=== PATIENT | male | born 1980 | race Caucasian/White ===

== ENCOUNTER 2022-08-03 19:27 | Emergency (ER) | payer BC, SELFPAY ==
[2022-08-03 19:31] VITALS: BP 144/52; PULSE 79; RESP 20; TEMP 37.1; O2SAT 97; BMI 42.1
--- NOTE | 2022-08-03 19:48 | ED_ITS ---
HPI - General Adult General Chief complaint: Animal Bite Stated complaint: CAT BITE Time Seen by Provider: 08/03/22 19:33 Source: patient Mode of arrival: walk-in Limitations: no limitations History of Present Illness HPI narrative: 41-year-old male presents with a chief complaint of a Bite. Patient states he was bitten by his cat last evening. He has the area well marked. He has soft tissue swelling on the right index finger with two or three puncture wounds as well as on the dorsal aspect of the right hand. He has full range of motion. 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 He states his cat is up-to-date on immunizations. He states he does not have pain he is here due to swelling. Tissue swelling is noted from drainage or discharge small puncture wounds are noted. Related Data Allergies Allergy/AdvReac Type Severity Reaction Status Date / Time codeine Allergy Intermediate Verified 08/03/22 19:35 Review of Systems ROS Narrative All Systems are negative except as noted/marked.All systems reviewed and otherwise negative Exam Narrative Exam Narrative: Patient is a All Systems are negative except as noted/marked.All systems reviewed and otherwise negative Nurses note and vital signs reviewed and patient is not hypoxic. General: The patient appears well and in no apparent distress. Patient is res ting comfortably on cart. Skin: Warm, dry, no pallor noted. Head: Normocephalic, atraumatic Eye: Normal conjunctiva, no drainage, EOMI. PERRL Ears, Nose, Mouth, and Throat: oral mucosa is moist. Nares patent. Mouth without vesicles. Ear canals patent. Tm's without Erythema Cardiovascular: Regular Rate and Rhythm Musculoskeletal: Puncture wound right index finger soft tissue swelling full mob ility good pulses distally, puncture wound to the right dorsal aspect of the hand as well no streaking, mild erythema The patient has no evidence of calf tenderness, no pitting edema, symmetrical pulses noted bilaterally Neurological: A&O x4, normal speech Psychiatric: Cooperative Constitutional Vital Signs - 24 hr 08/03/22 19:31 08/03/22 19:50 Temperature 98.7 F Pulse Rate [Monitor] 79 Respiratory Rate 20 18 Blood Pressure [Left Arm] 144/52 H Pulse Oximetry 97 Oxygen Delivery Method Room Air Course Vital Signs Vital signs: Vital Signs Temperature 98.7 F 08/03/22 19:31 Pulse Rate 79 08/03/22 19:31 Respiratory Rate 20 08/03/22 19:31 Blood Pressure 144/52 H 08/03/22 19:31 Pulse Oximetry 97 08/03/22 19:31 Oxygen Delivery Method Room Air 08/03/22 19:31 Temperature 98.7 F 08/03/22 19:31 Pulse Rate 79 08/03/22 19:31 Respiratory Rate 18 08/03/22 19:50 Blood Pressure 144/52 H 08/03/22 19:31 Pulse Oximetry 97 08/03/22 19:31 Oxygen Delivery Method Room Air 08/03/22 19:31 Medical Decision Making MDM Narrative Medical decision making narrative: Patient presents here chief complaint Bite. He states he has had increased swelling throughout the day was bitten by his cat was vaccinated yesterday. Bit es noted to the back of his hand and right index finger. He has full range of motion. Patient has area well marked and circled. Patient was given Augmentin tetanus update here. He'll be discharged home prescription of Augmentin. Denies any for pain medicine. Patient advised return to the emergency room should he have any difficulty moving the hand soft tissue swelling or fevers or the a hundred she agrees. Patient agrees with plan of care. Looks well at discharge Differential Diagnosis Differential Diagnosis: animal bite, cellulitis Discharge Plan Discharge Chief Complaint: Animal Bite Clinical Impression: Cat bite Patient Disposition: Home, Self-Care Time of Disposition Decision: 19:46 Condition: Good Mode of Transportation: Private Vehicle Instructions: Animal Bite (ED) Stand Alone Forms: Portal Instructions Referrals: Physician,Non-Staff, MD [Primary Care Provider] - 1 week Discharge Date/Time: 08/03/22 20:11
--- NOTE | 2022-08-03 19:49 | PC.NURSE ---
Has several small bites near thumb and wrist on right hand. Swollen and red. Good radial pulse.
[2022-08-03 19:50] VITALS: RESP 18
[2022-08-03] MEDS: ADACEL DIPH,PERTUSS(ACELL),TET VAC/PF 0.5 ML ADULT SYRINGE IM (20:04)
== END 2022-08-03 20:11 | disposition home or self-care (01) ==
PROVIDERS: Emergency Provider Emergency Medicine
DX: S61.451A Open bite of right hand, initial encounter (principal); S61.250A Open bite of right index finger without damage to nail, initial encounter; W55.01XA Bitten by cat, initial encounter; Z23 Encounter for immunization
CPT/HCPCS: 90471; 90715; 99284

== ENCOUNTER 2022-12-13 06:37 | Outpatient (OUT) | payer BC, SELFPAY ==
[2022-12-14 04:07] LABS: FSH 4.9 mIU/mL (1.5-12.4)
== END 2022-12-13 06:38 | disposition home or self-care (01) ==
LOC: LAB 06:41
PROVIDERS: PCP Family Medicine
DX: E29.1 Testicular hypofunction (principal)
CPT/HCPCS: 36415; 83001

== ENCOUNTER 2023-07-20 15:06 | Emergency (ER) | payer SELFPAY ==
[2023-07-20 15:11] VITALS: BP 151/86; PULSE 71; TEMP 36.9; O2SAT 94; BMI 43.5
--- OUTSIDE RECORDS SUMMARY | 2023-07-20 15:14 | XMS_ITS | CCD ---
Author Organization [facility] Care Team Providers Care Senior Financial Consultant Name Role Phone Russell Parks Unavailable Unavailable FAWWAD, LEES H Admitting Unavailable FAWWAD, LEES H Attending Unavailable NADERER, DR JAG Painting Primary Care Unavailable FAWWAD, LEES H Consulting Unavailable WEST, DR MARCOS Corral Admitting Unavailable WEST, DR MARCOS Corral Attending Unavailable NADERER, DR JAG Painting Primary Care Unavailable WEST, DR MARCOS Corral Admitting Unavailable WEST, DR MARCOS Corral Attending Unavailable NADERER, DR JAG Painting Primary Care Unavailable WEST, DR MARCOS Corral Consulting Unavailable AICHHOLZ, OPTOMETRIC TECH PAZ Admitting Unavailable AICHHOLZ, OPTOMETRIC TECH PAZ Attending Unavailable NADERER, DR JAG Painting Primary Care Unavailable AICHHOLZ, OPTOMETRIC TECH PAZ Consulting Unavailable ZIEBER, DR JULITO Hendrix Consulting Unavailable AICHHOLZ, OPTOMETRIC TECH PAZ Admitting Unavailable AICHHOLZ, OPTOMETRIC TECH PAZ Attending Unavailable NADERER, DR JAG Painting Primary Care Unavailable AICHHOLZ, OPTOMETRIC TECH PAZ Consulting Unavailable WEST, DR MARCOS Corral Admitting Unavailable WEST, DR MARCOS Corral Attending Unavailable NADERER, DR JAG Painting Primary Care Unavailable WEST, DR MARCOS Corral Admitting Unavailable WEST, DR MARCOS Corral Attending Unavailable NADERER, DR JAG Painting Primary Care Unavailable FAWWAD, LEES H Admitting Unavailable FAWWAD, LEES H Attending Unavailable NADERER, DR JAG Painting Primary Care Unavailable WEST, DR MARCOS Corral Consulting Unavailable FAWWAD, LEES H Admitting Unavailable FAWWAD, LEES H Attending Unavailable NADERER, DR JAG Painting Primary Care Unavailable WEST, DR MARCOS Corral Consulting Unavailable FAWWAD, LEES H Consulting Unavailable WEST, DR MARCOS Corral Admitting Unavailable WEST, DR MARCOS Corral Attending Unavailable NADERER, DR JAG Painting Primary Care Unavailable WEST, DR MARCOS Corral Consulting Unavailable ZIEBER, DR JULITO Hendrix Consulting Unavailable NADERER, DR JAG Painting Primary Care Unavailable WEST, DR MARCOS Corral Consulting Unavailable WEST, DR MARCOS Corral Admitting Unavailable WEST, DR MARCOS Corral Attending Unavailable WEST, DR MARCOS Corral Admitting Unavailable WEST, DR MARCOS Corral Attending Unavailable NADERER, DR JAG Painting Primary Care Unavailable WEST, DR MARCOS Corral Consulting Unavailable WEST, DR MARCOS Corral Admitting Unavailable WEST, DR MARCOS Corral Attending Unavailable NADERER, DR JAG Painting Primary Care Unavailable WEST, DR MARCOS Corral Consulting Unavailable ZIEBER, DR JULITO Hendrix Consulting Unavailable WEST, DR MARCOS Corral Admitting Unavailable WEST, DR MARCOS Corral Attending Unavailable NADERER, DR JAG Painting Primary Care Unavailable WEST, DR MARCOS Corral Consulting Unavailable WEST, DR MARCOS Corral Admitting Unavailable WEST, DR MARCOS Corral Attending Unavailable NADERER, DR JAG Painting Primary Care Unavailable FAWWAD, LEES H Admitting Unavailable FAWWAD, LEES H Attending Unavailable NADERER, DR JAG Painting Primary Care Unavailable WEST, DR MARCOS Corral Consulting Unavailable FAWWAD, LEES H Consulting Unavailable FAWWAD, LEES H Admitting Unavailable FAWWAD, LEES H Attending Unavailable NADERER, DR JAG Painting Primary Care Unavailable FAWWAD, LEES H Consulting Unavailable NADERER, DR JAG Painting Primary Care Unavailable RODOLFO, DAYSI Admitting Unavailable RODOLFO, DAYSI Attending Unavailable GILESCHSTEPHANIE ., VIRGIL DAWSON Consulting UnavailMARCOS Bo Unavailable FAWWAD, ELES H Admitting Unavailable FAWWAD, LEES H Attending Unavailable NADERER, DR JAG Painting Primary Care Unavailable WEST, DR MARCOS Corral Consulting Unavailable FAWWAD, LEES H Consulting Unavailable WEST, DR MARCOS Corral Admitting Unavailable WEST, DR MARCOS Corral Attending Unavailable NADERER, DR JAG Painting Primary Care Unavailable WEST, DR MARCOS Corral Consulting Unavailable WEST, DR MARCOS Corral Admitting Unavailable WEST, DR MARCOS Corral Attending Unavailable NADERER, DR JAG Painting Primary Care Unavailable WEST, DR MARCOS Corral Consulting Unavailable NADERER, DR JAG Painting Primary Care Unavailable CHRISTOPH ., KAL Admitting Unavailable CHRISTOPH ., KAL Attending Unavailable CHRISTOPH ., KAL Consulting Unavailable FAWWAD, LEES H Admitting Unavailable FAWWAD, LEES H Attending Unavailable NADERER, DR JAG Painting Primary Care Unavailable FAWWAD, LEES H Admitting Unavailable FAWWAD, LEES H Attending Unavailable NADERER, DR JAG Painting Primary Care Unavailable WEST, DR MARCOS Corral Consulting Unavailable SHAIKH Linh JONES Consulting Unavailable ESCALON, DR MARCOS Corral Admitting Unavailable ESCALON, DR MARCOS Corral Attending Unavailable DR JAG FRANKEL Primary Care Unavailable ESCALON, DR MARCOS Corral Consulting Unavailable LexyClaudio white Unavailable Allergies Allergy Classification Reported Allergen(s) Allergy Type Date of Onset Reaction(s) Facility (2 sources) Codeine Drug Allergy 11-25-2012 [facility] Repository (2 sources) Codeine Drug Allergy Unknown False Pass Notable Limited Other Medications Current Medications Medication Drug Class(es) Dates Sig (Normalized) Sig (Original) ALPRAZolam 0.25 mg oral tablet (2 sources) Benzodiazepine take 1 tablet by mouth every twelve hours ALPRAZolam 0.25 MG 1 tablet Orally Twice a day Active escitalopram 5 mg oral tablet (2 sources) Serotonin Reuptake Inhibitor take 1 tablet by mouth every twenty-four hours Escitalopram Oxalate 5 MG 1 tablet Orally Once a day Active furosemide 20 mg oral tablet (2 sources) Loop Diuretic take 1 tablet by mouth every twenty-four hours Furosemide 20 MG 1 tablet Orally Once a day Active lisinopril 10 mg oral tablet (2 sources) Angiotensin Converting Enzyme Inhibitor take 1 tablet by mouth every twenty-four hours Lisinopril 10 MG 1 tablet Orally Once a day Active Problems Active Problems Problem Classification Problem Date Documented Date Episodic/Chronic Essential hypertension (1 source) Essential (primary) hypertension; Translations: [ESSENTIAL PRIMARY HYPERTENSION] Onset: 11-17-2021 Chronic Other connective tissue disease (4 sources) Other specified soft tissue disorders; Translations: [OTHER SPEC SOFT TISSUE DISORDERS] Onset: 03-06-2022 Episodic Other connective tissue disease (3 sources) Pain in left leg; Translations: [PAIN IN LEFT LEG] Onset: 02-23-2022 Episodic Other nervous system disorders (2 sources) Chronic pain; Translations: [Other chronic pain] Chronic Other nervous system disorders (1 source) Other chronic pain Chronic Residual codes; unclassified (5 sources) Localized edema; Translations: [LOCALIZED EDEMA] Onset: 09-21-2021 Episodic Skin and subcutaneous tissue infections (1 source) Cellulitis of left lower limb; Translations: [CELLULITIS OF LEFT LOWER LIMB] Onset: 02-27-2022 Episodic Spondylosis; intervertebral disc disorders; other back problems (11 sources) Other intervertebral disc displacement, lumbar region; Translations: [Spondylosis without myelopathy or radiculopathy, thoracic region] Onset: 09-21-2021 Chronic Substance-related disorders (1 source) Nicotine dependence, cigarettes, uncomplicated; Translations: [NICOTINE DEPEND CIGARETTES UNCOMP] Onset: 02-27-2022 Chronic Unclassified (4 sources) LOW BACK PAIN, UNSPECIFIED; Translations: [LOW BACK PAIN, UNSPECIFIED] Onset: 10-29-2021 Varicose veins of lower extremity (5 sources) Varicose veins of bilateral lower extremities with pain; Translations: [VARICOSE VNS TOR LOW EXTREM W/PAIN] Onset: 11-17-2021 Episodic Past or Other Problems Problem Classification Problem Date Documented Da te Episodic/Chronic Deficiency and other anemia (4 sources) Anemia, unspecified; Translations: [ANEMIA UNSPECIFIED] Onset: 2 Episodic E Codes: Overexertion (1 source) Slipping, tripping and stumbling without falling due to stepping into hole or opening, initial encounter; Translations: [SLIP STUMBL NO FALL STEP HOLE INIT] Onset: 2 Episodic Other lower respiratory disease (4 sources) Other forms of dyspnea; Translations: [OTHER FORMS OF DYSPNEA] Onset: 2 Episodic Other non-traumatic joint disorders (3 sources) Pain in right ankle and joints of right foot; Translations: [PAIN IN RIGHT ANKLE] Onset: 2 Episodic Other screening for suspected conditions (not mental disorders or infectious disease) (2 sources) Encounter for screening for lipoid disorders; Translations: [Encounter for screening for diabetes mellitus] Onset: 2 Episodic Phlebitis; thrombophlebitis and thromboembolism (12 sources) Phlebitis and thrombophlebitis of superficial vessels of lower extremities, bilateral; Translations: [Phlebitis and thrombophlebitis of superficial vessels of left lower extremity] Onset: 2 Episodic Residual codes; unclassified (1 source) Edema, unspecified; Translations: [EDEMA UNSPECIFIED] Onset: 2 Episodic Spondylosis; intervertebral disc disorders; other back problems (8 sources) Spinal stenosis, lumbar region with neurogenic claudication; Translations: [Pain in thoracic spine] Onset: 2 Episodic Sprains and strains (1 source) Sprain of unspecified ligament of right ankle, initial encounter; Translations: [SPRAIN UNS LIGAMENT RT ANKLE INIT] Onset: 2 Episodic Unclassified (1 source) LOW BACK PAIN, UNSPECIFIED; Translations: [LOW BACK PAIN, UNSPECIFIED] Onset: 3 Results Test Name Value Interpretation Reference Range Facility PROF CHEM 8 (BAS METB)on Anion gap [Moles/Vol] 11.1 mmol/L Normal [facility] Comment on above: Performed By: #### F ETIBC, FERR #### [facility] [address] [place] [address] Dr. Geovani Mcclendon Calcium [Mass/Vol] 9.1 mg/dL Normal 8.5-10.1 [facility] Comment on above: Performed By: #### F ETIBC, FERR #### [facility] [address] [place] [address] Dr. Geovani Mcclendon Chloride [Moles/Vol] 107 mmol/L Normal 98-107 [facility] Comment on above: Performed By: #### F ETIBC, FERR #### [facility] [address] [place] [address] Dr. Geovani Mcclendon CO2 [Moles/Vol] 30.3 mmol/L Normal 21.0-32.0 [facility] Comment on above: Performed By: #### F ETIBC, FERR #### [facility] [address] [place] [address] Dr. Geovani Mcclendon Creatinine [Mass/Vol] 0.81 mg/dL Normal 0.70-1.30 [facility] Comment on above: Performed By: #### F ETIBC, FERR #### [facility] [address] [address] [address] Geovani Mcclendon EGFR-AF MONGOLIAN >60 Normal >=60 [facility] Comment on above: Performed By: #### F ETIBC, FERR #### [facility] [address] [address] [address] Geovani Mcclendon EGFR-NON AF MONGOLIAN >60 Normal >=60 [facility] Comment on above: Performed By: #### F ETIBC, FERR #### [facility] [address] [place] [address] Dr. Geovani Mcclendon Glucose [Mass/Vol] 100 mg/dL Normal 74-106 [facility] Comment on above: Performed By: #### F ETIBC, FERR #### [facility] [address] [place] [address] Dr. Geovani Mcclendon Potassium [Moles/Vol] 4.4 mmol/L Normal 3.5-5.1 [facility] Comment on above: Performed By: #### F ETIBC, FERR #### [facility] [address] [place] [address] Dr. Geovani Mcclendon Sodium [Moles/Vol] 144 mmol/L Normal 136-145 [facility] Comment on above: Performed By: #### F ETIBC, FERR #### [facility] [address] [place] [address] Dr. Geovani Mcclendon Urea nitrogen [Mass/Vol] 17.0 mg/dL Normal 7.0-18.0 [facility] Comment on above: Performed By: #### F ETIBC, FERR #### [facility] [address] [place] [address] Dr. Geovani Mcclendon Urea nitrogen/Creatinine [Mass ratio] 21.0 mg/mg Normal [facility] Comment on above: Performed By: #### F ETIBC, FERR #### [facility] [address] [place] [address] Dr. Geovani Mcclendon MRI [facility] CONon 03-09-19 23 MRI [facility] CON EXAMINATION: MRI [facility] CON HISTORY: Low back pain COMPARISON: No relevant comparison available. TECHNIQUE: A variety of imaging planes and parameters were utilized for visualization of suspected pathology. FINDINGS: For the purposes of numbering, sagittal T2 image # 8 extends from the T11 vertebral body superiorly to the S3 level inferiorly. PARASPINAL AREA: Normal with no visible mass. BONES: 5 mm anterolisthesis of L5 in relation to S1 with bilateral L5 pars interarticularis fractures. No acute fracture or bone edema. CORD/CAUDA EQUINA: Normal caliber, contour, and signal intensity. DISC LEVELS: 12-L1: No significant disc/facet abnormality, spinal stenosis, or foraminal stenosis. L1-L2: No significant disc/facet abnormality, spinal stenosis, or foraminal stenosis. L2-L3: No significant disc/facet abnormality, spinal stenosis, or foraminal stenosis. L3-L4: No significant disc/facet abnormality, spinal stenosis, or foraminal stenosis. L4-L5: Moderate disc space narrowing and disc desiccation. Posterior broad-based disc herniation of the protrusion type with inferior migration this extends posteriorly up to 4 mm with inferior migration up to 4.5 mm. This abuts but does not efface the adjacent nerves. No central or foraminal stenosis L5-S1: Disc space narrowing and disc desiccation. Mild diffuse disc bulge/pseudobulge with spondylosis. Bilateral facet osteoarthropathy. No central canal stenosis. No significant foraminal stenosis IMPRESSION: Bilateral L5 pars interarticularis fractures at 5 mm anterolisthesis of L5 on S1 Moderate posterior disc herniation of the protrusion type with a subligamentous component at L4-L5 Electronically authenticated by: MARCOS VALDEZ Date: 2022-03-09 08:35 Normal [facility] US XANDER DOP LEG LTon 03-06-19 23 US XANDER DOP LEG LT EXAMINATION: US XANDER DOP LEG LT HISTORY: Disorder of soft tissue ; left leg swelling for several months COMPARISON: No relevant comparison available. FINDINGS: REGION: Left lower extremity THROMBI: None. COMPRESSIBILITY: Normal compressibility. FLOW: Normal waveform and antegrade flow between 5 and 20 cm/s. OTHER: Prior treatment closure of the great saphenous vein and multiple superficial varicosities. IMPRESSION: 1. No deep vein thrombus within the left lower extremity. Electronically authenticated by: JULITO MAY Date: 2022-03-06 14:57 Normal [facility] CBC AUTO DIFFon 02-24-2022 BASO # 0.0 103/ul Normal 0.0-0.1 [facility] Comment on above: Performed By: #### C BC #### [facility] [address] [address] [address] Geovani Mcclendon Basophils/100 WBC (Bld) 0.5 % Normal 0.2-2.0 [facility] Comment on above: Performed By: #### C BC #### [facility] [address] [address] [address] Geovani Mcclendon EO # 0.2 103/ul Normal 0.0-0.7 [facility] Comment on above: Performed By: #### C BC #### [facility] [address] [place] [address] Dr. Geovani Mcclendon Eosinophils/100 WBC (Bld) 1.9 % Normal 0.9-7.0 [facility] Comment on above: Performed By: #### C BC #### [facility] [address] [place] [address] Dr. Geovani Mcclendon Erythrocyte distribution width (RBC) [Ratio] 13.2 % Normal 11.0-15.0 [facility] Comment on above: Performed By: #### C BC #### [facility] [address] [place] [address] Dr. Geovani Mcclendon Hematocrit (Bld) [Volume fraction] 37.9 % Critically low 42.0-54.0 [facility] Comment on above: Performed By: #### C BC #### [facility] [address] [place] [address] Dr. Geovani Mcclendon Hemoglobin (Bld) [Mass/Vol] 12.9 g/dL Critically low 14.0-18.0 [facility] Comment on above: Performed By: #### C BC #### [facility] [address] [place] [address] Dr. Geovani Mcclendon IG # 0.03 10e3/ul Normal 0.00-0.03 [facility] Comment on above: Performed By: #### C BC #### [facility] [address] [place] [address] Dr. Geovani Mcclendon IG % 0.4 % Normal 0.0-0.5 [facility] Comment on above: Performed By: #### C BC #### [facility] [address] [place] [address] Dr. Geovani Mcclendon LYMPH # 1.9 103/ul Normal 1.2-3.8 [facility] Comment on above: Performed By: #### C BC #### [facility] [address] [place] [address] Dr. Geovani Mcclendon Lymphocytes/100 WBC (Bld) 24.8 % Normal 20.5-60.0 [facility] Comment on above: Performed By: #### C BC #### [facility] [address] [place] [address] Dr. Geovani Mcclendon MANUAL DIFF REQ NO Normal [facility] Comment on above: Performed By: #### C BC #### [facility] [address] [place] [address] Dr. Geovani Mcclendon MCH (RBC) [Entitic mass] 28.0 pg Normal 25.9-34.0 [facility] Comment on above: Performed By: #### C BC #### [facility] [address] [place] [address] Dr. Geovani Mcclendon MCHC (RBC) [Mass/Vol] 34.0 g/dL Normal 29.9-35.2 [facility] Comment on above: Performed By: #### C BC #### [facility] [address] [place] [address] Dr. Geovani Mcclendon MCV (RBC) [Entitic vol] 82.2 fL Normal 80.0-94.0 [facility] Comment on above: Performed By: #### C BC #### [facility] [address] [place] [address] Dr. Geovani Mcclendon MONO # 0.7 103/ul Normal 0.3-0.8 [facility] Comment on above: Performed By: #### C BC #### [facility] [address] [place] [address] Dr. Geovani Mcclendon Monocytes/100 WBC (Bld) 8.6 % Normal 1.7-12.0 [facility] Comment on above: Performed By: #### C BC #### [facility] [address] [place] [address] Dr. Geovani Mcclendon NEUT # 4.9 103/ul Normal 1.4-6.5 [facility] Comment on above: Performed By: #### C BC #### [facility] [address] [place] [address] Dr. Geovani Mcclendon Neutrophils/100 WBC (Bld) 63.8 % Normal 43.0-75.0 [facility] Comment on above: Performed By: #### C BC #### [facility] [address] [place] [address] Dr. Geovani Mcclendon Platelet mean volume (Bld) [Entitic vol] 9.1 fL Critically low 9.5-13.5 [facility] Comment on above: Performed By: #### C BC #### [facility] [address] [place] [address] Dr. Geovani Mcclendon PLT 293 103/ul Normal 150-450 [facility] Comment on above: Performed By: #### C BC #### [facility] [address] [place] [address] Dr. Geovani Mcclendon RBC 4.61 106/ul Critically low 4.70-6.10 [facility] Comment on above: Performed By: #### C BC #### [facility] [address] [place] [address] Dr. Geovani Mcclendon WBC 7.7 103/ul Normal 4.0-11.0 [facility] Comment on above: Performed By: #### C BC #### [facility] [address] [place] [address] Dr. Geovani Mcclendon CRPon 02-24-2022 CRP 4.7 mg/dL Critically high <=1.0 [facility] Comment on above: Performed By: #### F ETIBC, FERR #### [facility] [address] [place] [address] Dr. Geovani Mcclendon D-DIMERon 02-24-2022 D-DIMER 0.32 mg/L FEU Normal <=0.59 [facility] Comment on above: Performed By: #### P T, DDIM, PTT #### [facility] [address] [place] [address] Dr. Geovani Mcclendon D-DIMER COMMENTS SEE BELOW Normal [facility] Comment on above: Result Comment: Incr eases in D-Dimer concentration observed with thromboembolic events can be variable due to localization, size, and age of the thrombus. Therefore, a thromboembolic event cannot be diagnosed with certainty on the basis of the reference range. D-Dimers may also be elevated for a variety of disorders including: advanced age, , coronary disease, cancer, liver disease, infection, inflammation, hematoma, DIC, trauma, post-surgery, diabetes, thrombolytic or anticoagulant therapy, stress, and generalized hospitalization. Performed By: #### P T, DDIM, PTT #### [facility] [address] [place] [address] Dr. Geovani Mcclendon PROF CHEM 8 (BAS METB)on Anion gap [Moles/Vol] 10.6 mmol/L Normal [facility] Comment on above: Performed By: #### F ETIBC, FERR #### [facility] [address] [place] [address] Dr. Geovani Mcclendon Calcium [Mass/Vol] 8.8 mg/dL Normal 8.5-10.1 [facility] Comment on above: Performed By: #### F ETIBC, FERR #### [facility] [address] [place] [address] Dr. Geovani Mcclendon Chloride [Moles/Vol] 100 mmol/L Normal 98-107 [facility] Comment on above: Performed By: #### F ETIBC, FERR #### [facility] [address] [place] [address] Dr. Geovani Mcclendon CO2 [Moles/Vol] 31.8 mmol/L Normal 21.0-32.0 [facility] Comment on above: Performed By: #### F ETIBC, FERR #### [facility] [address] [place] [address] Dr. Geovani Mcclendon Creatinine [Mass/Vol] 1.01 mg/dL Normal 0.70-1.30 [facility] Comment on above: Performed By: #### F ETIBC, FERR #### [facility] [address] [place] [address] Dr. Geovani Mcclendon EGFR-AF MONGOLIAN >60 Normal >=60 [facility] Comment on above: Performed By: #### F ETIBC, FERR #### [facility] [address] [place] [address] Dr. Geovani Mcclendon EGFR-NON AF MONGOLIAN >60 Normal >=60 [facility] Comment on above: Performed By: #### F ETIBC, FERR #### [facility] [address] [address] [address] Geovani Mcclendon Glucose [Mass/Vol] 109 mg/dL Critically high 74-106 [facility] Comment on above: Performed By: #### F ETIBC, FERR #### [facility] [address] [place] [address] Dr. Geovani Mcclendon Potassium [Moles/Vol] 3.4 mmol/L Critically low 3.5-5.1 [facility] Comment on above: Performed By: #### F ETIBC, FERR #### [facility] [address] [place] [address] Dr. Geovani Mcclendon Sodium [Moles/Vol] 139 mmol/L Normal 136-145 [facility] Comment on above: Performed By: #### F ETIBC, FERR #### [facility] [address] [place] [address] Dr. Geovani Mcclendon Urea nitrogen [Mass/Vol] 17.0 mg/dL Normal 7.0-18.0 [facility] Comment on above: Performed By: #### F ETIBC, FERR #### [facility] [address] [place] [address] Dr. Geovani Mcclendon Urea nitrogen/Creatinine [Mass ratio] 16.8 mg/mg Normal [facility] Comment on above: Performed By: #### F ETIBC, FERR #### [facility] [address] [place] [address] Dr. Geovani Mcclendon PROTIMEon 02-24-2022 INR Coag (PPP) [Relative time] 0.98 {INR} Normal [facility] Comment on above: Performed By: #### P T, DDIM, PTT #### [facility] [address] [place] [address] Dr. Geovani Mcclendon INR GUIDELINES SEE BELOW Normal [facility] Comment on above: Result Comment: SACHIN RED INR: 2.0 - 3.0 CONDITIONS NOT LISTED BELOW 2.5 - 3.5 FOR PROSTHETIC HEART VALVE REPLACEMENT 2.5 - 3.5 RECURRENT THROMBOSIS Performed By: #### P T, DDIM, PTT #### [facility] [address] [place] [address] Dr. Geovani Mcclendon PT Coag (PPP) [Time] 10.4 s Normal 9.0-11.6 [facility] Comment on above: Performed By: #### P T, DDIM, PTT #### [facility] [address] [place] [address] Dr. Geovani Mcclendon PTTon 02-24-2022 aPTT Coag (Bld) [Time] 30.7 s Normal 22.3-36.2 [facility] Comment on above: Performed By: #### P T, DDIM, PTT #### [facility] [address] [place] [address] Dr. [facility] mm/hr Critically high <=15 [facility] Comment on above: Performed By: #### F ETIBC, FERR #### [facility] [address] [place] [address] Dr. Geovani Mcclendon VC INJ SCL [employer]TER[employer]ISE INTEGRATOR VEINSon 1 03-05-2021 VC INJ SCL [employer]TER[employer] INTEGRATOR VEINS Patient: MARCOS HARE V. Exam Date: 01/03/2022 : 1980 Gender:M Ordering : DR MARCOS VALDEZ M.D. Admission #: [id number] Family : Order #: [id number] CLICK HERE TO VIEW EXAM RADIOLOGY REPORT PROCEDURE: VEIN CENTER INJECTION SCLEROSING SOLUTION MULTIPLE VEINS SAME COMPARISON: VC INJ SCL [employer]TERPRISE INTEGRATOR VEINS, 12/27/2021. INDICATIONS: Pain co-occurrent and due to varicose veins of bilateral legs I83.813 PROCEDURE NOTE: The risks and benefits of the procedure were explained at length to the patient and informed written consent was obtained. Huseyin Quan R.N. was present and assisted. The procedure was performed under sterile technique. The patient's leg was wrapped with Coban and postprocedural verbal and written instructions provided. SCLEROSANT: 2 cc, 0.5% polidocanol VEIN(S) INJECTED: 21 veins in the left leg VISUALIZATION: Ultrasound was not used to visualize the sclerosant ANESTHESIA Supercooled air COMPLICATIONS: None CONCLUSION: 1. Technically successful sclerotherapy as described Dictated by: Julito May M.D. on 01/03/2022 at 11:55 Approved by: Julito May M.D. on 01/03/2022 at 11:58 Normal [facility] VC INJ SCL [employer]TERPRISE INTEGRATOR VEINSon 1 02-26-2021 VC INJ SCL [employer] INTEGRATOR VEINS Patient: MARCOS HARE V. Exam Date: 12/27/2021 : 1980 Gender:M Ordering : DR MARCOS VALDEZ M.D. Admission #: [id number] Family : Order #: [id number] CLICK HERE TO VIEW EXAM RADIOLOGY REPORT PROCEDURE: VEIN CENTER INJECTION SCLEROSING SOLUTION MULTIPLE VEINS SAME COMPARISON: None. INDICATIONS: Pain co-occurrent and due to varicose veins of bilateral legs I83.813 PROCEDURE NOTE: The risks and benefits of the procedure were explained at length to the patient and informed written consent was obtained. Huseyin Quan was present and assisted. The procedure was performed under sterile technique. The patient's leg was wrapped with Coban and postprocedural verbal and written instructions provided. SCLEROSANT: 4 cc, 0.5% polidocanol VEIN(S) INJECTED: 16 veins in the right leg VISUALIZATION: Ultrasound was not used to visualize the sclerosant ANESTHESIA Supercooled air COMPLICATIONS: None CONCLUSION: 1. Technically successful sclerotherapy as described Dictated by: Marcos Valdez MD on 12/27/2021 at 09:13 Approved by: Marcos Valdez MD on 12/27/2021 at 09:14 Normal [facility] VC CONSULT FOLLOWUPon 2021 VC CONSULT FOLLOWUP Patient: PAYAM DEVONTE Concepcion Exam Date: 12/25/2021 : 1980 Gender:M Ordering : DR MARCOS VALDEZ M.D. Admission #: [id number] Family : Order #: [id number] CLICK HERE TO VIEW EXAM RADIOLOGY REPORT PROCEDURE: VEIN CENTER CONSULTATION FOLLOWUP VEIN CENTER - OFFICE VISIT FOLLOW UP COMPARISON: VC CONSULT FOLLOWUP, 12/05/2021. VC CONSULT FOLLOWUP, 11/21/2021. PROGRESS NOTES: The patient reports no significant pain following micro foam chemical ablation of both legs. The patient did not require oral analgesics. The patient did wear his compression stocking. The patient has followed our recommendations to walk 20-30 minutes once or twice per day since the procedure. The patient reports marked improvement in his initial presenting symptoms with reduction in subcutaneous edema. Physical exam demonstrates bilateral reticular and spider veins. Review of the ultrasound performed the same day demonstrates occlusive thrombus extending throughout the treated varicose veins. No significant varicose veins remain. The patient expressed a desire to proceed with treatment of reticular and spider veins with injection sclerotherapy. IMPRESSION: 1. Successful ablation of incompetent varicose veins 2. Persistent bilateral reticular and spider veins PLAN: Injection sclerotherapy Nurse notes, history and physical were reviewed and confirmed, see attached forms. The nurse was present throughout the physical exam and consultation Dictated by: Marcos Valdez MD on 12/25/2021 at 08:26 Approved by: Marcos Valdez MD on 12/25/2021 at 08:34 Normal [facility] VC EXT VENOUS TOR LIMITEDon 12-25-2021 VC EXT VENOUS TOR LIMITED Patient: PAYAM MARCOS Jamey Exam Date: 12/25/2021 : 1980 Gender:M Ordering : DR MARCOS VALDEZ M.D. Admission #: [id number] Family : Order #: [id number] CLICK HERE TO VIEW EXAM RADIOLOGY REPORT PROCEDURE: VEIN CENTER EXTREMITY VENOUS BILATERAL LIMITED COMPARISON: None. INDICATIONS: Phlebitis and thrombophlebitis of superficial veins of lower bilateral extremity I80.03 TECHNIQUE: Lower extremity zelaya scale and Duplex Doppler evaluation of the deep venous system from the inguinal ligament through the calf veins. FINDINGS: REGION: Right lower extremity. THROMBI: Acute occlusive thrombus. Negative for DVT. COMPRESSIBILITY: Non-compressible segments. FLOW: Areas on no flow. OTHER: Patent varicose vein on the distal anterior lower leg measures 2.6 mm with 1.1s of reflux. Patent infrasaphenous vein measures 4.9 mm with 2.1s of reflux. REGION: Left lower extremity. THROMBI: Acute non-occlusive thrombus. Negative for DVT. COMPRESSIBILITY: Non-compressible segments. FLOW: Areas on no flow. OTHER: Patent varicose vein on the lateral medial/posterior knee measures 4 mm with 0.8s of reflux. *Exam performed in accordance with [facility] practice guidelines- Peripheral venous ultrasound, May 07, 2009. CONCLUSION: Occlusion of treated varicose veins. Dictated by: Marcos Valdez MD on 12/25/2021 at 08:13 Approved by: Marcos Valdez MD on 12/25/2021 at 08:14 Normal [facility] VC INJ FOAM SCLERO W US MLTI on 12-19-2021 VC INJ FOAM SCLERO W US MLTI Patient: MARCOS HARE V. Exam Date: 12/19/2021 : 1980 Gender:M Ordering : DR MARCOS VALDEZ M.D. Admission #: [id number] Family : Order #: [id number] CLICK HERE TO VIEW EXAM RADIOLOGY REPORT PROCEDURE: VEIN CENTER INJECTION FOAM SCLEROSING SOLUTION WITH ULTRASOUND MULTIPLE VEINS COMPARISON: VC INJ FOAM SCLERO W US MLTI, 12/15/2021. Pre-operative Diagnosis: CEAP class C3 venous insufficiency with pain, tenderness, edema and incompetent left great saphenous vein and branch saphenous tributary/varicose veins, chronic venous insufficiency left leg secondary to venous incompetence Post-operative Diagnosis: CEAP class C3 venous insufficiency with pain, tenderness, edema and incompetent left great saphenous vein and branch saphenous tributary/varicose veins, chronic venous insufficiency left leg secondary to venous incompetence Procedure Performed: 1. Ultrasound-guided microfoam chemical ablation with Varithena(r) 2. Intraoperative ultrasound guidance Physician: Marcos Valdez M.D. Anesthesia: None Indications for Procedure: 41-year-old male who presents with a 2 year history of pain swelling and varicose veins. The patient failed conservative medical therapy including medical compression stockings, exercise and analgesics. Prior procedures include venous laser ablation Multiple incompetent varicosities of the left leg. Duplex scan showed reflux and enlarged diameters up to 4 mm. The patient underwent informed consent including management options where the complications of infection, bleeding, pain, and skin injury were discussed. Particular attention was spent discussing thrombus extension and deep vein thrombosis as well as the possibility of pulmonary embolus and treatment with oral or injectable blood thinners. Procedure: The patient walked to the procedure room. All applicable staff donned appropriate apparel. A procedure timeout was performed to confirm correct patient, correct extremity, correct procedure, and correct room set-up including presence of all applicable supplies, devices, and drugs. A duplex ultrasound, performed by myself confirmed the location and incompetence of veins and their course marked on the skin together with the dilated tributaries. The extent of treatment of the vein and the associated varicosities was determined through ultrasound mapping. The patient was placed on the operating room table. The limb was prepped. The skin was punctured with a butterfly needle through the anesthetized skin with the venous access needle and advanced under ultrasound guidance. The target limb was positioned at 45 degrees of elevation in relation to the torso. The Varithena(r) canister was previously activated and the canister was primed and purged as required in the instructions for use. The following injections were made 6 mL aliquot of Varithena(r) was drawn into a sterile syringe. Injection into a 4 mm varicose vein distal medial left lower leg 4 ml aliquot of Varithena drawn into a sterile syringe. Injection into a 4 mm varicose vein distal medial left thigh. Varithena(r) was slowly administered at 0.5-1.0 cc/second with close observation by ultrasound of its course in the injected veins. A total volume of 10 mL of Varithena(r) was used. During administration of Varithena(r), the patient was asked to dorsiflex the ankle to limit flow of Varithena(r) into perforating veins. Once appropriate spasm had been confirmed in the treated veins, the vascular catheter was removed from the leg and light pressure was applied over the puncture site for hemostasis The common femoral and deep superficial veins were then evaluated for flow and compressibility prior to dressing placement. The lower extremity was kept elevated at 45 degrees above the horizontal and cording material was applied over the saphenous segments and tributaries to allow for eccentric compression over the target vessels including the targeted saphenous vein(s). A multilayer dressing was applied consisting of foam pads, coban and thigh-high 20-30 mm Hg compression elastic support hose were placed on the patient. The leg was lowered only after compression had been applied and the patient was immediately ambulatory. The patient ambulated 10 minutes under supervision and was without apparent concerns at time of release Post-care instructions include advising patient to keep post-treatment bandages in place and dry for 48 hours, avoid extended periods of inactivity, avoid heavy exercise for one week, wear compression stockings on the treated leg continuously for two weeks, to walk daily for 10 minutes over the next month. The patient was instructed to take an anti-inflammatory medicine as needed and to follow up for color duplex scan of the GSV, the treated superficial varices, the adjacent deep veins, and additional treatment within 7 days. The patient tolerated the procedu (more content not included)... Normal [facility] VC INJ FOAM SCLERO W US MLTI on 12-15-2021 VC INJ FOAM SCLERO W US MLTI Patient: MARCOS HARE V. Exam Date: 12/15/2021 : 1980 Gender:M Ordering : DR MARCOS VALDEZ M.D. Admission #: [id number] Family : Order #: [id number] CLICK HERE TO VIEW EXAM RADIOLOGY REPORT PROCEDURE: VEIN CENTER INJECTION FOAM SCLEROSING SOLUTION WITH ULTRASOUND MULTIPLE VEINS COMPARISON: VC COMP CONSULTATION, 10/10/2021. Pre-operative Diagnosis: CEAP class C3 venous insufficiency with pain, tenderness, edema and incompetent right great saphenous vein and branch saphenous tributaries and varicose veins, chronic venous insufficiency right leg secondary to venous incompetence Post-operative Diagnosis: CEAP class C3 venous insufficiency with pain, tenderness, edema and incompetent right great saphenous vein and branch saphenous tributaries and varicose veins, chronic venous insufficiency right leg secondary to venous incompetence Procedure Performed: 1. Ultrasound-guided microfoam chemical ablation with Varithena(r) 2. Intraoperative ultrasound guidance Physician: Marcos Valdez M.D. Anesthesia: Non Indications for Procedure: 41-year-old male who presents with a 2 year history of pain swelling and varicose veins. The patient failed conservative medical therapy including medical compression stockings, exercise and analgesics. Prior procedures include intravenous laser ablation. Multiple incompetent varicosities of the right leg. Duplex scan showed reflux and enlarged diameters up to 5 mm. The patient underwent informed consent including management options where the complications of infection, bleeding, pain, and skin injury were discussed. Particular attention was spent discussing thrombus extension and deep vein thrombosis as well as the possibility of pulmonary embolus and treatment with oral or injectable blood thinners. Procedure: The patient walked to the procedure room. All applicable staff donned appropriate apparel. A procedure timeout was performed to confirm correct patient, correct extremity, correct procedure, and correct room set-up including presence of all applicable supplies, devices, and drugs. A duplex ultrasound, performed by myself confirmed the location and incompetence of right leg varicose veins and their course marked on the skin together with the dilated tributaries. The extent of treatment of the vein and the associated varicosities was determined through ultrasound mapping. The patient was placed on the operating room table. The limb was prepped. The skin was punctured with a butterfly needle through the skin with the venous access needle and advanced under ultrasound guidance. The target limb was positioned at 45 degrees of elevation in relation to the torso utilizing a foam pad. The Varithena(r) canister was previously activated and the canister was primed and purged as required in the instructions for use. The following injections were made: 6 mL aliquot of Varithena(r) was drawn into a sterile syringe. Injection into a 5 mm incompetent distal right great saphenous vein at the level of the ankle. Pressure was held on a perforating vein to prevent foam into the deep vein system. 6 mL aliquot of Varithena(r) was drawn into a sterile syringe. Injection into a 4 mm varicose vein distal anterior thigh. 3 mL aliquot of Varithena(r) was drawn into a sterile syringe. Injection into a 3 mm varicose vein lateral mid lower leg Varithena(r) was slowly administered at 0.5-1.0 cc/second with close observation by ultrasound of its course in the GSV and injected veins. A total volume of 15 mL of Varithena(r) was used. During administration of Varithena(r), the patient was asked to dorsiflex the ankle to limit flow of Varithena(r) into perforating veins. Once appropriate spasm had been confirmed in the treated veins, the vascular catheter was removed from the leg and light pressure was applied over the puncture site for hemostasis The common femoral and deep superficial veins were then evaluated for flow and compressibility prior to dressing placement. The lower extremity was kept elevated at 45 degrees above the horizontal and cording material was applied over the saphenous segments and tributaries to allow for eccentric compression over the target vessels including the targeted saphenous vein(s). A multilayer dressing was applied consisting of foam pads, coban and thigh-high 20-30 mm Hg compression elastic support hose were placed on the patient. The leg was lowered only after compression had been applied and the patient was immediately ambulatory. The patient ambulated 10 minutes under supervision and was without apparent concerns at time of release Post-care instructions include advising patient to keep post-treatment bandages in place and dry for 48 hours, avoid extended periods of inactivity, avoid heavy exercise for one week, wear compression stockings on the treated leg continuously for two weeks, to walk daily for (more content not included)... Normal [facility] VC CONSULT FOLLOWUPon 2021 VC CONSULT FOLLOWUP Patient: DEVONTE HARE V. Exam Date: 12/05/2021 : 1980 Gender:M Ordering : DR MARCOS VALDEZ M.D. Admission #: [id number] Family : Order #: [id number] CLICK HERE TO VIEW EXAM RADIOLOGY REPORT PROCEDURE: VEIN CENTER CONSULTATION FOLLOWUP VEIN CENTER - OFFICE VISIT FOLLOW UP COMPARISON: VC CONSULT FOLLOWUP, 11/21/2021. PROGRESS NOTES: The patient reports no significant difficulty following intravenous laser ablation of the left great saphenous vein. The patient did not require oral analgesics. The patient has worn his compression stocking.. The patient has followed our recommendations to walk 20-30 minutes once or twice per day since the procedure to the best of his ability. The patient reports mild improvement in his initial presenting symptoms. Physical exam demonstrates no areas of bruising. No warmth or erythema to suggest cellulitis with thrombophlebitis. No active ulceration Review of the ultrasound performed the same day demonstrates occlusive thrombus extending throughout the treated left great saphenous vein with heat induced thrombus 1.5 cm from the saphenofemoral junction. Ultrasound of the right anterior accessory saphenous vein demonstrates normal size with the reflux, markedly improved from the initial exam after treatment of the right great saphenous vein The patient expressed a desire to proceed with treatment of incompetent varicose veins with micro foam chemical ablation. IMPRESSION: 1. Successful ablation of the left great saphenous vein 2. Persistent bilateral incompetent varicose veins PLAN: Micro foam chemical ablation of the right leg Nurse notes, history and physical were reviewed and confirmed, see attached forms. The nurse was present throughout the physical exam and consultation Dictated by: Marcos Valdez MD on 12/05/2021 at 10:52 Approved by: Marcos Valdez MD on 12/05/2021 at 10:58 Normal [facility] VC EXT VENOUS LT LIMITEDon 1 VC EXT VENOUS LT LIMITED Patient: MARCOS HARE V. Exam Date: 12/05/2021 : 1980 Gender:M Ordering : DR MARCOS VALDEZ M.D. Admission #: [id number] Family : Order #: [id number] CLICK HERE TO VIEW EXAM RADIOLOGY REPORT PROCEDURE: VEIN CENTER EXTREMITY VENOUS LEFT LIMITED COMPARISON: None. INDICATIONS: Phlebitis of superficial veins of lower extremity I80.02 TECHNIQUE: Lower extremity zelaya scale and Duplex Doppler evaluation of the deep venous system from the inguinal ligament through the calf veins. FINDINGS: REGION: Left lower extremity. THROMBI: Negative for DVT. Heat induced thrombus visualized 1.5 cm from the SFJ. The heat induced thrombus extends from groin to ankle. COMPRESSIBILITY: Noncompressible segments corresponding to thrombus FLOW: Absent flow corresponding to thrombus *Exam performed in accordance with [facility] practice guidelines- Peripheral venous ultrasound, May 07, 2009. CONCLUSION: Post ablation occlusion of the left great saphenous vein no deep vein thrombus Dictated by: Marcos Valdez MD on 12/05/2021 at 10:45 Approved by: Marcos Valdez MD on 12/05/2021 at 10:46 Normal [facility] VC ENDOVENOUS ABL 1ST V LTon 11-28-2021 VC ENDOVENOUS ABL 1ST V LT Patient: PAYAMMARCOS V. Exam Date: 11/28/2021 : 1980 Gender:M Ordering : DR MARCOS VALDEZ M.D. Admission #: [id number] Family : Order #: [id number] CLICK HERE TO VIEW EXAM RADIOLOGY REPORT PROCEDURE: VEIN CENTER ENDOVENOUS ABLATION FIRST VEIN LEFT COMPARISON: None. INDICATIONS: Pain co-occurrent and due to varicose veins of bilateral legs I83.813 OPERATIVE REPORT: The risks and benefits of the procedure had been previously discussed, and were rediscussed at length. Informed written consent was obtained by and Huseyin hong. Time out procedure was performed. The left lower extremity was prepared and draped in the usual sterile fashion to allow knee flexion in the sterile field. Duplex ultrasound probe was draped in a sterile cover, sterile transmission gel was used. Venous mapping was performed with the areas of dilation and large tributaries marked. The total length was 74 cm from the entry 2 cm above the medial malleolus to 3 cm below the saphenofemoral junction. The diameter of the greater saphenous vein ranged from 8 mm. A 30 gauge needle and 1% buffered lidocaine was used to anesthetize the entry site. A 4 mm incision was made with a scalpel and the saphenous vein was entered percutaneously under direct ultrasound guidance with a micropuncture set, a single stick was successful in gaining access. A micro-guide wire was inserted and the needle removed. A micro-set including a dilator was inserted over the microwire and the needle and dilator were removed. A 0.018 guide wire was inserted through the micro-set and threaded through the saphenous vein to the saphenofemoral junction. The dilator was removed and an introducer sheath was inserted over the wire until the end of the sheath entered the saphenofemoral junction. The dilator and wire were removed and the 600 micron fiber was introduced and placed and positioned so that it extended beyond the sheath and was 3 cm peripheral to the saphenofemoral femoral junction. Final position of the fiber was determined by ultrasound guidance and duplex imaging. Tumescent anesthetic was delivered by ultrasound guidance. Seven hundred eighty cc of fluid was delivered along the entire course of the saphenous vein. The solution consisted of 500 cc of normal saline with 20mL of 1% lidocaine and 10 mL of sodium bicarbonate. A final positioning check was made. The energy source was turned on by means of the foot pedal and the fiber and sheath were withdrawn. The total number of Joules delivered was 3549. The laser was active for 444 seconds under continuous pulse, average laser use of 8 J. Laser start time 2:35 p.m. November 28, 2021. Laser stop time 2:52 p.m. November 28, 2021. A duplex ultrasound revealed compressibility and flow at the saphenofemoral junction immediately after the procedure. Hemostasis at the access site was achieved. The skin incision of the saphenous vein was closed with a 4 x 4. A compression stocking was applied. Postop instructions were given. A follow up appointment was recommended and scheduled. The patient tolerated the procedure well and was discharged in good condition. CONCLUSION: 1. Technically successful endovenous laser ablation of the left great saphenous vein. Dictated by: Julito May M.D. on 11/28/2021 at 15:47 Approved by: Julito May M.D. on 11/28/2021 at 15:48 [facility] CONSULT FOLLOWUPon 2021 VC CONSULT FOLLOWUP Patient: DEVONET HARE V. Exam Date: 11/21/2021 : 1980 Gender:M Ordering : DR MARCOS VALDEZ M.D. Admission #: [id number] Family : Order #: [id number] CLICK HERE TO VIEW EXAM RADIOLOGY REPORT PROCEDURE: VEIN CENTER CONSULTATION FOLLOWUP VEIN CENTER - OFFICE VISIT FOLLOW UP COMPARISON: None. PROGRESS NOTES: The patient reports no significant pain or discomfort following intravenous laser ablation of the right great saphenous vein. The patient did not require oral analgesics. The patient did wear his compression stocking. The patient has partially followed our recommendations to walk 20-30 minutes once or twice per day since the procedure. Physical exam demonstrates no bruising. No areas of erythema or warmth to suggest cellulitis or thrombophlebitis. No active ulceration. The great saphenous vein cannot be definitively palpated Review of the ultrasound performed the same day demonstrates occlusive thrombus extending throughout the treated great saphenous vein with heat induced thrombus 1.9 cm from the saphenofemoral junction. The patient expressed a desire to proceed with treatment of great saphenous vein. IMPRESSION: 1. Successful ablation of the right great saphenous vein 2. Persistent incompetent left great saphenous vein PLAN: Intravenous laser ablation left great saphenous vein Nurse notes, history and physical were reviewed and confirmed, see attached forms. The nurse was present throughout the physical exam and consultation Dictated by: Marcos Valdez MD on 11/21/2021 at 14:52 Approved by: Marcos Valdez MD on 11/21/2021 at 14:57 Normal [facility] VC EXT VENOUS RT LIMITEDon 1 VC EXT VENOUS RT LIMITED Patient: PAYAMMARCOS V. Exam Date: 11/21/2021 : 1980 Gender:Mallika Ordering : DR MARCOS VALDEZ M.D. Admission #: [id number] Family : Order #: [id number] CLICK HERE TO VIEW EXAM RADIOLOGY REPORT PROCEDURE: VEIN CENTER EXTREMITY VENOUS RIGHT LIMITED COMPARISON: None. INDICATIONS: Phlebitis of superficial veins of lower extremity I80.01 TECHNIQUE: Lower extremity zelaya scale and Duplex Doppler evaluation of the deep venous system from the inguinal ligament through the calf veins. FINDINGS: REGION: Right lower extremity. THROMBI: Negative for DVT. Heat induced thrombus visualized 1.9cm from the SFJ. The heat induced thrombus extends from groin to ankle. COMPRESSIBILITY: Non-compressible segments. FLOW: Areas of no flow. *Exam performed in accordance with [facility] practice guidelines- Peripheral venous ultrasound, May 07, 2009. CONCLUSION: Post ablation occlusion of the right great saphenous vein with heat induced thrombus 1.9 cm from the saphenofemoral junction Dictated by: Marcos Valdez MD on 11/21/2021 at 14:35 Approved by: Marcos Valdez MD on 11/21/2021 at 14:36 Normal [facility] TRANSFERRINon 11-15-2021 Transferrin [Mass/Vol] 214 mg/dL Normal 177-329 [facility] Comment on above: Performed By: #### F ETIBC, FERR #### [facility] [address] [place] [address] Dr. Geovani Mcclendon CBC AUTO DIFFon 11-14-2021 BASO # 0.0 103/ul Normal 0.0-0.1 [facility] Comment on above: Performed By: #### F ETIBC, FERR #### [facility] [address] [place] [address] Dr. Geovani Mcclendon Basophils/100 WBC (Bld) 0.5 % Normal 0.2-2.0 [facility] Comment on above: Performed By: #### F ETIBC, FERR #### [facility] [address] [place] [address] Dr. Geovani Mcclendon EO # 0.1 103/ul Normal 0.0-0.7 [facility] Comment on above: Performed By: #### F ETIBC, FERR #### [facility] [address] [place] [address] Dr. Geovani Mcclendon Eosinophils/100 WBC (Bld) 1.4 % Normal 0.9-7.0 [facility] Comment on above: Performed By: #### F ETIBC, FERR #### [facility] [address] [place] [address] Dr. Geovani Mcclendon Erythrocyte distribution width (RBC) [Ratio] 13.2 % Normal 11.0-15.0 [facility] Comment on above: Performed By: #### F ETIBC, FERR #### [facility] [address] [place] [address] Dr. Geovani Mcclendon Hematocrit (Bld) [Volume fraction] 39.2 % Critically low 42.0-54.0 [facility] Comment on above: Performed By: #### F ETIBC, FERR #### [facility] [address] [place] [address] Dr. Geovani Mcclendon Hemoglobin (Bld) [Mass/Vol] 12.6 g/dL Critically low 14.0-18.0 [facility] Comment on above: Performed By: #### F ETIBC, FERR #### [facility] [address] [place] [address] Dr. Geovani Mcclendon IG # 0.02 10e3/ul Normal 0.00-0.03 [facility] Comment on above: Performed By: #### F ETIBC, FERR #### [facility] [address] [place] [address] Dr. Geovani Mcclendon IG % 0.2 % Normal 0.0-0.5 [facility] Comment on above: Performed By: #### F ETIBC, FERR #### [facility] [address] [place] [address] Dr. Geovani Mcclendon LYMPH # 1.7 103/ul Normal 1.2-3.8 [facility] Comment on above: Performed By: #### F ETIBC, FERR #### [facility] [address] [place] [address] Dr. Geovani Mcclendon Lymphocytes/100 WBC (Bld) 21.1 % Normal 20.5-60.0 [facility] Comment on above: Performed By: #### F ETIBC, FERR #### [facility] [address] [place] [address] Dr. Geovani Mcclendon MANUAL DIFF REQ NO Normal [facility] Comment on above: Performed By: #### F ETIBC, FERR #### [facility] [address] [place] [address] Dr. Geovani Mcclendon MCH (RBC) [Entitic mass] 28.0 pg Normal 25.9-34.0 [facility] Comment on above: Performed By: #### F ETIBC, FERR #### [facility] [address] [place] [address] Dr. Geovani Mcclendon MCHC (RBC) [Mass/Vol] 32.1 g/dL Normal 29.9-35.2 [facility] Comment on above: Performed By: #### F ETIBC, FERR #### [facility] [address] [place] [address] Dr. Geovani Mcclendon MCV (RBC) [Entitic vol] 87.1 fL Normal 80.0-94.0 [facility] Comment on above: Performed By: #### F ETIBC, FERR #### [facility] [address] [place] [address] Dr. Geovani Mcclendon MONO # 0.6 103/ul Normal 0.3-0.8 [facility] Comment on above: Performed By: #### F ETIBC, FERR #### [facility] [address] [place] [address] Dr. Geovani Mcclendon Monocytes/100 WBC (Bld) 7.2 % Normal 1.7-12.0 [facility] Comment on above: Performed By: #### F ETIBC, FERR #### [facility] [address] [place] [address] Dr. Geovani Mcclendon NEUT # 5.6 103/ul Normal 1.4-6.5 [facility] Comment on above: Performed By: #### F ETIBC, FERR #### [facility] [address] [place] [address] Dr. Geovani Mcclendon Neutrophils/100 WBC (Bld) 69.6 % Normal 43.0-75.0 [facility] Comment on above: Performed By: #### F ETIBC, FERR #### [facility] [address] [place] [address] Dr. Geovani Mcclendon Platelet mean volume (Bld) [Entitic vol] 9.1 fL Critically low 9.5-13.5 [facility] Comment on above: Performed By: #### F ETIBC, FERR #### [facility] [address] [place] [address] Dr. Geovani Mcclendon PLT 248 103/ul Normal 150-450 [facility] Comment on above: Performed By: #### F ETIBC, FERR #### [facility] [address] [place] [address] Dr. Geovani Mcclendon RBC 4.50 106/ul Critically low 4.70-6.10 [facility] Comment on above: Performed By: #### F ETIBC, FERR #### [facility] [address] [place] [address] Dr. Geovani Mcclendon WBC 8.0 103/ul Normal 4.0-11.0 [facility] Comment on above: Performed By: #### F ETIBC, FERR #### [facility] [address] [place] [address] Dr. Geovani Mcclendon FERRITINon 11-14-2021 Ferritin [Mass/Vol] 207.0 ng/mL Normal 26.0-388.0 [facility] Comment on above: Performed By: #### F ETIBC, FERR #### [facility] [address] [place] [address] Dr. Geovani Mcclendon IRON AND TIBCon 11-14-2021 % SATURATION 14.2 % Normal [facility] Comment on above: Performed By: #### F ETIBC, FERR #### [facility] [address] [place] [address] Dr. Geovani Mcclendon Iron [Mass/Vol] 33.0 ug/dL Critically low 65.0-175.0 [facility] Comment on above: Performed By: #### F ETIBC, FERR #### [facility] [address] [place] [address] Dr. Geovani Mcclendon TIBC DIRECT 232.0 ug/dL Critically low 250.0-450.0 [facility] Comment on above: Performed By: #### F ETIBC, FERR #### [facility] [address] [place] [address] Dr. Geovani Mcclendon PROF CHEM 8 (BAS METB)on Anion gap [Moles/Vol] 7.0 mmol/L Normal [facility] Comment on above: Performed By: #### F ETIBC, FERR #### [facility] [address] [address] [address] Geovani Mcclendon Calcium [Mass/Vol] 8.8 mg/dL Normal 8.5-10.1 [facility] Comment on above: Performed By: #### F ETIBC, FERR #### [facility] [address] [place] [address] Dr. Geovani Mcclendon Chloride [Moles/Vol] 105 mmol/L Normal 98-107 [facility] Comment on above: Performed By: #### F ETIBC, FERR #### [facility] [address] [place] [address] Dr. Geovani Mcclendon CO2 [Moles/Vol] 31.1 mmol/L Normal 21.0-32.0 [facility] Comment on above: Performed By: #### F ETIBC, FERR #### [facility] [address] [place] [address] Dr. Geovani Mcclendon Creatinine [Mass/Vol] 0.86 mg/dL Normal 0.70-1.30 [facility] Comment on above: Performed By: #### F ETIBC, FERR #### [facility] [address] [place] [address] Dr. Geovani Mcclendon EGFR-AF MONGOLIAN >60 Normal >=60 [facility] Comment on above: Performed By: #### F ETIBC, FERR #### [facility] [address] [place] [address] Dr. Geovani Mcclendon EGFR-NON AF MONGOLIAN >60 Normal >=60 [facility] Comment on above: Performed By: #### F ETIBC, FERR #### [facility] [address] [place] [address] Dr. Geovani Mcclendon Glucose [Mass/Vol] 91 mg/dL Normal 74-106 [facility] Comment on above: Performed By: #### F ETIBC, FERR #### [facility] [address] [place] [address] Dr. Geovani Mcclendon Potassium [Moles/Vol] 4.1 mmol/L Normal 3.5-5.1 [facility] Comment on above: Performed By: #### F ETIBC, FERR #### [facility] [address] [address] [address] Geovani Mcclendon Sodium [Moles/Vol] 139 mmol/L Normal 136-145 [facility] Comment on above: Performed By: #### F ETIBC, FERR #### [facility] [address] [address] [address] Geovani Mcclendon Urea nitrogen [Mass/Vol] 14.0 mg/dL Normal 7.0-18.0 [facility] Comment on above: Performed By: #### F ETIBC, FERR #### [facility] [address] [address] [address] Geovani Mcclendon Urea nitrogen/Creatinine [Mass ratio] 16.3 mg/mg Normal [facility] Comment on above: Performed By: #### F ETIBC, FERR #### [facility] [address] [address] [address] Geovani Mcclendon VC ENDOVENOUS ABL 1ST V RTon 11-14-2021 VC ENDOVENOUS ABL 1ST V RT Patient: MARCOS HARE V. Exam Date: 11/14/2021 : 1980 Gender:M Ordering : DR MARCOS VALDEZ M.D. Admission #: [id number] Family : Order #: [id number] CLICK HERE TO VIEW EXAM RADIOLOGY REPORT PROCEDURE: VEIN CENTER ENDOVENOUS ABLATION FIRST VEIN RIGHT GREAT SAPHENOUS VEIN COMPARISON: None. INDICATIONS: Pain co-occurrent and due to varicose veins of bilateral legs i83.813 OPERATIVE REPORT: The risks and benefits of the procedure had been previously discussed, and were rediscussed at length. Informed written consent was obtained by and Huseyin Quan assisted. Time out procedure was performed. The right lower extremity was prepared and draped in the usual sterile fashion to allow knee flexion in the sterile field. Duplex ultrasound probe was draped in a sterile cover, sterile transmission gel was used. Venous mapping was performed with the areas of dilation and large tributaries marked. The total length was 70 cm from the entry 4 cm above the medial malleolus to 3 cm below the saphenofemoral junction. The diameter of the greater saphenous vein ranged from 5-10 mm. A 30 gauge needle and 1% buffered lidocaine was used to anesthetize the entry site. A 4 mm incision was made with a scalpel and the saphenous vein was entered percutaneously under direct ultrasound guidance with a micropuncture set, a single stick was successful in gaining access. A micro-guide wire was inserted and the needle removed. A micro-set including a dilator was inserted over the microwire and the needle and dilator were removed. A 0.018 guide wire was inserted through the micro-set and threaded through the saphenous vein to the saphenofemoral junction. The dilator was removed and an introducer sheath was inserted over the wire until the end of the sheath entered the saphenofemoral junction. The dilator and wire were removed and the 600 micron fiber was introduced and placed and positioned so that it extended beyond the sheath and was 3 cm peripheral to the saphenofemoral femoral junction. Final position of the fiber was determined by ultrasound guidance and duplex imaging. Tumescent anesthetic was delivered by ultrasound guidance. 350 cc of fluid was delivered along the entire course of the saphenous vein. The solution consisted of 500 cc of normal saline with 20mL of 1% lidocaine and 10 mL of sodium bicarbonate. A final positioning check was made. The energy source was turned on by means of the foot pedal and the fiber and sheath were withdrawn. The total number of Joules delivered was 3887. The laser was active for 486 seconds under continuous pulse, average laser use of 8 J. Laser start time 2:37 p.m. November 14, 2021. Laser stop time 2:47 p.m. November 14, 2021. A duplex ultrasound revealed compressibility and flow at the saphenofemoral junction immediately after the procedure. Hemostasis at the access site was achieved. The skin incision of the saphenous vein was closed with a 4 x 4. A compression stocking was applied. Postop instructions were given. A follow up appointment was recommended and scheduled. The patient tolerated the procedure well and was discharged in good condition. CONCLUSION: 1. Technically successful endovenous laser ablation of the right great saphenous vein. Dictated by: Marcos Valdez MD on 11/14/2021 at 14:49 Approved by: Marcos Valdez MD on 11/14/2021 at 14:51 [facility] XR LSPINE 2_3 VIEWSon 2021 XR LSPINE 2_3 VIEWS EXAMINATION: XR LSPINE 2_3 VIEWS HISTORY: Spinal stenosis of lumbar region r COMPARISON: No relevant comparison available. FINDINGS: BONES: 4 mm anterolisthesis of L5 in relation L4 and S1. Incomplete fusion posterior elements of L5. No significant spondylosis. Dnvy-cp-szuzplbg facet osteoarthropathy L5-S1 DISC SPACES: Disc space narrowing L4-L5 and L5-S1 PARASPINOUS: Negative. No paraspinous abnormality is seen. OTHER: Negative. IMPRESSION: Degenerative changes L4-S1 4 mm anterolisthesis of L5 Electronically authenticated by: MARCOS VALDEZ Date: 2021-10-25 07:15 Normal [facility] VC COMP CONSULTATIONon 10-10 VC COMP CONSULTATION Patient: ELYSIA HARE V. Exam Date: 10/10/2021 : 1980 Gender:M Ordering : SHAIKH Cherelle JONES . Admission #: [id number] Family : Order #: [id number] CLICK HERE TO VIEW EXAM RADIOLOGY REPORT PROCEDURE: VC VEIN CENTER CONSULTATION VEIN CENTER - OFFICE VISIT INITIAL COMPARISON: None. PROGRESS NOTES: 41-year-old male who presents with a 1-2 year history of lower extremity pain and swelling with varicose veins. The patient reports a pain of 3 on a scale of 1-10. The patient's right leg is worse than the left. The patient describes aching burning heaviness and itching. 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 The patient's symptoms are partially relieved by rest, leg elevation and compression stockings which she has worn for approximately 1 year. The patient is referred by his primary care physician. The patient is unable to exercise at this time due to significant back pain. The patient is in physical therapy. The patient did have prior workup for congestive heart failure which was negative. The patient denies any signs and symptoms to suggest arterial ischemia. The patient describes a family history significant for hypertension and varicose veins in his mother. Colon cancer in his father. Patient has never smoked. Occasional social alcohol use. No drug use. Current medical conditions include well controlled hypertension, severe back pain for which he takes and muscle relaxant, obesity, generalized anxiety disorder, gastroesophageal reflux, dyspnea on exertion. No prior surgeries. No prior pulmonary embolus or deep vein thrombus. See separate history and physical for medication list. No prior treatment for varicose or spider veins. Nursing notes were reviewed. After history and physical exam I discussed at length the pathophysiology of venous hypertension and possible treatments, therapies and strategies available. We discussed at length the importance of elevating the lower extremities above the level of the heart, increased physical activity and compression stocking use. We discussed alternatives including bilateral compression stockings, surgical interventions including ligation and stripping and phlebectomy. We discussed intravenous laser ablation, micro foam chemical ablation at length. Risks and benefits were discussed. The patient's questions were answered. Ultrasound venous reflux study performed September 21, 2021 was discussed at length with the patient. The report demonstrates moderate to severe bilateral great saphenous vein and moderate right anterior accessory saphenous vein venous insufficiency. Mild bilateral incompetent branch saphenous tributary/varicose veins PHYSICAL EXAM: The right leg demonstrates scattered varicose reticular and spider veins. No active ulceration. No skin discoloration. Mild subcutaneous edema below the knee. The left leg demonstrates scattered varicose reticular and spider veins. No active ulceration. No skin discoloration. Mild subcutaneous edema below the knee. Both thighs, legs and feet were symmetrically warm to the touch. Good posterior tibial and dorsalis pedis pulses were present bilaterally. IMPRESSION: 1. Moderate to severe bilateral great saphenous and moderate right anterior accessory saphenous vein venous insufficiency with associated dilatation 2. Mild bilateral lower extremity incompetent branch saphenous tributaries/varicose veins 3. Mild bilateral lower extremity subcutaneous edema 4. No definite flow significant arterial disease 5. Mild bilateral deep vein reflux 6. CEAP: C3, Ep, As, Pr PLAN: 1. Endovenous laser ablation right great saphenous vein followed left great saphenous vein with possible ablation of the right anterior accessory saphenous vein after re-evaluation 2. Micro foam chemical ablation bilateral incompetent branch saphenous tributary/varicose veins 3. Long-term use of bilateral thigh-high 20-30 mm compression stockings 4. Elevated legs and increased physical activity for symptomatic relief Nurse notes, history and physical were reviewed and confirmed, see attached forms. The nurse was present throughout the physical exam and consultation Dictated by: Marcos Valdez MD on 10/10/2021 at 09:03 Approved by: Marcos Valdez MD on 10/10/2021 at 09:21 Normal [facility] VC VENOUS REFLUX TOR LMTon 0 8-11-2022 VC VENOUS REFLUX TOR LMT Patient: MARCOS HARE V. Exam Date: 09/21/2021 : 1980 Gender:M Ordering : SHAIKH Cherelle JONES . Admission #: [id number] Family : Order #: [id number] CLICK HERE TO VIEW EXAM RADIOLOGY REPORT PROCEDURE: VEIN CENTER ULTRASOUND VENOUS REFLUX BILATERAL LIMTED COMPARISON: None. INDICATIONS: Localized edema R60.0 TECHNIQUE: Duplex imaging of the lower extremity to assess the deep and superficial venous system for the presence of deep or superficial venous incompetence and to document the location and severity of disease. The study includes evaluation of the great saphenous vein (GSV), anterior accessory saphenous vein (AASV) and small saphenous vein (SSV). Patient scanned in reverse Trendelenburg and standing. FINDINGS: RIGHT LOWER EXTREMITY: Saphenofemoral Junction Reflux: Yes 8.5mm 3.8 sec GSV: Diam (mm) Reflux/ Time (sec) Proximal Thigh 11.8 Yes 4.3 Mid Thigh 5.8 Yes 1.7 Distal Thigh 5.9 Yes 1.2 Prox Calf 5.9 Yes 0.4 Mid Calf 4.2 Yes 0.3 Saphenopopliteal Junction Reflux: 7.2mm Yes 0.7 SSV: Proximal Calf 5.7 Yes 0.5 Mid Calf 4.8 Yes 0.3 AASV: Proximal Thigh 6.3 Yes 2.2 Mid Thigh 3.2 Yes 1.2 Distal Thigh Thrombi: No acute or chronic thrombus. Compressibility: Normal. Flow: Deep venous reflux. Preforator: Distal/medial lower leg 3.8mm with 4.2s reflux. Prox posterior lower leg 5.4mm with 4.1s reflux. Tech Note: Thigh extention of SSV. Mid posterior calf varicose vein measures 4.0mm with 0.7s reflux. Proximal/medial lower leg varicose vein measures 4.3mm with 0.5s reflux. Distal/medial lower leg varicosity measures 4.0mm with 0.5s reflux. LEFT LOWER EXTREMITY: Saphenofemoral Junction Reflux: Yes 12.0 mm 2.6 sec GSV: Diam (mm) Reflux/Time (sec) Proximal Thigh 11.3 Yes 4.7 Mid Thigh 7.2 Yes 2.5 Distal Thigh 4.9 Yes 0.9 Prox Calf 5.0 Yes 0.4 Mid Calf 4.0 Yes 0.4 Saphenopopliteal Junction Relux: 7.7 mm Yes 0.3 SSV: Proximal Calf 4.2 Yes 0.4 Mid Calf 3.3 Yes 0.5 AASV: Proximal Thigh 3.4 Yes 0.2 Mid Thigh 2.6 Yes 0.7 Distal Thigh Thrombi: No acute of chronic thrombus. Compressibility: Normal. Flow: Deep venous reflux. Stemhole Borer: Distal/medial lower leg perf measures 2.4mm with 3.3s reflux. Tech Note: Thigh extention of SSV. Distal/posterior lower leg varicosity measures 4.0 mm with 1.2s reflux. Varicose vein medial/proximal lower leg measures 4.5mm with 1.2s reflux. Medial/distal thigh varicosity measures 4.1 mm with 0.5s reflux. CONCLUSION: 1. Bilateral great saphenous vein venous insufficiency with associated dilatation 2. Moderate right anterior accessory saphenous vein venous insufficiency with mild dilatation 3. Bilateral incompetent branch saphenous tributaries/varicose veins Dictated by: Marcos Valdez MD on 09/21/2021 at 13:47 Approved by: Marcos Valdez MD on 09/21/2021 at 13:49 Normal [facility] ECHOCARDIO M/2D COMPLETEon 0 09-18-2021 ECHOCARDIO M/2D COMPLETE Patient: MARCOS HARE V. Exam Date: 09/18/2021 : 1980 Gender:M Ordering : SHAIKH Cherelle JONES . Admission #: [id number] Family : Order #: [id number] CLICK HERE TO VIEW EXAM ECHOCARDIOGRAM REPORT PROCEDURE: CARDIO PULMONARY ECHOCARDIO M/2D COMP INDICATIONS: Dyspnea on exertion COMPARISON: None. DESCRIPTION: COMPLETE ECHOCARDIOGRAM Real-time transthoracic echocardiography with 2D, M-mode, spectral and color flow Doppler performed. QUALITY: Technical quality was adequate. LEFT VENTRICLE: Normal chamber size. Mild concentric left ventricular hypertrophy. Global left ventricular systolic function is normal. Visual estimation of left ventricular ejection fraction is 60%. LV EF: DIASTOLIC: Normal diastolic function. ATRIAL SEPTUM: LEFT ATRIUM: Normal chamber size. RIGHT ATRIUM: Normal chamber size. RIGHT VENTRICLE: Normal chamber size. Normal right ventricular systolic function. TRICUSPID VALVE: Normal mobility and thickness. No stenosis with trivial regurgitation. No evidence of pulmonary hypertension. RVSP 32 mmHg MITRAL VALVE: Normal mobility and thickness. No mitral valve prolapse. No evidence of mitral valve stenosis. There is no mitral annular calcification. No mitral regurgitation. AORTIC VALVE: Normal trileaflet appearance. No visible sclerosis. Normal leaflet mobility. No evidence of aortic valve stenosis. Trivial aortic regurgitation. AORTIC ROOT: Normal diameter and appearance. PULMONIC VALVE: Normal thickness and mobility. No stenosis. No regurgitation. PERICARDIUM: No evidence of pericardial effusion. IVC: Not well visualized. PLEURA: CONCLUSION: 1. Normal ventricular function. LVEF is 60%. 2. No significant valvular dysfunction. 3. Normal right-sided pressures. 4. No pericardial effusion. Dictated by: Alan Coleman M.D. on 09/19/2021 at 17:37 Approved by: Alan Coleman M.D. on 09/19/2021 at 17:41 Normal [facility] XR TSPINE 3 VIEWSon 09-19-19 22 XR TSPINE 3 VIEWS EXAMINATION: XR TSPINE 3 VIEWS HISTORY: Pain in thoracic spine COMPARISON: No relevant comparison available. FINDINGS: BONES: Mild widespread spondylosis and facet osteoarthritis. No visible acute bony abnormality. DISC SPACES: Normal. No significant disc height narrowing, subluxation, or endplate abnormality. PARASPINOUS: Negative. No paraspinous abnormality is seen. OTHER: Negative. IMPRESSION: Mild degenerative changes Electronically authenticated by: MARCOS VALDEZ Date: 2021-09-18 17:44 Normal [facility] BNPon 09-12-2021 Natriuretic peptide B (Bld) [Mass/Vol] 71.0 pg/mL Normal <=450.0 [facility] Comment on above: Performed By: #### B GRAIN CLEANER, LIPID, CMP #### [facility] [address] [place] [address] Dr. Geovani Mcclendon CBC AUTO DIFFon 09-12-2021 BASO # 0.1 103/ul Normal 0.0-0.1 [facility] Comment on above: Performed By: #### F ETIBC, FERR #### [facility] [address] [place] [id number] Geovani Mcclendon Basophils/100 WBC (Bld) 0.8 % Normal 0.2-2.0 [facility] Comment on above: Performed By: #### F ETIBC, FERR #### [facility] [address] [place] [address] Dr. Geovani Mcclendon EO # 0.2 103/ul Normal 0.0-0.7 [facility] Comment on above: Performed By: #### F ETIBC, FERR #### [facility] [address] [place] [address] Dr. Geovani Mcclendon Eosinophils/100 WBC (Bld) 3.1 % Normal 0.9-7.0 [facility] Comment on above: Performed By: #### F ETIBC, FERR #### [facility] [address] [place] [address] Dr. Geovani Mcclendon Erythrocyte distribution width (RBC) [Ratio] 13.5 % Normal 11.0-15.0 [facility] Comment on above: Performed By: #### F ETIBC, FERR #### [facility] [address] [place] [address] Dr. Geovani Mcclendon Hematocrit (Bld) [Volume fraction] 39.7 % Critically low 42.0-54.0 [facility] Comment on above: Performed By: #### F ETIBC, FERR #### [facility] [address] [place] [address] Dr. Geovani Mcclendon Hemoglobin (Bld) [Mass/Vol] 12.8 g/dL Critically low 14.0-18.0 [facility] Comment on above: Performed By: #### F ETIBC, FERR #### [facility] [address] [place] [address] Dr. Geovani Mcclendon IG # 0.02 10e3/ul Normal 0.00-0.03 [facility] Comment on above: Performed By: #### F ETIBC, FERR #### [facility] [address] [place] [address] Dr. Geovani Mcclendon IG % 0.3 % Normal 0.0-0.5 [facility] Comment on above: Performed By: #### F ETIBC, FERR #### [facility] [address] [place] [address] Dr. Geovani Mcclendon LYMPH # 1.2 103/ul Normal 1.2-3.8 [facility] Comment on above: Performed By: #### F ETIBC, FERR #### [facility] [address] [place] [address] Dr. Geovani Mcclendon Lymphocytes/100 WBC (Bld) 20.3 % Critically low 20.5-60.0 [facility] Comment on above: Performed By: #### F ETIBC, FERR #### [facility] [address] [place] [address] Dr. Geovani Mcclendon MANUAL DIFF REQ NO Normal [facility] Comment on above: Performed By: #### F ETIBC, FERR #### [facility] [address] [place] [address] Dr. Geovani Mcclendon MCH (RBC) [Entitic mass] 28.1 pg Normal 25.9-34.0 [facility] Comment on above: Performed By: #### F ETIBC, FERR #### [facility] [address] [place] [address] Dr. Geovani Mcclendon MCHC (RBC) [Mass/Vol] 32.2 g/dL Normal 29.9-35.2 [facility] Comment on above: Performed By: #### F ETIBC, FERR #### [facility] [address] [place] [address] Dr. Geovani Mcclendon MCV (RBC) [Entitic vol] 87.1 fL Normal 80.0-94.0 [facility] Comment on above: Performed By: #### F ETIBC, FERR #### [facility] [address] [place] [address] Dr. Geovani Mcclendon MONO # 0.5 103/ul Normal 0.3-0.8 [facility] Comment on above: Performed By: #### F ETIBC, FERR #### [facility] [address] [place] [address] Dr. Geovani Mcclendon Monocytes/100 WBC (Bld) 7.4 % Normal 1.7-12.0 [facility] Comment on above: Performed By: #### F ETIBC, FERR #### [facility] [address] [place] [address] Dr. Geovani Mcclendon NEUT # 4.1 103/ul Normal 1.4-6.5 [facility] Comment on above: Performed By: #### F ETIBC, FERR #### [facility] [address] [place] [address] Dr. Geovani Mcclendon Neutrophils/100 WBC (Bld) 68.1 % Normal 43.0-75.0 [facility] Comment on above: Performed By: #### F ETIBC, FERR #### [facility] [address] [place] [address] Dr. Geovani Mcclendon Platelet mean volume (Bld) [Entitic vol] 9.6 fL Normal 9.5-13.5 [facility] Comment on above: Performed By: #### F ETIBC, FERR #### [facility] [address] [place] [address] Dr. Geovani Mcclendon PLT 242 103/ul Normal 150-450 [facility] Comment on above: Performed By: #### F ETIBC, FERR #### [facility] [address] [place] [address] Dr. Geovani Mcclendon RBC 4.56 106/ul Critically low 4.70-6.10 [facility] Comment on above: Performed By: #### F ETIBC, FERR #### [facility] [address] [place] [address] Dr. Geovani Mcclendon WBC 6.1 103/ul Normal 4.0-11.0 [facility] Comment on above: Performed By: #### F ETIBC, FERR #### [facility] [address] [place] [address] Dr. Geovani Mcclendon GLYCOHEMOGLOBIN A1Con 2021 ADA RECOMMENDATION SEE BELOW Normal [facility] Comment on above: Result Comment: ADA RECOMMENDED LIMIT 4.0 - 6.0 ADA THERAPEUTIC TARGET < 7.0 ACTION SUGGESTED > 7.0 Performed By: #### F ETIBC, FERR #### [facility] [address] [place] [address] Dr. Geovani Mcclendon Glucose [Mass/Vol] 111 mg/dL Normal [facility] Comment on above: Performed By: #### F ETIBC, FERR #### [facility] [address] [address] [address] Geovani Mcclendon HbA1c (Bld) [Mass fraction] 5.5 % Normal 4.5-6.2 [facility] Comment on above: Performed By: #### F ETIBC, FERR #### [facility] [address] [address] [address] Geovani Mcclendon LIPID PROFILEon 09-12-2021 CHOL-HDL RATIO NORM SEE BELOW Normal [facility] Comment on above: Result Comment: 3.3 - 4.4 LOW RISK 4.4 - 7.1 AVERAGE RISK 7.1 - 11.0 MODERATE RISK >11.0 HIGH RISK Performed By: #### B GRAIN CLEANER, LIPID, CMP #### [facility] [address] [place] [address] Dr. Geovani Mcclendon Cholesterol [Mass/Vol] 202 mg/dL Critically high <=200 [facility] Comment on above: Performed By: #### B GRAIN CLEANER, LIPID, CMP #### [facility] [address] [place] [address] Dr. Geovani Mcclendon Cholesterol in HDL [Mass/Vol] 41 mg/dL Normal 40-60 [facility] Comment on above: Performed By: #### B GRAIN CLEANER, LIPID, CMP #### [facility] [address] [place] [address] Dr. Geovani Mcclendon Cholesterol in LDL [Mass/Vol] 148.6 mg/dL Normal [facility] Comment on above: Performed By: #### B GRAIN CLEANER, LIPID, CMP #### [facility] [address] [place] [address] Dr. Geovani Mcclendon Cholesterol.total/Cho lesterol in HDL [Mass ratio] 4.9 {ratio} Normal [facility] Comment on above: Performed By: #### B GRAIN CLEANER, LIPID, CMP #### [facility] [address] [place] [address] Dr. Geovani Mcclendon HDL NORMAL > or = 60 mg/dl - LO W CARDIOVASCULAR RISK <40 mg/dl - HIGH CARDIOVASCULAR RISK Normal [facility] Comment on above: Performed By: #### B GRAIN CLEANER, LIPID, CMP #### [facility] [address] [place] [address] Dr. Geovani Mcclendon LDL CALC NORMAL SEE BELOW Normal [facility] Comment on above: Result Comment: <100 mg/dl OPTIMAL 100 - 129 mg/dl NEAR OR ABOVE OPTIMAL 130 - 159 mg/dl BORDERLINE HIGH 160 - 189 mg/dl HIGH >190 mg/dl VERY HIGH Performed By: #### B GRAIN CLEANER, LIPID, CMP #### [facility] [address] [address] [address] Geovani Mcclendon Triglyceride [Mass/Vol] 62 mg/dL Normal <=150 [facility] Comment on above: Performed By: #### B GRAIN CLEANER, LIPID, CMP #### [facility] [address] [place] [address] Dr. Geovani Mcclendon VLDL CALC 12.4 mg/dL Normal [facility] Comment on above: Performed By: #### B GRAIN CLEANER, LIPID, CMP #### [facility] [address] [place] [address] Dr. Geovani Mcclendon PROF 14(COMP METB)on 022 Albumin [Mass/Vol] 3.4 g/dL Normal 3.4-5.0 [facility] Comment on above: Performed By: #### B GRAIN CLEANER, LIPID, CMP #### [facility] [address] [place] [address] Dr. Geovani Mcclendon Albumin/Globulin [Mass ratio] 0.9 {ratio} Normal [facility] Comment on above: Performed By: #### B GRAIN CLEANER, LIPID, CMP #### [facility] [address] [place] [address] Dr. Geovani Mcclendon ALP [Catalytic activity/Vol] 57 U/L Normal 46-116 [facility] Comment on above: Performed By: #### B GRAIN CLEANER, LIPID, CMP #### [facility] [address] [place] [address] Dr. Geovani Mcclendon ALT [Catalytic activity/Vol] 34 U/L Normal 16-63 [facility] Comment on above: Performed By: #### B GRAIN CLEANER, LIPID, CMP #### [facility] [address] [place] [address] Dr. Geovani Mcclendon Anion gap [Moles/Vol] 9.2 mmol/L Normal [facility] Comment on above: Performed By: #### B GRAIN CLEANER, LIPID, CMP #### [facility] [address] [place] [address] Dr. Geovani Mcclendon AST [Catalytic activity/Vol] 16 U/L Normal 15-37 [facility] Comment on above: Performed By: #### B GRAIN CLEANER, LIPID, CMP #### [facility] [address] [place] [address] Dr. Geovani Mcclendon Bilirubin [Mass/Vol] 0.4 mg/dL Normal 0.2-1.0 [facility] Comment on above: Performed By: #### B GRAIN CLEANER, LIPID, CMP #### [facility] [address] [place] [address] Dr. Geovani Mcclendon Calcium [Mass/Vol] 8.5 mg/dL Normal 8.5-10.1 [facility] Comment on above: Performed By: #### B GRAIN CLEANER, LIPID, CMP #### [facility] [address] [place] [address] Dr. Geovani Mcclendon Chloride [Moles/Vol] 106 mmol/L Normal 98-107 [facility] Comment on above: Performed By: #### B GRAIN CLEANER, LIPID, CMP #### [facility] [address] [place] [address] Dr. Geovani Mcclendon CO2 [Moles/Vol] 30.4 mmol/L Normal 21.0-32.0 [facility] Comment on above: Performed By: #### B GRAIN CLEANER, LIPID, CMP #### [facility] [address] [place] [address] Dr. Geovani Mcclendon Creatinine [Mass/Vol] 0.77 mg/dL Normal 0.70-1.30 [facility] Comment on above: Performed By: #### B GRAIN CLEANER, LIPID, CMP #### [facility] [address] [place] [address] Dr. Geovani Mcclendon EGFR-AF MONGOLIAN >60 Normal >=60 [facility] Comment on above: Performed By: #### B GRAIN CLEANER, LIPID, CMP #### [facility] [address] [place] [address] Dr. Geovani Mcclendon EGFR-NON AF MONGOLIAN >60 Normal >=60 [facility] Comment on above: Performed By: #### B GRAIN CLEANER, LIPID, CMP #### [facility] [address] [place] [address] Dr. Geovani Mcclendon Globulin (S) [Mass/Vol] 3.6 g/dL Normal [facility] Comment on above: Performed By: #### B GRAIN CLEANER, LIPID, CMP #### [facility] [address] [place] [address] Dr. Geovani Mclcendon Glucose [Mass/Vol] 93 mg/dL Normal 74-106 [facility] Comment on above: Performed By: #### B GRAIN CLEANER, LIPID, CMP #### [facility] [address] [place] [address] Dr. Geovani Mcclendon Potassium [Moles/Vol] 4.6 mmol/L Normal 3.5-5.1 [facility] Comment on above: Performed By: #### B GRAIN CLEANER, LIPID, CMP #### [facility] [address] [place] [address] Dr. Geovani Mcclendon Protein [Mass/Vol] 7.0 g/dL Normal 6.4-8.2 [facility] Comment on above: Performed By: #### B GRAIN CLEANER, LIPID, CMP #### [facility] [address] [place] [address] Dr. Geovani Mcclendon Sodium [Moles/Vol] 141 mmol/L Normal 136-145 [facility] Comment on above: Performed By: #### B GRAIN CLEANER, LIPID, CMP #### [facility] [address] [place] [address] Dr. Geovani Mcclendon Urea nitrogen [Mass/Vol] 17.0 mg/dL Normal 7.0-18.0 [facility] Comment on above: Performed By: #### B GRAIN CLEANER, LIPID, CMP #### [facility] [address] [place] [address] Dr. Geovani Mcclendon Urea nitrogen/Creatinine [Mass ratio] 22.1 mg/mg Normal [facility] Comment on above: Performed By: #### B GRAIN CLEANER, LIPID, CMP #### [facility] [address] [address] [address] Geovani Mcclendon XR ANKLE RT MIN 3 VIEWSon XR ANKLE RT MIN 3 VIEWS EXAM: XR ANKLE RT MIN 3 VIEWS HISTORY: Pain after fall COMPARISON: None. TECHNIQUE: 3 views FINDINGS: No osseous lesion, fracture, dislocation or subluxation. Joint spaces are normal. No visualized effusion. No visualized soft tissue edema. IMPRESSION: Normal x-rays Electronically authenticated by: MARCOS GONZALES Date: 2021-07-10 20:42 Normal [facility] Vital Signs Date Time Vital Sign Value Performing Clinician Faci lity 05-01-2022 10:30-0400 Body weight 109.77 kg Claudio Cavazosky Other [facility] Other 05-01-2022 10:30-0400 Diastolic blood pressure 84 mm[Hg] Claudio Pugh Other [facility] Other 05-01-2022 10:30-0400 SaO2% (BldA) [Mass fraction] 92 % Claudio Cavazosky Other [facility] Other 05-01-2022 10:30-0400 Systolic blood pressure 122 mm[Hg] Claudio Cavazosky Other [facility] Other Encounters Encounter Date Encounter Type Care Provider Facility Start: 05-02-2022 End: 05-02-2022 ambulatory Claudio Pugh Other [facility] Other Start: 05-02-2022 Telephone encounter Claudio Pugh [facility] Start: 05-01-2022 End: 05-01-2022 ambulatory Claudio Lexy Other [facility] Other Start: 05-01-2022 Office consultation new/estab patient 60 min Claudio Pugh [facility] Start: 04-17-2022 End: 04-18-2022 ambulatory MELODY AZAR Facility[facility] Start: 03-09-2022 End: 03-10-2022 ambulatory LEESLIONEL JONES Facility:[facility] Start: 03-06-2022 End: 03-07-2022 ambulatory OPTOMETRIC TECH PAZ AZAR Facility:[facility] Start: 02-23-2022 End: 02-24-[address] JAG FRANKEL Facility:[facility] Start: 01-03-2022 End: 01-04-[address] MARCOS VALDEZ Facility:[facility] Start: 12-27-2021 End: 12-28-[address] MARCOS VALDEZ Facility:[facility] Start: 12-25-2021 End: 12-26-[address] MARCOS VALDEZ Facility:[facility] Start: 12-19-2021 End: 12-20-[address] MARCOS VALDEZ Facility:[facility] Start: 12-18-[address] MARCOS VALDEZ Facilit y:[facility] Start: 12-15-2021 End: 12-16-[address] MARCOS VALDEZ Facility:[facility] Start: 12-12-[address] MARCOS VALDEZ Facilit y:[facility] Start: 12-07-[address] MARCOS VALDEZ Facilit y:[facility] Start: 12-05-2021 End: 12-06-[address] JAG FRANKEL Facility:[facility] Start: 11-28-2021 End: 11-29-[address] MARCOS VALDEZ Facility:[facility] Start: 11-21-2021 End: 11-22-[address] MARCOS VALDEZ Facility:[facility] Start: 11-14-2021 End: 11-15-2021 ambulatory SHAIKH Linh JONES Facility:[facility] Start: 11-14-2021 End: 11-15-[address] MARCOS VALDEZ Facility:[facility] Start: 10-24-2021 End: 10-25-2021 ambulatory LEESLIONEL JONES Facility:[facility] Start: 10-18-2021 End: 02-02-2022 ambulatory LEES H FAWWAD Facility:[facility] Start: 10-10-2021 End: 10-11-2021 ambulatory LEES H ESTHERD Facility:[facility] Start: 09-21-2021 End: 09-22-2021 ambulatory LEES H ROYERWAD Facility:[facility] Start: 09-18-2021 End: 09-19-2021 ambulatory SHAIKH Linh JONES Facility:[facility] Start: 09-12-2021 End: 09-13-2021 ambulatory SHAIKH Linh JONES Facility:[facility] Start: 07-10-2021 End: 07-10-[address] JAG FRANKEL Facility:[facility] Start: 07-03-2017 End: 07-04-2017 Ambulatory Russell Parks Facility::[id number] Payers Date Payer Category Payer Unknown [id number] 2.16.84 [id number] 1979 Unknown [id number] 2.16.84 [id number] 1979 Unknown [id number] 2.16.84 0.1.772606.3.579.2.593 1979 Unknown [id number] 2.16.84 0.1.151444.3.579.2.593 1979 Unknown [id number] 2.16.84 0.1.876199.3.579.2.593 1979 Unknown [id number] 2.16.84 0.1.913058.3.579.2.593 1979 Unknown [id number] 2.16.84 0.1.522271.3.579.2.593 1979 Unknown [id number] 2.16.84 0.1.606624.3.579.2.593 1979 Unknown [id number] 2.16.84 0.1.653170.3.579.2.593 1979 Unknown [id number] 2.16.84 0.1.122434.3.579.2.593 1979 Unknown [id number] 2.16.84 0.1.988369.3.579.2.593 1979 Unknown [id number] 2.16.84 0.1.523469.3.579.2.593 1979 Unknown [id number] 2.16.84 0.1.033081.3.579.2.593 1979 Unknown [id number] 2.16.84 0.1.920116.3.579.2.593 1979 Unknown [id number] 2.16.84 0.1.482875.3.579.2.593 1979 Unknown [id number] 2.16.84 0.1.733780.3.579.2.593 1979 Unknown [id number] 2.16.84 0.1.331396.3.579.2.593 1979 Unknown [id number] 2.16.84 0.1.316382.3.579.2.593 1979 Unknown [id number] 2.16.84 0.1.747899.3.579.2.593 1979 Unknown [id number] 2.16.84 0.1.484553.3.579.2.593 1979 Unknown [id number] 2.16.84 0.1.354583.3.579.2.593 1979 Unknown [id number] 2.16.84 0.1.822508.3.579.2.593 1979 Unknown [id number] 2.16.84 0.1.186147.3.579.2.593 1979 Unknown [id number] 2.16.84 0.1.479105.3.579.2.593 1979 Unknown [id number] 2.16.84 0.1.649136.3.579.2.593 1959 Unknown [id number] Social History Date Type Detail Facility Sex Assigned At [facility] Other Evaluation note 05-01-2022 Note Date & Type Note Facility 05-01-2022 Evaluation note Encounter Date Diagnosis Assessment Notes Apr, Chronic pain (ICD-10 - G89.29) Follow up as needed Apr, Lumbar degenerative disc disease (ICD-10 - M51.36) 41 year old male presents with complaints of mid to low back pain. He notes intermittent radiation down the inner aspect of the thighs to the knee and in the groin bilaterally. Prior to examining the patient I reviewed recent progress notes from the referring provider, Dr. No. I independently reviewed his recent lumbar spine MRI which shows anterolisthesis of L5 on S1 and facet arthropathy. History, physical examination and available images are consistent with sacroiliitis, lumbar degenerative disc disease and lumbosacral spondylosis. Discussed with patient different treatment options, overall at this point he feels the combination of chiropractic and a home exercise program is providing adequate relief of his pain. He can continue these modalities. I will order a flexion/extension view of the lumbar spine. He is encouraged to call the office should his pain become bothersome. Apr, Sacroiliitis (ICD-10 - M46.1) Consider SI joint injection in the future if needed Apr, Lumbosacral spondylosis (ICD-10 - M47.817) Consider lumbar facet medial branch nerve blocks in the future if needed Apr, Other Medical decision making shows a new problem to me with further workup planned or suggested with the potential for extensive treatment options that were considered with the most applicable given this patient's situation as noted above. Treatment options considered include a combination of physical therapy approaches, pharmacologic management, and interventional procedures. Those most applicable to the patient were discussed at this time. Risk of complications and/or morbidity and mortality is high given that acute and chronic pain poses a threat to life and bodily function if undertreated, poorly treated or with failure to maintain adequate treatment and timely followup. Given the serious and fluctuating nature of pain with extensive consideration for whenever pain changes, there always remains the possibility of prolonged functional impairment requiring constant patient reassessment and high-level medical decision making. The amount and complexity of data reviewed is high given that patient labs, radiology reports, and other test were obtained, reviewed and summarized as applicable from the physician portal and/or outside medical records. Pertinent positive and negative findings were considered in medical decision-making. [facility] Other Evaluation note Note Date & Type Note Facility Evaluation note No Information [facility] Other History general Narrative - Reported Note Date & Type Note Facility History general Narrative - Reported Type Medical History back pain Medical History restless leg syndrome Medical History sleep apnea Surgical History vasectomy [facility] Other Summary Purpose Family History No Family History Records FoundNo Family History Records Found Advance Directives No Advanced Directives Records FoundNo Advanced Directives Records Found Additional Source Comments (unrecognized sect ion and content) No Status Records FoundNo Status Records Found INFORMATION SOURCE (unrecogn ized section and content) DATE CREATED AUTHOR 07/31/2017 [facility] DATE CREATED AUTHOR AUTHOR'S ORGANIZ ATION 04/21/2022 [facility] REASON FOR VISIT (unrecogniz ed section and content) REFERRED BY DR. MED Aquino OR LUMBAR DEGENERATIVE DISC DISEASENo Information FOR RECORDS PERTAINING TO PATIENTS WHO ARE OR HAVE BEEN ENROLLED IN A CHEMICAL DEPENDENCY/SUBSTANCEABUSE PROGRAM, SOME INFORMATION MAY BE OMITTED. This clinical summary was aggregated from multiple sources. Caution should be exercised in using it in the provision of clinical care. This summary normalizes information from multiple sources, and as a consequence, information in this document may materially change the coding, format and clinical context of patient data. In addition, data may be omitted in some cases. CLINICAL DECISIONS SHOULD BE BASED ON THE PRIMARY CLINICAL RECORDS. [employer] provides no warranty or guarantee of the accuracy or completeness of information in this document.
--- NOTE | 2023-07-20 15:23 | ED.GENADUL1 ---
HPI HPI - General Adult General Chief complaint: Extremity Injury, Lower Stated complaint: upper extremity injury Time Seen by Provider: 07/20/23 15:08 Source: patient Mode of arrival: walk-in Limitations: no limitations History of Present Illness HPI narrative: Patient is a 42-year-old male who presents to the emergency department for the evaluation of an injury to the right hand that occurred just prior to arrival. He was working on his [employer] when the puckett of the [employer] came down and smashed his right hand. He is right-hand dominant. Tetanus is up-to-date. He sustained superficial abrasions over the second and third MCP joints on the dorsum of the hand and a small superficial laceration on the radial aspect of the right thumb at the IP joint. No active bleeding. No deep lacerations. No medications taken prior to arrival. He reports pain and states he is unable to move the right thumb. Related Data Previous Rx's ?Medication ?Instructions ?Recorded hydrocodone 5 mg-acetaminophen 325 1 tab PO Q6H PRN pain 3 days #12 07/20/23 mg tablet tabs Allergies Allergy/AdvReac Type Severity Reaction Status Date / Time codeine Allergy Intermediate Verified 07/20/23 15:14 Opioid HPI Opioid Management Most Recent Opioid Data: No Data to Display Review of Systems ROS Constitutional Denies: fever or chills Ears, nose, mouth, and throat Denies: throat pain or nasal congestion Respiratory Denies: shortness of breath Gastrointestinal Denies: nausea or vomiting Musculoskeletal Denies: back pain Integumentary/Breast Denies: rash Neurological Denies: headache Hematologic/Lymphatic Denies: easy bruising or easy bleeding Exam Narrative Exam Narrative: Gen.: Awake, alert, in no distress Head: Normocephalic, atraumatic ENT: Moist mucous membranes Respiratory: No respiratory distress Extremities: Right hand with superficial abrasions over the second and third MCP joints. Edema and tenderness noted over the MCP joints of the second and third fingers. Right thumb is diffusely swollen with a 0.5 cm superficial laceration over the radial aspect of the lateral right thumb. Limited flexion and extension due to swelling and pain. Normal sensation to the fingertips. Psych: Normal mood and affect Neuro: No focal neuro deficit Skin: Warm, dry Constitutional Vital Signs, click to edit/add: Last Vital Signs Temp 98.5 F 07/20/23 15:11 Pulse 71 07/20/23 15:11 Resp 18 07/20/23 15:11 BP 151/86 H 07/20/23 15:11 Pulse Ox 94 L 07/20/23 15:11 O2 Del Method Room Air 07/20/23 15:11 Course Vital Signs Vital signs: Vital Signs Temperature 98.5 F 07/20/23 15:11 Pulse Rate 71 07/20/23 15:11 Respiratory Rate 18 07/20/23 15:11 Blood Pressure 151/86 H 07/20/23 15:11 Pulse Oximetry 94 L 07/20/23 15:11 Oxygen Delivery Method Room Air 07/20/23 15:11 Temperature 98.5 F 07/20/23 15:11 Pulse Rate 71 07/20/23 15:11 Respiratory Rate 18 07/20/23 15:11 Blood Pressure 151/86 H 07/20/23 15:11 Pulse Oximetry 94 L 07/20/23 15:11 Oxygen Delivery Method Room Air 07/20/23 15:11 Medical Decision Making MDM Narrative Medical decision making narrative: Rays reviewed by the radiologist with no evidence of fracture or dislocation. Patient placed in a splint with Espinoza wrap and remains neurovascularly intact. The abrasions and superficial laceration were cleansed, dressed with bacitracin and sterile dressing. Patient encouraged to continue wound care at home. Short course of analgesics given for home and he is neurovascularly intact at discharge. Follow-up PCP, return to the ER if symptoms change or worsen Medical Records Medical records reviewed: Yes I reviewed the patient's medical records Imaging Data XR hand: Attestation: I have reviewed the pertinent imaging results. Radiologist's impression: ITS Impressions Hand X-Ray 07/20/23 15:41 IMPRESSION: No acute fracture or dislocation. Electronically authenticated by: JUAN MONTAÑO Date: 07/20/2023 16:56 Discharge Plan Discharge Stand Alone Forms: Portal Instructions Chief Complaint: Extremity Injury, Lower Clinical Impression: Crushing injury of right hand Patient Disposition: Home, Self-Care Time of Disposition Decision: 16:55 Condition: Good Prescriptions / Home Meds: New hydrocodone-acetaminophen 5-325 mg tablet 1 tab PO Q6H PRN (Reason: pain) 3 Days Qty: 12 0RF Rx Instructions: DX: M79.461 Print Language: Sudanese Instructions: Crush Injury (ED) Referrals: Eleuterio Payne MD [Primary Care Provider] - 1 week
--- NOTE | 2023-07-20 15:41 | XR_ITS ---
The [address] [address] Patient Name: MARCOS HARE MRN: [id number] date: 1980 Sex: M Assigned Patient Location: ER Current Patient Location: Accession/Order Number: [id number] Exam Date: 07/20/2023 15:48 Report Date: 07/20/2023 17:07 At the request of: EUNICE GARCIA Procedure: XR hand RT min 3V EXAM: XR hand RT min 3V 07/20/2023 TECHNIQUE: Frontal, oblique and lateral views obtained. FINDINGS: Minor arthritic changes of the first MCP articulation. No acute fracture or dislocation. Alignment is satisfactory. There is no radiopaque foreign body. HISTORY: contusion COMPARISON: None. XR/XR hand RT min 3V IMPRESSION: No acute fracture or dislocation. Electronically authenticated by: JUAN MONTAÑO Date: 07/20/2023 17:07
[2023-07-20] MEDS: BACITRACIN 0.9 GM PACKET 1 PACKET TOPICAL (15:42)
[2023-07-20] MEDS: OXYCODONE HCL/ACETAMINOPHEN 5MG/325MG 1 TAB PO (15:42)
== END 2023-07-20 17:05 | disposition home or self-care (01) ==
PROVIDERS: Emergency Provider Emergency Medicine; PCP Family Medicine
DX: S67.21XA Crushing injury of right hand, initial encounter (principal); S60.511A Abrasion of right hand, initial encounter; W22.8XXA Striking against or struck by other objects, initial encounter
CPT/HCPCS: 29130; 73130; 99283

== ENCOUNTER 2024-03-04 06:25 | Outpatient (OUT) | payer OTHER, SELFPAY ==
--- OUTSIDE RECORDS SUMMARY | 2024-03-04 06:29 | XMS_ITS | CCD ---
Author Organization [facility] Inform ion Partnership [facility] Care Team Providers Care Director Medicare Sales Name Role Phone Russell Parks Unavailable Unavailable FAWWAD, LEES H Admitting Unavailable FAWWAD, LEES H Attending Unavailable NADERER, DR ELEUTERIO Painting Primary Care Unavailable FAWWAD, LEES H Consulting Unavailable WEST, DR MARCOS Corral Admitting Unavailable WEST, DR MARCOS Corral Attending Unavailable NADERER, DR ELEUTERIO Painting Primary Care Unavailable WEST, DR MARCOS Corral Admitting Unavailable WEST, DR MARCOS Corral Attending Unavailable NADERER, DR ELEUTERIO Painting Primary Care Unavailable WEST, DR MARCOS Corral Consulting Unavailable AICHHOLZ, JAVASCRIPT FRONT END DEVELOPER JOSEFINA Admitting Unavailable AICHHOLZ, JAVASCRIPT FRONT END DEVELOPER JOSEFINA Attending Unavailable NADERER, DR ELEUTERIO Painting Primary Care Unavailable AICHHOLZ, JAVASCRIPT FRONT END DEVELOPER JOSEFINA Consulting Unavailable ZIEBER, DR JULITO Hendrix Consulting Unavailable AICHHOLZ, JAVASCRIPT FRONT END DEVELOPER JOSEFINA Admitting Unavailable AICHHOLZ, JAVASCRIPT FRONT END DEVELOPER JOSEFINA Attending Unavailable NADERER, DR ELEUTERIO Painting Primary Care Unavailable AICHHOLZ, JAVASCRIPT FRONT END DEVELOPER JOSEFINA Consulting Unavailable WEST, DR MARCOS Corral Admitting Unavailable WEST, DR MARCOS Corral Attending Unavailable NADERER, DR ELEUTERIO Painting Primary Care Unavailable WEST, DR MARCOS Corral Admitting Unavailable WEST, DR MARCOS Corral Attending Unavailable NADERER, DR ELEUTERIO Painting Primary Care Unavailable FAWWAD, LEES H Admitting Unavailable FAWWAD, LEES H Attending Unavailable NADERER, DR ELEUTERIO Painting Primary Care Unavailable WEST, DR MARCOS Corral Consulting Unavailable FAWWAD, LEES H Admitting Unavailable FAWWAD, LEES H Attending Unavailable NADERER, DR ELEUTERIO Painting Primary Care Unavailable WEST, DR MARCOS Corral Consulting Unavailable FAWWAD, LEES H Consulting Unavailable WEST, DR MARCOS Corral Admitting Unavailable WEST, DR MARCOS Corral Attending Unavailable NADERER, DR ELEUTERIO Painting Primary Care Unavailable WEST, DR MARCOS Corral Consulting Unavailable ZIEBER, DR JULITO Hendrix Consulting Unavailable NADERER, DR ELEUTERIO Painting Primary Care Unavailable WEST, DR MARCOS Corral Consulting Unavailable WEST, DR MARCOS Corral Admitting Unavailable WEST, DR MARCOS Corral Attending Unavailable WEST, DR MARCOS Corral Admitting Unavailable WEST, DR MARCOS Corral Attending Unavailable NADERER, DR ELEUTERIO Painting Primary Care Unavailable WEST, DR MARCOS Corral Consulting Unavailable WEST, DR MARCOS Corral Admitting Unavailable WEST, DR MARCOS Corral Attending Unavailable NADERER, DR ELEUTERIO Painting Primary Care Unavailable WEST, DR MARCOS Corral Consulting Unavailable ZIEBER, DR JULITO Hendrix Consulting Unavailable WEST, DR MARCOS Corral Admitting Unavailable WEST, DR MARCOS Corral Attending Unavailable NADERER, DR ELEUTERIO Painting Primary Care Unavailable WEST, DR MARCOS Corral Consulting Unavailable WEST, DR MARCOS Corral Admitting Unavailable WEST, DR MARCOS Corral Attending Unavailable NADERER, DR ELEUTERIO Painting Primary Care Unavailable FAWWAD, LEES H Admitting Unavailable FAWWAD, LEES H Attending Unavailable NADERER, DR ELEUTERIO Painting Primary Care Unavailable WEST, DR MARCOS Corral Consulting Unavailable FAWWAD, LEES H Consulting Unavailable FAWWAD, LEES H Admitting Unavailable FAWWAD, LEES H Attending Unavailable NADERER, DR ELEUTERIO Painting Primary Care Unavailable FAWWAD, LEES H Consulting Unavailable NADERER, DR ELEUTERIO Painting Primary Care Unavailable DAYSI REYNOLDS Admitting Unavailable RODOLFO, DAYSI Attending Unavailable JOSE ., VIRGIL DAWSON Consulting UnavailMARCOS Bo Unavailable FAWWAD, LEES H Admitting Unavailable FAWWAD, LEES H Attending Unavailable NADERER, DR ELEUTERIO Painting Primary Care Unavailable WEST, DR MARCOS Corral Consulting Unavailable FAWWAD, LEES H Consulting Unavailable WEST, DR MARCOS Corral Admitting Unavailable WEST, DR MARCOS Corral Attending Unavailable NADERER, DR ELEUTERIO Painting Primary Care Unavailable WEST, DR MARCOS Corral Consulting Unavailable WEST, DR MARCOS Corral Admitting Unavailable WEST, DR MARCOS Corral Attending Unavailable NADERER, DR ELEUTERIO Painting Primary Care Unavailable WEST, DR MARCOS Corral Consulting Unavailable NADERER, DR ELEUTERIO Painting Primary Care Unavailable CHRISTOPH ., KAL Admitting Unavailable CHRISTOPH ., KAL Attending Unavailable CHRISTOPH ., KAL Consulting Unavailable FAWWAD, LEES H Admitting Unavailable FAWWAD, LEES H Attending Unavailable NADERER, DR ELEUTERIO Painting Primary Care Unavailable FAWWAD, LEES H Admitting Unavailable FAWWAD, LEES H Attending Unavailable JOSTIN, DR ELEUTERIO Painting Primary Care Unavailable JOSÉ MIGUEL, DR MARCOS Corral Consulting Unavailable SHAIKH Linh JONES Consulting Unavailable JOSÉ MIGUEL, DR MARCOS Corral Admitting Unavailable JOSÉ MIGUEL, DR MARCOS Corral Attending Unavailable JOSTIN, DR ELEUTERIO Painting Primary Care Unavailable [place], DR MARCOS Corral Consulting Unavailable Claudio Pugh Unavailable [employer], Josefina Unavailable Eleuterio Frankel MD Primary Care Provider [phone] JOSEFINA VAZ Attending Unavailable JOSEFINA VAZ Attending Unavailable ADALBERTO MERCER Attending Unavailable JOSEFINA VAZ Referring Unavailable Allergies Allergy Classification Reported Allergen(s) Allergy Type Date of Onset Reaction(s) Facility (2 sources) Codeine Drug Allergy 11-25-[address] [facility] Repository (11 sources) Codeine Drug Allergy 05-02-2023 Other [facility] Work Phone: Medications Current Medications Medication Drug Class(es) Dates Sig (Normalized) Sig (Original) ALPRAZolam 0.25 mg oral tablet (2 sources) Benzodiazepine take 1 tablet by mouth every twelve hours ALPRAZolam 0.25 MG 1 tablet Orally Twice a day Active clotrimazole 10 mg oral lozenge (2 sources) Azole Antifungal Start: 01-30-2024 End: 02-09-2024 take 1 tablet by mouth five times daily clotrimazole (Mycelex) 10 MG del Indications: Neoplasm of uncertain behavior Take 1 tablet (10 mg) by mouth 5 (five) times a day for 10 days 50 tablet 01/30/2024 02/09/2024 Active escitalopram 10 mg oral tablet (10 sources) Serotonin Reuptake Inhibitor Start: 01-27-2024 End: 02-26-2024 take 1 tablet by mouth once daily escitalopram (Lexapro) 10 MG tablet Indications: RUBEN (generalized anxiety disorder) (CMS/HCC) Take 1 tablet (10 mg) by mouth Daily 30 tablet 2 01/27/2024 02/26/2024 Active Start: 10-07-2022 End: 12-18-2023 take 1 tablet by mouth once daily escitalopram (Lexapro) 5 MG tablet Take 5 mg by mouth Daily 10/07/2022 12/18/2023 Discontinued (Therapy completed) take 1 tablet by luciano th every twenty-four hours Escitalopram Oxalate 5 MG 1 tablet Orally Once a day Active furosemide 20 mg oral tablet (15 sources) Loop Diuretic Start: 10-07-2022 End: 02-26-2024 take 1 tablet by mouth once daily furosemide (Lasix) 20 MG tablet Indications: Edema of both lower extremities Take 1 tablet (20 mg) by mouth Daily Take 20 mg by mouth Daily 30 tablet 2 01/27/2024 02/26/2024 Active take 1 tablet by luciano th every twenty-four hours Furosemide 20 MG 1 tablet Orally Once a day Active lisinopril 20 mg oral tablet (15 sources) Angiotensin Converting Enzyme Inhibitor Start: 10-07-2022 End: 02-26-2024 take 1 tablet by mouth once daily lisinopril 20 MG tablet Indications: Essential hypertension (CMS/HCC) Take 1 tablet (20 mg) by mouth Daily 30 tablet 2 01/27/2024 02/26/2024 Active take 1 tablet by luciano th every twenty-four hours Lisinopril 10 MG 1 tablet Orally Once a day Active Problems Active Problems Problem Classification Problem Date Documented Date Episodic/Chronic Anxiety disorders (20 sources) Generalized anxiety disorder; Translations: [Generalized anxiety disorder] Onset: 05-02-2023 Resolved: 12-18-2023 05-02-2023 Chronic Diseases of mouth; excluding dental (9 sources) Lesion of tongue; Translations: [Other diseases of tongue] Onset: 01-27-2024 01-27-2024 Episodic Esophageal disorders (9 sources) Gastroesophageal reflux disease without esophagitis; Translations: [Gastro-esophageal reflux disease without esophagitis] Onset: 05-02-2023 05-02-2023 Chronic Essential hypertension (14 sources) Essential (primary) hypertension; Translations: [Essential hypertension] Onset: 11-17-2021 05-02-2023 Chronic Neoplasms of unspecified nature or uncertain behavior (11 sources) Neoplasm of uncertain behavior of nose; Translations: [Neoplasm of uncertain behavior of other specified sites] Onset: 01-27-2024 01-27-2024 Episodic Nutritional deficiencies (11 sources) Vitamin D deficiency; Translations: [Vitamin D deficiency, unspecified] Onset: 05-02-2023 05-02-2023 Chronic Other congenital anomalies (9 sources) Congenital spondylolysis of lumbosacral region; Translations: [Congenital spondylolisthesis] Onset: 04-03-2022 05-02-2023 Chronic Other connective tissue disease (4 sources) Other specified soft tissue disorders; Translations: [OTHER SPEC SOFT TISSUE DISORDERS] Onset: 03-06-2022 Episodic Other connective tissue disease (3 sources) Pain in left leg; Translations: [PAIN IN LEFT LEG] Onset: 02-23-2022 Episodic Other nervous system disorders (2 sources) Chronic pain; Translations: [Other chronic pain] Chronic Other nervous system disorders (1 source) Other chronic pain Chronic Other nutritional; endocrine; and metabolic disorders (13 sources) Obesity caused by energy imbalance; Translations: [Morbid (severe) obesity due to excess calories] Onset: 12-18-2023 12-18-2023 Chronic Other skin disorders (2 sources) Actinic keratosis; Translations: [Actinic keratosis] 01-30-2024 Episodic Residual codes; unclassified (11 sources) Obstructive sleep apnea syndrome; Translations: [Obstructive sleep apnea (adult) (pediatric)] Onset: 05-02-2023 05-02-2023 Chronic Residual codes; unclassified (5 sources) Localized edema; Translations: [LOCALIZED EDEMA] Onset: 09-21-2021 Episodic Residual codes; unclassified (12 sources) Bilateral lower limb edema; Translations: [Localized edema] Onset: 12-18-2023 12-18-2023 Episodic Skin and subcutaneous tissue infections (1 source) Cellulitis of left lower limb; Translations: [CELLULITIS OF LEFT LOWER LIMB] Onset: 02-27-2022 Episodic Spondylosis; intervertebral disc disorders; other back problems (20 sources) Other intervertebral disc displacement, lumbar region; Translations: [Spondylosis without myelopathy or radiculopathy, thoracic region] Onset: 09-21-2021 Chronic Substance-related disorders (1 source) Nicotine dependence, cigarettes, uncomplicated; Translations: [NICOTINE DEPEND CIGARETTES UNCOMP] Onset: 02-27-2022 Chronic Unclassified (4 sources) LOW BACK PAIN, UNSPECIFIED; Translations: [LOW BACK PAIN, UNSPECIFIED] Onset: 10-29-2021 Past or Other Problems Problem Classification Problem Date Documented Da te Episodic/Chronic Deficiency and other anemia (4 sources) Anemia, unspecified; Translations: [ANEMIA UNSPECIFIED] Onset: 2 Episodic Deficiency and other anemia (9 sources) Anemia; Translations: [Other specified anemias] Onset: 4 05-02-2023 Episodic E Codes: Overexertion (1 source) Slipping, tripping and stumbling without falling due to stepping into hole or opening, initial encounter; Translations: [SLIP STUMBL NO FALL STEP HOLE INIT] Onset: 2 Episodic Other diseases of veins and lymphatics (9 sources) Venous insufficiency of leg; Translations: [Venous insufficiency (chronic) (peripheral)] Onset: 4 05-02-2023 Episodic Other lower respiratory disease (4 sources) Other forms of dyspnea; Translations: [OTHER FORMS OF DYSPNEA] Onset: 2 Episodic Other lower respiratory disease (9 sources) Snoring; Translations: [Snoring] Onset: 4 Resolved: 4 05-02-2023 Episodic Other non-traumatic joint disorders (3 sources) [...] Translations: [LOW BACK PAIN, UNSPECIFIED] Onset: 3 Varicose veins of lower extremity (14 sources) Varicose veins of bilateral lower extremities with pain; Translations: [Varicose veins of bilateral lower limbs] Onset: 2 Episodic Results Test Name Value Interpretation Reference Range Facility No Panel InformationOrdered By: Nissa Anderson on 01-30-2024 [facility] PROF CHEM 8 (BAS METB)on Anion gap [Moles/Vol] 11.1 mmol/L Normal [facility] Comment on above: Performed By: #### F ETIBC, FERR #### [facility] [address] [place] [address] Dr. Geovani Mcclendon Calcium [Mass/Vol] 9.1 mg/dL Normal 8.5-10.1 [facility] Comment on above: Performed By: #### F ETIBC, FERR #### [facility] [address] [place] [address] Dr. Geovani Mcclendon Chloride [Moles/Vol] 107 mmol/L Normal 98-107 [facility] Comment on above: Performed By: #### F ETIBC, FERR #### [facility] [address] [place] [address] Dr. Geovani Mcclendon CO2 [Moles/Vol] 30.3 mmol/L Normal 21.0-32.0 [facility] Comment on above: Performed By: #### F ETIBC, FERR #### [facility] [address] [address] [address] Geovani Mcclendon Creatinine [Mass/Vol] 0.81 mg/dL Normal 0.70-1.30 [facility] Comment on above: Performed By: #### F ETIBC, FERR #### [facility] [address] [place] [address] Dr. Geovani Mcclendon EGFR-AF KENYAN >60 Normal >=60 [facility] Comment on above: Performed By: #### F ETIBC, FERR #### [facility] [address] [place] [address] Dr. Geovani Mcclendon EGFR-NON AF KENYAN >60 Normal >=60 [facility] Comment on above: Performed By: #### F ETIBC, FERR #### [facility] [address] [address] [address] Geovani Mcclendon Glucose [Mass/Vol] 100 mg/dL Normal 74-106 [facility] Comment on above: Performed By: #### F ETIBC, FERR #### [facility] [address] [address] [address] Geovani Mcclendon Potassium [Moles/Vol] 4.4 mmol/L Normal 3.5-5.1 [facility] Comment on above: Performed By: #### F ETIBC, FERR #### [facility] [address] [address] [address] Geovani Mcclendon Sodium [Moles/Vol] 144 mmol/L Normal 136-145 [facility] Comment on above: Performed By: #### F ETIBC, FERR #### [facility] [address] [place] [address] Dr. Geovani Mcclendon Urea nitrogen [Mass/Vol] 17.0 mg/dL Normal 7.0-18.0 [facility] Comment on above: Performed By: #### F ETIBC, FERR #### [facility] [address] [place] [address] Dr. Geovani Mcclendon Urea nitrogen/Creatinine [Mass ratio] 21.0 mg/mg Normal [facility] Comment on above: Performed By: #### F ETIBC, FERR #### [facility] [address] [place] [address] Dr. Geovani Mcclendon [facility]19 [facility] CON EXAMINATION: [facility] WO CON HISTORY: Low back pain COMPARISON: No [...] by: MARCOS VALDEZ Date: 2022-03-09 08:35 Normal [facility] US XANDER DOP LEG LTon 03-06-19 23 [...] left lower extremity. Electronically authenticated by: JULITO MYA Date: 2022-03-06 14:57 Normal [facility] CBC AUTO DIFFon 02-24-2022 BASO # 0.0 103/ul Normal 0.0-0.1 [facility] Comment on above: Performed By: #### C BC #### [facility] [address] [address] [address] Geovani Mcclendon Basophils/100 WBC (Bld) 0.5 % Normal 0.2-2.0 [facility] Comment on above: Performed By: #### C BC #### [facility] [address] [place] [address] Dr. Geovani Mcclendon EO # 0.2 103/ul Normal 0.0-0.[address] [facility] Comment on above: Performed By: #### C BC #### [facility] [address] [place] [address] Dr. Geovani Mcclendon Eosinophils/100 WBC (Bld) 1.9 % Normal 0.9-7.[address] [facility] Comment on above: Performed By: #### C BC #### [facility] [address] [place] [address] Dr. Geovani Mcclendon Erythrocyte distribution width (RBC) [Ratio] 13.2 % Normal 11.0-15.[address] [facility] Comment on above: Performed By: #### C BC #### [facility] [address] [place] [address] Dr. Geovani Mcclendon Hematocrit (Bld) [Volume fraction] 37.9 % Critically low 42.0-54.0 [facility] Comment on above: Performed By: #### C BC #### [facility] [address] [place] [address] Dr. Geovani Mcclendon Hemoglobin (Bld) [Mass/Vol] 12.9 g/dL Critically low 14.0-18.[address] [facility] Comment on above: Performed By: #### C BC #### [facility] [address] [place] [address] Dr. Geovani Mcclendon IG # 0.03 10e3/ul Normal 0.00-0.[address] [facility] Comment on above: Performed By: #### C BC #### [facility] [address] [place] [address] Dr. Geovani Mcclendon IG % 0.4 % Normal 0.0-0.[address] [facility] Comment on above: Performed By: #### C BC #### [facility] [address] [place] [address] Dr. Geovani Mcclendon LYMPH # 1.9 103/ul Normal 1.2-3.[address] [facility] Comment on above: Performed By: #### C BC #### [facility] [address] [place] [address] Dr. Geovani Mcclendon Lymphocytes/100 WBC (Bld) 24.8 % Normal 20.5-60.0 [facility] Comment on above: Performed By: #### C BC #### [facility] [address] [place] [address] Dr. Geovani Mcclendon MANUAL DIFF REQ NO Normal [facility] Comment on above: Performed By: #### C BC #### [facility] [address] [place] [address] Dr. Geovani Mcclendon MCH (RBC) [Entitic mass] 28.0 pg Normal 25.9-34.[address] [facility] Comment on above: Performed By: #### C BC #### [facility] [address] [place] [address] Dr. Geovani Mcclendon MCHC (RBC) [Mass/Vol] 34.0 g/dL Normal 29.9-35.2 [facility] Comment on above: Performed By: #### C BC #### [facility] [address] [place] [address] Dr. Geovani Mcclendon MCV (RBC) [Entitic vol] 82.2 fL Normal 80.0-94.0 [facility] Comment on above: Performed By: #### C BC #### [facility] [address] [place] [address] Dr. Geovani Mcclendon MONO # 0.7 103/ul Normal 0.3-0.8 [facility] Comment on above: Performed By: #### C BC #### [facility] [address] [place] [address] Dr. Geovani Mcclendon Monocytes/100 WBC (Bld) 8.6 % Normal 1.7-12.[address] [facility] Comment on above: Performed By: #### C BC #### [facility] [address] [place] [address] Dr. Geovani Mcclendon NEUT # 4.9 103/ul Normal 1.4-6.[address] [facility] Comment on above: Performed By: #### C BC #### [facility] [address] [place] [address] Dr. Geovani Mcclendon Neutrophils/100 WBC (Bld) 63.8 % Normal 43.0-75.0 [facility] Comment on above: Performed By: #### C BC #### [facility] [address] [place] [address] Dr. Geovani Mcclendon Platelet mean volume (Bld) [Entitic vol] 9.1 fL Critically low 9.5-13.5 [facility] Comment on above: Performed By: #### C BC #### [facility] [address] [address] [address] Geovani Mcclendon PLT 293 103/ul Normal 150-[address] [facility] Comment on above: Performed By: #### C BC #### [facility] [address] [place] [address] Dr. Geovani Mcclendon RBC 4.61 106/ul Critically low 4.70-6.10 [facility] Comment on above: Performed By: #### C BC #### [facility] [address] [place] [address] Dr. Geovani Mcclendon WBC 7.7 103/ul Normal 4.0-11.0 [facility] Comment on above: Performed By: #### C BC #### [facility] [address] [place] [address] Dr. Geovani Mcclendon CRPon 02-24-2022 CRP 4.7 mg/dL Critically high <=1.0 [facility] Comment on above: Performed By: #### F ETIBC, FERR #### [facility] [address] [place] [address] Dr. Geovani Mcclendon D-DIMERon 02-24-2022 D-DIMER 0.32 mg/L FEU Normal <=0.59 [facility] Comment on above: Performed By: #### P T, DDIM, PTT #### [facility] [address] [place] [address] Dr. Geovani Mcclendon D-DIMER COMMENTS SEE BELOW Normal [facility] Comment on above: Result Comment: Incr eases [...] By: #### P T, DDIM, PTT #### [facility] [address] [place] [address] Dr. Geovani Mcclendon PROF CHEM 8 (BAS METB)on Anion gap [Moles/Vol] 10.6 mmol/L Normal [facility] Comment on above: Performed By: #### F ETIBC, FERR #### [facility] [address] [place] [address] Dr. Geovani Mcclendon Calcium [Mass/Vol] 8.8 mg/dL Normal 8.5-10.1 [facility] Comment on above: Performed By: #### F ETIBC, FERR #### [facility] [address] [place] [address] Dr. Geovani Mcclendon Chloride [Moles/Vol] 100 mmol/L Normal 98-107 [facility] Comment on above: Performed By: #### F ETIBC, FERR #### [facility] [address] [place] [address] Dr. Geovani Mcclendon CO2 [Moles/Vol] 31.8 mmol/L Normal 21.0-32.0 [facility] Comment on above: Performed By: #### F ETIBC, FERR #### [facility] [address] [place] [address] Dr. Geovani Mcclendon Creatinine [Mass/Vol] 1.01 mg/dL Normal 0.70-1.30 [facility] Comment on above: Performed By: #### F ETIBC, FERR #### [facility] [address] [place] [address] Dr. Geovani Mcclendon EGFR-AF KENYAN >60 Normal >=60 [facility] Comment on above: Performed By: #### F ETIBC, FERR #### [facility] [address] [place] [address] Dr. Geovani Mcclendon EGFR-NON AF KENYAN >60 Normal >=60 [facility] Comment on above: Performed By: #### F ETIBC, FERR #### [facility] [address] [place] [address] Dr. Geovani Mcclendon Glucose [Mass/Vol] 109 mg/dL Critically high 74-106 [facility] Comment on above: Performed By: #### F ETIBC, FERR #### [facility] [address] [place] [address] Dr. Geovani Mcclendon Potassium [Moles/Vol] 3.4 mmol/L Critically low 3.5-5.1 [facility] Comment on above: Performed By: #### F ETIBC, FERR #### [facility] [address] [place] [address] Dr. Geovani Mcclendon Sodium [Moles/Vol] 139 mmol/L Normal 136-145 [facility] Comment on above: Performed By: #### F ETIBC, FERR #### [facility] [address] [place] [address] Dr. Geovani Mcclendon Urea nitrogen [Mass/Vol] 17.0 mg/dL Normal 7.0-18.0 [facility] Comment on above: Performed By: #### F ETIBC, FERR #### [facility] Laboratory [address] [place] [address] Dr. Geovani Mcclendon Urea nitrogen/Creatinine [Mass ratio] 16.8 mg/mg Normal [facility] Comment on above: Performed By: #### F ETIBC, FERR #### [facility] [address] [place] [address] Dr. Geovani Mcclendon PROTIMEon 02-24-2022 INR Coag (PPP) [Relative time] 0.98 {INR} Normal [facility] Comment on above: Performed By: #### P T, DDIM, PTT #### [facility] [address] [place] [address] Dr. Geovani Mcclendon INR GUIDELINES SEE BELOW Normal [facility] Comment on above: Result Comment: SACHIN RED INR: 2.0 - 3.0 CONDITIONS NOT LISTED BELOW 2.5 - 3.5 FOR PROSTHETIC HEART VALVE REPLACEMENT 2.5 - 3.5 RECURRENT THROMBOSIS Performed By: #### P T, DDIM, PTT #### [facility] [address] [address] [address] Geovani Mcclendon PT Coag (PPP) [Time] 10.4 s Normal 9.0-11.6 [facility] Comment on above: Performed By: #### P T, DDIM, PTT #### [facility] [address] [place] [address] Dr. Geovani Mcclendon PTTon 02-24-2022 aPTT Coag (Bld) [Time] 30.7 s Normal 22.3-36.2 Th [facility] Comment on above: Performed By: #### P T, DDIM, PTT #### [facility] [address] [place] [address] Dr. Geovani Mcclendon [facility] mm/hr Critically high <=15 [facility] Comment on above: Performed By: #### F ETIBC, FERR #### [facility] [address] [place] [address] Dr. Geovani Mcclendon VC INJ SCL HOLLY DIRECTOR BIOLOGICS VEINSon 1 03-05-2021 VC INJ SCL HOLLY DIRECTOR BIOLOGICS VEINS Patient: PAYAM MARCOS CorralOsbaldo Exam Date: 01/03/2022 : 1980 Gender:M Ordering : DR MARCOS VALDEZ M.D. Admission #: [id number] Family : Order #: [id number] CLICK HERE TO VIEW EXAM RADIOLOGY REPORT PROCEDURE: VEIN CENTER INJECTION SCLEROSING SOLUTION MULTIPLE VEINS SAME COMPARISON: VC INJ SCL HOLLY DIRECTOR BIOLOGICS VEINS, 12/27/2021. INDICATIONS: Pain co-occurrent and due [...] Julito May M.D. on 01/03/2022 at 11:58 [facility] VC INJ SCL HOLLY DIRECTOR BIOLOGICS VEINSon 1 02-26-2021 VC INJ SCL HOLLY DIRECTOR BIOLOGICS VEINS Patient: MARCOS LIU V. Exam Date: 12/27/2021 : 1980 Gender:M Ordering : DR MARCOS VALDEZ M.D. Admission #: [id number] Family : Order #: [id number] CLICK HERE TO VIEW EXAM RADIOLOGY REPORT [...] Valdez MD on 12/27/2021 at 09:14 Normal [facility] VC CONSULT FOLLOWUPon 2021 VC CONSULT FOLLOWUP Patient: MARCOS LIU V. Exam Date: 12/25/2021 : 1980 Gender:M Ordering : DR MARCOS VALDEZ M.D. Admission #: [id number] Family : Order #: [id number] CLICK HERE TO VIEW EXAM RADIOLOGY REPORT [...] Valdez MD on 12/25/2021 at 08:34 Normal [facility] VC EXT VENOUS TOR LIMITEDon 12-25-2021 VC EXT VENOUS TOR LIMITED Patient: MARCOS LIU V. Exam Date: 12/25/2021 : 1980 Gender:M Ordering : DR MARCOS VALDEZ M.D. Admission #: [id number] Family : Order #: [id number] CLICK HERE TO VIEW EXAM RADIOLOGY REPORT [...] of reflux. *Exam performed in accordance with [facility] practice guidelines- Peripheral venous ultrasound, May 07, 2009. CONCLUSION: Occlusion of treated varicose veins. Dictated by: Marcos Valdez MD on 12/25/2021 at 08:13 Approved by: Marcos Valdez MD on 12/25/2021 at 08:14 [facility] VC INJ FOAM SCLERO W US MLTI on 12-19-2021 VC INJ FOAM SCLERO W US MLTI Patient: MARCOS LIU V. Exam Date: 12/19/2021 : 1980 Gender:M Ordering : DR MARCOS VALDEZ M.D. Admission #: [id number] Family : Order #: [id number] CLICK HERE TO VIEW EXAM RADIOLOGY REPORT [...] procedu (more content not included)... Normal [facility] VC INJ FOAM SCLERO W US MLTI on 12-15-2021 VC INJ FOAM SCLERO W US MLTI Patient: MARCOS LIU V. Exam Date: 12/15/2021 : 1980 Gender:M Ordering : DR MARCOS VALDEZ M.D. Admission #: [id number] Family : Order #: [id number] CLICK HERE TO VIEW EXAM RADIOLOGY REPORT [...] for (more content not included)... Normal [facility] VC CONSULT FOLLOWUPon 2021 VC CONSULT FOLLOWUP Patient: PAYAMMARCOS Jamey Exam Date: 12/05/2021 : 1980 Gender:Mallika Ordering : DR MARCOS VALDEZ M.D. Admission #: [id number] Family : Order #: [id number] CLICK HERE [...] Valdez MD on 12/05/2021 at 10:58 Normal [facility] VC EXT VENOUS LT LIMITEDon 1 VC EXT VENOUS LT LIMITED Patient: MARCOS LIU V. Exam Date: 12/05/2021 : 1980 Gender:M Ordering : DR MARCOS VALDEZ M.D. Admission #: [id number] Family : Order #: [id number] CLICK HERE TO VIEW EXAM RADIOLOGY REPORT [...] Valdez MD on 12/05/2021 at 10:46 Normal [facility] VC ENDOVENOUS ABL 1ST V LTon 11-28-2021 VC ENDOVENOUS ABL 1ST V LT Patient: PAYAMMARCOS V. Exam Date: 11/28/2021 : 1980 Gender:M Ordering : DR MARCOS VALDEZ M.D. Admission #: [id number] Family : Order #: [id number] CLICK HERE TO VIEW EXAM RADIOLOGY REPORT [...] Julito May M.D. on 11/28/2021 at 15:48 [facility] CONSULT FOLLOWUPon 2021 VC CONSULT FOLLOWUP Patient: MARCOS LIU V. Exam Date: 11/21/2021 : 1980 Gender:M Ordering : DR MACROS VALDEZ M.D. Admission #: [id number] Family : Order #: [id number] CLICK HERE [...] Valdez MD on 11/21/2021 at 14:[address] [facility] VC EXT VENOUS RT LIMITEDon 1 VC EXT VENOUS RT LIMITED Patient: MARCOS LIU V. Exam Date: 11/21/2021 : 1980 Gender:Mallika Ordering : DR MARCOS VALDEZ M.D. Admission #: [id number] Family : Order #: [id number] CLICK HERE TO VIEW EXAM RADIOLOGY REPORT [...] Valdez MD on 11/21/2021 at 14:36 Normal [facility] TRANSFERRINon 11-15-2021 Transferrin [Mass/Vol] 214 mg/dL Normal 177-[address] [facility] Comment on above: Performed By: #### F ETIBC, FERR #### [facility] [address] [place] [address] Dr. Geovani Mcclendon CBC AUTO DIFFon 11-14-2021 BASO # 0.0 103/ul Normal 0.0-0.1 [facility] Comment on above: Performed By: #### F ETIBC, FERR #### [facility] [address] [place] [address] Dr. Geovani Mcclendon Basophils/100 WBC (Bld) 0.5 % Normal 0.2-2.0 [facility] Comment on above: Performed By: #### F ETIBC, FERR #### [facility] [address] [place] [address] Dr. Geovani Mcclendon EO # 0.1 103/ul Normal 0.0-0.7 [facility] Comment on above: Performed By: #### F ETIBC, FERR #### [facility] [address] [place] [address] Dr. Geovani Mcclendon Eosinophils/100 WBC (Bld) 1.4 % Normal 0.9-7.0 [facility] Comment on above: Performed By: #### F ETIBC, FERR #### [facility] [address] [place] [address] Dr. Geovani Mcclendon Erythrocyte distribution width (RBC) [Ratio] 13.2 % Normal 11.0-15.0 [facility] Comment on above: Performed By: #### F ETIBC, FERR #### [facility] [address] [place] [address] Dr. Geovani Mcclendon Hematocrit (Bld) [Volume fraction] 39.2 % Critically low 42.0-54.0 [facility] Comment on above: Performed By: #### F ETIBC, FERR #### [facility] [address] [place] [address] Dr. Geovani Mcclendon Hemoglobin (Bld) [Mass/Vol] 12.6 g/dL Critically low 14.0-18.0 [facility] Comment on above: Performed By: #### F ETIBC, FERR #### [facility] [address] [place] [address] Dr. Geovani Mcclendon IG # 0.02 10e3/ul Normal 0.00-0.03 [facility] Comment on above: Performed By: #### F ETIBC, FERR #### [facility] [address] [place] [address] Dr. Geovani Mcclendon IG % 0.2 % Normal 0.0-0.5 [facility] Comment on above: Performed By: #### F ETIBC, FERR #### [facility] [address] [place] [address] Dr. Geovani Mcclendon LYMPH # 1.7 103/ul Normal 1.2-3.8 [facility] Comment on above: Performed By: #### F ETIBC, FERR #### [facility] [address] [place] [address] Dr. Geovani Mcclendon Lymphocytes/100 WBC (Bld) 21.1 % Normal 20.5-60.0 [facility] Comment on above: Performed By: #### F ETIBC, FERR #### [facility] [address] [place] [address] Dr. Geovani Mcclendon MANUAL DIFF REQ NO Normal [facility] Comment on above: Performed By: #### F ETIBC, FERR #### [facility] [address] [place] [address] Dr. Geovani Mcclendon MCH (RBC) [Entitic mass] 28.0 pg Normal 25.9-34.0 [facility] Comment on above: Performed By: #### F ETIBC, FERR #### [facility] [address] [place] [address] Dr. Geovani Mcclendon MCHC (RBC) [Mass/Vol] 32.1 g/dL Normal 29.9-35.[address] [facility] Comment on above: Performed By: #### F ETIBC, FERR #### [facility] [address] [place] [address] Dr. Geovani Mcclendon MCV (RBC) [Entitic vol] 87.1 fL Normal 80.0-94.0 [facility] Comment on above: Performed By: #### F ETIBC, FERR #### [facility] [address] [place] [address] Dr. Geovani Mcclendon MONO # 0.6 103/ul Normal 0.3-0.8 [facility] Comment on above: Performed By: #### F ETIBC, FERR #### [facility] [address] [place] [address] Dr. Geovani Mcclendon Monocytes/100 WBC (Bld) 7.2 % Normal 1.7-12.[address] [facility] Comment on above: Performed By: #### F ETIBC, FERR #### [facility] [address] [place] [address] Dr. Geovani Mcclendon NEUT # 5.6 103/ul Normal 1.4-6.[address] [facility] Comment on above: Performed By: #### F ETIBC, FERR #### [facility] [address] [place] [address] Dr. Geovani Mcclendon Neutrophils/100 WBC (Bld) 69.6 % Normal 43.0-75.[address] [facility] Comment on above: Performed By: #### F ETIBC, FERR #### [facility] [address] [place] [address] Dr. Geovani Mcclendon Platelet mean volume (Bld) [Entitic vol] 9.1 fL Critically low 9.5-13.5 [facility] Comment on above: Performed By: #### F ETIBC, FERR #### [facility] [address] [place] [address] Dr. Geovani Mcclendon PLT 248 103/ul Normal 150-[address] [facility] Comment on above: Performed By: #### F ETIBC, FERR #### [facility] [address] [place] [address] Dr. Geovani Mcclendon RBC 4.50 106/ul Critically low 4.70-6.10 [facility] Comment on above: Performed By: #### F ETIBC, FERR #### [facility] [address] [place] [address] Dr. Geovani Mcclendon WBC 8.0 103/ul Normal 4.0-11.[address] [facility] Comment on above: Performed By: #### F ETIBC, FERR #### [facility] [address] [place] [address] Dr. Geovani Mcclendon FERRITINon 11-14-2021 Ferritin [Mass/Vol] 207.0 ng/mL Normal 26.0-388.0 [facility] Comment on above: Performed By: #### F ETIBC, FERR #### [facility] [address] [place] [address] Dr. Geovani Mcclendon IRON AND TIBCon 11-14-2021 % SATURATION 14.2 % Normal [facility] Comment on above: Performed By: #### F ETIBC, FERR #### [facility] [address] [place] [address] Dr. Geovani Mcclendon Iron [Mass/Vol] 33.0 ug/dL Critically low 65.0-175.0 [facility] Comment on above: Performed By: #### F ETIBC, FERR #### [facility] [address] [place] [address] Dr. Geovani Mcclendon TIBC DIRECT 232.0 ug/dL Critically low 250.0-450.0 [facility] Comment on above: Performed By: #### F ETIBC, FERR #### [facility] [address] [place] [address] Dr. Geovani Mcclendon PROF CHEM 8 (BAS METB)on Anion gap [Moles/Vol] 7.0 mmol/L Normal [facility] Comment on above: Performed By: #### F ETIBC, FERR #### [facility] [address] [address] [address] Geovani Mcclendon Calcium [Mass/Vol] 8.8 mg/dL Normal 8.5-10.1 [facility] Comment on above: Performed By: #### F ETIBC, FERR #### [facility] [address] [place] [address] Dr. Geovani Mcclendon Chloride [Moles/Vol] 105 mmol/L Normal 98-[address] [facility] Comment on above: Performed By: #### F ETIBC, FERR #### [facility] [address] [place] [address] Dr. Geovani Mcclendon CO2 [Moles/Vol] 31.1 mmol/L Normal 21.0-32.0 [facility] Comment on above: Performed By: #### F ETIBC, FERR #### [facility] [address] [place] [address] Dr. Geovani Mcclendon Creatinine [Mass/Vol] 0.86 mg/dL Normal 0.70-1.[address] [facility] Comment on above: Performed By: #### F ETIBC, FERR #### [facility] [address] [place] [address] Dr. Geovani Mcclendon EGFR-AF KENYAN >60 Normal >=60 [facility] Comment on above: Performed By: #### F ETIBC, FERR #### [facility] [address] [place] [address] Dr. Geovani Mcclendon EGFR-NON AF KENYAN >60 Normal >=[address] [facility] Comment on above: Performed By: #### F ETIBC, FERR #### [facility] [address] [place] [address] Dr. Geovani Mcclendon Glucose [Mass/Vol] 91 mg/dL Normal 74-106 [facility] Comment on above: Performed By: #### F ETIBC, FERR #### [facility] [address] [place] [address] Dr. Geovani Mcclendon Potassium [Moles/Vol] 4.1 mmol/L Normal 3.5-5.[address] [facility] Comment on above: Performed By: #### F ETIBC, FERR #### [facility] [address] [address] [address] Geovani Mcclendon Sodium [Moles/Vol] 139 mmol/L Normal 136-145 [facility] Comment on above: Performed By: #### F ETIBC, FERR #### [facility] [address] [address] [address] Geovani Mcclendon Urea nitrogen [Mass/Vol] 14.0 mg/dL Normal 7.0-18.0 [facility] Comment on above: Performed By: #### F ETIBC, FERR #### [facility] [address] [address] [address] Geovani Mcclendon Urea nitrogen/Creatinine [Mass ratio] 16.3 mg/mg Normal [facility] Comment on above: Performed By: #### F ETIBC, FERR #### [facility] [address] [address] [address] Geovani Mcclendon VC ENDOVENOUS ABL 1ST V RTon 11-14-2021 VC ENDOVENOUS ABL 1ST V RT Patient: MARCOS LIU V. Exam Date: 11/14/2021 : 1980 Gender:M Ordering : DR MARCOS VALDEZ M.D. Admission #: [id number] Family : Order #: [id number] CLICK HERE TO VIEW EXAM RADIOLOGY REPORT [...] Marcos Valdez MD on 11/14/2021 at 14:51 [facility] XR LSPINE 2_3 VIEWSon 2021 XR LSPINE 2_3 VIEWS EXAMINATION: XR LSPINE 2_3 VIEWS HISTORY: Spinal stenosis of lumbar region r COMPARISON: No relevant comparison available. FINDINGS: BONES: 4 mm anterolisthesis of L5 in relation L4 and S1. Incomplete fusion posterior elements of L5. No significant spondylosis. Eyzu-ta-optrikdz facet osteoarthropathy L5-S1 DISC SPACES: Disc space narrowing L4-L5 and L5-S1 PARASPINOUS: Negative. No paraspinous abnormality is seen. OTHER: Negative. IMPRESSION: Degenerative changes L4-S1 4 mm anterolisthesis of L5 Electronically authenticated by: MARCOS VALDEZ Date: 2021-10-25 07:15 Normal [facility] VC COMP CONSULTATIONon 10-10 VC COMP CONSULTATION Patient: MARCOS LIU V. Exam Date: 10/10/2021 : 1980 Gender:M Ordering : SHAIKH Cherelle JONES . 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 The patient's symptoms are partially relieved [...] MD on 10/10/2021 at 09:[address] [facility] VC VENOUS REFLUX TOR LMTon 0 8-11-2022 VC VENOUS REFLUX TOR LMT Patient: MARCOS LIU V. Exam Date: 09/21/2021 : 1980 Gender:M Ordering : SHAIKH Cherelle JONES . Admission #: [id number] Family : Order #: [id number] CLICK HERE TO VIEW EXAM RADIOLOGY REPORT [...] thrombus. Compressibility: Normal. Flow: Deep venous reflux. Belly Dump Driver: Distal/medial lower leg perf measures 2.4mm with [...] Valdez MD on 09/21/2021 at 13:49 Normal [facility] ECHOCARDIO M/2D COMPLETEon 0 09-18-2021 ECHOCARDIO M/2D COMPLETE Patient: MARCOS LIU V. Exam Date: 09/18/2021 : 1980 Gender:M Ordering : SHAIKH Cherelle JONES . Admission #: [id number] Family : Order #: [id number] CLICK HERE TO VIEW EXAM ECHOCARDIOGRAM REPORT [...] Coleman M.D. on 09/19/2021 at 17:41 Normal [facility] XR TSPINE 3 VIEWSon 09-19-19 22 XR [...] MARCOS VALDEZ Date: 2021-09-18 17:[address] [facility] BNPon 09-12-2021 Natriuretic peptide B (Bld) [Mass/Vol] 71.0 pg/mL Normal <=450.0 [facility] Comment on above: Performed By: #### B ELECTRONICS LEAD, LIPID, CMP #### [facility] [address] [address] [address] Geovani Mcclendon CBC AUTO DIFFon 09-12-2021 BASO # 0.1 103/ul Normal 0.0-0.1 [facility] Comment on above: Performed By: #### F ETIBC, FERR #### [facility] [address] [place] [address] Dr. Geovani Mcclendon Basophils/100 WBC (Bld) 0.8 % Normal 0.2-2.0 [facility] Comment on above: Performed By: #### F ETIBC, FERR #### [facility] [address] [place] [address] Dr. Geovani Mcclendon EO # 0.2 103/ul Normal 0.0-0.7 [facility] Comment on above: Performed By: #### F ETIBC, FERR #### [facility] [address] [place] [address] Dr. Geovani Mcclendon Eosinophils/100 WBC (Bld) 3.1 % Normal 0.9-7.0 [facility] Comment on above: Performed By: #### F ETIBC, FERR #### [facility] [address] [place] [address] Dr. Geovani Mcclendon Erythrocyte distribution width (RBC) [Ratio] 13.5 % Normal 11.0-15.0 [facility] Comment on above: Performed By: #### F ETIBC, FERR #### [facility] [address] [place] [address] Dr. Geovani Mcclendon Hematocrit (Bld) [Volume fraction] 39.7 % Critically low 42.0-54.0 [facility] Comment on above: Performed By: #### F ETIBC, FERR #### [facility] [address] [place] [address] Dr. Geovani Mcclendon Hemoglobin (Bld) [Mass/Vol] 12.8 g/dL Critically low 14.0-18.0 [facility] Comment on above: Performed By: #### F ETIBC, FERR #### [facility] [address] [place] [address] Dr. Geovani Mcclendon IG # 0.02 10e3/ul Normal 0.00-0.03 [facility] Comment on above: Performed By: #### F ETIBC, FERR #### [facility] [address] [place] [address] Dr. Geovani Mcclendon IG % 0.3 % Normal 0.0-0.5 [facility] Comment on above: Performed By: #### F ETIBC, FERR #### [facility] [address] [place] [address] Dr. Geovani Mcclendon LYMPH # 1.2 103/ul Normal 1.2-3.8 [facility] Comment on above: Performed By: #### F ETIBC, FERR #### [facility] [address] [place] [address] Dr. Geovani Mcclendon Lymphocytes/100 WBC (Bld) 20.3 % Critically low 20.5-60.0 [facility] Comment on above: Performed By: #### F ETIBC, FERR #### [facility] [address] [place] [address] Dr. Geovani Mcclendon MANUAL DIFF REQ NO Normal [facility] Comment on above: Performed By: #### F ETIBC, FERR #### [facility] [address] [place] [address] Dr. Geovani Mcclendon MCH (RBC) [Entitic mass] 28.1 pg Normal 25.9-34.0 [facility] Comment on above: Performed By: #### F ETIBC, FERR #### [facility] [address] [place] [address] Dr. Geovani Mcclendon MCHC (RBC) [Mass/Vol] 32.2 g/dL Normal 29.9-35.2 [facility] Comment on above: Performed By: #### F ETIBC, FERR #### [facility] [address] [place] [address] Dr. Geovani Mcclendon MCV (RBC) [Entitic vol] 87.1 fL Normal 80.0-94.0 [facility] Comment on above: Performed By: #### F ETIBC, FERR #### [facility] [address] [place] [address] Dr. Geovani Mcclendon MONO # 0.5 103/ul Normal 0.3-0.8 [facility] Comment on above: Performed By: #### F ETIBC, FERR #### [facility] [address] [place] [address] Dr. Geovani Mcclendon Monocytes/100 WBC (Bld) 7.4 % Normal 1.7-12.0 [facility] Comment on above: Performed By: #### F ETIBC, FERR #### [facility] [address] [place] [address] Dr. Geovani Mcclendon NEUT # 4.1 103/ul Normal 1.4-6.5 [facility] Comment on above: Performed By: #### F ETIBC, FERR #### [facility] [address] [place] [address] Dr. Geovani Mcclendon Neutrophils/100 WBC (Bld) 68.1 % Normal 43.0-75.0 [facility] Comment on above: Performed By: #### F ETIBC, FERR #### [facility] [address] [place] [address] Dr. Geovani Mcclendon Platelet mean volume (Bld) [Entitic vol] 9.6 fL Normal 9.5-13.[address] [facility] Comment on above: Performed By: #### F ETIBC, FERR #### [facility] [address] [place] [address] Dr. Geovani Mcclendon PLT 242 103/ul Normal 150-450 [facility] Comment on above: Performed By: #### F ETIBC, FERR #### [facility] [address] [place] [address] Dr. Geovani Mcclendon RBC 4.56 106/ul Critically low 4.70-6.10 [facility] Comment on above: Performed By: #### F ETIBC, FERR #### [facility] [address] [place] [address] Dr. Geovani Mcclendon WBC 6.1 103/ul Normal 4.0-11.0 [facility] Comment on above: Performed By: #### F ETIBC, FERR #### [facility] [address] [place] [address] Dr. Geovani Mcclendon GLYCOHEMOGLOBIN A1Con 2021 ADA RECOMMENDATION SEE BELOW Normal [facility] Comment on above: Result Comment: ADA RECOMMENDED LIMIT 4.0 - 6.0 ADA THERAPEUTIC TARGET < 7.0 ACTION SUGGESTED > 7.0 Performed By: #### F ETIBC, FERR #### [facility] [facility] [address] [place] [address] Dr. Geovani Mcclendon Glucose [Mass/Vol] 111 mg/dL Normal [facility] Comment on above: Performed By: #### F ETIBC, FERR #### [facility] [address] [address] [address] Geovani Mcclendon HbA1c (Bld) [Mass fraction] 5.5 % Normal 4.5-6.2 [facility] Comment on above: Performed By: #### F ETIBC, FERR #### [facility] [address] [address] [address] Geovani Mcclendon LIPID PROFILEon 09-12-2021 CHOL-HDL RATIO NORM SEE BELOW Normal [facility] Comment on above: Result Comment: 3.3 - 4.4 LOW RISK 4.4 - 7.1 AVERAGE RISK 7.1 - 11.0 MODERATE RISK >11.0 HIGH RISK Performed By: #### B ELECTRONICS LEAD, LIPID, CMP #### [facility] [address] [place] [address] Dr. Geovani Mcclendon Cholesterol [Mass/Vol] 202 mg/dL Critically high <=200 [facility] Comment on above: Performed By: #### B ELECTRONICS LEAD, LIPID, CMP #### [facility] [address] [place] [address] Dr. Geovani Mcclendon Cholesterol in HDL [Mass/Vol] 41 mg/dL Normal 40-60 [facility] Comment on above: Performed By: #### B ELECTRONICS LEAD, LIPID, CMP #### [facility] [address] [place] [address] Dr. Geovani Mcclendon Cholesterol in LDL [Mass/Vol] 148.6 mg/dL Normal [facility] Comment on above: Performed By: #### B ELECTRONICS LEAD, LIPID, CMP #### [facility] [address] [place] [address] Dr. Geovani Mcclendon Cholesterol.total/Chol esterol in HDL [Mass ratio] 4.9 {ratio} Normal [facility] Comment on above: Performed By: #### B ELECTRONICS LEAD, LIPID, CMP #### [facility] [address] [place] [address] Dr. Geovani Mcclendon HDL NORMAL > or = 60 mg/dl - LOW CARDIOVASCULAR RISK <40 mg/dl - HIGH CARDIOVASCULAR RISK Normal [facility] Comment on above: Performed By: #### B ELECTRONICS LEAD, LIPID, CMP #### [facility] [address] [place] [address] Dr. Geovani Mcclendon LDL CALC NORMAL SEE BELOW Normal [facility] Comment on above: Result Comment: <100 mg/dl OPTIMAL 100 - 129 mg/dl NEAR OR ABOVE OPTIMAL 130 - 159 mg/dl BORDERLINE HIGH 160 - 189 mg/dl HIGH >190 mg/dl VERY HIGH Performed By: #### B ELECTRONICS LEAD, LIPID, CMP #### [facility] [address] [address] [address] Geovani Mcclendon Triglyceride [Mass/Vol] 62 mg/dL Normal <=150 [facility] Comment on above: Performed By: #### B ELECTRONICS LEAD, LIPID, CMP #### [facility] [address] [place] [address] Dr. Geovani Mcclendon VLDL CALC 12.4 mg/dL Normal [facility] Comment on above: Performed By: #### B ELECTRONICS LEAD, LIPID, CMP #### [facility] [address] [place] [address] Dr. Geovani Mcclendon PROF 14(COMP METB)on 022 Albumin [Mass/Vol] 3.4 g/dL Normal 3.4-5.0 [facility] Comment on above: Performed By: #### B ELECTRONICS LEAD, LIPID, CMP #### [facility] [address] [place] [address] Dr. Geovain Mcclendon Albumin/Globulin [Mass ratio] 0.9 {ratio} Normal [facility] Comment on above: Performed By: #### B ELECTRONICS LEAD, LIPID, CMP #### [facility] [address] [place] [address] Dr. Geovani Mcclendon ALP [Catalytic activity/Vol] 57 U/L Normal 46-[address] [facility] Comment on above: Performed By: #### B ELECTRONICS LEAD, LIPID, CMP #### [facility] [address] [place] [address] Dr. Geovani Mcclendon ALT [Catalytic activity/Vol] 34 U/L Normal 16-63 [facility] Comment on above: Performed By: #### B ELECTRONICS LEAD, LIPID, CMP #### [facility] [address] [place] [address] Dr. Geovani Mcclendon Anion gap [Moles/Vol] 9.2 mmol/L Normal [facility] Comment on above: Performed By: #### B ELECTRONICS LEAD, LIPID, CMP #### [facility] [address] [place] [address] Dr. Geovani Mcclendon AST [Catalytic activity/Vol] 16 U/L Normal 15-37 [facility] Comment on above: Performed By: #### B ELECTRONICS LEAD, LIPID, CMP #### [facility] [address] [place] [address] Dr. Geovani Mcclendon Bilirubin [Mass/Vol] 0.4 mg/dL Normal 0.2-1.0 [facility] Comment on above: Performed By: #### B ELECTRONICS LEAD, LIPID, CMP #### [facility] [address] [place] [address] Dr. Geovani Mcclendon Calcium [Mass/Vol] 8.5 mg/dL Normal 8.5-10.1 [facility] Comment on above: Performed By: #### B ELECTRONICS LEAD, LIPID, CMP #### [facility] [address] [place] [address] Dr. Geovani Mcclendon Chloride [Moles/Vol] 106 mmol/L Normal 98-[address] [facility] Comment on above: Performed By: #### B ELECTRONICS LEAD, LIPID, CMP #### [facility] [address] [place] [address] Dr. Geovani Mcclendon CO2 [Moles/Vol] 30.4 mmol/L Normal 21.0-32.0 [facility] Comment on above: Performed By: #### B ELECTRONICS LEAD, LIPID, CMP #### [facility] [address] [place] [address] Dr. Geovani Mcclendon Creatinine [Mass/Vol] 0.77 mg/dL Normal 0.70-1.[address] [facility] Comment on above: Performed By: #### B ELECTRONICS LEAD, LIPID, CMP #### [facility] [address] [place] [address] Dr. Geovani Mcclendon EGFR-AF KENYAN >60 Normal >=60 [facility] Comment on above: Performed By: #### B ELECTRONICS LEAD, LIPID, CMP #### [facility] [address] [place] [address] Dr. Geovani Mcclendon EGFR-NON AF KENYAN >60 Normal >=60 [facility] Comment on above: Performed By: #### B ELECTRONICS LEAD, LIPID, CMP #### [facility] [address] [place] [address] Dr. Geovani Mcclendon Globulin (S) [Mass/Vol] 3.6 g/dL Normal [facility] Comment on above: Performed By: #### B ELECTRONICS LEAD, LIPID, CMP #### [facility] [address] [place] [address] Dr. Geovani Mcclendon Glucose [Mass/Vol] 93 mg/dL Normal 74-106 [facility] Comment on above: Performed By: #### B ELECTRONICS LEAD, LIPID, CMP #### [facility] [address] [place] [address] Dr. Geovani Mcclendon Potassium [Moles/Vol] 4.6 mmol/L Normal 3.5-5.1 [facility] Comment on above: Performed By: #### B ELECTRONICS LEAD, LIPID, CMP #### [facility] [address] [place] [address] Dr. Geovani Mcclendon Protein [Mass/Vol] 7.0 g/dL Normal 6.4-8.2 [facility] Comment on above: Performed By: #### B ELECTRONICS LEAD, LIPID, CMP #### [facility] [address] [place] [address] Dr. Geovani Mcclendon Sodium [Moles/Vol] 141 mmol/L Normal 136-145 [facility] Comment on above: Performed By: #### B ELECTRONICS LEAD, LIPID, CMP #### [facility] [address] [place] [address] Dr. Geovani Mcclendon Urea nitrogen [Mass/Vol] 17.0 mg/dL Normal 7.0-18.0 [facility] Comment on above: Performed By: #### B ELECTRONICS LEAD, LIPID, CMP #### [facility] [address] [place] [address] Dr. Geovani Mcclendon Urea nitrogen/Creatinine [Mass ratio] 22.1 mg/mg Normal [facility] Comment on above: Performed By: #### B ELECTRONICS LEAD, LIPID, CMP #### [facility] [address] [address] [address] Geovani Mcclendon XR ANKLE RT MIN 3 VIEWSon XR ANKLE RT MIN 3 VIEWS EXAM: XR ANKLE RT MIN 3 VIEWS HISTORY: Pain after fall COMPARISON: None. TECHNIQUE: 3 views FINDINGS: No osseous lesion, fracture, dislocation or subluxation. Joint spaces are normal. No visualized effusion. No visualized soft tissue edema. IMPRESSION: Normal x-rays Electronically authenticated by: MARCOS GONZALES Date: 2021-07-10 20:42 Normal [facility] Vital Signs Date Time Vital Sign Value Performing Clinician Facility 01-27-2024 18:06-0500 Body height 182.9 cm Josefina Татьяна [employer] LEAD Work Phone: [facility] 01-27-2024 18:06-0500 Body mass index (BMI) [Ratio] 46.09 kg/m2 Josefina Татьяна [employer] LEAD Work Phone: [facility] 01-27-2024 18:06-0500 Body temperature 98.49 [degF] Josefina Ortezbritt [employer] LEAD Work Phone: [facility] 01-27-2024 18:06-0500 Body weight 154.13 kg Josefina Camposmartin [employer] LEAD Work Phone: [facility] 01-27-2024 18:06-0500 Diastolic blood pressure 82 mm[Hg] Josefina Татьяна [employer] LE[employer] Work Phone: [facility] 01-27-2024 18:06-0500 Heart rate 82 /min Josefina Pérezeliasz [employer]LECTRON[employer] LEAD Work Phone: [facility] 01-27-2024 18:06-0500 Respiratory rate 20 /min Josefina Татьяна [employer] LE[employer] Work Phone: [facility] 01-27-2024 18:06-0500 SaO2% (BldA) [Mass fraction] 97 % Josefina Татьяна [employer] LE[employer] Work Phone: [facility] 01-27-2024 18:06-0500 Systolic blood pressure 120 mm[Hg] Josefina Pérezhedithz [employer]LECTRON[employer] LEAD Work Phone: [facility] 12-18-2023 17:59-0500 Body height 182.9 cm Josefinamariangel Ramirezz [employer]LECTRONICS LEAD Work Phone: [facility] 12-18-2023 17:59-0500 Body mass index (BMI) [Ratio] 45.57 kg/m2 Josefinamariangel Camposholz [employer]LECTRON[employer] LEAD Work Phone: [facility] 12-18-2023 17:59-0500 Body temperature 97.81 [degF] Josefina Ramirezz [employer]LECTRON[employer] LEAD Work Phone: [facility] 12-18-2023 17:59-0500 Body weight 152.41 kg Josefinamariangel Ramirezz [employer]RON[employer] LEAD Work Phone: [facility] 12-18-2023 17:59-0500 Diastolic blood pressure 90 mm[Hg] Josefina Andresholz [employer]LECTRON[employer] LEAD Work Phone: [facility] 12-18-2023 17:59-0500 Heart rate 70 /min Josefina Andresholz [employer]LECTRON[employer] LEAD Work Phone: [facility] 12-18-2023 17:59-0500 Respiratory rate 19 /min Josefina Andresholz [employer]LECTRON[employer] LEAD Work Phone: [facility] 12-18-2023 17:59-0500 SaO2% (BldA) [Mass fraction] 97 % Josefina Andresholz [employer]LECTRON[employer] LEAD Work Phone: [facility] 12-18-2023 17:59-0500 Systolic blood pressure 130 mm[Hg] Josefinamariangel Camposholz [employer]LECTRON[employer] LEAD Work Phone: [facility] 05-01-2022 10:30-0400 Body weight 109.77 kg Claudio Pugh Other [facility] Other 05-01-2022 10:30-0400 Diastolic blood pressure 84 mm[Hg] Claudio Pugh Other [facility] Other 05-01-2022 10:30-0400 SaO2% (BldA) [Mass fraction] 92 % Claudio Pugh Other [facility] Other 05-01-2022 10:30-0400 Systolic blood pressure 122 mm[Hg] Claudio Pugh Other [facility] Other Encounters Encounter Date Encounter Type Care Provider Facility Start: 01-30-2024 End: 01-30-2024 Bamboo flowsheet Adalberto Ausraeim PA Work Phone: [facility] Start: 01-30-2024 End: 01-30-2024 Bamboo flowsheet Adalberto Ausraeim PA Work Phone: [facility] Start: 01-30-2024 End: 01-30-2024 Office outpatient new 20 minutes Adalberto Ausraveronicam PA Work Phone: [facility] Comment on above: Neoplasm of uncertai n behavior (Primary Dx); Actinic keratosis Start: 01-30-2024 End: 01-30-2024 ambulatory ADALBERTO NORTHEIM Not Available Start: 01-27-2024 End: 01-27-2024 ambulatory JOSEFINA ТАТЬЯНА Not Available Start: 01-27-2024 End: 01-27-2024 Office outpatient visit 25 minutes Josefina Vaz [employer] LEAD Work Phone: [facility] Comment on above: Essential hypertensi on (CMS/HCC) (Primary Dx); Edema of both lower extremities; Morbid (severe) obesity due to excess calories (CMS/HCC); Neoplasm of uncertain behavior of nose; RUBEN (generalized anxiety disorder) (CMS/HCC); Tongue lesion Start: 01-27-2024 End: 01-27-2024 Bamboo flowsheet Josefina Vaz [employer]LECTRON[employer] LEAD Work Phone: [facility] Start: 01-27-2024 End: 01-27-2024 Bamboo flowsheet Josefina Vaz [employer]LECTRON[employer] LEAD Work Phone: [facility] Start: 12-18-2023 End: 12-18-2023 Office outpatient visit 25 minutes Josefina Vaz [employer]LECTRON[employer] LEAD Work Phone: [facility] Comment on above: Essential hypertensi on (CMS/HCC) (Primary Dx); Morbid (severe) obesity due to excess calories (CMS/HCC); ALEXANDRO (obstructive sleep apnea); RUBEN (generalized anxiety disorder) (CMS/HCC); Vitamin D deficiency; Edema of both lower extremities Start: 12-18-2023 End: 12-18-2023 ambulatory JOSEFINA VAZ Not Available Start: 12-18-2023 End: 12-18-2023 Bamboo flowsheet Josefina Vaz [employer]LECTRON[employer] LEAD Work Phone: [facility] Start: 12-18-2023 End: 12-18-2023 Bamboo flowsheet Josefina Vaz [employer]LECTRON[employer] LEAD Work Phone: [facility] Start: 05-02-2022 End: 05-02-2022 ambulatory Claudio Pugh Other [facility] Other Start: 05-02-2022 Telephone encounter Claudio Pugh [facility] Start: 05-01-2022 End: 05-01-2022 ambulatory Claudio Pugh Other [facility] Other Start: 05-01-2022 Office consultation new/estab patient 60 min Claudio Pugh [facility] Start: 04-17-2022 End: 04-18-2022 ambulatory JAVAS[employer] FR[employer] END DEVELOPER JOSEFINA AICHEDITHZ Facility:[facility] Start: 03-09-2022 End: 03-10-2022 ambulatory SHAIKH Linh JONES Facility:[facility] Start: 03-06-2022 End: 03-07-2022 ambulatory JAVAS[employer] FR[employer] END DEVELOPER JOSEFINA AICHHOLZ Facility:[facility] Start: 02-23-2022 End: 02-24-[address] ELEUTERIO FRANKEL Facility:[facility] Start: 01-03-2022 End: 01-04-2022 ambulatory [...] y:[facility] Start: 12-05-2021 End: 12-06-[address] ELEUTERIO FRANKEL Facility:[facility] Start: 11-28-2021 End: 11-29-[address] MARCOS VALDEZ Facility:[facility] Start: 11-21-2021 End: 11-22-[address] MARCOS VALDEZ Facility:[facility] Start: 11-14-2021 End: 11-15-2021 ambulatory SHAIKH Linh JONES Facility:[facility] Start: 11-14-2021 End: 11-15-[address] MARCOS VALDEZ Facility:[facility] Start: 10-24-2021 End: 10-25-2021 ambulatory SHAIKH Linh JONES Facility:[facility] Start: 10-18-2021 End: 02-02-2022 ambulatory SHAIKH Linh JONES Facility:[facility] Start: 10-10-2021 End: 10-11-2021 ambulatory SHAIKH Linh JONES Facility:[facility] Start: 09-21-2021 End: 09-22-2021 ambulatory SHAIKH Linh SANTANAD Facility:[facility] Start: 09-18-2021 End: 09-19-2021 ambulatory LEES Linh CALVINWWARadha Facility:[facility] Start: 09-12-2021 End: 09-13-2021 ambulatory SHAIKH Linh LINTONWARadha Facility:[facility] Start: 07-10-2021 End: 07-10-[address] ELEUTERIO FRANKEL Facility:[facility] Start: 07-03-2017 End: 07-04-2017 Ambulatory Russell Parks Facility:CD:[id number] Procedures Date Procedure Procedure Detail Performing Clinician Start: 01-30-2024 CRYOTHERAPY SKIN LESION Adalberto HERMAN Work Phone: Plan of Treatment Date Care Activity Detail Author Start: 08-10-2024 Influenza vaccination Influenza Vacc ine (#1) [facility] Comment on above: Postponed from 10/12 (Patient Refused) Start: 03-30-2024 End: 03-30-2024 Patient encounter procedure 03/30/2024 6:00 PM EST Office Visit [facility] [address] [place] [phone] Josefina Vaz, GABY [address] [place] [phone] [facility] Start: 01-30-2024 End: 01-30-2024 Patient encounter procedure 01/30/2024 10:30 AM EST Office Visit [facility] [address] [place] [address] Adalberto Mercre PA [address] [place] [address] Neoplasm of uncertain behavior of nose; Tongue lesion [facility] Comment on above: 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; Tongue lesion Start: 01-27-2024 End: 01-27-2024 Patient encounter procedure 01/27/2024 6:00 PM EST Office Visit [facility] [address] [place] [address] Josefina Vaz, ELECTRON[employer] LEAD [address] [place] [phone] [facility] Start: 12-18-2023 End: 12-18-2023 Patient encounter procedure 12/18/2023 6:00 PM EST Office Visit [facility] [address] [place] [phone] Josefina Vaz, GABY [address] [place] [address] ALEXANDRO (obstructive sleep apnea) (Primary Dx); Morbid (severe) obesity due to excess calories (CMS/HCC); Essential hypertension (CMS/HCC); RUBEN (generalized anxiety disorder) (CMS/HCC); Vitamin D deficiency [facility] Comment on above: ALEXANDRO (obstructive sle ep apnea) (Primary Dx); Morbid (severe) obesity due to excess calories (CMS/HCC); Essential hypertension (CMS/HCC); RUBEN (generalized anxiety disorder) (CMS/HCC); Vitamin D deficiency Start: 12-18-2023 End: 12-17-2024 25-hydroxyvitamin D3 [Mass/volume] in Serum or Plasma Vitamin D 25 hydroxy Lab Routine Vitamin D deficiency Expected: 12/18/2023 (Approximate), Expires: 12/17/2024 [facility] Comment on above: Expected: 12/18/2023 (Approximate), Expires: 12/17/2024 Start: 12-18-2023 End: 12-17-2024 CBC W Auto Differential panel - Blood CBC and differential Lab Routine ALEXANDRO (obstructive sleep apnea) Essential hypertension (CMS/HCC) Expected: 12/18/2023 (Approximate), Expires: 12/17/2024 [facility] Work Phone: Comment on above: Expected: 12/18/2023 (Approximate), Expires: 12/17/2024 Start: 12-18-2023 End: 12-17-2024 Comprehensive metabolic 2000 panel - Serum or Plasma Comprehensive metabolic panel Lab Routine Morbid (severe) obesity due to excess calories (CMS/HCC) Essential hypertension (CMS/HCC) RUBEN (generalized anxiety disorder) (CMS/HCC) Vitamin D deficiency Expected: 12/18/2023 (Approximate), Expires: 12/17/2024 [facility] Comment on above: Expected: 12/18/2023 (Approximate), Expires: 12/17/2024 Start: 12-18-2023 End: 12-17-2024 Hemoglobin A1c/Hemoglobin.total in Blood Hemoglobin A1c Lab Routine Morbid (severe) obesity due to excess calories (CMS/HCC) Expected: 12/18/2023 (Approximate), Expires: 12/17/2024 [facility] Comment on above: Expected: 12/18/2023 (Approximate), Expires: 12/17/2024 Start: 12-18-2023 End: 12-17-2024 Lipid 1996 panel - Serum or Plasma Lipid panel Lab Routine Morbid (severe) obesity due to excess calories ([facility]) Expected: 12/18/2023 (Approximate), Expires: 12/17/2024 [facility] Comment on above: Expected: 12/18/2023 (Approximate), Expires: 12/17/2024 Start: 12-18-2023 End: 12-17-2024 Microalbumin/Creatinine panel in random Urine Microalbumin / creatinine, urine ratio Lab Routine Essential hypertension ([facility]) Expected: 12/18/2023 (Approximate), Expires: 12/17/2024 [facility] Comment on above: Expected: 12/18/2023 (Approximate), Expires: 12/17/2024 Start: 12-18-2023 End: 12-17-2024 Thyrotropin [Units/volume] in Serum or Plasma TSH Lab Routine RUBEN (generalized anxiety disorder) ([facility]) Expected: 12/18/2023 (Approximate), Expires: 12/17/2024 [facility] Comment on above: Expected: 12/18/2023 (Approximate), Expires: 12/17/2024 Start: 12-18-2023 End: 12-17-2024 Urinalysis complete panel - Urine Urinalysis with reflex microscopic (clean catch) Lab Routine Essential hypertension ([facility]/HCC) Expected: 12/18/2023 (Approximate), Expires: 12/17/2024 [facility] Comment on above: Expected: 12/18/2023 (Approximate), Expires: 12/17/2024 Start: 10-13-2023 Influenza vaccination Influenza Vacc ine (#1) [facility] Immunizations Immunization Date Immunization Notes Care Provider Reji shipley 08-03-2022 tetanus toxoid, redu pamela diphtheria toxoid, and acellular pertussis vaccine, adsorbed Josefina Vaz [employer] Work Phone: [facility] 11-08-2016 influenza, injectabl e, quadrivalent, contains preservative Josefina Vaz [employer] Work Phone: [facility] 11-08-2016 influenza virus vacc ine, unspecified formulation Josefina Vaz [employer] Work Phone: [facility] 06-17-2009 hepatitis B vaccine, pediatric or pediatric/adolescent dosage Josefina Vaz [employer] LEAD Work Phone: [facility] 05-10-2009 hepatitis B vaccine, pediatric or pediatric/adolescent dosage Josefina Vaz [employer]RON[employer] LEAD Work Phone: [facility] Payers Date Payer Category Payer Private Health Insurance [employer] [id number] 1979 Unknown [id number] 2.840.1.447103.3.579.2. 1979 Unknown [id number] 2.16840.1.167801.3.579.2. 59 1979 Unknown [id number] 216840.1.408535.3.579.2. 59 1979 Unknown [id number] 2.16840.1.854141.3.579.2. 59 1979 Unknown [id number] 2.16.840.1.638982.3.579.2. 59 1979 Unknown [id number] 2.16840.1.175512.3.579.2. 59 1979 Unknown [id number] 2.16840.1.765463.3.579.2. 1979 Unknown [id number] 2.16.840.1.630788.3.579.2. 593 1979 Unknown [id number] 2.16.840.1.261343.3.579.2. 59 1979 Unknown [id number] 2.16.840.1.907095.3.579.2. 593 1979 Unknown [id number] 2.16.840.1.280732.3.579.2. 59 1979 Unknown [id number] 2.16.840.1.246411.3.579.2. 593 1979 Unknown [id number] 2.16.840.1.959565.3.579.2. 1979 Unknown [id number] 2.16.840.1.085630.3.579.2. 59 1979 Unknown [id number] 2.16.840.1.227606.3.579.2. 1979 Unknown [id number] 2.16.840.1.515151.3.579.2. 1979 Unknown [id number] 2.16.840.1.337185.3.579.2. 1979 Unknown [id number] 2.16.840.1.843714.3.579.2. 593 1979 Unknown [id number] 2.16.840.1.478356.3.579.2. 59 1979 Unknown [id number] 2.16.840.1.817242.3.579.2. 593 1979 Unknown [id number] 2.16.840.1.524661.3.579.2. 59 1979 Unknown [id number] 2.16.840.1.182004.3.579.2. 593 1979 Unknown [id number] 2.16.840.1.588055.3.579.2. 1979 Unknown [id number] 2.16.840.1.809476.3.579.2. 593 1979 Unknown [id number] 2.16.840.1.940612.3.579.2. 593 1979 Unknown [id number] 2.16.840.1.044054.3.579.2. 1259 1979 Unknown [id number] 2.16.840.1.001036.3.579.2. 9 1979 Unknown [id number] 2.16.840.1.916807.3.579.2. 1259 1959 Unknown [id number] Social History Date Type Detail Facility Start: 12-18-2023 End: 01-27-2024 Sex Assigned At [facility] [employer] Other Tobacco smoking status [facility] Tobacco smoking consumption unknown [facility] Start: 1980 Sex assigned at Not on file [facility] Start: 12-18-2023 Tobacco smoking status MNIS Never smoked tobacco [facility] Start: 12-18-2023 Tobacco use and exposure User of smokeless tobacco [facility] History of tobacco use Chews Tobacco [facility] Start: 12-18-2023 End: 01-27-2024 History of Social function [facility] Clinical Notes 05-01-2022 to 01-30-2024 VIRGIL Raya - 01/30/2024 10:30 AM Refugio Vaz NP - 01/27/2024 6:36 PM Refugio Vaz NP - 01/27/2024 6:32 PM Refugio Vaz NP - 01/27/2024 6:31 PM ESTPatient Instructions Note Date & Type Note Facility 01-30-2024 History of Presen t illness Narrative Lesions: Location: right nasal sidewall Duration: few years Quality: painful at times Modifying factors: aggravated by picking, aggravated by glasses Associated symptoms: bleeding, non-healing, red Treatments: none Lesion # 2: Location: tongue Duration: couple of moths Quality: painful at times Modifying factors: aggravated by spicy and salty foods Associated symptoms: non-healing Treatments: none New patient All pertinent medical history, medications, and allergies were reviewed. General Exam: alert, oriented to person, place, and time, normal affect, well appearing Unaccompanied A focused exam completed based on patient reported problems, see below: 1. Neoplasm of uncertain behavior Left Anterior Tongue Erythematous patch clotrimazole (Mycelex) 10 MG del Take 1 tablet (10 mg) by mouth 5 (five) times a day for 10 days Lesion is suspicious for prior trauma vs. Thrush. Patient declined a referral to ENT today. Start Clotrimazole 10 mg, take 1 tablet by mouth 5 times a day for ten days. Notify if still flared despite treatment. Related Procedures Ambulatory referral to Dermatology 2. Actinic keratosis Right Nasal Sidewall Erythematous scaly papules Patient was counseled regarding these sun-induced growths that can develop into squamous cell carcinoma if left untreated. Discussed treatment with cryotherapy. It was emphasized that any treated lesions that fail to resolve should be re-evaluated. Cryotherapy performed today; see procedure note Diagnosis: Actinic keratosis Indication: Precancerous Location: see skin exam Consent: Verbal consent was obtained and risks were discussed, including, but not limited to risks of scarring, darker or sky diver pigmentary changes, recurrence, incomplete removal and infection. Method: Liquid nitrogen was used to treat the lesion(s) with two 5-10 second freeze-thaw cycles. Number of lesions treated: 1 Post-procedure instructions: Instructions were given orally and in writing. The office will be contacted if the lesion fails to resolve despite treatment, or if a side effect develops such as abnormal crusting, scabbing, redness or tenderness. Advised patient to call the office in 3 weeks if spot has not resolved for possible bi-opsy. Cryotherapy, skin lesion - Right Nasal Sidewall Related Procedures Ambulatory referral to Dermatology Next Visit: prn for any new/changing lesions documented in this encounter [facility] 01-27-2024 History of Presen t illness Narrative Associated Problem(s): Tongue lesion Will see if dermatology will evaluate May need oral surgeon or ENT will wait to see Associated Problem(s): RUBEN (generalized anxiety disorder) ([facility]) Would like to restart lexapro at 10mg Take medication only as directed. This medication will take approximately 4-6 weeks to become effective. If any suicidal thoughts, thoughts of hurting others, or hallucinations contact the office or proceed to the Emergency Room for mental health evaluation. Medication may cause dry mouth, dizziness, and in some cases worsening in depression symptoms. Please contact the office if these occur. Fu in 8 weeks Associated Problem(s): Neoplasm of uncertain behavior of nose Saw dermatology partners in past, told was acne Still present would like second opinion Images from the original note were not included. Marcos Liu is a 43 y.o. male presents with chief complaint of No chief complaint on file. HPI: 2 skin lesions: Right side of nose: present over a year, does not heal, occ clear drainage Tongue: left side of tongue, no ulceration, but does have an area with deformity, no drainage, occ burning with eating does use chewing tobacco Hypertension This is a chronic problem. The current episode started more than 1 year ago. The problem has been gradually improving since onset. The problem is controlled. Associated symptoms include peripheral edema. Pertinent negatives include no blurred vision, chest pain, orthopnea, palpitations, PND or shortness of breath. There are no associated agents to hypertension. Risk factors for coronary artery disease include obesity, male gender, sedentary lifestyle and smoking/tobacco exposure. Past treatments include ANDREA inhibitors. The current treatment provides significant improvement. There are no compliance problems. There is no history of CAD/IA. Edema Presents with chronic edema. The current episode started more than 1 year ago. The onset of the episode was undetermined. These episodes happen throughout the day. The problem presents itself daily. The problem has been gradually improving. The edema is present on the both side(s). Risk factors for edema include no known risk factors. Associated agents include no associated agents. Pertinent negative symptoms include no chest pain, no decreased urine volume, no nausea, no orthopnea, no palpitations, no PND, no vomiting and no weight change. Pertinent negative history includes no CAD and no CHF. Treatments tried include diuretics. There has been significant improvement on treatment(s). SUBJECTIVE: MEDICATIONS: Current Outpatient Medications Medication Instructions escitalopram (LEXAPRO) 10 mg, Oral, Daily furosemide (LASIX) 20 mg, Oral, Daily, Take 20 mg by mouth Daily lisinopril 20 mg, Oral, Daily ALLERGIES: Allergies Allergen Reactions Codeine Other LOC REVIEW OF SYMPTOMS: Review of Systems Constitutional: Negative for activity change, appetite change and unexpected weight change. HENT: Negative for ear pain, nosebleeds, sneezing, trouble swallowing and voice change. Eyes: Negative for blurred vision, pain, discharge and visual disturbance. Respiratory: Negative for apnea, chest tightness, shortness of breath and wheezing. Cardiovascular: Positive for leg swelling. Negative for chest pain, palpitations, orthopnea and PND. Gastrointestinal: Negative for abdominal distention, blood in stool, constipation, diarrhea, nausea and vomiting. Genitourinary: Negative for decreased urine volume, difficulty urinating, dysuria and hematuria. Skin: Negative for color change. Skin lesion Neurological: Negative for dizziness, tremors and seizures. Psychiatric/Behavioral: Negative for agitation, decreased concentration, hallucinations, self-injury and suicidal ideas. The patient is not nervous/anxious. Hematological: Negative for adenopathy. Does not bruise/bleed easily. Endocrine: Negative for cold intolerance, heat intolerance, polydipsia and polyuria. Allergic/Immunologic: Negative for environmental allergies and food allergies. PAST MEDICAL HISTORY History reviewed. No pertinent past medical history. History reviewed. No pertinent surgical history. family history is not on file. OBJECTIVE: Visit Vitals BP 120/82 (BP Location: Left arm, Patient Position: Sitting, BP Cuff Size: Large adult long) Pulse 82 Temp 98.5 F (Temporal) Resp 20 Ht 6' Wt 339 lb 12.8 oz SpO2 97% BMI 46.09 kg/m Smoking Status Never BSA 2.8 m Physical Exam Vitals and nursing note reviewed. Constitutional: Appearance: Normal appearance. HENT: Head: Normocephalic. Right Ear: External ear normal. Left Ear: External ear normal. Nose: Nose normal. Mouth/Throat: Mouth: Mucous membranes are moist. Pharynx: Oropharynx is clear. Comments: Tongue with concave deformity, present for a few months, no drainage, no lesions noted to roof of mouth or his buccal region Eyes: Extraocular Movements: Extraocular movements intact. Conjunctiva/sclera: Conjunctivae normal. Cardiovascular: Rate and Rhythm: Normal rate and regular rhythm. Pulses: Normal pulses. Heart sounds: Normal heart sounds. Pulmonary: Effort: Pulmonary effort is normal. Breath sounds: Normal breath sounds. Musculoskeletal: Cervical back: Neck supple. Right lower leg: No edema. Left lower leg: No edema. Skin: General: Skin is warm and dry. Capillary Refill: Capillary refill takes 2 to 3 seconds. Findings: Lesion (right side of nose, scabbed area) present. Neurological: General: No focal deficit present. Mental Status: He is alert. Psychiatric: Mood and Affect: Mood normal. Behavior: Behavior normal. Thought Content: Thought content normal. Judgment: Judgment normal. ASSESSMENT AND PLAN: Follow up in about 2 months (around 03/29/2024) for Recheck. Problem List Items Addressed This Visit Essential hypertension (CMS/HCC) - Primary Please check blood pressure daily and record DASH diet Limit caffeine Take medication as directed Contact office if chest pain, pressure, dizziness, shortness of breath, swelling legs Recommend slow position changes Last visit restarted on lisinopril, bp much better Still needs lab completed Relevant Medications lisinopril 20 MG tablet RUBEN (generalized anxiety disorder) ([facility]) Would like to restart lexapro at 10mg Take medication only as directed. This medication will take approximately 4-6 weeks to become effective. If any suicidal thoughts, thoughts of hurting others, or hallucinations contact the office or proceed to the Emergency Room for mental health evaluation. Medication may cause dry mouth, dizziness, and in some cases worsening in depression symptoms. Please contact the office if these occur. Fu in 8 weeks Relevant Medications escitalopram (Lexapro) 10 MG tablet Morbid (severe) obesity due to excess calories (CMS/HCC) Discussed with patient their BMI (actual, verses recommended). We have also discussed lifestyle modifications: attempts to perform physical activity as chronic conditions allow, also to monitor dietary intake: increasing protein/fruits/veggies and lowering carb intake (unless contraindicated). Limit sodas, juices, and sugary drinks. Edema of both lower extremities Last appt restarted lasix Doing better, needs labs Relevant Medications furosemide (Lasix) 20 MG tablet Neoplasm of uncertain behavior of nose Saw dermatology partners in past, told was acne Still present would like second opinion Relevant Orders Ambulatory referral to Dermatology Tongue lesion Will see if dermatology will evaluate May need oral surgeon or ENT will wait to see Relevant Orders Ambulatory referral to Dermatology Associated Problem(s): Morbid (severe) obesity due to excess calories (CMS/HCC) Discussed with patient their BMI (actual, verses recommended). We have also discussed lifestyle modifications: attempts to perform physical activity as chronic conditions allow, also to monitor dietary intake: increasing protein/fruits/veggies and lowering carb intake (unless contraindicated). Limit sodas, juices, and sugary drinks. Associated Problem(s): Edema of both lower extremities Last appt restarted lasix Doing better, needs labs Associated Problem(s): Essential hypertension (CMS/HCC) Please check blood pressure daily and record DASH diet Limit caffeine Take medication as directed Contact office if chest pain, pressure, dizziness, shortness of breath, swelling legs Recommend slow position changes Last visit restarted on lisinopril, bp much better Still needs lab completed documented in this encounter [facility] 01-27-2024 Instructions Josefina Vaz NP - 01/27/2024 6:00 PM EST Refer to dermatology for nose skin lesion Get labs Start escitalopram. Take medication only as directed. This medication will take approximately 4-6 weeks to become effective. If any suicidal thoughts, thoughts of hurting others, or hallucinations contact the office or proceed to the Emergency Room for mental health evaluation. Medication may cause dry mouth, dizziness, and in some cases worsening in depression symptoms. Please contact the office if these occur. documented in this encounter [facility] 12-18-2023 History of Presen t illness Narrative Associated Problem(s): RUBEN (generalized anxiety disorder) ([facility]) At this point wants to remain off meds feels good Has a different job, more money, less stress, less hours Associated Problem(s): Vitamin D deficiency Check labs Associated Problem(s): Edema of both lower extremities Restart lasix, in 10 days get labs completed Associated Problem(s): ALEXANDRO (obstructive sleep apnea) Using CPAP needs new filters, masks, hoses Need compliance report May need re titration study Images from the original note were not included. Marcos Liu is a 43 y.o. male presents with chief complaint of No chief complaint on file. HPI: Not seen in about a year ALEXANDRO: CPAP, wears nightly, average 6 hours per use, feels tired a lot Was taking lexapro for anxiety, has been off med for some time,no current symptoms, would like to remain off med at this time Hypertension This is a chronic problem. The current episode started more than 1 year ago. The problem has been gradually worsening since onset. The problem is uncontrolled. Associated symptoms include peripheral edema. Pertinent negatives include no blurred vision, headaches, neck pain or orthopnea. There are no associated agents to hypertension. Risk factors for coronary artery disease include male gender, obesity and sedentary lifestyle. Past treatments include nothing. Compliance problems include medication cost. Edema Presents with chronic edema. The current episode started more than 1 year ago. The onset of the episode was gradual. These episodes happen throughout the day (worse in the evening). The problem presents itself constantly. The problem has been gradually worsening. The edema is present on the both side(s). Risk factors for edema include no known risk factors. Associated agents include not taking diuretics. Associated symptoms include fatigue. Pertinent negative symptoms include no abdominal pain, no cough, no decreased urine volume, no fever, no syncope and no vomiting. Past medical history is significant for varicose veins. Pertinent negative history includes no CHF, no cirrhosis and no hepatitis. Treatments tried include diuretics. There has been moderate improvement on treatment(s). SUBJECTIVE: MEDICATIONS: Current Outpatient Medications Medication Instructions escitalopram (LEXAPRO) 5 mg, Oral, Daily furosemide (LASIX) 20 mg, Oral, Daily lisinopril 20 mg, Oral, Daily ALLERGIES: Allergies Allergen Reactions Codeine Other LOC REVIEW OF SYMPTOMS: Review of Systems Constitutional: Positive for fatigue. Negative for activity change, appetite change, chills, fever and unexpected weight change. HENT: Negative for congestion, ear pain, nosebleeds, rhinorrhea, sinus pressure, sneezing, sore throat, trouble swallowing and voice change. Eyes: Negative for blurred vision, pain, discharge and visual disturbance. Respiratory: Negative for apnea, cough, chest tightness and wheezing. Cardiovascular: Positive for leg swelling. Negative for orthopnea and syncope. Gastrointestinal: Negative for abdominal distention, abdominal pain, blood in stool, constipation, diarrhea and vomiting. Genitourinary: Negative for decreased urine volume, difficulty urinating, dysuria, flank pain and hematuria. Musculoskeletal: Negative for arthralgias, back pain, joint swelling, myalgias and neck pain. Skin: Negative for color change, rash and wound. Neurological: Negative for tremors, seizures, weakness, numbness and headaches. Psychiatric/Behavioral: Negative for agitation, hallucinations, self-injury and sleep disturbance. Hematological: Negative for adenopathy. Does not bruise/bleed easily. Endocrine: Positive for polydipsia and polyuria. Negative for cold intolerance, heat intolerance and polyphagia. Allergic/Immunologic: Negative for environmental allergies and food allergies. PAST MEDICAL HISTORY No past medical history on file. No past surgical history on file. family history is not on file. OBJECTIVE: Visit Vitals BP 130/90 (BP Location: Left arm, Patient Position: Sitting, BP Cuff Size: Adult long) Pulse 70 Temp 97.8 F (Temporal) Resp 19 Ht 6' Wt 336 lb SpO2 97% BMI 45.57 kg/m BSA 2.78 m Physical Exam Vitals and nursing note reviewed. Constitutional: Appearance: Normal appearance. He is obese. HENT: Head: Normocephalic. Right Ear: External ear normal. Left Ear: External ear normal. Nose: Nose normal. Mouth/Throat: Mouth: Mucous membranes are moist. Pharynx: Oropharynx is clear. Eyes: Extraocular Movements: Extraocular movements intact. Conjunctiva/sclera: Conjunctivae normal. Neck: Vascular: No carotid bruit. Cardiovascular: Rate and Rhythm: Normal rate and regular rhythm. Pulses: Normal pulses. Heart sounds: Normal heart sounds. Pulmonary: Effort: Pulmonary effort is normal. No respiratory distress. Breath sounds: Normal breath sounds. No wheezing. Abdominal: General: Bowel sounds are normal. Palpations: Abdomen is soft. Tenderness: There is no abdominal tenderness. There is no guarding. Musculoskeletal: Cervical back: Neck supple. Right lower leg: Edema present. Left lower leg: Edema present. Comments: 1+ bilat Skin: General: Skin is warm and dry. Capillary Refill: Capillary refill takes 2 to 3 seconds. Neurological: General: No focal deficit present. Mental Status: He is alert. Psychiatric: Mood and Affect: Mood normal. Behavior: Behavior normal. Thought Content: Thought content normal. Judgment: Judgment normal. ASSESSMENT AND PLAN: No follow-ups on file. Problem List Items Addressed This Visit Essential hypertension (CMS/HCC) Restart his lisinopril, check labs Please check blood pressure daily and record DASH diet Limit caffeine Take medication as directed Contact office if chest pain, pressure, dizziness, shortness of breath, swelling legs Recommend slow position changes Relevant Medications lisinopril 20 MG tablet Other Relevant Orders CBC and differential Comprehensive metabolic panel Urinalysis with reflex microscopic (clean catch) Microalbumin / creatinine, urine ratio ALEXANDRO (obstructive sleep apnea) - Primary Using CPAP needs new filters, masks, hoses Need compliance report May need re titration study Relevant Orders CBC and differential Vitamin D deficiency Check labs Relevant Orders Comprehensive metabolic panel Vitamin D 25 hydroxy RUBEN (generalized anxiety disorder) (CMS/HCC) At this point wants to remain off meds feels good Has a different job, more money, less stress, less hours Relevant Orders Comprehensive metabolic panel TSH Morbid (severe) obesity due to excess calories (CMS/HCC) Discussed with patient their BMI (actual, verses recommended). We have also discussed lifestyle modifications: attempts to perform physical activity as chronic conditions allow, also to monitor dietary intake: increasing protein/fruits/veggies and lowering carb intake (unless contraindicated). Limit sodas, juices, and sugary drinks. Having more polyuria/polydipsia as well check a1c Relevant Orders Comprehensive metabolic panel Lipid panel Hemoglobin A1c Edema of both lower extremities Restart lasix, in 10 days get labs completed Relevant Medications furosemide (Lasix) 20 MG tablet Associated Problem(s): Morbid (severe) obesity due to excess calories (CMS/HCC) Discussed with patient their BMI (actual, verses recommended). We have also discussed lifestyle modifications: attempts to perform physical activity as chronic conditions allow, also to monitor dietary intake: increasing protein/fruits/veggies and lowering carb intake (unless contraindicated). Limit sodas, juices, and sugary drinks. Having more polyuria/polydipsia as well check a1c Associated Problem(s): Essential hypertension (CMS/HCC) Restart his lisinopril, check labs Please check blood pressure daily and record DASH diet Limit caffeine Take medication as directed Contact office if chest pain, pressure, dizziness, shortness of breath, swelling legs Recommend slow position changes documented in this encounter [facility] 12-18-2023 Instructions Josefina Vaz NP - 12/18/2023 6:00 PM EST Restart lasix and lisinopril After about 10 days on lasix get labs done Take CPAP supplies order to [facility], I also need a down load compliance report faxed to me: [phone] documented in this encounter [facility] 05-01-2022 Evaluation note Encounter Date Diagnosis Assessment [...] negative findings were considered in medical decision-making. [facility] Other Evaluation noteNo InformationNort [employer] Other Evaluation note* Diagnosis Essential hypertension (CMS/HCC)- Primary Unspecified essential hypertension Morbid (severe) obesity due to excess calories (CMS/HCC) ALEXANDRO (obstructive sleep apnea) Obstructive sleep apnea (adult) (pediatric) RUBEN (generalized anxiety disorder) (CMS/HCC) Generalized anxiety disorder Vitamin D deficiency Edema of both lower extremities [facility] Diagnosis Essential hypertension (CMS/HCC)- Primary Unspecified essential hypertension Morbid (severe) obesity due to excess calories (CMS/HCC) ALEXANDRO (obstructive sleep apnea) Obstructive sleep apnea (adult) (pediatric) RUBEN (generalized anxiety disorder) (CMS/HCC) Generalized anxiety disorder Vitamin D deficiency Edema of both lower extremities Essential hypertension (CMS/HCC)- Primary Unspecified essential hypertension Edema of both lower extremities Morbid (severe) obesity due to excess calories (CMS/HCC) Neoplasm of uncertain behavior of nose RUBEN (generalized anxiety disorder) (CMS/HCC) Generalized anxiety disorder Tongue lesion Unspecified condition of the tongue [facility] Diagnosis Essential hypertension (CMS/HCC)- Primary Unspecified essential hypertension Morbid (severe) obesity due to excess calories (CMS/HCC) ALEXANDRO (obstructive sleep apnea) Obstructive sleep apnea (adult) (pediatric) RUBEN (generalized anxiety disorder) (CMS/HCC) Generalized anxiety disorder Vitamin D deficiency Edema of both lower extremities Essential hypertension (CMS/HCC)- Primary Unspecified essential hypertension Edema of both lower extremities Morbid (severe) obesity due to excess calories (CMS/HCC) Neoplasm of uncertain behavior of nose RUBEN (generalized anxiety disorder) (CMS/HCC) Generalized anxiety disorder Tongue lesion Unspecified condition of the tongue Neoplasm of uncertain behavior- Primary Neoplasm of uncertain behavior, site unspecified Actinic keratosis [facility] N[facility] - Reported* Type Description Date Medical History back pain Medical History restless leg syndrome Medical History sleep apnea Surgical History vasectomy [facility] Other Summary Purpose Family History No Family History Records FoundNo Family History Records FoundNo Family History Records Found Advance Directives No Advanced Directives Records FoundNo Advanced Directives Records FoundNo Advanced Directives Records Found Additional Source Comments (unrecognized sect ion and content) No Status Records FoundNo Status Records FoundNo Status Records Found INFORMATION SOURCE (unrecogn ized section and content) DATE CREATED AUTHOR 07/31/2017 [place] [facility] DATE CREATED AUTHOR AUTHOR'S ORGANIZ ATION 04/21/2022 [facility] DATE CREATED AUTHOR AUTHOR'S ORGANIZ ATION 02/02/2024 [facility] [facility] EPIC REASON FOR VISIT (unrecogniz ed section and content) Reason Comments Suspicious Skin Lesion Specialty Diagnoses / Procedures Referred By Contekta t Referred To Contact Dermatology Diagnoses Neoplasm of uncertain behavior of nose Tongue lesion Procedures IA OFFICE/OUTPATIENT [facility] Josefina Vaz, GABY [address] [place] [address] Phone: tel: fax: Poornima Quintanilla, SLUBBER OPERATOR-JAVASCRIPT FRONT END DEVELOPER [address] [place] [address] Phone: tel: fax: Referral ID Status Reason Start Date Expiration Date V isits Requested Visits Authorized [id number] Closed Specialty Services Required 01/27/2024 07/25/2024 1 1 Care Teams (unrecognized sec tion and content) Director Medicare Sales Relationship Specialty Start Date End Date Eleuterio Frankel MD [address] [place] [phone] PCP - General Family Medicine 12/12/23 Josefina Vaz NP [address] [place] [phone] Nurse Practitioner Family Medicine 12/03/23 Director Medicare Sales Relationship Specialty Start Date End Date Eleuterio Frankel MD [address] [place] [phone] PCP - General Family Medicine 12/12/23 Josefina Vaz NP [address] [place] [phone] Nurse Practitioner Family Medicine 12/03/23 Director Medicare Sales Relationship Specialty Start Date End Date Eleuterio Frankel MD [address] [place] [phone] PCP - General Family Medicine 12/12/23 Josefina Vaz NP [address] [place] [phone] Nurse Practitioner Family Medicine 12/03/23 Director Medicare Sales Relationship Specialty Start Date End Date Eleuterio Frankel MD [address] [place] [phone] PCP - General Family Medicine 12/12/23 Josefina Vaz NP [address] [place], [place] [phone] Nurse Practitioner Family Medicine 12/03/23 Director Medicare Sales Relationship Specialty Start Date End Date Eleuterio Frankel MD [address] [place] [phone] PCP - General [facility] 12/12/23 Josefina Vaz NP [address] [place] [phone] Nurse Practitioner [facility] 12/03/23 Director Medicare Sales Relationship Specialty Start Date End Date Eleuterio Frankel MD [address] [place] [phone] PCP - General [facility] 12/12/23 Josefina Vaz NP [address] [place] [phone] Nurse Practitioner [facility] 12/03/23 FOR RECORDS PERTAINING TO PATIENTS WHO ARE [...] BE BASED ON THE PRIMARY CLINICAL RECORDS. [facility]. provides no warranty or guarantee of the accuracy or completeness of information in this document.
[2024-03-04 06:49] LABS: Basophils Absolute Auto 0.1 10^3/uL (0.0-0.1); Basophils Percent Auto 1.1 % (0.2-2.0); Eosinophils Absolute Auto 0.2 10^3/uL (0.0-0.7); Eosinophils Percent Auto 3.1 % (0.9-7.0); Hematocrit 40.8 % (42.0-54.0); Hemoglobin 13.4 g/dL (14.0-18.0); Immature Granulocytes Abs Auto 0.02 10^3/uL (0.00-0.03); Immature Granulocytes Pct Auto 0.4 % (0.0-0.5); Lymphocytes Absolute Auto 1.5 10^3/uL (1.2-3.8); Lymphocytes Percent Auto 27.5 % (20.5-60.0); Mean Corpuscular HGB Conc 32.8 g/dL (29.9-35.2); Mean Corpuscular Hemoglobin 28.2 pg (25.9-34.0); Mean Corpuscular Volume 85.7 fL (80.0-94.0); Mean Platelet Volume 9.2 fL (9.5-13.5); Monocytes Absolute Auto 0.6 10^3/uL (0.3-0.8); Monocytes Percent Auto 11.5 % (1.7-12.0); Neutrophils Absolute Auto 3.1 10^3/uL (1.4-6.5); Neutrophils Percent Auto 56.4 % (43.0-75.0); Platelet Count 243 10^3/uL (150-450); Red Blood Count 4.76 10^6/uL (4.70-6.10); Red Cell Distribution Width 13.3 % (11.0-15.0); White Blood Count 5.4 10^3/uL (4.0-11.0)
[2024-03-04 06:53] LABS: Bilirubin Urine NEGATIVE (NEGATIVE); Blood Urine SMALL (NEGATIVE); Clarity Urine CLEAR (CLEAR); Color Urine YELLOW (YELLOW); Glucose Urine UA NEGATIVE (NEGATIVE); Ketones Urine NEGATIVE (NEGATIVE); Leukocyte Esterase Urine NEGATIVE (NEGATIVE); Nitrite Urine NEGATIVE (NEGATIVE); Protein Urine NEGATIVE (NEG/TRACE); Specific Gravity Urine >=1.030 (1.005-1.025); Urobilinogen Urine 0.2 EU/dL (0.2-1.0); pH Urine 5.5 (5.0-9.0)
[2024-03-04 06:55] LABS: Urine Microscopic Indicated YES
[2024-03-04 07:10] LABS: Creatinine Urine Random 348.16 mg/dL (20.00-300.00); Microalbum Creatinine Ratio Ur 6.3 mg/g (0.0-29.9); Microalbumin Urine Random 2.2 mg/dL (<=30.0)
[2024-03-04 07:11] LABS: Bacteria Urine NONE SEEN #/HPF (NONE SEEN); Cast Seen? NONE SEEN #/LPF (NONE SEEN); Crystals Seen? None Seen #/HPF (None Seen); Mucus Urine TRACE (NONE SEEN); Squamous Epithelial Cell Urine RARE #/LPF (NONE/RARE); WBC Urine NONE SEEN #/HPF (NONE SEEN)
[2024-03-04 07:22] LABS: Estimated Average Glucose 123 mg/dL; Glycohemoglobin A1C 5.9 % (4.5-6.2)
[2024-03-04 07:41] LABS: Alanine Aminotransferase 25 U/L (16-63); Albumin Globulin Ratio 0.9; Albumin Level 3.4 g/dL (3.4-5.0); Alkaline Phosphatase 71 U/L (46-116); Anion Gap 9.3; Aspartate Amino Transferase 13 U/L (15-37); BUN Creatinine Ratio 16.5; Bilirubin Total 0.3 mg/dL (0.2-1.0); Calcium 8.4 mg/dL (8.5-10.1); Carbon Dioxide 30.8 mmol/L (21.0-32.0); Chloride 106 mmol/L (98-107); Chol HDL Ratio 4.2; Cholesterol 191 mg/dL (<=200); Estimated GFR (African America >60 (>=60 mL/min/1.73m^2); Estimated GFR (Non-African Ame >60 (>=60 mL/min/1.73m^2); Globulin 3.6 g/dL; Glucose 99 mg/dL (74-106); HDL Cholesterol 45 mg/dL (40-60); LDL Cholesterol Calculated 130.8 mg/dL; Potassium 4.1 mmol/L (3.5-5.1); Sodium 142 mmol/L (136-145); Thyroid Stimulating Hormone 2.421 uIU/mL (0.358-3.740); Triglycerides 76 mg/dL (<=150); VLDL CHOLESTEROL 15.2 mg/dL
== END 2024-03-04 06:26 | disposition home or self-care (01) ==
LOC: LAB 06:26
PROVIDERS: PCP Family Medicine; Visit Provider Nurse Practitioner
DX: G47.33 Obstructive sleep apnea (adult) (pediatric) (principal); I10 Essential (primary) hypertension; E66.01 Morbid (severe) obesity due to excess calories; F41.1 Generalized anxiety disorder; E55.9 Vitamin D deficiency, unspecified
CPT/HCPCS: 36415; 80053; 80061; 81001; 82043; 82306; 82570; 83036; 84443; 85025

== ENCOUNTER 2024-11-17 08:31 | Outpatient (OUT) | payer OTHER, SELFPAY ==
--- OUTSIDE RECORDS SUMMARY | 2024-11-17 08:33 | XMS_ITS | Encounter Summary ---
Author Organization [employer] Address [id number] [address] [place] [address] Care Team Providers Care Contact Lens Flashing Puncher Name Role Phone Eleuterio Payne MD Primary Care Provider [phone] Encounter Details Date Type Department Care Team (Late st Contact Info) Description 02/13/2021 Telephone [facility] [address] [place] [phone] Kalie Fitzpatrick RMA Social History Tobacco Use Types Packs/Day Years Used Date Smoking Tobacco: Never Smokeless Tobacco: Current Alcohol Use Standard Drinks/Week Comments Yes 0 (1 standard drink = 0.6 oz pur e alcohol) occasional Childcare Answer Date Recorded Childcare Unknown 07/23/2018 Employment Answer Date Recorded Employment Unknown 07/23/2018 Purpose - Life Answer Date Recorded Purpose and direction in life Unknown Sex and Gender Information Value Date Recorded Sex Assigned at Not on file Legal Sex Male 11:57 AM EDT Gender Identity Not on file Sexual Orientation Not on file COVID-19 Exposure Response Date Recorded In the last month, have you been in contact with someone who was confirmed or suspected to have Coronavirus / COVID-19? No / Unsure 01/27/2021 8:38 AM EST documented as of this encounter Miscellaneous Notes * Telephone Encounter - LUKASZ Rodriguez - 02/13/2021 10:37 AM EST Received a voicemail from Kiko coronado about wanting to re-schedule his procedure for Thursday, February 16, 2021. I called back and left a message. documented in this encounter Plan of Treatment Not on file documented as of this encounter Visit Diagnoses Not on filedocumented in this encounter Care Teams Contact Lens Flashing Puncher Relationship Specialty Start Date End Date Eleuterio aPyne MD PCP - General Family Medicine 01/28/23 documented as of this encounter
--- OUTSIDE RECORDS SUMMARY | 2024-11-17 08:33 | XMS_ITS | Clinical Summary ---
Author Organization [facility] Address [address] [place] [address] Care Team Providers Care Bar Host/Hostess Name Role Phone Unavailable Primary Care Provider Unavailabl e Social History Tobacco Use Types Packs/Day Years Used Date Smoking Tobacco: Never Assessed [place] Safety & Environment Answer Date Rec orded Fear of Current or Ex-Partner Not on file Emotionally Abused Not on file 04/04/2023 Physically Abused Not on file 04/04/2023 Sexually Abused Not on file 04/04/2023 Physically or Sexually Abused Not on file Sex and Gender Information Value Date Recorded Sex Assigned at Not on file Legal Sex Male 8:01 AM EDT Gender Identity Not on file Sexual Orientation Not on file Plan of Treatment Not on file
--- OUTSIDE RECORDS SUMMARY | 2024-11-17 08:33 | XMS_ITS | Encounter Summary ---
Author Organization [facility] Address [facility] [id number] [address] [place] [address] Care Team Providers Care Information Resource Consultant Name Role Phone Eleuterio Payne MD Primary Care Provider [phone] Encounter Details Date Type Department Care Team (Late st Contact Info) Description 03/07/2021 Telephone [facility] [address] [place] [address] Kalie Fitzpatrick RMA Social History Tobacco Use [...] on file Sexual Orientation Not on file documented as of this encounter Miscellaneous Notes * Telephone Encounter - LUKASZ Rodriguez - 03/07/2021 9:17 AM EST We received a call that Kiko missed his COVID test today. I called and left a message to call the office so we can fit him into an appointment today still. If we can't we will need to re-schedule. documented in this encounter Plan of Treatment Not on file documented as of this encounter Visit Diagnoses Not on filedocumented in this encounter Care Teams Information Resource Consultant Relationship Specialty Start Date End Date Eleuterio Payne MD PCP - General Family Medicine 01/28/23 documented as of this encounter
--- OUTSIDE RECORDS SUMMARY | 2024-11-17 08:33 | XMS_ITS | Encounter Summary ---
Author Organization [facility] Address [address] [place] [address] Care Team Providers Care Envelope Machine Adjuster Name Role Phone Eleuterio Payne MD Primary Care Provider [phone] Josefina Vaz PROCESS CONTROL BOARD OPERATOR Unavailable [phone] Unallocated, [place] Provider Primary Care Provi talia Eleuterio Payne MD Primary Care Provider [phone] Yani Mercer Unavailable [phone] Encounter Details Date Type Department Care Team (Late st Contact Info) Description 07/23/2023 Abstract [facility] [address] [place] [phone] Ashu Oro LPN Social History Tobacco Use Types Packs/Day Years Used Date Smoking Tobacco: Never Assessed Sex and Gender Information Value Date Recorded Sex Assigned at Not on file Legal Sex Male 7:19 PM EDT Gender Identity Not on file Sexual Orientation Not on file documented as of this encounter Plan of Treatment Not on file documented as of this encounter Visit Diagnoses Not on filedocumented in this encounter Care Teams Envelope Machine Adjuster Relationship Specialty Start Date End Date Eleuterio Payne MD PCP - General Family Medicine 08/07/22 12/02/23 Unallocated, Yoanna ProviderMD [address] [place] [address] PCP - General Family Medicine 12/03/23 12/11/23 Eleuterio Payne MD [address] [place] [address] PCP - General Family Medicine 12/12/23 Yani Mercer PA [address] [place] [address] PCP - Medical [place] [employer] 09/02/23 02/10/99 Josefina Vaz NP Nurse Practitioner Family Medicine 12/03/23 documented as of this encounter
--- OUTSIDE RECORDS SUMMARY | 2024-11-17 08:33 | XMS_ITS | Clinical Summary ---
Author Organization [employer] [facility] Address [id number] [address] [place] [address] Care Team Providers Care Documentation Lead Name Role Phone Eleuterio Payne MD Primary Care Provider [phone] Allergies Active Allergy Reactions Criticality Noted Date Comments Codeine Syncope 10/12/2016 Medications escitalopram (LEXAPRO) 5 mg tablet Take 5 mg by mouth. 1 Active sodium,potassiu m,mag sulfates (SUPREP BOWEL PREP KIT) 17.5-3.13-1.6 gram recon soln 177 ml,actual weight, 2 times daily, Oral 177 mL 1 Active Additional Information Patient not taking.Reported on 01/28/2023 Active Problems No known active problems Family History Medical History Relation Name Comments Colon cancer Father Diabetes Father Lung cancer Father COPD Maternal Grandmother Emphysema Maternal Grandmother Diverticulitis Mother Pancreatic cancer Mother Stroke Paternal Grandfather Diabetes Paternal Grandmother Relation Name Status Comments Father Maternal Grandmother Mother Paternal Grandfather Paternal Grandmother Social History Tobacco Use Types Packs/Day Years [...] on file Sexual Orientation Not on file Last Filed Vital Signs Vital Sign Reading Time Taken Comments Blood Pressure 134/95 01/28/2023 6:34 PM EST Pulse 75 01/28/2023 6:34 PM EST Temperature 37.8 C (100.1 F) 01/28/2023 6:34 PM EST Respiratory Rate 20 01/28/2023 6:34 PM EST Oxygen Saturation 95% 01/28/2023 6:34 PM EST Inhaled Oxygen Concentration - - Weight 149.7 kg (330 lb) 01/28/2023 6:34 PM EST Height 185.4 cm (6' 0.99 ) 01/28/2023 6:34 PM ES T Body Mass Index 43.55 01/28/2023 6:34 PM EST Plan of Treatment Health Maintenance Due Date Last Done Comments Depression Screening 1991 DTaP,Tdap and Td Vaccines (1 - Tdap) 08/23/1998 Adult BMI Screening 01/29/2024 01/28/2023 Tobacco Screening 01/29/2024 01/28/2023 COVID-19 Vaccine ( season) 10/12/202406/2020, 12/18/2020 Influenza Vaccine 10/12/2024 11/08/2016 Medical Devices Not on file Insurance [facility] Care Teams Documentation Lead Relationship Specialty Start Date End Date Eleuterio Payne MD PCP - General Family Medicine 01/28/23
--- OUTSIDE RECORDS SUMMARY | 2024-11-17 08:37 | XMS_ITS | CCD ---
Author Organization [facility] Care Team Providers Care Diamond Sizer Name Role Phone KAREN, LEES H Admitting Unavailable FAWWAD, LEES H Attending Unavailable NADERER, DR ELEUTERIO Painting Primary Care Unavailable NIKUNJWDIVINA, LEES H Consulting Unavailable WEST, DR MARCOS Corral Admitting Unavailable WEST, DR MARCOS Corral Attending Unavailable NADERER, DR ELEUTERIO Painting Primary Care Unavailable WEST, DR MARCOS Corral Admitting Unavailable WEST, DR MARCOS Corral Attending Unavailable NADERER, DR ELEUTERIO Painting Primary Care Unavailable WEST, DR MARCOS Corral Consulting Unavailable AICHHOLZ, LOCKSTITCH FRONT MAKER JOSEFINA Admitting Unavailable AICHHOLZ, MELODY JOSEFINA Attending Unavailable NADERER, DR ELEUTERIO Painting Primary Care Unavailable AICHHOLZ, LOCKSTITCH FRONT MAKER JOSEFINA Consulting Unavailable ZIEBER, DR ALBERT Hendrix Consulting Unavailable AICHHOLZ, LOCKSTITCH FRONT MAKER JOSEFINA Admitting Unavailable AICHHOLZ, LOCKSTITCH FRONT MAKER JOSEFINA Attending Unavailable NADERER, DR ELEUTERIO Painting Primary Care Unavailable AICHHOLZ, LOCKSTITCH FRONT MAKER JOSEFINA Consulting Unavailable WEST, DR MARCOS Corral Admitting Unavailable WEST, DR MARCOS Corral Attending Unavailable NADERER, DR ELEUTERIO Painting Primary Care Unavailable WEST, DR MARCOS Corral Admitting Unavailable WEST, DR MARCOS Corral Attending Unavailable NADERER, DR ELEUTERIO Painting Primary Care Unavailable FAWWAD, LEES H Admitting Unavailable FAWWAD, LESE H Attending Unavailable NADERER, DR ELEUTERIO Painting Primary Care Unavailable WEST, DR MARCOS Corral Consulting Unavailable FAWWAD, LEES H Admitting Unavailable FAWWAD, LEES H Attending Unavailable NADERER, DR ELEUTERIO Painting Primary Care Unavailable WEST, DR MARCOS Corral Consulting Unavailable FAWWARadha, LEES H Consulting Unavailable WEST, DR MARCOS Corral Admitting Unavailable WEST, DR MARCOS Corral Attending Unavailable NADERER, DR ELEUTERIO Painting Primary Care Unavailable WEST, DR MARCOS Corral Consulting Unavailable ZIEBER, DR ALBERT Hendrix Consulting Unavailable NADERER, DR ELEUTERIO Painting [...] DR MARCOS Corral Consulting Unavailable ZIEBER, DR ALBERT Hendrix Consulting Unavailable WEST, DR MARCOS Corral [...] NADERER, DR ELEUTERIO Painting Primary Care Unavailable RODOLFO, DAYSI Admitting Unavailable RODOLFO, DAYSI Attending Unavailable JOSE [...] Consulting Unavailable SHAIKH Linh JONES Consulting Unavailable MOODY, DR MARCOS Corral Admitting Unavailable MOODY, DR MARCOS Corral Attending Unavailable JOSTIN, DR ELEUTERIO Painting Primary Care Unavailable MOODY, DR MARCOS Corral Consulting Unavailable Claudio Pugh Unavailable Aichholz AUTOMATION SPECIALIST, Josefina Unavailable Eleuterio Frankel MD Primary Care Provider Adalberto Parsons Unavailable AICHHOLZ, JOSEFINA Attending Unavailable AICHHOLZ, JOSEFINA Attending Unavailable AICHHOLZ, JOSEFINA Attending Unavailable AICHHOLZ, JOSEFINA Attending Unavailable AICHHOLZ, JOSEFINA Attending Unavailable AICHHOLZ, JOSEFINA Attending Unavailable AICHHOLZ, JOSEFINA Attending Unavailable ADALBERTO MERCER Attending Unavailable AICHHOLZ, JOSEFINA Referring Unavailable AICHHOLZ, JOSEFINA J Primary Care Physician Patricio DICKEY Attending Unavailable AICHHOLZJOSEFINA Referring Unavailable Allergies Allergy Classification Reported Allergen(s) Allergy Type Date of Onset Reaction(s) Facility (3 sources) Codeine; Translations: [codeine] Drug Allergy 3 [facility] Repository (20 sources) Codeine; Translations: [codeine] Drug Allergy 4 Other, Syncope (disorder) [facility] Work Phone: Medications Current Medications Medication Drug Class(es) Dates Sig (Normalized) Sig (Original) ALPRAZolam 0.25 mg oral tablet (2 sources) Benzodiazepine take 1 tablet by mouth every twelve hours ALPRAZolam 0.25 MG 1 tablet Orally Twice a day Active cholecalciferol 0.05 mg oral tablet (14 sources) Vitamin D Start: 07-29-2024 take 1 tablet by mouth once daily D3 50 MCG (1999) tablet Take 2,000 Units by mouth Daily 07/29/2024 Active Start: 07-01-2024 End: 07-31-2024 take 1 tablet by mouth once daily cholecalciferol (Vitamin D-3) 50 MCG (1999) tablet Indications: Vitamin D deficiency Take 1 tablet (50 mcg) by mouth Daily 30 tablet 2 07/01/2024 07/31/2024 Active Start: 03-04-2024 End: 04-03-2024 take 1 tablet by mouth once daily cholecalciferol (Vitamin D-3) 50 MCG (1999 UT) tablet Indications: Vitamin D deficiency Take 1 tablet (50 mcg) by mouth Daily 30 tablet 2 03/04/2024 04/03/2024 Active clotrimazole 10 mg oral lozenge (2 sources) Azole Antifungal Start: 01-30-2024 End: 02-09-2024 take 1 tablet by mouth five times daily clotrimazole (Mycelex) 10 MG del Indications: Neoplasm of uncertain behavior Take 1 tablet (10 mg) by mouth 5 (five) times a day for 10 days 50 tablet 01/30/2024 02/09/2024 Active escitalopram 10 mg oral tablet (20 sources) Serotonin Reuptake Inhibitor Start: 01-27-2024 End: 11-10-2024 take 1 tablet by mouth once daily Lexapro 10 mg Tab 10 mg = 1 tab(s), Oral, Daily, Refills(s) 0 Start Date: 09/29/24 Status: Ordered Repeat number: 1 Start: 10-07-2022 End: 12-18-2023 take 1 tablet by mouth once daily escitalopram (Lexapro) 5 MG tablet Take 5 mg by mouth Daily 10/07/2022 12/18/2023 Discontinued (Therapy completed) take 1 tablet by luciano th every twenty-four hours Escitalopram Oxalate 5 MG 1 tablet Orally Once a day Active furosemide 20 mg oral tablet (20 sources) Loop Diuretic Start: 10-07-2022 End: 11-10-2024 take 1 tablet by mouth once daily Lasix 20 mg Tab 20 mg = 1 tab(s), Oral, Daily, Refills(s) 0 Start Date: 09/29/24 Status: Ordered Repeat number: 1 take 1 tablet by luciano th every twenty-four hours Furosemide 20 MG 1 tablet Orally Once a day Active lisinopril 20 mg oral tablet (20 sources) Angiotensin Converting Enzyme Inhibitor Start: 10-07-2022 End: 11-10-2024 take 1 tablet by mouth once daily lisinopril 20 mg Tab 20 mg = 1 tab(s), Oral, Daily, Refills(s) 0 Start Date: 09/29/24 Status: Ordered Repeat number: 1 take 1 tablet by luciano th every twenty-four hours Lisinopril 10 MG 1 tablet Orally Once a day Active phentermine hydrochloride 37.5 mg oral tablet (20 sources) Sympathomimetic Amine Anorectic Start: 03-30-2024 End: 10-14-2024 take 1 tablet by mouth once daily Adipex-P 37.5 mg Tab 37.5 mg = 1 tab(s), Oral, Daily, Refills(s) 0 Start Date: 09/29/24 Status: Ordered Repeat number: 1 predniSONE 5 mg oral tablet (3 sources) Start: 09-12-2024 take 1 tablet by mouth once daily predniSONE (Deltasone) 5 MG tablet Take 5 mg by mouth Daily 09/12/2024 Active Semaglutide-Weight Management (Wegovy) 0.25 MG/0.5ML solution auto-injector (3 sources) Start: 03-30-2024 End: 04-27-2024 Semaglutide-Weig ht Management (Wegovy) 0.25 MG/0.5ML solution auto-injector Indications: Morbid (severe) obesity due to excess calories (CMS/HCC) , Body mass index (BMI) 45.0-49.9, adult (CMS/HCC) Inject 0.25 mg under the skin every 7 (seven) days for 28 days 2 mL 03/30/2024 04/27/2024 Active Vitamin D2 2000 intl units oral capsule (1 source) Start: 09-29-2024 take 1 capsule by mouth once daily Vitamin D2 2000 intl units oral capsule 50 mcg = 1 cap(s), Oral, Daily, cap(s), Refills(s) 0 Start Date: 09/29/24 Status: Ordered Repeat number: 1 Problems Active Problems Problem Classification Problem Date Documented Date Episodic/Chronic Esophageal disorders (20 sources) Gastroesophageal reflux disease without esophagitis; Translations: [Gastro-esophageal reflux disease without esophagitis] Onset: 05-02-2023 05-02-2023 Chronic Essential hypertension (20 sources) Essential (primary) hypertension; Translations: [Essential hypertension] Onset: 11-17-2021 05-02-2023 Chronic Nutritional deficiencies (20 sources) Vitamin D deficiency; Translations: [Vitamin D deficiency, unspecified] Onset: 05-02-2023 05-02-2023 Chronic Other congenital anomalies (20 sources) Congenital spondylolysis of lumbosacral region; Translations: [Congenital spondylolisthesis] Onset: 04-03-2022 05-02-2023 Chronic Other connective tissue disease (4 sources) Other specified soft tissue disorders; Translations: [OTHER SPEC SOFT TISSUE DISORDERS] Onset: 03-06-2022 Episodic Other connective tissue disease (3 sources) Pain in left leg; Translations: [PAIN IN LEFT LEG] Onset: 02-23-2022 Episodic Other ear and sense organ disorders (13 sources) Impacted cerumen of bilateral ears; Translations: [Impacted cerumen, bilateral] Onset: 07-15-2024 07-15-2024 Episodic Other nervous system disorders (2 sources) Chronic pain; Translations: [Other chronic pain] Chronic Other nervous system disorders (1 source) Other chronic pain Chronic Other nutritional; endocrine; and metabolic disorders (20 sources) Obesity caused by energy imbalance; Translations: [Morbid (severe) obesity due to excess calories] Onset: 12-18-2023 12-18-2023 Chronic Other nutritional; endocrine; and metabolic disorders (20 sources) Body mass index 40+ - severely obese; Translations: [Body mass index (BMI) 45.0-49.9, adult] Onset: 03-30-2024 Resolved: 07-15-2024 03-30-2024 Chronic Other nutritional; endocrine; and metabolic disorders (1 source) Obese class III 09-29-2024 Chronic Other screening for suspected conditions (not mental disorders or infectious disease) (8 sources) Encounter for screening for lipoid disorders; Translations: [Encounter for screening for diabetes mellitus] Onset: 09-16-2021 09-14-2024 Episodic Other skin disorders (2 sources) Actinic keratosis; Translations: [Actinic keratosis] 01-30-2024 Episodic Residual codes; unclassified (20 sources) Obstructive sleep apnea syndrome; Translations: [Obstructive sleep apnea (adult) (pediatric)] Onset: 05-02-2023 05-02-2023 Chronic Residual codes; unclassified (5 sources) Localized edema; Translations: [LOCALIZED EDEMA] Onset: 09-21-2021 Episodic Residual codes; unclassified (1 source) Family history of malignant neoplasm of digestive organ; Translations: [Family history of malignant neoplasm of digestive organs] Onset: 10-07-2024 Episodic Residual codes; unclassified (1 source) Family history of cancer of colon 09-29-2024 Episodic Skin and subcutaneous tissue infections (1 [...] Translations: [LOW BACK PAIN, UNSPECIFIED] Onset: 10-29-2021 Unclassified (3 sources) Patient encounter status 09-14-2024 Past or Other Problems Problem Classification Problem Date Documented Da te Episodic/Chronic Anxiety disorders (20 sources) Generalized anxiety disorder; Translations: [Generalized anxiety disorder] Onset: 4 Resolved: 5 05-02-2023 Chronic Deficiency and other anemia (4 sources) Anemia, unspecified; Translations: [ANEMIA UNSPECIFIED] Onset: 2 Episodic Deficiency and other anemia (20 sources) Anemia; Translations: [Other specified anemias] Onset: 4 05-02-2023 Episodic Diabetes mellitus without complication (20 sources) Prediabetes; Translations: [Prediabetes] Onset: 5 03-04-2024 Episodic Diseases of mouth; excluding dental (20 sources) Lesion of tongue; Translations: [Other diseases of tongue] Onset: 4 Resolved: 5 01-27-2024 Episodic E Codes: Overexertion (1 source) Slipping, tripping and stumbling without falling due to stepping into hole or opening, initial encounter; Translations: [SLIP STUMBL NO FALL STEP HOLE INIT] Onset: 2 Episodic Genitourinary symptoms and ill-defined conditions (20 sources) Asymptomatic microscopic hematuria; Translations: [Asymptomatic microscopic hematuria] Onset: 5 01-22-2025 Episodic Neoplasms of unspecified nature or uncertain behavior (20 sources) Neoplasm of uncertain behavior of nose; Translations: [Neoplasm of uncertain behavior of other specified sites] Onset: 4 01-27-2024 Episodic Other diseases of veins and lymphatics (20 sources) Venous insufficiency of leg; Translations: [Venous insufficiency (chronic) (peripheral)] Onset: 4 05-02-2023 Episodic Other lower respiratory disease (4 sources) Other forms of dyspnea; Translations: [OTHER FORMS OF DYSPNEA] Onset: 2 Episodic Other lower respiratory disease (20 sources) Snoring; Translations: [Snoring] Onset: 4 Resolved: 4 05-02-2023 Episodic Other non-traumatic joint disorders (3 sources) Pain in right ankle and joints of right foot; Translations: [PAIN IN RIGHT ANKLE] Onset: 2 Episodic Phlebitis; thrombophlebitis and thromboembolism (12 sources) Phlebitis and thrombophlebitis of superficial vessels of lower extremities, bilateral; Translations: [Phlebitis and thrombophlebitis of superficial vessels of left lower extremity] Onset: 2 Episodic Residual codes; unclassified (1 source) Edema, unspecified; Translations: [EDEMA UNSPECIFIED] Onset: 2 Episodic Residual codes; unclassified (20 sources) Bilateral lower limb edema; Translations: [Localized edema] Onset: 4 12-18-2023 Episodic Spondylosis; intervertebral disc disorders; other back [...] Onset: 3 Varicose veins of lower extremity (20 sources) Varicose veins of bilateral lower extremities with pain; Translations: [Varicose veins of bilateral lower limbs] Onset: 2 Episodic Results Test Name Value Interpretation Reference Range Facility Ambulatory Visit Summaryon 0 10-07-2024 Ambulatory Visit Summary Ambulatory Visit Summary MARCOS LIU V :1980 Visit Date:10/07/2024 Ambulatory Visit Instructions Your Diagnosis Family history of colon cancer in father Screening for malignant neoplasm of colon Your Care Team Attending Physician - Patricio DICKEY MD Primary Care Physician - JOSEFINA VAZ CNP Referring Physician - JOSEFINA VAZ CNP This Is Your Medications List Contact prescribing physician if questions or concerns ergocalciferol (Vitamin D2 2000 intl units oral capsule) escitalopram (Lexapro 10 mg Tab) furosemide (Lasix 20 mg Tab) lisinopril (lisinopril 20 mg Tab) phentermine (Adipex-P 37.5 mg Tab) Procedures Performed Colonoscopy, Reversal of vasectomy, Vasectomy. Discharge Vitals Heart Rate (Peripheral) 74 Respiratory Rate 16 Blood Pressure 114/76 Height 182.8 cm Height 72 in Weight 141.5 kg Weight 311.954 lb BMI 42.35 Medications What How Much When Instructions Unchanged ergocalciferol (Vitamin D2 2000 intl units oral capsule) 1 Capsules By Mouth Every day Contact prescribing physician if questions or concerns Unchanged escitalopram (Lexapro 10 mg Tab) 1 Tablets By Mouth Every day Contact prescribing physician if questions or concerns Unchanged furosemide (Lasix 20 mg Tab) 1 Tablets By Mouth Every day Contact prescribing physician if questions or concerns Unchanged lisinopril (lisinopril 20 mg Tab) 1 Tablets By Mouth Every day Contact prescribing physician if questions or concerns Unchanged phentermine (Adipex-P 37.5 mg Tab) 1 Tablets By Mouth Every day Contact prescribing physician if questions or concerns Allergies codeine (Syncope) Problems Ongoing - Any problem that you are currently receiving treatment for. Bilateral lower limb edema Class 3 obesity Degeneration of lumbar intervertebral disc Essential hypertension Family history of colon cancer in father Gastroesophageal reflux disease without esophagitis Morbid obesity with BMI of 40.0-44.9, adult Obstructive sleep apnea syndrome Screening for malignant neoplasm of colon Varicose veins of bilateral lower limbs Venous insufficiency of leg Vitamin D deficiency Historical - Any problem that you are no longer receiving treatment for. Generalized anxiety disorder Patient Survey You may receive a survey via text or e-mail asking about your office visit. Please share your experience with us by completing your survey. We appreciate your feedback and thank you for choosing us for your care. Patient Portal You may access all of your results and other medical record information on our secure patient portal. If you are not signed up for this yet, please contact Health Information Management at [phone] to get signed up today. Language Information Language assistance services are available as needed. Normal [facility] ALL CBC WITH AUTO DIFFon BASOPHILS ABSOLUTE AUTO 0.1 [facility] Basophils/100 WBC (Bld) 1.1 % 0.2 - 2.0 % [facility] Eosinophils/100 WBC (Bld) 3.1 % 0.9 - 7.0 % [facility] Erythrocyte distribution width (RBC) [Ratio] 13.3 % 11.0 - 15.0 % [facility] Hematocrit (Bld) [Volume fraction] 40.8 % Low 42.0 - 54.0 % [facility] Hemoglobin (Bld) [Mass/Vol] 13.4 g/dL Low 14.0 - 18.0 g/dL [facility] IMMATURE GRANULOCYTES ABS AUTO 0.02 [facility] Immature granulocytes/100 WBC (Bld) 0.4 % 0.0 - 0.5 % [facility] Interpretation and review of laboratory results Abnormal [facility] LYMPHOCYTES ABSOLUTE AUTO 1.5 [facility] Lymphocytes/100 WBC (Bld) 27.5 % 20.5 - 60.0 % [facility] MCH (RBC) [Entitic mass] 28.2 pg 25.9 - 34.0 pg [facility] MCHC (RBC) [Mass/Vol] 32.8 g/dL 29.9 - 35.2 g/dL [facility] MCV (RBC) [Entitic vol] 85.7 fL 80.0 - 94.0 fL [facility] MONOCYTES ABSOLUTE AUTO 0.6 [facility] Monocytes/100 WBC (Bld) 11.5 % 1.7 - 12.0 % [facility] NEUTROPHILS ABSOLUTE AUTO 3.1 [facility] Neutrophils/100 WBC (Bld) 56.4 % 43.0 - 75.0 % [facility] Platelet mean volume (Bld) [Entitic vol] 9.2 fL Low 9.5 - 13.5 fL [facility] TBH EO # 0.2 [facility] PLT 243 [facility] TB RBC 4.76 [facility] TBH WBC 5.4 [facility] No Panel InformationOrdered By: Nissa Anderson on 01-30-2024 [facility] PROF CHEM 8 (BAS METB)on Anion gap [Moles/Vol] 11.1 mmol/L Normal [facility] Comment on above: Performed By: #### F ETIBC, FERR #### [facility] [address] [place] [address] Dr. Geovani Mcclendon Calcium [Mass/Vol] 9.1 mg/dL Normal 8.5-10.1 [facility] Comment on above: Performed By: #### F ETIBC, FERR #### [facility] [address] [address] [address] Geovani Mcclendon Chloride [Moles/Vol] 107 mmol/L Normal 98-107 [facility] Comment on above: Performed By: #### F ETIBC, FERR #### [facility] [address] [place] [address] Dr. Geovani Mcclendon CO2 [Moles/Vol] 30.3 mmol/L Normal 21.0-32.0 [facility] Comment on above: Performed By: #### F ETIBC, FERR #### [facility] [address] [place] [address] Dr. Geovani Mcclendon Creatinine [Mass/Vol] 0.81 mg/dL Normal 0.70-1.30 [facility] Comment on above: Performed By: #### F ETIBC, FERR #### [facility] [address] [place] [address] Dr. Geovani Mcclendon EGFR-AF LIBYAN >60 Normal >=60 [facility] Comment on above: Performed By: #### F ETIBC, FERR #### [facility] [address] [place] [address] Dr. Geovani Mcclendon EGFR-NON AF LIBYAN >60 Normal >=60 [facility] Comment on above: Performed By: #### F ETIBC, FERR #### [facility] [address] [place] [address] Dr. Geovani Mcclendon Glucose [Mass/Vol] 100 mg/dL Normal 74-106 [facility] Comment on above: Performed By: #### F ETIBC, FERR #### [facility] [address] [address] [address] Geovani Mcclendon Potassium [Moles/Vol] 4.4 mmol/L Normal 3.5-5.1 [facility] Comment on above: Performed By: #### F ETIBC, FERR #### [facility] [address] [address] [address] Geovani Mcclendon Sodium [Moles/Vol] 144 mmol/L Normal 136-145 [facility] Comment on above: Performed By: #### F ETIBC, FERR #### [facility] [address] [address] [address] Geovani Mcclendon Urea nitrogen [Mass/Vol] 17.0 mg/dL Normal 7.0-18.0 [facility] Comment on above: Performed By: #### F ETIBC, FERR #### [facility] [address] [address] [address] Geovani Mcclendon Urea nitrogen/Creatinine [Mass ratio] 21.0 mg/mg Normal [facility] Comment on above: Performed By: #### F ETIBC, FERR #### [facility] [address] [place] [address] Dr. Geovani Mcclendon MRI [employer] WO CONon 03-09-19 23 MRI [employer] WO CON EXAMINATION: MRI [facility] CON HISTORY: Low back pain COMPARISON: No [...] by: MARCOS VALDEZ Date: 2022-03-09 08:35 Normal [facility] US XANDER DOP LEG LTon 03-06-19 [...] the left lower extremity. Electronically authenticated by: ALBERT MAY Date: 2022-03-06 14:57 Normal [facility] CBC AUTO DIFFon 02-24-2022 BASO # 0.0 103/ul Normal 0.0-0.1 [facility] Comment on above: Performed By: #### C BC #### [facility] [address] [place] [address] Dr. Geovani Mcclendon Basophils/100 WBC (Bld) 0.5 % Normal 0.2-2.0 [facility] Comment on above: Performed By: #### C BC #### [facility] [address] [place] [address] Dr. Geovani Mcclendon EO # 0.2 103/ul Normal 0.0-0.7 [facility] Comment on above: Performed By: #### C BC #### [facility] [address] [place] [address] Dr. Geovani Mcclendon Eosinophils/100 WBC (Bld) 1.9 % Normal 0.9-7.0 [facility] Comment on above: Performed By: #### C BC #### [facility] [address] [place] [address] Dr. Geovani Mcclendon Erythrocyte distribution width (RBC) [Ratio] 13.2 % Normal 11.0-15.0 [facility] Comment on above: Performed By: #### C BC #### [facility] [address] [place] [address] Dr. Geovani Mcclendon Hematocrit (Bld) [Volume fraction] 37.9 % Critically low 42.0-54.0 [facility] Comment on above: Performed By: #### C BC #### [facility] [address] [place] [address] Dr. Geovani Mcclendon Hemoglobin (Bld) [Mass/Vol] 12.9 g/dL Critically low 14.0-18.0 [facility] Comment on above: Performed By: #### C BC #### [facility] [address] [place] [address] Dr. Geovani Mcclendon IG # 0.03 10e3/ul Normal 0.00-0.03 [facility] Comment on above: Performed By: #### C BC #### [facility] [address] [place] [address] Dr. Geovani Mcclendon IG % 0.4 % Normal 0.0-0.5 [facility] Comment on above: Performed By: #### C BC #### [facility] [address] [place] [address] Dr. Geovani Mcclendon LYMPH # 1.9 103/ul Normal 1.2-3.8 [facility] Comment on above: Performed By: #### C BC #### [facility] [address] [place] [address] Dr. Geovani Mcclendon Lymphocytes/100 WBC (Bld) 24.8 % Normal 20.5-60.0 [facility] Comment on above: Performed By: #### C BC #### [facility] [address] [place] [address] Dr. Geovani Mcclendon MANUAL DIFF REQ NO Normal [facility] Comment on above: Performed By: #### C BC #### [facility] [address] [place] [address] Dr. Geovani Mcclendon MCH (RBC) [Entitic mass] 28.0 pg Normal 25.9-34.0 [facility] Comment on above: Performed By: #### C BC #### [facility] [address] [place] [address] Dr. Geovani Mcclendon MCHC (RBC) [Mass/Vol] 34.0 g/dL Normal 29.9-35.2 [facility] Comment on above: Performed By: #### C BC #### [facility] [address] [place] [address] Dr. Geovani Mcclendon MCV (RBC) [Entitic vol] 82.2 fL Normal 80.0-94.0 [facility] Comment on above: Performed By: #### C BC #### [facility] [address] [place] [address] Dr. Geovani Mcclendon MONO # 0.7 103/ul Normal 0.3-0.8 [facility] Comment on above: Performed By: #### C BC #### [facility] [address] [place] [address] Dr. Geovani Mcclendon Monocytes/100 WBC (Bld) 8.6 % Normal 1.7-12.0 [facility] Comment on above: Performed By: #### C BC #### [facility] [address] [place] [address] Dr. Geovani Mcclendon NEUT # 4.9 103/ul Normal 1.4-6.5 [facility] Comment on above: Performed By: #### C BC #### [facility] [address] [place] [address] Dr. Geovani Mcclendon Neutrophils/100 WBC (Bld) 63.8 % Normal 43.0-75.0 [facility] Comment on above: Performed By: #### C BC #### [facility] [address] [place] [address] Dr. Geovani Mcclendon Platelet mean volume (Bld) [Entitic vol] 9.1 fL Critically low 9.5-13.5 [facility] Comment on above: Performed By: #### C BC #### [facility] [address] [place] [address] Dr. Geovani Mcclendon PLT 293 103/ul Normal 150-450 [facility] Comment on above: Performed By: #### C BC #### [facility] [address] [place] [address] Dr. Geovani Mcclendon RBC 4.61 106/ul Critically low 4.70-6.10 [facility] Comment on above: Performed By: #### C BC #### [facility] [address] [place] [address] Dr. Geovani Mcclendon WBC 7.7 103/ul Normal 4.0-11.0 [facility] Comment on above: Performed By: #### C BC #### [facility] [address] [place] [address] Dr. Geovani Mcclendon CRPon 02-24-2022 CRP 4.7 mg/dL Critically high <=1.0 [facility] Comment on above: Performed By: #### F ETIBC, FERR #### [facility] [address] [place] [address] Dr. Geovani Mcclendon D-DIMERon 02-24-2022 D-DIMER 0.32 mg/L FEU Normal <=0.59 [facility] Comment on above: Performed By: #### P T, DDIM, PTT #### [facility] [address] [place] [address] Dr. Geovani Mcclendon D-DIMER COMMENTS SEE BELOW Normal [facility] Comment on above: Result Comment: Incr [...] By: #### P T, DDIM, PTT #### [facility] [address] [address] [address] Geovani Mcclendon PROF CHEM 8 (BAS METB)on Anion gap [Moles/Vol] 10.6 mmol/L Normal [facility] Comment on above: Performed By: #### F ETIBC, FERR #### [facility] [address] [place] [address] Dr. Geovani Mcclendon Calcium [Mass/Vol] 8.8 mg/dL Normal 8.5-10.1 [facility] Comment on above: Performed By: #### F ETIBC, FERR #### [facility] [address] [place] [address] Dr. Geovani Mcclendon Chloride [Moles/Vol] 100 mmol/L Normal 98-107 [facility] Comment on above: Performed By: #### F ETIBC, FERR #### [facility] [address] [place] [address] Dr. Geovani Mcclendon CO2 [Moles/Vol] 31.8 mmol/L Normal 21.0-32.0 [facility] Comment on above: Performed By: #### F ETIBC, FERR #### [facility] [address] [place] [address] Dr. Geovani Mcclendon Creatinine [Mass/Vol] 1.01 mg/dL Normal 0.70-1.30 [facility] Comment on above: Performed By: #### F ETIBC, FERR #### [facility] [address] [place] [address] Dr. Geovani Mcclendon EGFR-AF LIBYAN >60 Normal >=60 [facility] Comment on above: Performed By: #### F ETIBC, FERR #### [facility] [address] [place] [address] Dr. Geovani Mcclendon EGFR-NON AF LIBYAN >60 Normal >=60 [facility] Comment on above: Performed By: #### F ETIBC, FERR #### [facility] [address] [place] [address] Dr. Geovani Mcclendon Glucose [Mass/Vol] 109 mg/dL Critically high 74-106 T [facility] Comment on above: Performed By: #### F ETIBC, FERR #### [facility] [address] [place] [address] Dr. Geovani Mcclendon Potassium [Moles/Vol] 3.4 mmol/L Critically low 3.5-5.1 [facility] Comment on above: Performed By: #### F ETIBC, FERR #### [facility] [address] [place] [address] Dr. Geovani Mcclendon Sodium [Moles/Vol] 139 mmol/L Normal 136-145 [facility] Comment on above: Performed By: #### F ETIBC, FERR #### [facility] [address] [place] [address] Dr. Geovani Mcclendon Urea nitrogen [Mass/Vol] 17.0 mg/dL Normal 7.0-18.0 [facility] Comment on above: Performed By: #### F ETIBC, FERR #### [facility] [address] [place] [address] Dr. Geovani Mcclendon Urea nitrogen/Creatinine [Mass ratio] 16.8 mg/mg Normal [facility] Comment on above: Performed By: #### F ETIBC, FERR #### [facility] [address] [place] [address] Dr. Geovani Mcclendon PROTIMEon 02-24-2022 INR Coag (PPP) [Relative time] 0.98 {INR} Normal [facility] Comment on above: Performed By: #### P T, DDIM, PTT #### [facility] [address] [place] [address] Dr. Geovani Mcclendon INR GUIDELINES SEE BELOW Normal [facility] Comment on above: Result Comment: SACHIN RED INR: 2.0 - 3.0 CONDITIONS NOT LISTED BELOW 2.5 - 3.5 FOR PROSTHETIC HEART VALVE REPLACEMENT 2.5 - 3.5 RECURRENT THROMBOSIS Performed By: #### P T, DDIM, PTT #### [facility] [address] [place] [address] Dr. Geovani Mcclendon PT Coag (PPP) [Time] 10.4 s Normal 9.0-11.6 [facility] Comment on above: Performed By: #### P T, DDIM, PTT #### [facility] [address] [address] [address] Geovani Mcclendon PTTon 02-24-2022 aPTT Coag (Bld) [Time] 30.7 s Normal 22.3-36.2 [facility] Comment on above: Performed By: #### P T, DDIM, PTT #### [facility] [address] [address] [address] Geovani Mcclendon SED RATE WESTERGRENon 2022 SED RATE 52 mm/hr Critically high <=15 [facility] Comment on above: Performed By: #### F ETIBC, FERR #### [facility] [address] [place] [address] Dr. Geovani Mcclendon VC INJ SCL [employer] VEINSon 1 03-05-2021 VC INJ SCL [place] [employer] VEINS Patient: MARCOS LIU V. Exam Date: 01/03/2022 : 1980 Gender:M Ordering : DR MARCOS VALDEZ M.D. Admission #: [id number] Family : Order #: [id number] CLICK HERE TO VIEW EXAM RADIOLOGY REPORT PROCEDURE: VEIN CENTER INJECTION SCLEROSING SOLUTION MULTIPLE VEINS SAME COMPARISON: VC INJ SCL [place] [employer] VEINS, 12/27/2021. INDICATIONS: Pain co-occurrent and due [...] Technically successful sclerotherapy as described Dictated by: Albert May M.D. on 01/03/2022 at 11:55 Approved by: Albert May M.D. on 01/03/2022 at 11:[address] [facility] VC INJ SCL [place] [employer] VEINSon 1 02-26-2021 VC INJ SCL [place] [employer] VEINS Patient: MARCOS LIU V. Exam Date: 12/27/2021 : 1980 Gender:M Ordering : DR MARCOS VALDEZ M.D. Admission #: [id number] Family : Order #: [id number] CLICK HERE TO VIEW EXAM RADIOLOGY REPORT [...] Valdez MD on 12/27/2021 at 09:[address] [facility] VC CONSULT FOLLOWUPon 2021 VC CONSULT FOLLOWUP Patient: MARCOS LIU V. Exam Date: 12/25/2021 : 1980 Gender:Mallika Ordering : DR MARCOS VALDEZ M.D. Admission #: [id number] Family : Order #: [id number] CLICK HERE TO VIEW EXAM RADIOLOGY REPORT [...] Valdez MD on 12/25/2021 at 08:[address] [facility] VC EXT VENOUS TOR LIMITEDon 12-25-2021 VC EXT VENOUS TOR LIMITED Patient: MARCOS LIU V. Exam Date: 12/25/2021 : 1980 Gender:M Ordering : DR MARCOS VALDEZ M.D. Admission #: [id number] Family : Order #: [id number] CLICK HERE TO VIEW EXAM RADIOLOGY REPORT [...] Valdez MD on 12/25/2021 at 08:[address] [facility] VC INJ FOAM SCLERO W US MLTI on 12-19-2021 VC INJ FOAM SCLERO W US MLTI Patient: MARCOS LIU V. Exam Date: 12/19/2021 : 1980 Gender:M Ordering : DR MARCOS VALDEZ M.D. Admission #: [id number] Family : Order #: [id number] CLICK HERE TO VIEW EXAM RADIOLOGY REPORT [...] procedu (more content not included)... Normal [facility] VC INJ FOAM SCLERO W US MLTI on 12-15-2021 VC INJ FOAM SCLERO W US MLTI Patient: MARCOS LIU V. Exam Date: 12/15/2021 : 1980 Gender:M Ordering : DR MARCOS VALDEZ M.D. Admission #: [id number] Family : Order #: [id number] CLICK HERE TO VIEW EXAM RADIOLOGY REPORT [...] for (more content not included)... Normal [facility] VC CONSULT FOLLOWUPon 2021 VC CONSULT FOLLOWUP Patient: MARCOS LIU V. Exam Date: 12/05/2021 : 1980 Gender:M Ordering : DR MARCOS VALDZE M.D. Admission #: [id number] Family : Order #: [id number] CLICK HERE [...] Valdez MD on 12/05/2021 at 10:[address] [facility] VC EXT VENOUS LT LIMITEDon 1 VC EXT VENOUS LT LIMITED Patient: MARCOS LIU V. Exam Date: 12/05/2021 : 1980 Gender:M Ordering : DR MARCOS VALDEZ M.D. Admission #: [id number] Family : Order #: [id number] CLICK HERE TO VIEW EXAM RADIOLOGY REPORT [...] Valdez MD on 12/05/2021 at 10:[address] [facility] VC ENDOVENOUS ABL 1ST V LTon 11-28-2021 VC ENDOVENOUS ABL 1ST V LT Patient: PAYAMMARCOS Jamey Exam Date: 11/28/2021 : 1980 Gender:M Ordering : DR MARCOS VALDEZ M.D. Admission #: [id number] Family : Order #: [id number] CLICK HERE TO VIEW EXAM RADIOLOGY REPORT PROCEDURE: VEIN CENTER ENDOVENOUS ABLATION FIRST VEIN LEFT COMPARISON: None. INDICATIONS: Pain co-occurrent and due to varicose veins of bilateral legs I83.813 OPERATIVE REPORT: The risks and benefits of the procedure had been previously discussed, and were rediscussed at length. Informed written consent was obtained by me and Huseyin Quan assisted. Time out procedure was performed. The left [...] the left great saphenous vein. Dictated by: Albert May M.D. on 11/28/2021 at 15:47 Approved by: Albert May M.D. on 11/28/2021 at 15:48 [facility] VC CONSULT FOLLOWUPon 2021 VC CONSULT FOLLOWUP Patient: MARCOS LIU V. Exam Date: 11/21/2021 : 1980 Gender:M Ordering : DR MARCOS VALDEZ M.D. Admission #: [id number] Family : Order #: [id number] CLICK HERE [...] Valdez MD on 11/21/2021 at 14:[address] [facility] VC EXT VENOUS RT LIMITEDon 1 VC EXT VENOUS RT LIMITED Patient: MARCOS LIU V. Exam Date: 11/21/2021 : 1980 Gender:M Ordering : DR MARCOS VALDEZ M.D. Admission #: [id number] Family : Order #: [id number] CLICK HERE TO VIEW EXAM RADIOLOGY REPORT [...] MD on 11/21/2021 at 14:36 Normal [facility] TRANSFERRINon 11-15-2021 Transferrin [Mass/Vol] 214 mg/dL Normal 177-329 [facility] Comment on above: Performed By: #### F ETIBC, FERR #### [facility] [address] [place] [address] Dr. Geovani Mcclendon CBC AUTO DIFFon 11-14-2021 BASO # 0.0 103/ul Normal 0.0-0.1 [facility] Comment on above: Performed By: #### F ETIBC, FERR #### [facility] [address] [place] [address] Dr. Geovani Mcclendon Basophils/100 WBC (Bld) 0.5 % Normal 0.2-2.0 [facility] Comment on above: Performed By: #### F ETIBC, FERR #### [facility] [address] [place] [address] Dr. Geovani cMclendon EO # 0.1 103/ul Normal 0.0-0.7 [facility] Comment on above: Performed By: #### F ETIBC, FERR #### [facility] [address] [place] [address] Dr. Geovani Mcclendon Eosinophils/100 WBC (Bld) 1.4 % Normal 0.9-7.0 [facility] Comment on above: Performed By: #### F ETIBC, FERR #### [facility] [address] [place] [address] Dr. Geovani Mcclendon Erythrocyte distribution width (RBC) [Ratio] 13.2 % Normal 11.0-15.0 [facility] Comment on above: Performed By: #### F ETIBC, FERR #### [facility] [address] [place] [address] Dr. Geovani Mcclendon Hematocrit (Bld) [Volume fraction] 39.2 % Critically low 42.0-54.0 [facility] Comment on above: Performed By: #### F ETIBC, FERR #### [facility] [address] [address] [address] Geovani Mcclendon Hemoglobin (Bld) [Mass/Vol] 12.6 g/dL Critically low 14.0-18.0 [facility] Comment on above: Performed By: #### F ETIBC, FERR #### [facility] [address] [address] [address] Geovani Mcclendon IG # 0.02 10e3/ul Normal 0.00-0.03 [facility] Comment on above: Performed By: #### F ETIBC, FERR #### [facility] [address] [place] [address] Dr. Geovani Mcclendon IG % 0.2 % Normal 0.0-0.5 [facility] Comment on above: Performed By: #### F ETIBC, FERR #### [facility] [address] [place] [address] Dr. Geovani Mcclendon LYMPH # 1.7 103/ul Normal 1.2-3.8 [facility] Comment on above: Performed By: #### F ETIBC, FERR #### [facility] [address] [place] [address] Dr. Geovani Mcclendon Lymphocytes/100 WBC (Bld) 21.1 % Normal 20.5-60.0 [facility] Comment on above: Performed By: #### F ETIBC, FERR #### [facility] [address] [place] [address] Dr. Geovani Mcclendon MANUAL DIFF REQ NO Normal [facility] Comment on above: Performed By: #### F ETIBC, FERR #### [facility] [address] [place] [address] Dr. Geovani Mcclendon MCH (RBC) [Entitic mass] 28.0 pg Normal 25.9-34.0 [facility] Comment on above: Performed By: #### F ETIBC, FERR #### [facility] [address] [place] [address] Dr. Geovani Mcclendon MCHC (RBC) [Mass/Vol] 32.1 g/dL Normal 29.9-35.2 [facility] Comment on above: Performed By: #### F ETIBC, FERR #### [facility] [address] [place] [address] Dr. Geovani Mcclendon MCV (RBC) [Entitic vol] 87.1 fL Normal 80.0-94.0 [facility] Comment on above: Performed By: #### F ETIBC, FERR #### [facility] [address] [place] [address] Dr. Geovani Mcclendon MONO # 0.6 103/ul Normal 0.3-0.8 [facility] Comment on above: Performed By: #### F ETIBC, FERR #### [facility] [address] [place] [address] Dr. Geovani Mcclendon Monocytes/100 WBC (Bld) 7.2 % Normal 1.7-12.0 [facility] Comment on above: Performed By: #### F ETIBC, FERR #### [facility] [address] [place] [address] Dr. Geovani Mcclendon NEUT # 5.6 103/ul Normal 1.4-6.5 [facility] Comment on above: Performed By: #### F ETIBC, FERR #### [facility] [address] [place] [address] Dr. Geovani Mcclendon Neutrophils/100 WBC (Bld) 69.6 % Normal 43.0-75.0 [facility] Comment on above: Performed By: #### F ETIBC, FERR #### [facility] [address] [place] [address] Dr. Geovani Mcclendon Platelet mean volume (Bld) [Entitic vol] 9.1 fL Critically low 9.5-13.5 [facility] Comment on above: Performed By: #### F ETIBC, FERR #### [facility] [address] [place] [address] Dr. Geovani Mcclendon PLT 248 103/ul Normal 150-450 [facility] Comment on above: Performed By: #### F ETIBC, FERR #### [facility] [address] [place] [address] Dr. Geovani Mcclendon RBC 4.50 106/ul Critically low 4.70-6.10 [facility] Comment on above: Performed By: #### F ETIBC, FERR #### [facility] [address] [place] [address] Dr. Geovani Mcclendon WBC 8.0 103/ul Normal 4.0-11.0 [facility] Comment on above: Performed By: #### F ETIBC, FERR #### [facility] [address] [place] [address] Dr. Geovani Mcclendon FERRITINon 11-14-2021 Ferritin [Mass/Vol] 207.0 ng/mL Normal 26.0-388.0 [facility] Comment on above: Performed By: #### F ETIBC, FERR #### [facility] [address] [place] [address] Dr. Geovani Mcclendon IRON AND TIBCon 11-14-2021 % SATURATION 14.2 % Normal [facility] Comment on above: Performed By: #### F ETIBC, FERR #### [facility] [address] [place] [address] Dr. Geovani Mcclendon Iron [Mass/Vol] 33.0 ug/dL Critically low 65.0-175.0 [facility] Comment on above: Performed By: #### F ETIBC, FERR #### [facility] [address] [place] [address] Dr. Geovani Mcclendon TIBC DIRECT 232.0 ug/dL Critically low 250.0-450.0 [facility] Comment on above: Performed By: #### F ETIBC, FERR #### [facility] [address] [place] [address] Dr. Geovani Mcclendon PROF CHEM 8 (BAS METB)on Anion gap [Moles/Vol] 7.0 mmol/L Normal [facility] Comment on above: Performed By: #### F ETIBC, FERR #### [facility] [address] [place] [address] Dr. Geovani Mcclendon Calcium [Mass/Vol] 8.8 mg/dL Normal 8.5-10.1 [facility] Comment on above: Performed By: #### F ETIBC, FERR #### [facility] [address] [address] [address] Geovani Mcclendon Chloride [Moles/Vol] 105 mmol/L Normal 98-107 [facility] Comment on above: Performed By: #### F ETIBC, FERR #### [facility] [address] [address] [address] Geovani Mcclendon CO2 [Moles/Vol] 31.1 mmol/L Normal 21.0-32.0 [facility] Comment on above: Performed By: #### F ETIBC, FERR #### [facility] [address] [address] [address] Geovani Mcclendon Creatinine [Mass/Vol] 0.86 mg/dL Normal 0.70-1.30 [facility] Comment on above: Performed By: #### F ETIBC, FERR #### [facility] [address] [place] [address] Dr. Geovani Mcclendon EGFR-AF LIBYAN >60 Normal >=60 [facility] Comment on above: Performed By: #### F ETIBC, FERR #### [facility] [address] [address] [address] Geovani Mcclendon EGFR-NON AF LIBYAN >60 Normal >=60 [facility] Comment on above: Performed By: #### F ETIBC, FERR #### [facility] [address] [place] [address] Dr. Geovani Mcclendon Glucose [Mass/Vol] 91 mg/dL Normal 74-106 [facility] Comment on above: Performed By: #### F ETIBC, FERR #### [facility] [address] [address] [address] Geovani Mcclendon Potassium [Moles/Vol] 4.1 mmol/L Normal 3.5-5.1 [facility] Comment on above: Performed By: #### F ETIBC, FERR #### [facility] [address] [address] [address] Geovani Mcclendon Sodium [Moles/Vol] 139 mmol/L Normal 136-145 [facility] Comment on above: Performed By: #### F ETIBC, FERR #### [facility] [address], [place] [address] Dr. Geovani Mcclendon Urea nitrogen [Mass/Vol] 14.0 mg/dL Normal 7.0-18.0 [facility] Comment on above: Performed By: #### F ETIBC, FERR #### [facility] [address], [place] [address] Dr. Geovani Mcclendon Urea nitrogen/Creatinine [Mass ratio] 16.3 mg/mg Normal [facility] Comment on above: Performed By: #### F ETIBC, FERR #### [facility] [address], [place] [address] Dr. Geovani Mcclendon VC ENDOVENOUS ABL 1ST V RTon 11-14-2021 VC ENDOVENOUS ABL 1ST V RT Patient: MARCOS LIU V. Exam Date: 11/14/2021 : 1980 Gender:M Ordering : DR MARCOS VALDEZ M.D. Admission #: [id number] Family : Order #: [id number] CLICK HERE TO VIEW EXAM RADIOLOGY REPORT PROCEDURE: VEIN CENTER ENDOVENOUS ABLATION FIRST VEIN RIGHT GREAT SAPHENOUS VEIN COMPARISON: None. INDICATIONS: Pain co-occurrent and due to varicose veins of bilateral legs i83.813 OPERATIVE REPORT: The risks and benefits of the procedure had been previously discussed, and were rediscussed at length. Informed written consent was obtained by me and Huseyin Quan assisted. Time out procedure [...] Marcos Valdez MD on 11/14/2021 at 14:[address] [facility] XR LSPINE 2_3 VIEWSon 2021 XR LSPINE 2_3 VIEWS EXAMINATION: XR LSPINE 2_3 VIEWS HISTORY: Spinal stenosis of lumbar region r COMPARISON: No relevant comparison available. FINDINGS: BONES: 4 mm anterolisthesis of L5 in relation L4 and S1. Incomplete fusion posterior elements of L5. No significant spondylosis. [id number] facet osteoarthropathy L5-S1 DISC SPACES: Disc space narrowing L4-L5 and L5-S1 PARASPINOUS: Negative. No paraspinous abnormality is seen. OTHER: Negative. IMPRESSION: Degenerative changes L4-S1 4 mm anterolisthesis of L5 Electronically authenticated by: MARCOS VALDEZ Date: 2021-10-25 07:15 Normal [facility] VC COMP CONSULTATIONon 10-10 VC COMP CONSULTATION Patient: MARCOS LIU V. Exam Date: 10/10/2021 : 1980 Gender:M Ordering : SHAIKH Cherelle JONES . 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 The patient's symptoms are partially relieved [...] Marcos Valdez MD on 10/10/2021 at 09:21 [facility] VC VENOUS REFLUX TOR LMTon 0 09-21-2021 VC VENOUS REFLUX TOR LMT Patient: MARCOS LIU V. Exam Date: 09/21/2021 : 1980 Gender:M Ordering : SHAIKH Cherelle JONES . Admission #: [id number] Family : Order #: [id number] CLICK HERE TO VIEW EXAM RADIOLOGY REPORT [...] thrombus. Compressibility: Normal. Flow: Deep venous reflux. Librarian Head: Distal/medial lower leg perf measures 2.4mm with [...] Valdez MD on 09/21/2021 at 13:[address] [facility] ECHOCARDIO M/2D COMPLETEon 0 09-18-2021 ECHOCARDIO M/2D COMPLETE Patient: MARCOS LIU V. Exam Date: 09/18/2021 : 1980 Gender:M Ordering : SHAIKH Cherelle JONES . Admission #: [id number] Family : Order #: [id number] CLICK HERE TO VIEW EXAM ECHOCARDIOGRAM REPORT [...] Coleman M.D. on 09/19/2021 at 17:[address] [facility] XR TSPINE 3 VIEWSon 09-19-19 22 XR [...] MARCOS VALDEZ Date: 2021-09-18 17:44 Normal [facility] BNPon 09-12-2021 Natriuretic peptide B (Bld) [Mass/Vol] 71.0 pg/mL Normal <=450.0 [facility] Comment on above: Performed By: #### B AUTOMATION SPECIALIST, LIPID, CMP #### [facility] [address] [place] [address] Dr. Geovani Mcclendon CBC AUTO DIFFon 09-12-2021 BASO # 0.1 103/ul Normal 0.0-0.1 [facility] Comment on above: Performed By: #### F ETIBC, FERR #### [facility] [address] [place] [address] Dr. Geovani Mcclendon Basophils/100 WBC (Bld) 0.8 % Normal 0.2-2.0 [facility] Comment on above: Performed By: #### F ETIBC, FERR #### [facility] [address] [place] [address] Dr. Geovani Mcclendon EO # 0.2 103/ul Normal 0.0-0.7 [facility] Comment on above: Performed By: #### F ETIBC, FERR #### [facility] [address] [place] [address] Dr. Geovani Mcclendon Eosinophils/100 WBC (Bld) 3.1 % Normal 0.9-7.0 [facility] Comment on above: Performed By: #### F ETIBC, FERR #### [facility] [address] [place] [address] Dr. Geovani Mcclendon Erythrocyte distribution width (RBC) [Ratio] 13.5 % Normal 11.0-15.0 [facility] Comment on above: Performed By: #### F ETIBC, FERR #### [facility] [address] [place] [address] Dr. Geovani Mclcendon Hematocrit (Bld) [Volume fraction] 39.7 % Critically low 42.0-54.0 [facility] Comment on above: Performed By: #### F ETIBC, FERR #### [facility] [address] [place] [address] Dr. Geovani Mcclendon Hemoglobin (Bld) [Mass/Vol] 12.8 g/dL Critically low 14.0-18.0 [facility] Comment on above: Performed By: #### F ETIBC, FERR #### [facility] [address] [place] [address] Dr. Geovani Mcclendon IG # 0.02 10e3/ul Normal 0.00-0.03 [facility] Comment on above: Performed By: #### F ETIBC, FERR #### [facility] [address] [place] [address] Dr. Geovani Mcclendon IG % 0.3 % Normal 0.0-0.5 [facility] Comment on above: Performed By: #### F ETIBC, FERR #### [facility] [address] [place] [address] Dr. Geovani Mcclendon LYMPH # 1.2 103/ul Normal 1.2-3.8 [facility] Comment on above: Performed By: #### F ETIBC, FERR #### [facility] [address] [place] [address] Dr. Geovani Mcclendon Lymphocytes/100 WBC (Bld) 20.3 % Critically low 20.5-60.0 [facility] Comment on above: Performed By: #### F ETIBC, FERR #### [facility] [address] [place] [address] Dr. Geovani Mcclendon MANUAL DIFF REQ NO Normal [facility] Comment on above: Performed By: #### F ETIBC, FERR #### [facility] [address] [place] [address] Dr. Geovani Mcclendon MCH (RBC) [Entitic mass] 28.1 pg Normal 25.9-34.0 [facility] Comment on above: Performed By: #### F ETIBC, FERR #### [facility] [address] [place] [address] Dr. Geovani Mcclendon MCHC (RBC) [Mass/Vol] 32.2 g/dL Normal 29.9-35.2 [facility] Comment on above: Performed By: #### F ETIBC, FERR #### [facility] [address] [place] [address] Dr. Geovani Mcclendon MCV (RBC) [Entitic vol] 87.1 fL Normal 80.0-94.0 [facility] Comment on above: Performed By: #### F ETIBC, FERR #### [facility] [address] [place] [address] Dr. Geovani Mcclnedon MONO # 0.5 103/ul Normal 0.3-0.8 [facility] Comment on above: Performed By: #### F ETIBC, FERR #### [facility] [address] [place] [address] Dr. Geovani Mcclendon Monocytes/100 WBC (Bld) 7.4 % Normal 1.7-12.0 [facility] Comment on above: Performed By: #### F ETIBC, FERR #### [facility] [address] [place] [address] Dr. Geovani Mcclendon NEUT # 4.1 103/ul Normal 1.4-6.5 [facility] Comment on above: Performed By: #### F ETIBC, FERR #### [facility] [address] [place] [address] Dr. Geovani Mcclendon Neutrophils/100 WBC (Bld) 68.1 % Normal 43.0-75.0 [facility] Comment on above: Performed By: #### F ETIBC, FERR #### [facility] [address] [place] [address] Dr. Geovani Mcclendon Platelet mean volume (Bld) [Entitic vol] 9.6 fL Normal 9.5-13.5 [facility] Comment on above: Performed By: #### F ETIBC, FERR #### [facility] [address] [address] [address] Geovani Mcclendon PLT 242 103/ul Normal 150-450 [facility] Comment on above: Performed By: #### F ETIBC, FERR #### [facility] [address] [place] [address] Dr. Geovani Mcclendon RBC 4.56 106/ul Critically low 4.70-6.10 [facility] Comment on above: Performed By: #### F ETIBC, FERR #### [facility] [address] [place] [address] Dr. Geovani Mcclendon WBC 6.1 103/ul Normal 4.0-11.0 [facility] Comment on above: Performed By: #### F ETIBC, FERR #### [facility] [address] [place] [address] Dr. Geovani Mcclendon GLYCOHEMOGLOBIN A1Con 2021 ADA RECOMMENDATION SEE BELOW Normal [facility] Comment on above: Result Comment: ADA RECOMMENDED LIMIT 4.0 - 6.0 ADA THERAPEUTIC TARGET < 7.0 ACTION SUGGESTED > 7.0 Performed By: #### F ETIBC, FERR #### [facility] [address] [place] [address] Dr. Geovani Mcclendon Glucose [Mass/Vol] 111 mg/dL Normal [facility] Comment on above: Performed By: #### F ETIBC, FERR #### [facility] [address] [place] [address] Dr. Geovani Mcclendon HbA1c (Bld) [Mass fraction] 5.5 % Normal 4.5-6.2 [facility] Comment on above: Performed By: #### F ETIBC, FERR #### [facility] [address] [address] [address] Geovani Mcclendon LIPID PROFILEon 09-12-2021 CHOL-HDL RATIO NORM SEE BELOW Normal [facility] Comment on above: Result Comment: 3.3 - 4.4 LOW RISK 4.4 - 7.1 AVERAGE RISK 7.1 - 11.0 MODERATE RISK >11.0 HIGH RISK Performed By: #### B AUTOMATION SPECIALIST, LIPID, CMP #### [facility] [address] [address] [address] Geovani Mcclendon Cholesterol [Mass/Vol] 202 mg/dL Critically high <=200 [facility] Comment on above: Performed By: #### B AUTOMATION SPECIALIST, LIPID, CMP #### [facility] [address] [address] [address] Geovani Mcclendon Cholesterol in HDL [Mass/Vol] 41 mg/dL Normal 40-60 [facility] Comment on above: Performed By: #### B AUTOMATION SPECIALIST, LIPID, CMP #### [facility] [address] [address] [address] Geovani Mcclendon Cholesterol in LDL [Mass/Vol] 148.6 mg/dL Normal [facility] Comment on above: Performed By: #### B AUTOMATION SPECIALIST, LIPID, CMP #### [facility] [address] [address] [address] Geovani Mcclendon Cholesterol.total/Chol esterol in HDL [Mass ratio] 4.9 {ratio} Normal [facility] Comment on above: Performed By: #### B AUTOMATION SPECIALIST, LIPID, CMP #### [facility] [address] [address] [address] Geovani Mcclendon HDL NORMAL > or = 60 mg/dl - LOW CARDIOVASCULAR RISK <40 mg/dl - HIGH CARDIOVASCULAR RISK Normal [facility] Comment on above: Performed By: #### B AUTOMATION SPECIALIST, LIPID, CMP #### [facility] [address] [address] [address] Geovani Mcclendon LDL CALC NORMAL SEE BELOW Normal [facility] Comment on above: Result Comment: <100 mg/dl OPTIMAL 100 - 129 mg/dl NEAR OR ABOVE OPTIMAL 130 - 159 mg/dl BORDERLINE HIGH 160 - 189 mg/dl HIGH >190 mg/dl VERY HIGH Performed By: #### B AUTOMATION SPECIALIST, LIPID, CMP #### [facility] [address] [place] [address] Dr. Geovani Mcclendon Triglyceride [Mass/Vol] 62 mg/dL Normal <=150 [facility] Comment on above: Performed By: #### B AUTOMATION SPECIALIST, LIPID, CMP #### [facility] [address] [place] [address] Dr. Geovani Mcclendon VLDL CALC 12.4 mg/dL Normal [facility] Comment on above: Performed By: #### B AUTOMATION SPECIALIST, LIPID, CMP #### [facility] [address] [place] [address] Dr. Geovani Mcclendon PROF 14(COMP METB)on 022 Albumin [Mass/Vol] 3.4 g/dL Normal 3.4-5.0 [facility] Comment on above: Performed By: #### B AUTOMATION SPECIALIST, LIPID, CMP #### [facility] [address] [place] [address] Dr. Geovani Mcclendon Albumin/Globulin [Mass ratio] 0.9 {ratio} Normal [facility] Comment on above: Performed By: #### B AUTOMATION SPECIALIST, LIPID, CMP #### [facility] [address] [place] [address] Dr. Geovani Mcclendon ALP [Catalytic activity/Vol] 57 U/L Normal 46-116 [facility] Comment on above: Performed By: #### B AUTOMATION SPECIALIST, LIPID, CMP #### [facility] [address] [place] [address] Dr. Geovani Mcclendon ALT [Catalytic activity/Vol] 34 U/L Normal 16-63 [facility] Comment on above: Performed By: #### B AUTOMATION SPECIALIST, LIPID, CMP #### [facility] [address] [place] [address] Dr. Geovani Mcclendon Anion gap [Moles/Vol] 9.2 mmol/L Normal [facility] Comment on above: Performed By: #### B AUTOMATION SPECIALIST, LIPID, CMP #### [facility] [address] [place] [address] Dr. Geovani Mcclendon AST [Catalytic activity/Vol] 16 U/L Normal 15-37 [facility] Comment on above: Performed By: #### B AUTOMATION SPECIALIST, LIPID, CMP #### [facility] [address] [place] [address] Dr. Geovani Mcclendon Bilirubin [Mass/Vol] 0.4 mg/dL Normal 0.2-1.0 [facility] Comment on above: Performed By: #### B AUTOMATION SPECIALIST, LIPID, CMP #### [facility] [address] [place] [address] Dr. Geovani Mcclendon Calcium [Mass/Vol] 8.5 mg/dL Normal 8.5-10.1 [facility] Comment on above: Performed By: #### B AUTOMATION SPECIALIST, LIPID, CMP #### [facility] [address] [place] [address] Dr. Geovani Mcclendon Chloride [Moles/Vol] 106 mmol/L Normal 98-107 [facility] Comment on above: Performed By: #### B AUTOMATION SPECIALIST, LIPID, CMP #### [facility] [address] [place] [address] Dr. Geovani Mcclendon CO2 [Moles/Vol] 30.4 mmol/L Normal 21.0-32.0 [facility] Comment on above: Performed By: #### B AUTOMATION SPECIALIST, LIPID, CMP #### [facility] [address] [place] [address] Dr. Geovani Mcclendon Creatinine [Mass/Vol] 0.77 mg/dL Normal 0.70-1.30 [facility] Comment on above: Performed By: #### B AUTOMATION SPECIALIST, LIPID, CMP #### [facility] [address] [place] [address] Dr. Geovani Mcclendon EGFR-AF LIBYAN >60 Normal >=60 [facility] Comment on above: Performed By: #### B AUTOMATION SPECIALIST, LIPID, CMP #### [facility] [address] [place] [address] Dr. Geovani Mcclendon EGFR-NON AF LIBYAN >60 Normal >=60 [facility] Comment on above: Performed By: #### B AUTOMATION SPECIALIST, LIPID, CMP #### [facility] [address] [address] [address] Geovani Mcclendon Globulin (S) [Mass/Vol] 3.6 g/dL Normal [facility] Comment on above: Performed By: #### B AUTOMATION SPECIALIST, LIPID, CMP #### [facility] [address] [place] [address] Dr. Geovani Mcclendon Glucose [Mass/Vol] 93 mg/dL Normal 74-106 [facility] Comment on above: Performed By: #### B AUTOMATION SPECIALIST, LIPID, CMP #### [facility] [address] [place] [address] Dr. Geovani Mcclendon Potassium [Moles/Vol] 4.6 mmol/L Normal 3.5-5.1 [facility] Comment on above: Performed By: #### B AUTOMATION SPECIALIST, LIPID, CMP #### [facility] [address] [place] [address] Dr. Geovani Mcclendon Protein [Mass/Vol] 7.0 g/dL Normal 6.4-8.2 [facility] Comment on above: Performed By: #### B AUTOMATION SPECIALIST, LIPID, CMP #### [facility] [address] [place] [address] Dr. Geovani Mcclendon Sodium [Moles/Vol] 141 mmol/L Normal 136-145 [facility] Comment on above: Performed By: #### B AUTOMATION SPECIALIST, LIPID, CMP #### [facility] [address] [place] [address] Dr. Geovani Mcclendon Urea nitrogen [Mass/Vol] 17.0 mg/dL Normal 7.0-18.0 [facility] Comment on above: Performed By: #### B AUTOMATION SPECIALIST, LIPID, CMP #### [facility] [address] [place] [address] Dr. Geovani Mcclendon Urea nitrogen/Creatinine [Mass ratio] 22.1 mg/mg Normal [facility] Comment on above: Performed By: #### B AUTOMATION SPECIALIST, LIPID, CMP #### [facility] [address] [place] [address] Dr. Geovani Mcclendon XR ANKLE RT MIN 3 VIEWSon XR ANKLE RT MIN 3 VIEWS EXAM: XR ANKLE RT MIN 3 VIEWS HISTORY: Pain after fall COMPARISON: None. TECHNIQUE: 3 views FINDINGS: No osseous lesion, fracture, dislocation or subluxation. Joint spaces are normal. No visualized effusion. No visualized soft tissue edema. IMPRESSION: Normal x-rays Electronically authenticated by: MARCOS GONZALES Date: 2021-07-10 20:[address] [facility] Vital Signs Date Time Vital Sign Value Performing Clinician Facility 09-14-2024 18:19-0400 Body mass index (BMI) [Ratio] 42.23 kg/m2 Josefina Vaz AUTOMATION SPECIALIST Work Phone: [facility] 09-14-2024 18:19-0400 Body temperature 98.29 [degF] Josefina Camposedithz AUTOMATION SPECIALIST Work Phone: [facility] 09-14-2024 18:19-0400 Body weight 141.25 kg Josefina Vaz AUTOMATION SPECIALIST Work Phone: [facility] 09-14-2024 18:19-0400 Diastolic blood pressure 88 mm[Hg] Josefina Vaz AUTOMATION SPECIALIST Work Phone: [facility] 09-14-2024 18:19-0400 Heart rate 96 /min Josefinamariangel Ramirezz AUTOMATION SPECIALIST Work Phone: [facility] 09-14-2024 18:19-0400 Respiratory rate 20 /min Josefina Ramirezz AUTOMATION SPECIALIST Work Phone: [facility] 09-14-2024 18:19-0400 SaO2% (BldA) [Mass fraction] 95 % Josefina Vaz AUTOMATION SPECIALIST Work Phone: [facility] 09-14-2024 18:19-0400 Systolic blood pressure 132 mm[Hg] Josefina Ramirezz AUTOMATION SPECIALIST Work Phone: [facility] 08-12-2024 18:38-0400 Body mass index (BMI) [Ratio] 42.83 kg/m2 Josefina Ramirezz AUTOMATION SPECIALIST Work Phone: [facility] 08-12-2024 18:38-0400 Body temperature 98.49 [degF] Josefina Aichholz AUTOMATION SPECIALIST Work Phone: [facility] 08-12-2024 18:38-0400 Body weight 143.25 kg Josefina Aichholz AUTOMATION SPECIALIST Work Phone: [facility] 08-12-2024 18:38-0400 Diastolic blood pressure 78 mm[Hg] Josefina Aichholz AUTOMATION SPECIALIST Work Phone: [facility] 08-12-2024 18:38-0400 Heart rate 83 /min Josefina Aichholz AUTOMATION SPECIALIST Work Phone: [facility] 08-12-2024 18:38-0400 Respiratory rate 20 /min Josefina Aichholz AUTOMATION SPECIALIST Work Phone: [facility] 08-12-2024 18:38-0400 SaO2% (BldA) [Mass fraction] 98 % Josefina Aichholz AUTOMATION SPECIALIST Work Phone: [facility] 08-12-2024 18:38-0400 Systolic blood pressure 116 mm[Hg] Josefina Aichholz AUTOMATION SPECIALIST Work Phone: [facility] 07-15-2024 17:56-0400 Body mass index (BMI) [Ratio] 43.37 kg/m2 Josefina Aichholz AUTOMATION SPECIALIST Work Phone: [facility] 07-15-2024 17:56-0400 Body temperature 98.1 [degF] Josefina Aichholz AUTOMATION SPECIALIST Work Phone: [facility] 07-15-2024 17:56-0400 Body weight 145.06 kg Josefina Aichholz AUTOMATION SPECIALIST Work Phone: [facility] 07-15-2024 17:56-0400 Diastolic blood pressure 80 mm[Hg] Josefina Aichholz AUTOMATION SPECIALIST Work Phone: [facility] 07-15-2024 17:56-0400 Heart rate 80 /min Josefina Aichholz AUTOMATION SPECIALIST Work Phone: [facility] 07-15-2024 17:56-0400 Respiratory rate 18 /min Josefina Aichholz AUTOMATION SPECIALIST Work Phone: [facility] 07-15-2024 17:56-0400 SaO2% (BldA) [Mass fraction] 94 % Josefina Ramirezz AUTOMATION SPECIALIST Work Phone: [facility] 07-15-2024 17:56-0400 Systolic blood pressure 110 mm[Hg] Josefina Andresholz AUTOMATION SPECIALIST Work Phone: [facility] 05-25-2024 17:41-0400 Body height 182.9 cm Josefina Andresholz AUTOMATION SPECIALIST Work Phone: [facility] 05-25-2024 17:41-0400 Body mass index (BMI) [Ratio] 45.41 kg/m2 Josefina Andresholz AUTOMATION SPECIALIST Work Phone: [facility] 05-25-2024 17:41-0400 Body temperature 97.9 [degF] Josefina Andresedithz AUTOMATION SPECIALIST Work Phone: [facility] 05-25-2024 17:41-0400 Body weight 151.86 kg Josefina Andresholz AUTOMATION SPECIALIST Work Phone: [facility] 05-25-2024 17:41-0400 Diastolic blood pressure 78 mm[Hg] Josefina Andresholz AUTOMATION SPECIALIST Work Phone: [facility] 05-25-2024 17:41-0400 Heart rate 72 /min Josefina Andresholz AUTOMATION SPECIALIST Work Phone: [facility] 05-25-2024 17:41-0400 Respiratory rate 18 /min Josefina Andresholz AUTOMATION SPECIALIST Work Phone: [facility] 05-25-2024 17:41-0400 SaO2% (BldA) [Mass fraction] 94 % Josefina Andresholz AUTOMATION SPECIALIST Work Phone: [facility] 05-25-2024 17:41-0400 Systolic blood pressure 118 mm[Hg] Josefina Pérezhholz AUTOMATION SPECIALIST Work Phone: [facility] 03-30-2024 17:53-0500 Body height 182.9 cm Josfeinamariangel Ortezhholz AUTOMATION SPECIALIST Work Phone: [facility] 03-30-2024 17:53-0500 Body mass index (BMI) [Ratio] 47.5 kg/m2 Josefinamariangel Camposholz AUTOMATION SPECIALIST Work Phone: [facility] 03-30-2024 17:53-0500 Body temperature 98.01 [degF] Josefina Andresholz AUTOMATION SPECIALIST Work Phone: [facility] 03-30-2024 17:53-0500 Body weight 158.85 kg Josefina Andresholz AUTOMATION SPECIALIST Work Phone: [facility] 03-30-2024 17:53-0500 Diastolic blood pressure 86 mm[Hg] Josefina Ramirezz AUTOMATION SPECIALIST Work Phone: [facility] 03-30-2024 17:53-0500 Heart rate 82 /min Josefinamariangel Ramirezz AUTOMATION SPECIALIST Work Phone: [facility] 03-30-2024 17:53-0500 SaO2% (BldA) [Mass fraction] 98 % Josefina Andresholz AUTOMATION SPECIALIST Work Phone: [facility] 03-30-2024 17:53-0500 Systolic blood pressure 122 mm[Hg] Josefina Camposholz AUTOMATION SPECIALIST Work Phone: [facility] 01-27-2024 18:06-0500 Body height 182.9 cm Josefina Camposholz AUTOMATION SPECIALIST Work Phone: [facility] 01-27-2024 18:06-0500 Body mass index (BMI) [Ratio] 46.09 kg/m2 Josefina Andresholz AUTOMATION SPECIALIST Work Phone: [facility] 01-27-2024 18:06-0500 Body temperature 98.49 [degF] Josefina Andresholz AUTOMATION SPECIALIST Work Phone: [facility] 01-27-2024 18:06-0500 Body weight 154.13 kg Josefina Andresholz AUTOMATION SPECIALIST Work Phone: [facility] 01-27-2024 18:06-0500 Diastolic blood pressure 82 mm[Hg] Josefina Aichholz AUTOMATION SPECIALIST Work Phone: [facility] 01-27-2024 18:06-0500 Heart rate 82 /min Josefina Aichholz AUTOMATION SPECIALIST Work Phone: [facility] 01-27-2024 18:06-0500 Respiratory rate 20 /min Josefina Aichholz AUTOMATION SPECIALIST Work Phone: [facility] 01-27-2024 18:06-0500 SaO2% (BldA) [Mass fraction] 97 % Josefina Aichholz AUTOMATION SPECIALIST Work Phone: [facility] 01-27-2024 18:06-0500 Systolic blood pressure 120 mm[Hg] Josefina Aichholz AUTOMATION SPECIALIST Work Phone: [facility] 12-18-2023 17:59-0500 Body height 182.9 cm Josefina Aichholz AUTOMATION SPECIALIST Work Phone: [facility] 12-18-2023 17:59-0500 Body mass index (BMI) [Ratio] 45.57 kg/m2 Josefina Aichholz AUTOMATION SPECIALIST Work Phone: [facility] 12-18-2023 17:59-0500 Body temperature 97.81 [degF] Josefina Aichholz AUTOMATION SPECIALIST Work Phone: [facility] 12-18-2023 17:59-0500 Body weight 152.41 kg Josefina Aichholz AUTOMATION SPECIALIST Work Phone: [facility] 12-18-2023 17:59-0500 Diastolic blood pressure 90 mm[Hg] Josefina Aichholz AUTOMATION SPECIALIST Work Phone: [facility] 12-18-2023 17:59-0500 Heart rate 70 /min Josefina Aichholz AUTOMATION SPECIALIST Work Phone: [facility] 12-18-2023 17:59-0500 Respiratory rate 19 /min Josefina Aichholz AUTOMATION SPECIALIST Work Phone: [facility] 12-18-2023 17:59-0500 SaO2% (BldA) [Mass fraction] 97 % Josefina Vaz AUTOMATION SPECIALIST Work Phone: [facility] 12-18-2023 17:59-0500 Systolic blood pressure 130 mm[Hg] Josefina Vaz AUTOMATION SPECIALIST Work Phone: [facility] 05-01-2022 10:30-0400 Body weight 109.77 kg Claudio Cavazosky Other [employer] Other 05-01-2022 10:30-0400 Diastolic blood pressure 84 mm[Hg] Claudio Pugh Other [employer] Other 05-01-2022 10:30-0400 SaO2% (BldA) [Mass fraction] 92 % Claudio Pugh Other [employer] Other 05-01-2022 10:30-0400 Systolic blood pressure 122 mm[Hg] Claudio Pugh Other [employer] Other Encounters Encounter Date Encounter Type Care Provider Facility Start: 10-07-2024 End: 10-07-2024 ambulatory Patricio DICKEY Facility:[facility] Start: 10-07-2024 End: 10-07-2024 Patient encounter procedure Patricio DICKEY [facility] [place] Start: 09-15-2024 ambulatory Patricio DICKEY Facility:[facility] Start: 09-14-2024 End: 09-14-2024 Office outpatient visit 25 minutes Josefina Vaz AUTOMATION SPECIALIST Work Phone: [facility] Comment on above: Essential hypertensi on (Primary Dx); ALEXANDRO (obstructive sleep apnea); Morbid (severe) obesity due to excess calories ([facility]); RUBEN (generalized anxiety disorder) ; Colon cancer screening; Body mass index (BMI) 45.0-49.9, adult ([facility]) Start: 09-14-2024 End: 09-14-2024 ambulatory JOSEFINA AICHHOLZ Not Available Start: 09-14-2024 End: 09-14-2024 Bamboo flowsheet Josefina Andresholz AUTOMATION SPECIALIST Work Phone: [facility] Start: 09-14-2024 End: 09-14-2024 Bamboo flowsheet Josefina Татьяна AUTOMATION SPECIALIST Work Phone: [facility] Start: 08-12-2024 End: 08-12-2024 Office outpatient visit 15 minutes Josefina Татьяна AUTOMATION SPECIALIST Work Phone: [facility] Comment on above: Essential hypertensi on (Primary Dx); Morbid (severe) obesity due to excess calories ([facility]); Bilateral impacted cerumen; Body mass index (BMI) 45.0-49.9, adult ([facility]); RUBEN (generalized anxiety disorder) ; Edema of both lower extremities Start: 08-12-2024 End: 08-12-2024 ambulatory JOSEFINA AICHHOLZ Not Available Start: 08-12-2024 End: 08-12-2024 Bamboo flowsheet Josefina Татьяна AUTOMATION SPECIALIST Work Phone: [facility] Start: 08-12-2024 End: 08-12-2024 Bamboo flowsheet Josefina Татьяна AUTOMATION SPECIALIST Work Phone: [facility] Start: 08-04-2024 End: 08-04-2024 Refill Josefina Татьяна AUTOMATION SPECIALIST Work Phone: [facility] Comment on above: Morbid (severe) obes ity due to excess calories ([facility]); Body mass index (BMI) 45.0-49.9, adult ([facility]) Start: 07-15-2024 End: 07-15-2024 Office outpatient visit 25 minutes Josefina Татьяна AUTOMATION SPECIALIST Work Phone: [facility] Comment on above: Essential hypertensi on (CMS/HCC) (Primary Dx); ALEXANDRO (obstructive sleep apnea); Morbid (severe) obesity due to excess calories (CMS/HCC); Body mass index (BMI) 45.0-49.9, adult (CMS/HCC); RUBEN (generalized anxiety disorder) (CMS/HCC); Edema of both lower extremities; Bilateral impacted cerumen Start: 07-15-2024 End: 07-15-2024 ambulatory JOSEFINA AICHHOLZ Not Available Start: 07-15-2024 End: 07-15-2024 Bamboo flowsheet Josefina Ashleyz AUTOMATION SPECIALIST Work Phone: [facility] Start: 07-15-2024 End: 07-15-2024 Bamboo flowsheet Josefina Ashleyz AUTOMATION SPECIALIST Work Phone: [facility] Start: 07-01-2024 End: 07-01-2024 Refill Josefina Aiclinhholz AUTOMATION SPECIALIST Work Phone: [facility] Comment on above: Vitamin D deficiency Start: 06-29-2024 End: 06-29-2024 Refill Josefina Aichholz AUTOMATION SPECIALIST Work Phone: [facility] Comment on above: Morbid (severe) obes ity due to excess calories (CMS/HCC); Body mass index (BMI) 45.0-49.9, adult (CMS/HCC) Start: 05-25-2024 End: 05-25-2024 Office outpatient visit 15 minutes Josefinamariangel Vaz AUTOMATION SPECIALIST Work Phone: [facility] Comment on above: Essential hypertensi on (CMS/HCC) (Primary Dx); Edema of both lower extremities; Morbid (severe) obesity due to excess calories (CMS/HCC); Body mass index (BMI) 45.0-49.9, adult (CMS/HCC) Start: 05-25-2024 End: 05-25-2024 ambulatory JOSEFINA AICHHOLZ Not Available Start: 05-25-2024 End: 05-25-2024 Bamboo flowsheet Josefina Aichholz AUTOMATION SPECIALIST Work Phone: [facility] Start: 05-25-2024 End: 05-25-2024 Bamboo flowsheet Josefina Татьяна AUTOMATION SPECIALIST Work Phone: [facility] Start: 04-05-2024 End: 04-05-2024 Telephone encounter Josefina Ortezbritt AUTOMATION SPECIALIST Work Phone: [facility] Start: 03-30-2024 End: 03-30-2024 Office outpatient visit 25 minutes Josefina Татьяна AUTOMATION SPECIALIST Work Phone: [facility] Comment on above: Essential hypertensi on (CMS/HCC) (Primary Dx); Morbid (severe) obesity due to excess calories (CMS/HCC); Body mass index (BMI) 45.0-49.9, adult (CMS/HCC); Asymptomatic microscopic hematuria; Vitamin D deficiency; RUBEN (generalized anxiety disorder) (CMS/HCC) Start: 03-30-2024 End: 03-30-2024 ambulatory JOSEFINA ТАТЬЯНА Not Available Start: 03-30-2024 End: 03-30-2024 Bamboo flowsheet Josefina Татьяна AUTOMATION SPECIALIST Work Phone: [facility] Start: 03-30-2024 End: 03-30-2024 Bamboo flowsheet Josefina Pérezlinhmartin AUTOMATION SPECIALIST Work Phone: [facility] Start: 03-04-2024 End: 03-04-2024 Clinisync Result Encounter Josefina Татьяна AUTOMATION SPECIALIST Work Phone: [facility] Unsolicited Start: 03-04-2024 End: 03-04-2024 Clinisync Result Encounter Josefina Татьяна AUTOMATION SPECIALIST Work Phone: [facility] Unsolicited Start: 03-04-2024 End: 03-04-2024 Refill Josefina Татьяна AUTOMATION SPECIALIST Work Phone: [facility] Comment on above: Vitamin D deficiency (Primary Dx); RUBEN (generalized anxiety disorder) (CMS/HCC); Edema of both lower extremities; Essential hypertension (CMS/HCC); Asymptomatic microscopic hematuria Start: 01-30-2024 End: 01-30-2024 Bamboo flowsheet Adalberto Mercer PA Work Phone: [facility] Start: 01-30-2024 End: 01-30-2024 Bamboo flowsheet Adalberto Mercer PA Work Phone: [facility] Start: 01-30-2024 End: 01-30-2024 Office outpatient new 20 minutes Adalberto Donohue PA Work Phone: [facility] Comment on above: Neoplasm of uncertai n behavior (Primary Dx); Actinic keratosis Start: 01-30-2024 End: 01-30-2024 ambulatory ADALBERTO MIKAELEIM Not Available Start: 01-27-2024 End: 01-27-2024 ambulatory JOSEFINA ТАТЬЯНА Not Available Start: 01-27-2024 End: 01-27-2024 Office outpatient visit 25 minutes Josefina Vaz AUTOMATION SPECIALIST Work Phone: [facility] Comment on above: Essential hypertensi on (CMS/HCC) (Primary Dx); Edema of both lower extremities; Morbid (severe) obesity due to excess calories (CMS/HCC); Neoplasm of uncertain behavior of nose; RUBEN (generalized anxiety disorder) (CMS/HCC); Tongue lesion Start: 01-27-2024 End: 01-27-2024 Bamboo flowsheet Josefina Vaz AUTOMATION SPECIALIST Work Phone: [facility] Start: 01-27-2024 End: 01-27-2024 Bamboo flowsheet Josefina Vaz AUTOMATION SPECIALIST Work Phone: [facility] Start: 12-18-2023 End: 12-18-2023 Office outpatient visit 25 minutes Josefina Vaz AUTOMATION SPECIALIST Work Phone: [facility] Comment on above: Essential hypertensi on (CMS/HCC) (Primary Dx); Morbid (severe) obesity due to excess calories (CMS/HCC); ALEXANDRO (obstructive sleep apnea); RUBEN (generalized anxiety disorder) (CMS/HCC); Vitamin D deficiency; Edema of both lower extremities Start: 12-18-2023 End: 12-18-2023 ambulatory JOSEFINA VAZ Not Available Start: 12-18-2023 End: 12-18-2023 Bamboo flowsheet Josefina Vaz AUTOMATION SPECIALIST Work Phone: [facility] Start: 12-18-2023 End: 12-18-2023 Bamboo flowsheet Josefina Vaz AUTOMATION SPECIALIST Work Phone: [facility] Start: 05-02-2022 End: 05-02-2022 ambulatory Claudio Pugh Other [employer] Other Start: 05-02-2022 Telephone encounter Claudio Lexy [facility] Start: 05-01-2022 End: 05-01-2022 ambulatory Claudio Pugh Other [employer] Other Start: 05-01-2022 Office consultation new/estab patient 60 min Claudio Lexy [facility] Start: 04-17-2022 End: 04-18-2022 ambulatory MELODY STOCKA ТАТЬЯНА Facility:[facility] Start: 03-09-2022 End: 03-10-2022 ambulatory SHAIKH Linh JONES Facility:[facility] Start: 03-06-2022 End: 03-07-2022 ambulatory [employer]ER JOSEFINA ANDRESHOLZ Facility:[facility] Start: 02-23-2022 End: 02-24-[address] [...] VALDEZ Facility:[facility] Start: 11-14-2021 End: 11-15-2021 ambulatory LEES H FAWWARadha Facility:[facility] Start: 11-14-2021 End: 11-15-[address] MARCOS VALDEZ Facility:[facility] Start: 10-24-2021 End: 10-25-2021 ambulatory LEES H FAWWAD Facility:[facility] Start: 10-18-2021 End: 02-02-2022 ambulatory LEES H FAWWAD Facility:[facility] Start: 10-10-2021 End: 10-11-2021 ambulatory LEES H FAWWAD Facility:[facility] Start: 09-21-2021 End: 09-22-2021 ambulatory LEES H FAWWAD Facility:[facility] Start: 09-18-2021 End: 09-19-2021 ambulatory LEES H FAWWAD Facility:[facility] Start: 09-12-2021 End: 09-13-2021 ambulatory LEES H FAWWAD Facility:[facility] Start: 07-10-2021 End: 07-10-[address] ELEUTERIO FRANKEL Facility:[facility] Procedures Date Procedure Procedure Detail Performing Clinician Start: 03-04-2024 ALL CBC WITH AUTO DIFF Josefina Татьяна AUTOMATION SPECIALIST Work Phone: Start: 01-30-2024 CRYOTHERAPY SKIN LESION Adalberto Ruslan HERMAN Work Phone: Colonoscopy Patricio DICKEY Reversal of vasectomy Michae wil DICKEY Vasectomy Patricio DICKEY Plan of Treatment Date Care Activity Detail Author Start: 10-12-2024 Influenza vaccination [facility] Start: 09-14-2024 End: 09-14-2024 Patient encounter procedure [facility] Comment on above: ALEXANDRO (obstructive sle ep apnea) (Primary Dx); Essential hypertension ; Morbid (severe) obesity due to excess calories (CMS-HCC); RUBEN (generalized anxiety disorder) ; Colon cancer screening Start: 08-12-2024 End: 08-12-2024 Patient encounter procedure [facility] Comment on above: Essential hypertensi on (Primary Dx); Morbid (severe) obesity due to excess calories (CMS-HCC); Bilateral impacted cerumen Start: 08-10-2024 Influenza vaccination Influenza Vacc ine (#1) [facility] Comment on above: Postponed from 10/12 (Patient Refused) Start: 07-15-2024 End: 07-15-2024 Patient encounter procedure [facility] Comment on above: ALEXANDRO (obstructive sle ep apnea) (Primary Dx); Essential hypertension (CMS/HCC); Morbid (severe) obesity due to excess calories (CMS/HCC); Body mass index (BMI) 45.0-49.9, adult (CMS/HCC) Start: 05-25-2024 End: 05-25-2024 Patient encounter procedure 05/25/2024 6:00 PM EDT Office Visit [facility] [address] [place] [address] Josefina Vaz NP [address] [place] [address] ALEXANDRO (obstructive sleep apnea) (Primary Dx); Essential hypertension (CMS/HCC); Edema of both lower extremities; Morbid (severe) obesity due to excess calories (CMS/HCC); Body mass index (BMI) 45.0-49.9, adult (CMS/HCC) [facility] Comment on above: ALEXANDRO (obstructive sle ep apnea) (Primary Dx); Essential hypertension (CMS/HCC); Edema of both lower extremities; Morbid (severe) obesity due to excess calories (CMS/HCC); Body mass index (BMI) 45.0-49.9, adult (CMS/HCC) Start: 04-27-2024 End: 04-27-2024 Patient encounter procedure 04/27/2024 6:30 PM EDT Office Visit [facility] [address] [place] [address] Josefina Vaz NP [address] [place] [address] [facility] Start: 04-04-2024 End: 03-04-2025 Bacteria identified in Urine by Culture Urine culture (clean catch) Microbiology Routine Asymptomatic microscopic hematuria Expected: 04/04/2024 (Approximate), Expires: 03/04/2025 [facility] Comment on above: Expected: 04/04/2024 (Approximate), Expires: 03/04/2025 Start: 04-04-2024 End: 03-04-2025 Urinalysis complete panel - Urine Urinalysis with reflex microscopic (clean catch) Lab Routine Asymptomatic microscopic hematuria Expected: 04/04/2024 (Approximate), Expires: 03/04/2025 [facility] Work Phone: Comment on above: Expected: 04/04/2024 (Approximate), Expires: 03/04/2025 Start: 03-30-2024 End: 03-30-2024 Patient encounter procedure [facility] Comment on above: Essential hypertensi on (CMS/HCC) (Primary Dx); Morbid (severe) obesity due to excess calories (CMS/HCC); Body mass index (BMI) 45.0-49.9, adult (CMS/HCC); Asymptomatic microscopic hematuria; Vitamin D deficiency; RUBEN (generalized anxiety disorder) (CMS/HCC) Start: 01-30-2024 End: 01-30-2024 Patient encounter procedure 01/30/2024 10:30 AM EST Office Visit [facility] [address] [place] [address] Adalberto Mercer PA [address] [place] [address] Neoplasm of uncertain behavior of nose; Tongue lesion [facility] Comment on above: 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; Tongue lesion Start: 01-27-2024 End: 01-27-2024 Patient encounter procedure 01/27/2024 6:00 PM EST Office Visit [facility] [address] [place] [address] Josefina Vaz, AUTOMATION SPECIALIST [address] [place] [phone] [facility] Start: 12-18-2023 End: 12-18-2023 Patient encounter procedure 12/18/2023 6:00 PM EST Office Visit [facility] [address] [place] [address] Josefina Vaz, GABY [address] [place] [phone] ALEXANDRO (obstructive sleep apnea) (Primary Dx); Morbid (severe) obesity due to excess calories (CMS/HCC); Essential hypertension (CMS/HCC); RUBEN (generalized anxiety disorder) (CMS/HCC); Vitamin D deficiency [facility] Comment on above: ALEXANDRO (obstructive sle ep apnea) (Primary Dx); Morbid (severe) obesity due to excess calories (CMS/HCC); Essential hypertension (CMS/HCC); RUBEN (generalized anxiety disorder) (CMS/HCC); Vitamin D deficiency Start: 12-18-2023 End: 12-17-2024 25-hydroxyvitamin D3 [Mass/volume] in Serum or Plasma Vitamin D 25 hydroxy Lab Routine Vitamin D deficiency Expected: 12/18/2023 (Approximate), Expires: 12/17/2024 [facility] Comment on above: Expected: 12/18/2023 (Approximate), Expires: 12/17/2024 Start: 12-18-2023 End: 12-17-2024 CBC W Auto Differential panel - Blood CBC and differential Lab Routine ALEXANDRO (obstructive sleep apnea) Essential hypertension (CMS/HCC) Expected: 12/18/2023 (Approximate), Expires: 12/17/2024 [facility] Work Phone: Comment on above: Expected: 12/18/2023 (Approximate), Expires: 12/17/2024 Start: 12-18-2023 End: 12-17-2024 Comprehensive metabolic 2000 panel - Serum or Plasma Comprehensive metabolic panel Lab Routine Morbid (severe) obesity due to excess calories (CMS/HCC) Essential hypertension (CMS/HCC) RUBEN (generalized anxiety disorder) (CMS/HCC) Vitamin D deficiency Expected: 12/18/2023 (Approximate), Expires: 12/17/2024 [facility] Comment on above: Expected: 12/18/2023 (Approximate), Expires: 12/17/2024 Start: 12-18-2023 End: 12-17-2024 Hemoglobin A1c/Hemoglobin.total in Blood Hemoglobin A1c Lab Routine Morbid (severe) obesity due to excess calories (CMS/HCC) Expected: 12/18/2023 (Approximate), Expires: 12/17/2024 [facility] Comment on above: Expected: 12/18/2023 (Approximate), Expires: 12/17/2024 Start: 12-18-2023 End: 12-17-2024 Lipid 1996 panel - Serum or Plasma Lipid panel Lab Routine Morbid (severe) obesity due to excess calories (CMS/HCC) Expected: 12/18/2023 (Approximate), Expires: 12/17/2024 [facility] Comment on above: Expected: 12/18/2023 (Approximate), Expires: 12/17/2024 Start: 12-18-2023 End: 12-17-2024 Microalbumin/Creatinine panel in random Urine Microalbumin / creatinine, urine ratio Lab Routine Essential hypertension (CMS/HCC) Expected: 12/18/2023 (Approximate), Expires: 12/17/2024 [facility] Comment on above: Expected: 12/18/2023 (Approximate), Expires: 12/17/2024 Start: 12-18-2023 End: 12-17-2024 Thyrotropin [Units/volume] in Serum or Plasma TSH Lab Routine RUBEN (generalized anxiety disorder) (CMS/HCC) Expected: 12/18/2023 (Approximate), Expires: 12/17/2024 [facility] Comment on above: Expected: 12/18/2023 (Approximate), Expires: 12/17/2024 Start: 12-18-2023 End: 11-06-2025 Urinalysis complete panel - Urine Urinalysis with reflex microscopic (clean catch) Lab Routine Essential hypertension (CMS/HCC) Expected: 12/18/2023 (Approximate), Expires: 12/17/2024 [facility] Comment on above: Expected: 12/18/2023 (Approximate), Expires: 12/17/2024 Start: 10-13-2023 Influenza vaccination Influenza Vacc ine (#1) [facility] Start: 1980 Screening for malign ant neoplasm of colon [facility] Immunizations Immunization Date Immunization Notes Care Provider Fa cility 08-03-2022 tetanus toxoid, redu pamela diphtheria toxoid, and acellular pertussis vaccine, adsorbed Josefina Aiceliasz AUTOMATION SPECIALIST Work Phone: [facility] 01-15-2021 SARS-CoV-2 (COVID-19 ) mRNA-1273 vaccine Patricio DICKEY [facility] 12-18-2020 SARS-CoV-2 (COVID-19 ) mRNA-1273 vaccine Patricio DICKEY [facility] 11-08-2016 influenza, injectabl e, quadrivalent, contains preservative Josefina Aichholz AUTOMATION SPECIALIST Work Phone: [facility] 11-08-2016 influenza virus vaccine, unspecified formulation Josefina Aichholz AUTOMATION SPECIALIST Work Phone: [facility] 06-17-2009 hepatitis B vaccine, pediatric or pediatric/adolescent dosage Josefina Aichholz AUTOMATION SPECIALIST Work Phone: [facility] 05-10-2009 hepatitis B vaccine, pediatric or pediatric/adolescent dosage Josefina Aichholz AUTOMATION SPECIALIST Work Phone: [facility] Payers Date Payer Category Payer Private Health Insurance [id number] 1979 Unknown [id number] 2.16.84 0.1.793199.3.579.2.593 1979 Unknown [id number] 2.16.84 0.1.655537.3.579.2.593 1979 Unknown [id number] 2.16.84 0.1.208950.3.579.2.593 1979 Unknown [id number] 2.16.84 0.1.815760.3.579.2.593 1979 Unknown [id number] 2.16.84 0.1.085566.3.579.2.593 1979 Unknown [id number] 2.16.84 0.1.330653.3.579.2.593 1979 Unknown [id number] 2.16.84 0.1.897213.3.579.2.593 1979 Unknown [id number] .16.84 0.1.674063.3.579.2.593 1979 Unknown [id number] .16.84 0.1.494159.3.579.2.593 1979 Unknown [id number] 2.16.84 0.1.208152.3.579.2.593 1979 Unknown [id number] .16.84 0.1.222534.3.579.2.593 1979 Unknown [id number] 2.16.84 0.1.051737.3.579.2.593 1979 Unknown [id number] .16.84 0.1.357377.3.579.2.593 1979 Unknown [id number] 2.16.84 0.1.737885.3.579.2.593 1979 Unknown [id number] 2.16.84 0.1.051549.3.579.2.593 1979 Unknown [id number] .16.84 0.1.497924.3.579.2.593 1979 Unknown [id number] .16.84 0.1.185455.3.579.2.593 1979 Unknown [id number] 2.16.84 0.1.979039.3.579.2.593 1979 Unknown [id number] 2.16.84 0.1.437642.3.579.2.593 1979 Unknown [id number] 2.16.84 0.1.502860.3.579.2.593 1979 Unknown [id number] 2.16.84 0.1.455304.3.579.2.59 1979 Unknown [id number] 2.16.84 0.1.821458.3.579.2.59 1979 Unknown [id number] 2.16.84 0.1.992419.3.579.2.593 1979 Unknown [id number] 2.16.84 0.1.801923.3.579.2.59 1979 Unknown [id number] 2.16.84 0.1.880429.3.579.2.59 1979 Unknown [id number] 2.16.8 40.1.105732.3.579.2.1258 1979 Unknown [id number] 2.16.8 40.1.767617.3.579.2.1258 1979 Unknown [id number] 2.16.8 40.1.493227.3.579.2.1258 1979 Unknown [id number] .16.84 0.1.879985.3.579.2.1258 1979 Unknown [id number] 2.16.84 0.1.777976.3.579.2.1258 1979 Unknown [id number] .16.84 0.1.869005.3.579.2.1258 1979 Unknown [id number] 2.16.84 0.1.545074.3.579.2.1258 1979 Unknown [id number] 2.16.84 0.1.828343.3.579.2.1259 1979 Unknown [id number] 2.16.8 40.1.629875.3.579.2.727 1959 Unknown [id number] Social History Date Type Detail Facility Start: 12-18-2023 End: 03-30-2024 [facility] Start: 1980 Sex assigned at Not on file [facility] Start: 12-18-2023 End: 10-07-2024 Tobacco smoking status NHIS Never smoked tobacco [facility] Start: 12-18-2023 Tobacco use and exposure User of smokeless tobacco [facility] History of tobacco use Chews Tobacco [facility] Start: 12-18-2023 End: 03-30-2024 History of Social function [facility] How often do you nee d to have someone help you when you read instructions, pamphlets, or other written material from your doctor or pharmacy [SILS] Never [facility] Do you belong to any clubs or organizations such as restorationism groups, unions, fraternal or athletic groups, or school groups? Yes [facility] Are you now , , , , never or living with a partner? [facility] How often to you hav e a drink containing alcohol? Never [facility] Do you feel stress - tense, restless, nervous, or anxious, or unable to sleep at night because your mind is troubled all the time - these days [OSQ] Not at all [facility] (I/We) worried wheth er (my/our) food would run out before (I/we) got money to buy more. Never true [facility] In the past 12 month s, was there a time when you were not able to pay the mortgage or rent on time? No [facility] Sexual Orientation [facility] [place] Start: 05-25-2009 Sex Male (finding) [facility] Clinical Notes 05-01-2022 to 10-07-2024 Josefina Vaz NP - 09/14/2024 6:30 PM Verna Vaz NP - 09/14/2024 7:56 AM Verna Vaz, AUTOMATION SPECIALIST - 09/14/2024 7:55 AM DAYSIElie Vaz, GABY - 09/14/2024 7:55 AM EDTPatient Instructions Note Date & Type Note Facility 10-07-2024 Note General Surgery Offi ce/Clinic Note Chief Complaint consultation for colonoscopy HPI Staff 44 year old male presents on consultation from Josefina Pérezlinhedithdimas for screening colonoscopy. Denies abdominal or rectal pain. No rectal bleeding or change in bowel habits. Denies nausea, vomiting or unexplained weight loss. Reports previous colonoscopy completed greater than 10 years ago and reported normal per patient. Father with history of colon cancer, diagnosed age 47. History of Present Illness 44 yo male with h/o htn, GERD, ALEXANDRO, varicose veins; referred for colorectal screening; patient has fmhx of colon cancer in his father, dx at age 47; patient reportedly had normal colonoscopy approx 20 years ago for bowel changes, may have had polyps removed; denies change in bms or blood in stools, no abd complaints; no abd operations; no asa or NSAID use; chews tobacco; no fmhx of IBD. Review of Systems PHQ Score Initial Depression Screen Score: 0 SCORE ROS - Provider Constitutional: no fever, no sweats, no weight loss. Eyes: yes glasses, no blurred vision, no visual loss. ENMT: no dentures, no hoarseness, no swallowing difficulties, no hearing loss, no ear infection(s), no nose bleeds. Cardiovascular: normal blood pressure, no chest pain, regular heartbeat, no heart murmur. Respiratory: no shortness of breath, no cough, no asthma, no wheezing. Gastrointestinal: no nausea, no vomiting, no diarrhea, no constipation, no blood in stool, no change in bowel habits, no abdominal pain, no hepatitis. Genitourinary: no kidney stones, no urine infection, no dysuria. Musculoskeletal: no pain, no weakness. Skin: no changing moles, no rash, no skin lumps. Neurologic: no seizures, no epilepsy, no headache. Psychiatric: no emotional or psychiatric problem. Heme/Lymph: no bleeding problems, no anemia, no blood clots, no transfusions. Allergy/Immunologic: no swollen lymph nodes/glands, no IV drug abuse. Other: Additional ROS info: Except as noted in the above Review of Systems and in the History of Present Illness, all other systems have been reviewed and are negative or noncontributory. Physical Exam Vitals & Measurements HR: 74(Peripheral) RR: 16 BP: 114/76 HT: 182.8 cm HT: 72 in WT: 141.5 kg WT: 311.954 lb BMI: 42.35 HEENT: normal conjunctiva, sclera clear, no scleral icterus, EOM intact, PERRLA, oral mucosa moist without lesions. Neck: trachea midline, no mass, symmetric, no thyromegaly or nodules, no adenopathy Respiratory: lungs CTA, respirations non labored. Cardiovascular: regular rate and rhythm, no murmur, no pedal edema or varicosities. Gastrointestinal: obese, soft, non distended, no tenderness, no masses, no palpable hernias, diastasis recti no, no hepatosplenomegaly; normal bs Musculoskeletal: normal gait, digits and nails without infection, nodes, cyanosis, clubbing. Skin: no rashes, no lesions, no ulcers, no subcutaneous nodules, induration. Psychiatric/Neuro: oriented to time, place, person, judgement normal, affect appropriate for age, insight intact, no focal deficits. Tests: review of old records completed , Discussed surgical options, risks, and possible complications with patient. Assessment/Plan 1. Family history of colon cancer in father (Z80.0: Family history of malignant neoplasm of digestive organs) plan colonoscopy under anesthesia, informed consent obtained. 2. Screening for malignant neoplasm of colon (Z12.11: Encounter for screening for malignant neoplasm of colon) see # 1 Follow-up No qualifying data available Problem List/Past Medical History Ongoing Bilateral lower limb edema Class 3 obesity Degeneration of lumbar intervertebral disc Essential hypertension Family history of colon cancer in father Gastroesophageal reflux disease without esophagitis Morbid obesity with BMI of 40.0-44.9, adult Obstructive sleep apnea syndrome Screening for malignant neoplasm of colon Varicose veins of bilateral lower limbs Venous insufficiency of leg Vitamin D deficiency Historical Generalized anxiety disorder Procedure/Surgical History Colonoscopy, Reversal of vasectomy, Vasectomy. Medications Adipex-P 37.5 mg Tab, 37.5 mg= 1 tab(s), Oral, Daily Lasix 20 mg Tab, 20 mg= 1 tab(s), Oral, Daily Lexapro 10 mg Tab, 10 mg= 1 tab(s), Oral, Daily lisinopril 20 mg Tab, 20 mg= 1 tab(s), Oral, Daily Vitamin D2 2000 intl units oral capsule, 50 mcg= 1 cap(s), Oral, Daily Allergies codeine (Syncope) Social History Alcohol Never., 10/06/2024 Substance Abuse Never., 10/06/2024 Tobacco Never (less than 100 in lifetime) Tobacco Use:. Smokeless tobacco user within last 30 days Smokeless Tobacco Use:. Oral, Started age 27.0 Years. Yes, 10/07/2024 Family History Hypertension: Mother. Pancreatic adenocarcinoma: Mother. Primary malignant neoplasm of colon: Father. Immunizations Vaccine Date Status SARS-CoV-2 (COVID-19) mRNA-1273 vaccine 01/15/2021 Recorded SARS-CoV-2 (COVID-19) (more content not included)... [facility] Comment on above: Result Comment: Elec tronically Signed By: DEYSI MCKEE, Patricio Laureano.rishi\Date and Time Signed: 10/07/24 16:01 EDT 09-14-2024 History of Present illness Narrative Images from the original note were not included. Marcos Liu is a 44 y.o. male presents with chief complaint of Hypertension HPI: Adipex check: continues to take daily, exercises, tracks calories, no side effects from meds Hypertension This is a chronic problem. The current episode started more than 1 year ago. The problem is unchanged. The problem is controlled. Pertinent negatives include no headaches, neck pain, orthopnea, peripheral edema or shortness of breath. There are no associated agents to hypertension. Risk factors for coronary artery disease include obesity and male gender. Past treatments include ANDREA inhibitors. The current treatment provides significant improvement. There are no compliance problems. SUBJECTIVE: MEDICATIONS: Current Outpatient Medications Medication Instructions D3 2,000 Units, Daily escitalopram (LEXAPRO) 10 mg, Oral, Daily furosemide (LASIX) 20 mg, Oral, Daily, Take 20 mg by mouth Daily lisinopril 20 mg, Oral, Daily phentermine (ADIPEX-P) 37.5 mg, Oral, Daily before breakfast predniSONE (DELTASONE) 5 mg, Daily ALLERGIES: Allergies Allergen Reactions Codeine Other LOC REVIEW OF SYMPTOMS: Review of Systems Constitutional: Negative for activity change, appetite change and unexpected weight change. HENT: Negative for ear pain, nosebleeds, sneezing, trouble swallowing and voice change. Eyes: Negative for pain, discharge and visual disturbance. Respiratory: Negative for apnea, chest tightness, shortness of breath and wheezing. Cardiovascular: Negative for orthopnea and leg swelling. Gastrointestinal: Negative for abdominal distention, blood in stool, constipation and diarrhea. Genitourinary: Negative for decreased urine volume, difficulty urinating, dysuria and hematuria. Musculoskeletal: Negative for neck pain. Skin: Negative for color change. Neurological: Negative for dizziness, tremors, seizures and headaches. Psychiatric/Behavioral: Negative for agitation, decreased concentration, hallucinations, [...] not on file. OBJECTIVE: Visit Vitals BP 132/88 (BP Location: Left arm, Patient Position: Sitting, BP Cuff Size: Large adult) Pulse 96 Temp 98.3 F (Temporal) Resp 20 Wt 311 lb 6.4 oz SpO2 95% BMI 42.23 kg/m Smoking Status Never BSA 2.68 m Physical Exam Vitals and nursing note [...] is normal. Breath sounds: Normal breath sounds. Abdominal: General: Bowel sounds are normal. Palpations: Abdomen is soft. Musculoskeletal: Cervical back: Neck supple. Right lower [...] List Items Addressed This Visit Essential hypertension Please check blood pressure daily and record DASH diet Limit caffeine Take medication as directed Contact office if chest pain, pressure, dizziness, shortness of breath, swelling legs Recommend slow position changes Current meds: lisinopril ALEXANDRO (obstructive sleep apnea) - Primary You have a diagnosis of obstructive sleep apnea. It is recommended that you wear your PAP device any time while in bed sleeping. Not using the PAP device can increase your risk of elevated/uncontrolled high blood pressure, atrial fibrillation, heart attack, stroke, or sudden . Compliance with PAP: yes How many hours of use per night: 7 Do you feel more refreshed in the morning: yes Company that supplies your machine and tubing/filters etc: heart Doctor that manages your ALEXANDRO: PCP RUBEN (generalized anxiety disorder) Current med: lexapro Morbid (severe) obesity due to excess calories ([facility]) Discussed with patient their BMI (actual, verses recommended). We have also discussed lifestyle modifications: attempts to perform physical activity as chronic conditions allow, also to monitor dietary intake: increasing protein/fruits/veggies and lowering carb intake (unless contraindicated). Limit sodas, juices, and sugary drinks. Also discussed oral medications that can be utilized for weight loss, as well as surgical options for weight loss. Pt meets qualifications of OAC 4730-12-15 for weight loss. BMI>30 or >27 with comorbid conditions. Notify office with any symptoms of chest pain, dyspnea, heart palpitations, or any anxiety symptoms. F/U in 4 weeks to document weight loss. Increase physical activity as tolerated, and lower caloric intake to 1600 calories daily if no contraindications OARRS reviewed Adipex : completed 5 months Starting weight: 350 Today's weight: 311 Relevant Medications phentermine (Adipex-P) 37.5 MG tablet Colon cancer screening Colon cancer screening options were discussed with patient, as well as why colon cancer screening is indicated. Options are Colonoscopy: direct visualization, every 10 years (unless indicated more frequently), risks and benefits were discussed Cologuard: every 3 years, risks and benefits were discussed , contraindications were discussed (family hx of colon cancer, colon polyps) Patient has elected to: father dx colon cancer stage 4 at age 47 will order colonoscopy Relevant Orders Ambulatory referral to General Surgery Other Visit Diagnoses Body mass index (BMI) 45.0-49.9, adult ([facility]) Relevant Medications phentermine (Adipex-P) 37.5 MG tablet Associated Problem(s): Colon cancer screening Colon cancer screening options were discussed with patient, as well as why colon cancer screening is indicated. Options are Colonoscopy: direct visualization, every 10 years (unless indicated more frequently), risks and benefits were discussed Cologuard: every 3 years, risks and benefits were discussed , contraindications were discussed (family hx of colon cancer, colon polyps) Patient has elected to: father dx colon cancer stage 4 at age 46 will order colonoscopy Associated Problem(s): RUBEN (generalized anxiety disorder) Current med: lexapro Associated Problem(s): Morbid (severe) obesity due to excess calories ([facility]) Discussed with patient their BMI (actual, verses recommended). We have also discussed lifestyle modifications: attempts to perform physical activity as chronic conditions allow, also to monitor dietary intake: increasing protein/fruits/veggies and lowering carb intake (unless contraindicated). Limit sodas, juices, and sugary drinks. Also discussed oral medications that can be utilized for weight loss, as well as surgical options for weight loss. Pt meets qualifications of OAC 4730-12-15 for weight loss. BMI>30 or >27 with comorbid conditions. Notify office with any symptoms of chest pain, dyspnea, heart palpitations, or any anxiety symptoms. F/U in 4 weeks to document weight loss. Increase physical activity as tolerated, and lower caloric intake to 1600 calories daily if no contraindications OARRS reviewed Adipex : completed 5 months Starting weight: 350 Today's weight: 311 Associated Problem(s): Essential hypertension Please check blood pressure daily and record DASH diet Limit caffeine Take medication as directed Contact office if chest pain, pressure, dizziness, shortness of breath, swelling legs Recommend slow position changes Current meds: lisinopril Associated Problem(s): ALEXANDRO (obstructive sleep apnea) You have a diagnosis of obstructive sleep apnea. It is recommended that you wear your PAP device any time while in bed sleeping. Not using the PAP device can increase your risk of elevated/uncontrolled high blood pressure, atrial fibrillation, heart attack, stroke, or sudden . Compliance with PAP: yes How many hours of use per night: 7 Do you feel more refreshed in the morning: yes Company that supplies your machine and tubing/filters etc: heart Doctor that manages your ALEXANDRO: PCP documented in this encounter [facility] 09-14-2024 Instructions Josefina Vaz NP - 09/14/2024 6:30 PM EDT Referral to Dr Dickey for colonoscopy documented in this encounter [facility] 08-12-2024 History of Present illness Narrative Associated Problem(s): Bilateral impacted cerumen Tolerated well Marcos Liu is a 43 y.o. male presents with chief complaint of Hypertension HPI: Here for adipex check ,has completed 4 months total, no side effects, continues to demonstrate weight loss Also here for left ear irrigation for cerumen impaction Hypertension This is a chronic problem. The current episode started more than 1 year ago. The problem is unchanged. The problem is controlled. Associated symptoms include peripheral edema. Pertinent negatives include no headaches, orthopnea or shortness of breath. There are no associated agents to hypertension. Risk factors for coronary artery disease include obesity and male gender. Past treatments include angiotensin blockers. The current treatment provides significant improvement. There are no compliance problems. There is no history of CAD/IN, heart failure or PVD. SUBJECTIVE: MEDICATIONS: Current Outpatient Medications Medication Instructions D3 2,000 Units, Daily escitalopram (LEXAPRO) 10 mg, Oral, Daily furosemide (LASIX) 20 mg, Oral, Daily, Take 20 mg by mouth Daily lisinopril 20 mg, Oral, Daily phentermine (ADIPEX-P) 37.5 mg, Oral, Daily before breakfast ALLERGIES: Allergies Allergen Reactions Codeine Other LOC REVIEW OF SYMPTOMS: Review of Systems Constitutional: Negative for activity change, appetite change and unexpected weight change. HENT: Negative for ear pain, nosebleeds, sneezing, trouble swallowing and voice change. Eyes: Negative for pain, discharge and visual disturbance. Respiratory: Negative for apnea, chest tightness, shortness of breath and wheezing. Cardiovascular: Negative for orthopnea and leg swelling. Gastrointestinal: Negative for abdominal distention, blood in stool, constipation and diarrhea. Genitourinary: Negative for decreased urine volume, difficulty urinating, dysuria and hematuria. Skin: Negative for color change. Neurological: Negative for dizziness, tremors, seizures and headaches. Psychiatric/Behavioral: Negative for agitation, decreased concentration, hallucinations, [...] not on file. OBJECTIVE: Visit Vitals BP 116/78 (BP Location: Left arm, Patient Position: Sitting, BP Cuff Size: Large adult) Pulse 83 Temp 98.5 F (Temporal) Resp 20 Wt 315 lb 12.8 oz SpO2 98% BMI 42.83 kg/m Smoking Status Never BSA 2.7 m Physical Exam Vitals and nursing note reviewed. Constitutional: Appearance: Normal appearance. HENT: Head: Normocephalic. Right Ear: Tympanic membrane, ear canal and external ear normal. Left Ear: External ear normal. There is impacted cerumen. Ears: Comments: Irrigated X1 , chunk soft brown cerumen removed with spatula Tolerated well Nose: Nose normal. Mouth/Throat: Mouth: Mucous membranes [...] ASSESSMENT AND PLAN: Follow up in about 4 weeks (around 09/09/2024) for Recheck. Problem List Items Addressed This Visit Essential hypertension - Primary Please check blood pressure daily and record DASH diet Limit caffeine Take medication as directed Contact office if chest pain, pressure, dizziness, shortness of breath, swelling legs Recommend slow position changes Current meds: lisinopril Morbid (severe) obesity due to excess calories (CMS-HCC) Discussed with patient their BMI (actual, verses recommended). We have also discussed lifestyle modifications: attempts to perform physical activity as chronic conditions allow, also to monitor dietary intake: increasing protein/fruits/veggies and lowering carb intake (unless contraindicated). Limit sodas, juices, and sugary drinks. Also discussed oral medications that can be utilized for weight loss, as well as surgical options for weight loss. Pt meets qualifications of OAC 4730-12-15 for weight loss. BMI>30 or >27 with comorbid conditions. Notify office with any symptoms of chest pain, dyspnea, heart palpitations, or any anxiety symptoms. F/U in 4 weeks to document weight loss. Increase physical activity as tolerated, and lower caloric intake to 1600 calories daily if no contraindications OARRS reviewed Adipex : completed 4 months Starting weight: 350 Today's weight: 315 Relevant Medications phentermine (Adipex-P) 37.5 MG tablet Bilateral impacted cerumen Tolerated well Other Visit Diagnoses Body mass index (BMI) 45.0-49.9, adult ([facility]) Relevant Medications phentermine (Adipex-P) 37.5 MG tablet Associated Problem(s): Morbid (severe) obesity due to excess calories ([facility]) Discussed with patient their BMI (actual, verses recommended). We have also discussed lifestyle modifications: attempts to perform physical activity as chronic conditions allow, also to monitor dietary intake: increasing protein/fruits/veggies and lowering carb intake (unless contraindicated). Limit sodas, juices, and sugary drinks. Also discussed oral medications that can be utilized for weight loss, as well as surgical options for weight loss. Pt meets qualifications of OAC 4730-12-15 for weight loss. BMI>30 or >27 with comorbid conditions. Notify office with any symptoms of chest pain, dyspnea, heart palpitations, or any anxiety symptoms. F/U in 4 weeks to document weight loss. Increase physical activity as tolerated, and lower caloric intake to 1600 calories daily if no contraindications OARRS reviewed Adipex : completed 4 months Starting weight: 350 Today's weight: 315 Associated Problem(s): Essential hypertension Please check blood pressure daily and record DASH diet Limit caffeine Take medication as directed Contact office if chest pain, pressure, dizziness, shortness of breath, swelling legs Recommend slow position changes Current meds: lisinopril documented in this encounter [facility] 07-15-2024 History of Present illness Narrative Associated Problem(s): Bilateral impacted cerumen Irrigated bilat ears with water pick Spatula used as well Right canal clear, not left OTC debrox use prior to next appt will attempt flush of left canal Images from the original note were not included. Marcos Liu is a 43 y.o. male presents with chief complaint of Hypertension HPI: Here for an adipex check: doing well completed month #3, lost over 30 pounds No side effects from meds Also has ear wax in both ears, cannot get out, causes muffled hearing SUBJECTIVE: MEDICATIONS: Current Outpatient Medications Medication Instructions cholecalciferol (VITAMIN D-3) 50 mcg, Oral, Daily escitalopram (LEXAPRO) 10 mg, Oral, Daily furosemide (LASIX) 20 mg, Oral, Daily, Take 20 mg by mouth Daily lisinopril 20 mg, Oral, Daily phentermine (ADIPEX-P) 37.5 mg, Oral, Daily before breakfast ALLERGIES: Allergies Allergen Reactions Codeine Other LOC REVIEW OF SYMPTOMS: Review of Systems Constitutional: Negative for activity change, appetite change and unexpected weight change. HENT: Negative for ear pain, nosebleeds, sneezing, trouble swallowing and voice change. Ear wax bilat Eyes: Negative for pain, discharge and visual disturbance. Respiratory: Negative for apnea, chest tightness and wheezing. Cardiovascular: Negative for leg swelling. Gastrointestinal: Negative for abdominal distention, blood in stool, constipation and diarrhea. Genitourinary: Negative for decreased urine volume, difficulty urinating, dysuria and hematuria. Skin: Negative for color change. Neurological: Negative for dizziness, tremors and seizures. [...] not on file. OBJECTIVE: Visit Vitals BP 110/80 (BP Location: Left arm, Patient Position: Sitting, BP Cuff Size: Large adult) Pulse 80 Temp 98.1 F (Temporal) Resp 18 Wt 319 lb 12.8 oz SpO2 94% BMI 43.37 kg/m Smoking Status Never BSA 2.71 m Physical Exam Vitals and nursing note reviewed. Constitutional: Appearance: Normal appearance. He is obese. He is not ill-appearing. HENT: Head: Normocephalic. Right Ear: External ear normal. There is impacted cerumen. Left Ear: External ear normal. There is impacted cerumen. Ears: Comments: Irrigated X2 both ears right ear removed large chunk soft brown wax w spatula Unable to remove from left ear Nose: Nose normal. Mouth/Throat: Mouth: Mucous membranes are moist. Pharynx: Oropharynx is clear. Eyes: Extraocular Movements: Extraocular movements intact. Conjunctiva/sclera: Conjunctivae normal. Cardiovascular: Rate and Rhythm: Normal rate and regular rhythm. Pulses: Normal pulses. Heart sounds: Normal heart sounds. No murmur heard. Pulmonary: Effort: Pulmonary effort is normal. Breath sounds: Normal breath sounds. No wheezing or rhonchi. Abdominal: General: Bowel sounds are normal. There is no distension. Palpations: Abdomen is soft. Tenderness: There is no abdominal tenderness. There is no guarding. Musculoskeletal: Cervical back: Neck supple. Right lower leg: Edema present. Left lower leg: Edema present. Comments: trace Skin: General: Skin is warm and dry. Capillary Refill: Capillary refill takes 2 to 3 seconds. Comments: Acne rash to face Neurological: General: No focal deficit present. Mental Status: He is alert. Psychiatric: Mood and Affect: Mood normal. Behavior: Behavior normal. Thought Content: Thought content normal. Judgment: Judgment normal. ASSESSMENT AND PLAN: Follow up in about 4 weeks (around 08/12/2024) for Recheck. Problem List Items Addressed This Visit Essential hypertension (CMS/HCC) Please check blood pressure daily and record DASH diet Limit caffeine Take medication as directed Contact office if chest pain, pressure, dizziness, shortness of breath, swelling legs Recommend slow position changes Current meds: lisinopril Relevant Medications lisinopril 20 MG tablet ALEXANDRO (obstructive sleep apnea) - Primary You have a diagnosis of obstructive sleep apnea. It is recommended that you wear your PAP device any time while in bed sleeping. Not using the PAP device can increase your risk of elevated/uncontrolled high blood pressure, atrial fibrillation, heart attack, stroke, or sudden . Compliance with PAP: yes How many hours of use per night: 7 Do you feel more refreshed in the morning: yes Company that supplies your machine and tubing/filters etc: heart Doctor that manages your ALEXANDRO: PCP RUBEN (generalized anxiety disorder) ([facility]) Relevant Medications escitalopram (Lexapro) 10 MG tablet Morbid (severe) obesity due to excess calories ([facility]) Discussed with patient their BMI (actual, verses recommended). We have also discussed lifestyle modifications: attempts to perform physical activity as chronic conditions allow, also to monitor dietary intake: increasing protein/fruits/veggies and lowering carb intake (unless contraindicated). Limit sodas, juices, and sugary drinks. Also discussed oral medications that can be utilized for weight loss, as well as surgical options for weight loss. Pt meets qualifications of [facility] 4730-12-15 for weight loss. BMI>30 or >27 with comorbid conditions. Notify office with any symptoms of chest pain, dyspnea, heart palpitations, or any anxiety symptoms. F/U in 4 weeks to document weight loss. Increase physical activity as tolerated, and lower caloric intake to 1600 calories daily if no contraindications OARRS reviewed Adipex : completed 3 months Starting weight: 350 Today's weight: 319 Relevant Medications phentermine (Adipex-P) 37.5 MG tablet Edema of both lower extremities Relevant Medications furosemide (Lasix) 20 MG tablet RESOLVED: Body mass index (BMI) 45.0-49.9, adult ([facility]) Relevant Medications phentermine (Adipex-P) 37.5 MG tablet Bilateral impacted cerumen Irrigated bilat ears with water pick Spatula used as well Right canal clear, not left OTC debrox use prior to next appt will attempt flush of left canal Associated Problem(s): Morbid (severe) obesity due to excess calories ([facility]) Discussed with patient their BMI (actual, verses recommended). We have also discussed lifestyle modifications: attempts to perform physical activity as chronic conditions allow, also to monitor dietary intake: increasing protein/fruits/veggies and lowering carb intake (unless contraindicated). Limit sodas, juices, and sugary drinks. Also discussed oral medications that can be utilized for weight loss, as well as surgical options for weight loss. Pt meets qualifications of OAC 4730-12-15 for weight loss. BMI>30 or >27 with comorbid conditions. Notify office with any symptoms of chest pain, dyspnea, heart palpitations, or any anxiety symptoms. F/U in 4 weeks to document weight loss. Increase physical activity as tolerated, and lower caloric intake to 1600 calories daily if no contraindications OARRS reviewed Adipex : completed 3 months Starting weight: 350 Today's weight: 319 Associated Problem(s): Essential hypertension (CMS/HCC) Please check blood pressure daily and record DASH diet Limit caffeine Take medication as directed Contact office if chest pain, pressure, dizziness, shortness of breath, swelling legs Recommend slow position changes Current meds: lisinopril Associated Problem(s): ALEXANDRO (obstructive sleep apnea) You have a diagnosis of obstructive sleep apnea. It is recommended that you wear your PAP device any time while in bed sleeping. Not using the PAP device can increase your risk of elevated/uncontrolled high blood pressure, atrial fibrillation, heart attack, stroke, or sudden . Compliance with PAP: yes How many hours of use per night: 7 Do you feel more refreshed in the morning: yes Company that supplies your machine and tubing/filters etc: heart Doctor that manages your ALEXANDRO: PCP documented in this encounter [facility] 07-15-2024 Instructions Josefina Vaz NP - 07/15/2024 6:00 PM EDT Keep up the great work with adipex Debrox: over the counter, use this in the left ear as directed for a few days prior to your next appointment and I will try to irrigate the left ear again documented in this encounter [facility] 04-05-2024 Telephone encounter Note ----- Message from Josefina Vaz sent at 03/04/2024 3:25 PM EST ----- Regarding: urine repeat Repeat urine in 1month [facility] 04-05-2024 Miscellaneous Notes ----- Message from Josefina Vaz sent at 03/04/2024 3:25 PM EST ----- Regarding: urine repeat Repeat urine in 1month documented in this encounter [facility] 03-30-2024 History of Present illness Narrative Images from the original note were not included. Marcos Liu is a 43 y.o. male presents with chief complaint of No chief complaint on file. HPI: Labs indicate: pre diabetes Obesity: weight graduated from HS: 190, max weight 430. Interest in losing weight: motivated, wants to improve his chronic conditions (ALEXANDRO, HTN, pre diabetes) Trialed adipex in the past, worked well, open to trialing GLP 1 therapy (denies any contraindications) and even possible weight loss surgery Admits to bad eating habits fast food, no pop, does have 1 iced coffee daily Hypertension This is a chronic problem. The current episode started more than 1 year ago. The problem is unchanged. The problem is controlled. Pertinent negatives include no anxiety, blurred vision, chest pain, headaches, orthopnea, palpitations, peripheral edema or shortness of breath. There are no associated agents to hypertension. Risk factors for coronary artery disease include diabetes mellitus, obesity and sedentary lifestyle. Past treatments include ANDREA inhibitors and diuretics. The current treatment provides significant improvement. There are no compliance problems. SUBJECTIVE: MEDICATIONS: Current Outpatient Medications Medication Instructions cholecalciferol (VITAMIN D-3) 50 mcg, Oral, Daily escitalopram (LEXAPRO) 10 mg, Oral, Daily furosemide (LASIX) 20 mg, Oral, Daily, Take 20 mg by mouth Daily lisinopril 20 mg, Oral, Daily phentermine (ADIPEX-P) 37.5 mg, Oral, Daily before breakfast Wegovy 0.25 mg, Subcutaneous, Every 7 days ALLERGIES: Allergies Allergen Reactions Codeine Other LOC REVIEW OF SYMPTOMS: Review of Systems Constitutional: Positive for unexpected weight change. Negative for activity change and appetite change. HENT: Negative for ear pain, nosebleeds, sneezing, trouble swallowing and voice change. Eyes: Negative for blurred vision, pain, discharge and visual disturbance. Respiratory: Negative for apnea, chest tightness, shortness of breath and wheezing. Cardiovascular: Negative for chest pain, palpitations, orthopnea and leg swelling. Gastrointestinal: Negative for abdominal distention, blood in stool, constipation and diarrhea. Genitourinary: Negative for decreased urine volume, difficulty urinating, dysuria and hematuria. Skin: Negative for color change. Neurological: Negative for dizziness, tremors, seizures and headaches. Psychiatric/Behavioral: Negative for agitation, decreased concentration, hallucinations, [...] not on file. OBJECTIVE: Visit Vitals BP 122/86 (BP Location: Left arm, Patient Position: Sitting, BP Cuff Size: Large adult) Pulse 82 Temp 98 F (Temporal) Ht 6' Wt 350 lb 3.2 oz SpO2 98% BMI 47.50 kg/m Smoking Status Never BSA 2.84 m Physical Exam Vitals and nursing note reviewed. Constitutional: General: He is not in acute distress. Appearance: Normal appearance. He is obese. He is not ill-appearing, toxic-appearing or diaphoretic. HENT: Head: Normocephalic. Right Ear: External ear normal. Left Ear: External ear normal. Nose: Nose normal. Mouth/Throat: Mouth: Mucous membranes are moist. Pharynx: Oropharynx is clear. Eyes: Extraocular Movements: Extraocular movements intact. Conjunctiva/sclera: Conjunctivae normal. Cardiovascular: Rate and Rhythm: Normal rate and regular rhythm. Pulses: Normal pulses. Heart sounds: Normal heart sounds. Pulmonary: Effort: Pulmonary effort is normal. Breath sounds: Normal breath sounds. No wheezing or rales. Abdominal: General: Bowel sounds are normal. There is no distension. Palpations: Abdomen is soft. There is no mass. Tenderness: There is no abdominal tenderness. Musculoskeletal: Cervical back: Neck supple. Right lower [...] ASSESSMENT AND PLAN: Follow up in about 4 weeks (around 04/27/2024). Problem List Items Addressed This Visit Essential hypertension (CMS/HCC) - Primary Please check blood pressure daily and record DASH diet Limit caffeine Take medication as directed Contact office if chest pain, pressure, dizziness, shortness of breath, swelling legs Recommend slow position changes Current meds: lisinopril Vitamin D deficiency Currently prescribed vit d 2,000 units daily RUBNE (generalized anxiety disorder) (CMS/HCC) Last appt started on lexapro at 10mg daily Morbid (severe) obesity due to excess calories (CMS/[facility]) Discussed with patient their BMI (actual, verses recommended). We have also discussed lifestyle modifications: attempts to perform physical activity as chronic conditions allow, also to monitor dietary intake: increasing protein/fruits/veggies and lowering carb intake (unless contraindicated). Limit sodas, juices, and sugary drinks. Also discussed oral medications that can be utilized for weight loss, as well as surgical options for weight loss. Pt meets qualifications of OAC 4730-12-15 for weight loss. BMI>30 or >27 with comorbid conditions. Notify office with any symptoms of chest pain, dyspnea, heart palpitations, or any anxiety symptoms. F/U in 4 weeks to document weight loss. Increase physical activity as tolerated, and lower caloric intake to 1600 calories daily if no contraindications OARRS reviewed Adipex month: #1 Will also see if we can try to get GLP 1 therapy approved as well Relevant Medications phentermine (Adipex-P) 37.5 MG tablet Semaglutide-Weight Management (Wegovy) 0.25 MG/0.5ML solution auto-injector Asymptomatic microscopic hematuria Recheck urine and culture Denies any acute symptoms No hx stones, no family hx of kidney/bladder cancer Brief smoking hx many years ago and only for a short time Body mass index (BMI) 45.0-49.9, adult ([facility]) Relevant Medications phentermine (Adipex-P) 37.5 MG tablet Semaglutide-Weight Management (Wegovy) 0.25 MG/0.5ML solution auto-injector Associated Problem(s): RUBEN (generalized anxiety disorder) ([facility]) Last appt started on lexapro at 10mg daily Associated Problem(s): Vitamin D deficiency Currently prescribed vit d 2,000 units daily Associated Problem(s): Morbid (severe) obesity due to excess calories ([facility]) Discussed with patient their BMI (actual, verses recommended). We have also discussed lifestyle modifications: attempts to perform physical activity as chronic conditions allow, also to monitor dietary intake: increasing protein/fruits/veggies and lowering carb intake (unless contraindicated). Limit sodas, juices, and sugary drinks. Also discussed oral medications that can be utilized for weight loss, as well as surgical options for weight loss. Pt meets qualifications of OAC 4730-12-15 for weight loss. BMI>30 or >27 with comorbid conditions. Notify office with any symptoms of chest pain, dyspnea, heart palpitations, or any anxiety symptoms. F/U in 4 weeks to document weight loss. Increase physical activity as tolerated, and lower caloric intake to 1600 calories daily if no contraindications OARRS reviewed Adipex month: #1 Will also see if we can try to get GLP 1 therapy approved as well Associated Problem(s): Asymptomatic microscopic hematuria Recheck urine and culture Denies any acute symptoms No hx stones, no family hx of kidney/bladder cancer Brief smoking hx many years ago and only for a short time Associated Problem(s): Essential hypertension (CMS/HCC) Please check blood pressure daily and record DASH diet Limit caffeine Take medication as directed Contact office if chest pain, pressure, dizziness, shortness of breath, swelling legs Recommend slow position changes Current meds: lisinopril documented in this encounter [facility] 03-30-2024 Instructions Josefina Vaz NP - 03/30/2024 6:00 PM EST Start adipex. Notify office with any symptoms of chest pain, dyspnea, heart palpitations, or any anxiety symptoms. F/U in 4 weeks to document weight loss. Increase physical activity as tolerated, and lower caloric intake to 1600 calories daily if no contraindications [facility] for weight loss: go on line and complete their seminar and go from there I will try to either get GLP 1: zepbound or wegovy approved documented in this encounter [facility] 01-30-2024 History of Present illness Narrative Lesions: Location: right nasal sidewall [...] limited to risks of scarring, darker or dock hand pigmentary changes, recurrence, incomplete removal and infection. [...] any new/changing lesions documented in this encounter [facility] 01-27-2024 History of Present illness Narrative Associated Problem(s): Tongue lesion Will see if dermatology will evaluate May need oral surgeon or ENT will wait to see Associated Problem(s): RUBEN (generalized anxiety disorder) ([facility]) Would like to restart lexapro at 10mg [...] compliance problems. There is no history of CAD/IN. Edema Presents with chronic edema. The current [...] 20 MG tablet RUBEN (generalized anxiety disorder) (CMS/HCC) Would like to restart lexapro at 10mg [...] needs lab completed documented in this encounter [facility] 01-27-2024 Instructions Josefina Vaz NP - 01/27/2024 [...] if these occur. documented in this encounter [facility] 12-18-2023 History of Present illness Narrative Associated Problem(s): RUBEN (generalized anxiety disorder) ([facility]) At this point wants to remain off [...] List Items Addressed This Visit Essential hypertension ([facility]) Restart his lisinopril, check labs Please check [...] D 25 hydroxy RUBEN (generalized anxiety disorder) (CMS/[facility]) At this point wants to remain off meds feels good Has a different job, more money, less stress, less hours Relevant Orders Comprehensive metabolic panel TSH Morbid (severe) obesity due to excess calories (CMS/[facility]) Discussed with patient their BMI (actual, verses [...] Morbid (severe) obesity due to excess calories ([facility]) Discussed with patient their BMI (actual, verses recommended). We have also discussed lifestyle modifications: attempts to perform physical activity as chronic conditions allow, also to monitor dietary intake: increasing protein/fruits/veggies and lowering carb intake (unless contraindicated). Limit sodas, juices, and sugary drinks. Having more polyuria/polydipsia as well check a1c Associated Problem(s): Essential hypertension (CMS/[facility]) Restart his lisinopril, check labs Please check blood pressure daily and record DASH diet Limit caffeine Take medication as directed Contact office if chest pain, pressure, dizziness, shortness of breath, swelling legs Recommend slow position changes documented in this encounter [facility] 12-18-2023 Instructions Josefina Vaz NP - 12/18/2023 6:00 PM EST Restart lasix and lisinopril After about 10 days on lasix get labs done Take CPAP supplies order to [facility], I also need a down load compliance report faxed to me: [phone] documented in this encounter [facility] 05-01-2022 Evaluation note Encounter Date Diagnosis Assessment [...] negative findings were considered in medical decision-making. [employer] Other Evaluation + Plan note No data available for this section [facility] Stephan Evaluation noteNo [employer]Nort [employer] Other Evaluation note* Diagnosis Essential hypertension (CMS/HCC)- [...] Actinic keratosis documented [facility]* [...] Tongue lesion Unspecified condition of the tongue Vitamin D deficiency- Primary RUBEN (generalized anxiety disorder) (CMS/HCC) Generalized anxiety disorder Edema of both lower extremities Essential hypertension (CMS/HCC) Unspecified essential hypertension Asymptomatic microscopic hematuria [facility] [...] Tongue lesion Unspecified condition of the tongue Essential hypertension (CMS/HCC)- Primary Unspecified essential hypertension Morbid (severe) obesity due to excess calories ([facility]) Body mass index (BMI) 45.0-49.9, adult ([facility]) Asymptomatic microscopic hematuria Vitamin D deficiency RUBEN (generalized anxiety disorder) ([facility]) Generalized anxiety disorder [facility]* Diagnosis Essential hypertension ([facility]/HCC)- Primary Unspecified essential hypertension Morbid (severe) obesity due to excess calories ([facility]/HCC) ALEXANDRO (obstructive sleep apnea) Obstructive sleep apnea (adult) (pediatric) RUBEN (generalized anxiety disorder) ([facility]/HCC) Generalized anxiety disorder Vitamin D deficiency Edema of both lower extremities Essential hypertension ([facility]/HCC)- Primary Unspecified essential hypertension Edema of both lower extremities Morbid (severe) obesity due to excess calories ([facility]) Neoplasm of uncertain behavior of nose RUBEN (generalized anxiety disorder) ([facility]) Generalized anxiety disorder Tongue lesion Unspecified condition of the tongue Essential hypertension ([facility]/HCC)- Primary Unspecified essential hypertension Morbid (severe) obesity due to excess calories ([facility]) Body mass index (BMI) 45.0-49.9, adult ([facility]) Asymptomatic microscopic hematuria Vitamin D deficiency RUBEN (generalized anxiety disorder) ([facility]) Generalized anxiety disorder Essential hypertension ([facility]/HCC)- Primary Unspecified essential hypertension Edema of both lower extremities Morbid (severe) obesity due to excess calories ([facility]) Body mass index (BMI) 45.0-49.9, adult ([facility]) documented in this encounter [facility] HealthcareEvaluation note* Diagnosis Essential hypertension ([facility]/HCC)- Primary Unspecified essential hypertension Morbid (severe) obesity due to excess calories ([facility]) ALEXANDRO (obstructive sleep apnea) Obstructive sleep apnea (adult) (pediatric) RUBEN (generalized anxiety disorder) ([facility]) Generalized anxiety disorder Vitamin D deficiency Edema of both lower extremities Essential hypertension ([facility]/HCC)- Primary Unspecified essential hypertension Edema of both lower extremities Morbid (severe) obesity due to excess calories ([facility]) Neoplasm of uncertain behavior of nose RUBEN (generalized anxiety disorder) ([facility]/HCC) Generalized anxiety disorder Tongue lesion Unspecified condition of the tongue Essential hypertension ([facility]/HCC)- Primary Unspecified essential hypertension Morbid (severe) obesity due to excess calories ([facility]) Body mass index (BMI) 45.0-49.9, adult ([facility]/HCC) Asymptomatic microscopic hematuria Vitamin D deficiency RUBEN (generalized anxiety disorder) (CMS/HCC) Generalized anxiety disorder Essential hypertension (CMS/HCC)- Primary Unspecified essential hypertension Edema of both lower extremities Morbid (severe) obesity due to excess calories (CMS/HCC) Body mass index (BMI) 45.0-49.9, adult (CMS/HCC) Morbid (severe) obesity due to excess calories (CMS/HCC) Body mass index (BMI) 45.0-49.9, adult (CMS/HCC) documented in [facility]* [...] behavior of nose RUBEN (generalized anxiety disorder) ([facility]/HCC) Generalized anxiety disorder Tongue lesion Unspecified condition of the tongue Essential hypertension (CMS/HCC)- Primary Unspecified essential hypertension Morbid (severe) obesity due to excess calories (CMS/HCC) Body mass index (BMI) 45.0-49.9, adult ([facility]/HCC) Asymptomatic microscopic hematuria Vitamin D deficiency RUBEN (generalized anxiety disorder) (CMS/HCC) Generalized anxiety disorder Essential hypertension (CMS/HCC)- Primary Unspecified essential hypertension Edema of both lower extremities Morbid (severe) obesity due to excess calories (CMS/HCC) Body mass index (BMI) 45.0-49.9, adult ([facility]/HCC) Vitamin D deficiency documented in [facility]* Diagnosis Essential hypertension (CMS/HCC)- Primary Unspecified essential hypertension Morbid (severe) obesity due to excess calories (CMS/HCC) LAEXANDRO (obstructive sleep apnea) Obstructive sleep apnea (adult) (pediatric) RUBEN (generalized anxiety disorder) ([facility]/HCC) Generalized anxiety disorder Vitamin D deficiency Edema of both lower extremities Essential hypertension (CMS/HCC)- Primary Unspecified essential hypertension Edema of both lower extremities Morbid (severe) obesity due to excess calories (CMS/HCC) Neoplasm of uncertain behavior of nose RUBEN (generalized anxiety disorder) (CMS/HCC) Generalized anxiety disorder Tongue lesion Unspecified condition of the tongue Essential hypertension (CMS/HCC)- Primary Unspecified essential hypertension Morbid (severe) obesity due to excess calories (CMS/HCC) Body mass index (BMI) 45.0-49.9, adult ([facility]) Asymptomatic microscopic hematuria Vitamin D deficiency RUBEN (generalized anxiety disorder) (CMS/HCC) Generalized anxiety disorder Essential hypertension (CMS/HCC)- Primary Unspecified essential hypertension Edema of both lower extremities Morbid (severe) obesity due to excess calories ([facility]) Body mass index (BMI) 45.0-49.9, adult (CMS/HCC) Essential hypertension (CMS/HCC)- Primary Unspecified essential hypertension ALEXANDRO (obstructive sleep apnea) Obstructive sleep apnea (adult) (pediatric) Morbid (severe) obesity due to excess calories (CMS/[facility]) Body mass index (BMI) 45.0-49.9, adult ([facility]) RUBEN (generalized anxiety disorder) (CMS/HCC) Generalized anxiety disorder Edema of both lower extremities Bilateral impacted cerumen Impacted cerumen documented [facility]* Diagnosis Essential hypertension- Primary Unspecified essential hypertension Morbid (severe) obesity due to excess calories ([facility]-HCC) ALEXANDRO (obstructive sleep apnea) Obstructive sleep apnea (adult) (pediatric) RUBEN (generalized anxiety disorder) Generalized anxiety disorder Vitamin D deficiency Edema of both lower extremities Essential hypertension- Primary Unspecified essential hypertension Edema of both lower extremities Morbid (severe) obesity due to excess calories ([facility]-HCC) Neoplasm of uncertain behavior of nose RUBEN (generalized anxiety disorder) Generalized anxiety disorder Tongue lesion Unspecified condition of the tongue Essential hypertension- Primary Unspecified essential hypertension Morbid (severe) obesity due to excess calories ([facility]) Body mass index (BMI) 45.0-49.9, adult ([facility]) Asymptomatic microscopic hematuria Vitamin D deficiency RUBEN (generalized anxiety disorder) Generalized anxiety disorder Essential hypertension- Primary Unspecified essential hypertension Edema of both lower extremities Morbid (severe) obesity due to excess calories ([facility]) Body mass index (BMI) 45.0-49.9, adult ([facility]) Essential hypertension- Primary Unspecified essential hypertension ALEXANDRO (obstructive sleep apnea) Obstructive sleep apnea (adult) (pediatric) Morbid (severe) obesity due to excess calories ([facility]) Body mass index (BMI) 45.0-49.9, adult ([facility]) RUBEN (generalized anxiety disorder) Generalized anxiety disorder Edema of both lower extremities Bilateral impacted cerumen Impacted cerumen Morbid (severe) obesity due to excess calories ([facility]) Body mass index (BMI) 45.0-49.9, adult ([facility]) documented in this encounter [facility]* Diagnosis Essential hypertension- Primary Unspecified essential hypertension Morbid (severe) obesity due to excess calories ([facility]) ALEXANDRO (obstructive sleep apnea) Obstructive sleep apnea (adult) (pediatric) RUBEN (generalized anxiety disorder) Generalized anxiety disorder Vitamin D deficiency Edema of both lower extremities Essential hypertension- Primary Unspecified essential hypertension Edema of both lower extremities Morbid (severe) obesity due to excess calories ([facility]) Neoplasm of uncertain behavior of nose RUBEN (generalized anxiety disorder) Generalized anxiety disorder Tongue lesion Unspecified condition of the tongue Essential hypertension- Primary Unspecified essential hypertension Morbid (severe) obesity due to excess calories ([facility]) Body mass index (BMI) 45.0-49.9, adult ([facility]) Asymptomatic microscopic hematuria Vitamin D deficiency RUBEN (generalized anxiety disorder) Generalized anxiety disorder Essential hypertension- Primary Unspecified essential hypertension Edema of both lower extremities Morbid (severe) obesity due to excess calories ([facility]) Body mass index (BMI) 45.0-49.9, adult ([facility]) Essential hypertension- Primary Unspecified essential hypertension ALEXANDRO (obstructive sleep apnea) Obstructive sleep apnea (adult) (pediatric) Morbid (severe) obesity due to excess calories ([facility]) Body mass index (BMI) 45.0-49.9, adult ([facility]) RUBEN (generalized anxiety disorder) Generalized anxiety disorder Edema of both lower extremities Bilateral impacted cerumen Impacted cerumen Essential hypertension- Primary Unspecified essential hypertension Morbid (severe) obesity due to excess calories ([facility]) Bilateral impacted cerumen Impacted cerumen Body mass index (BMI) 45.0-49.9, adult ([facility]) RUBEN (generalized anxiety disorder) Generalized anxiety disorder Edema of both lower extremities documented in this encounter [facility]* Diagnosis Essential hypertension- Primary Unspecified essential hypertension Morbid (severe) obesity due to excess calories ([facility]) ALEXANDRO (obstructive sleep apnea) Obstructive sleep apnea (adult) (pediatric) RUBEN (generalized anxiety disorder) Generalized anxiety disorder Vitamin D deficiency Edema of both lower extremities Essential hypertension- Primary Unspecified essential hypertension Edema of both lower extremities Morbid (severe) obesity due to excess calories ([facility]) Neoplasm of uncertain behavior of nose RUBEN (generalized anxiety disorder) Generalized anxiety disorder Tongue lesion Unspecified condition of the tongue Essential hypertension- Primary Unspecified essential hypertension Morbid (severe) obesity due to excess calories ([facility]) Body mass index (BMI) 45.0-49.9, adult ([facility]) Asymptomatic microscopic hematuria Vitamin D deficiency RUBEN (generalized anxiety disorder) Generalized anxiety disorder Essential hypertension- Primary Unspecified essential hypertension Edema of both lower extremities Morbid (severe) obesity due to excess calories ([facility]) Body mass index (BMI) 45.0-49.9, adult ([facility]) Essential hypertension- Primary Unspecified essential hypertension ALEXANDRO (obstructive sleep apnea) Obstructive sleep apnea (adult) (pediatric) Morbid (severe) obesity due to excess calories ([facility]) Body mass index (BMI) 45.0-49.9, adult ([facility]) RUBEN (generalized anxiety disorder) Generalized anxiety disorder Edema of both lower extremities Bilateral impacted cerumen Impacted cerumen Essential hypertension- Primary Unspecified essential hypertension Morbid (severe) obesity due to excess calories ([facility]) Bilateral impacted cerumen Impacted cerumen Body mass index (BMI) 45.0-49.9, adult ([facility]) RUBEN (generalized anxiety disorder) Generalized anxiety disorder Edema of both lower extremities Essential hypertension- Primary Unspecified essential hypertension ALEXANDRO (obstructive sleep apnea) Obstructive sleep apnea (adult) (pediatric) Morbid (severe) obesity due to excess calories ([facility]) RUBEN (generalized anxiety disorder) Generalized anxiety disorder Colon cancer screening Special screening for malignant neoplasms, colon Body mass index (BMI) 45.0-49.9, adult ([facility]) documented in this encounter [facility] HealthcareHistory general Narrative - Reported* Type Description Date Medical History back pain Medical History restless leg syndrome Medical History sleep apnea Surgical History vasectomy [employer] Other History of Present illness Narrative* Josefina Vaz NP - 05/25/2024 6:00 PM EDT Images from the original note were not included. Marcos Liu is a 43 y.o. male presents with chief complaint of No chief complaint on file. HPI: Here for adipex check: completed month #1, has lost 16 pounds No chest pain/pressure/heart palpitations He is going to the gym 3 times per week And cut back on his portion sizes SUBJECTIVE: MEDICATIONS: Current Outpatient Medications Medication Instructions escitalopram (LEXAPRO) 10 mg, Oral, Daily furosemide (LASIX) 20 mg, Oral, Daily, Take 20 mg by mouth Daily lisinopril 20 mg, Oral, Daily phentermine (ADIPEX-P) 37.5 mg, Oral, Daily before breakfast ALLERGIES: Allergies Allergen Reactions Codeine Other LOC REVIEW OF SYMPTOMS: Review of Systems Constitutional: Negative for activity change, appetite change and unexpected weight change. HENT: Negative for ear pain, nosebleeds, sneezing, trouble swallowing and voice change. Eyes: Negative for pain, discharge and visual disturbance. Respiratory: Negative for apnea, chest tightness and wheezing. Cardiovascular: Negative for leg swelling. Gastrointestinal: Negative for abdominal distention, blood in stool, constipation and diarrhea. Genitourinary: Negative for decreased urine volume, difficulty urinating, dysuria and hematuria. Skin: Negative for color change. Neurological: Negative for dizziness, tremors and seizures. [...] not on file. OBJECTIVE: Visit Vitals BP 118/78 (BP Location: Left arm, Patient Position: Sitting, BP Cuff Size: Large adult) Pulse 72 Temp 97.9 F (Temporal) Resp 18 Ht 6' Wt 334 lb 12.8 oz SpO2 94% BMI 45.41 kg/m Smoking Status Never BSA 2.78 m Physical Exam Vitals and [...] is normal. Breath sounds: Normal breath sounds. Abdominal: General: Bowel sounds are normal. Palpations: Abdomen is soft. Musculoskeletal: Cervical back: Neck supple. Skin: General: Skin is warm and dry. [...] breath, swelling legs Recommend slow position changes Current meds: lisinopril Morbid (severe) obesity due to excess calories (CMS/HCC) Discussed with patient their BMI (actual, verses recommended). We have also discussed lifestyle modifications: attempts to perform physical activity as chronic conditions allow, also to monitor dietary intake: increasing protein/fruits/veggies and lowering carb intake (unless contraindicated). Limit sodas, juices, and sugary drinks. Also discussed oral medications that can be utilized for weight loss, as well as surgical options for weight loss. Pt meets qualifications of OAC 4730-12-15 for weight loss. BMI>30 or >27 with comorbid conditions. Notify office with any symptoms of chest pain, dyspnea, heart palpitations, or any anxiety symptoms. F/U in 4 weeks to document weight loss. Increase physical activity as tolerated, and lower caloric intake to 1600 calories daily if no contraindications OARRS reviewed Adipex month: #2 Total loss: 16 pounds Relevant Medications phentermine (Adipex-P) 37.5 MG tablet Edema of both lower extremities Uses compression stockings and diuretics for treatment Body mass index (BMI) 45.0-49.9, adult (CMS/HCC) Relevant Medications phentermine (Adipex-P) 37.5 MG tablet * Josefina Vaz NP - 05/25/2024 7:26 AM EDTAssociated Problem(s): Morbid (severe) obesity due to excess calories (CMS/HCC) Discussed with patient their BMI (actual, verses recommended). We have also discussed lifestyle modifications: attempts to perform physical activity as chronic conditions allow, also to monitor dietary intake: increasing protein/fruits/veggies and lowering carb intake (unless contraindicated). Limit sodas, juices, and sugary drinks. Also discussed oral medications that can be utilized for weight loss, as well as surgical options for weight loss. Pt meets qualifications of OAC 4730-12-15 for weight loss. BMI>30 or >27 with comorbid conditions. Notify office with any symptoms of chest pain, dyspnea, heart palpitations, or any anxiety symptoms. F/U in 4 weeks to document weight loss. Increase physical activity as tolerated, and lower caloric intake to 1600 calories daily if no contraindications OARRS reviewed Adipex month: #2 Total loss: 16 pounds * Josefina Vaz NP - 05/25/2024 7:25 AM EDTAssociated Problem(s): Edema of both lower extremities Uses compression stockings and diuretics for treatment * Josefina Vaz NP - 05/25/2024 7:25 AM EDTAssociated Problem(s): Essential hypertension (CMS/HCC) Please check blood pressure daily and record DASH diet Limit caffeine Take medication as directed Contact office if chest pain, pressure, dizziness, shortness of breath, swelling legs Recommend slow position changes Current meds: lisinopril * Josefina Vaz NP - 05/25/2024 7:24 AM EDTAssociated Problem(s): ALEXANDRO (obstructive sleep apnea) You have a diagnosis of obstructive sleep apnea. It is recommended that you wear your PAP device any time while in bed sleeping. Not using the PAP device can increase your risk of elevated/uncontrolled high blood pressure, atrial fibrillation, heart attack, stroke, or sudden . Compliance with PAP: How many hours of use per night: Do you feel more refreshed in the morning: Company that supplies your machine and tubing/filters etc: Doctor that manages your ALEXANDRO: documented [facility] instructions No data available for this section [facility] [place] Progress note No data available for this section [facility] [place] Summary Purpose Family History No Family History Records FoundNo Family History Records Found No data available for this section No Family History Records Found Advance Directives No Advanced Directives Records FoundNo Advanced Directives Records FoundNo Advanced Directives Records Found Additional Source Comments (unrecognized sect ion and content) No Status Records FoundNo Status Records FoundNo Status Records Found INFORMATION SOURCE (unrecogn ized section and content) DATE CREATED AUTHOR 04/21/2022 [facility] DATE CREATED AUTHOR AUTHOR'S ORGANIZ ATION 09/17/2024 [facility] EPIC DATE CREATED AUTHOR AUTHOR'S ORGANIZ ATION 10/08/2024 [facility] REASON FOR VISIT (unrecogniz ed section and content) Reason Comments Suspicious Skin Lesion Specialty Diagnoses / Procedures Referred By Hank alfaro Referred To Contact Dermatology Diagnoses Neoplasm of uncertain behavior of nose Tongue lesion Procedures [place] OFFICE/OUTPATIENT [facility] Josefina Vaz NP [address] [place] [address] Phone: tel: fax: Poornima Quintanilla, RECORD PRESS OPERATOR-LOCKSTITCH FRONT MAKER [address] [place] [address] Phone: tel: fax: Referral ID Status Reason Start Date Expiration Date V isits Requested Visits Authorized [id number] Closed Specialty Services Required 01/27/2024 07/25/2024 1 1 Reason Onset Date Comments Med Refill 07/01/2024 Reason Comments Hypertension Reason Comments Hypertension Reason Comments Hypertension Care Teams (unrecognized sec tion and content) Diamond Sizer Relationship Specialty Start Date End Date Eleuterio Frankel MD [address] [place] [address] PCP - General Family Medicine 12/12/23 Josefina Vaz NP [address] [place] [address] Nurse Practitioner Family Medicine 12/03/23 Diamond Sizer Relationship Specialty Start Date End Date Eleuterio Frankel MD [address] [place] [address] PCP - General Family Medicine 12/12/23 Josefina Vaz NP [address] [place] [address] Nurse Practitioner Family Medicine 12/03/23 Diamond Sizer Relationship Specialty Start Date End Date Eleuterio Frankel MD [address] [place] [address] PCP - General Family Medicine 12/12/23 Josefina Vaz NP [address] [place] [address] Nurse Practitioner Family Medicine 12/03/23 Diamond Sizer Relationship Specialty Start Date End Date Eleuterio Frankel MD [address] [place] [address] PCP - General Family Medicine 12/12/23 Josefina Vaz NP [address] [place] [address] Nurse Practitioner Family Medicine 12/03/23 Diamond Sizer Relationship Specialty Start Date End Date Eleuterio Frankel MD [address] [place] [address] PCP - General Family Medicine 12/12/23 Josefina Vaz NP [address] [place] [address] Nurse Practitioner Family Medicine 12/03/23 Diamond Sizer Relationship Specialty Start Date End Date Eleuterio Frankel MD [address] [place] [address] PCP - General Family Medicine 12/12/23 Josefina Vaz NP [address] [place] [address] Nurse Practitioner Family Medicine 12/03/23 Diamond Sizer Relationship Specialty Start Date End Date Eleuterio Frankel MD [address] [place] [address] PCP - General Family Medicine 12/12/23 Josefina Vaz NP [address] [place] [address] Nurse Practitioner Family Medicine 12/03/23 Diamond Sizer Relationship Specialty Start Date End Date Eleuterio Frankel MD [address] [place] [address] PCP - General Family Medicine 12/12/23 Josefina Vaz NP [address] [place] [address] Nurse Practitioner Family Medicine 12/03/23 Diamond Sizer Relationship Specialty Start Date End Date Eleuterio Frankel MD [address] [place] [address] PCP - General Family Medicine 12/12/23 Adalberto Mercer PA [address] [place] [address] PCP - Medical [employer] 09/02/23 02/10/99 Josefina Vaz NP [address] [place] [address] Nurse Practitioner Family Medicine 12/03/23 Diamond Sizer Relationship Specialty Start Date End Date Eleuterio Frankel MD [address] [place] [address] PCP - General Family Medicine 12/12/23 Adalberto Mercer PA [address] [place] [address] PCP - Medical [employer] 09/02/23 02/10/99 Josefina Vaz NP [address] [place] [address] Nurse Practitioner Family Medicine 12/03/23 Diamond Sizer Relationship Specialty Start Date End Date Eleuterio Frankel MD [address] [place] [address] PCP - General Family Medicine 12/12/23 Adalberto Mercer PA [address] [place] [address] PCP - Medical [employer] 09/02/23 02/10/99 Josefina Vaz NP [address] [place] [address] Nurse Practitioner Family Medicine 12/03/23 Diamond Sizer Relationship Specialty Start Date End Date Eleuterio Frankel MD [address] [place] [address] PCP - General Family Medicine 12/12/23 Adalberto Mercer PA [address] [place] [address] PCP - Medical [employer] 09/02/23 02/10/99 Josefina Vaz, GABY [address] [place] [address] Nurse Practitioner Family Medicine 12/03/23 Diamond Sizer Relationship Specialty Start Date End Date Eleuterio Frankel MD [address] [place] [address] PCP - General Family Medicine 12/12/23 Adalberto Mercer PA [address] [place] [address] PCP - Medical [employer] 09/02/23 02/10/99 Josefina Vaz NP [address] [place] [address] Nurse Practitioner Family Medicine 12/03/23 Diamond Sizer Relationship Specialty Start Date End Date Eleuterio Frankel MD [address] [place] [address] PCP - General Family Medicine 12/12/23 Adalberto Mercer PA [address] [place] [address] PCP - Medical [employer] 09/02/23 02/10/99 Josefina Vaz NP [address] [place] [address] Nurse Practitioner Family Medicine 12/03/23 Diamond Sizer Relationship Specialty Start Date End Date Eleuterio Frankel MD [address] [place] [address] PCP - General Family Medicine 12/12/23 Adalberto Mercer PA [address] [place] [address] PCP - Medical [employer] 09/02/23 02/10/99 Josefina Vaz NP [address] [place] [address] Nurse Practitioner Family Medicine 12/03/23 Diamond Sizer Relationship Specialty Start Date End Date Eleuterio Frankel MD [address] [place] [address] PCP - General Family Medicine 12/12/23 Adalberto Mercer PA [address] [place] [address] PCP - Medical [employer] 09/02/23 02/10/99 Josefina Vaz NP [address] [place] [address] Nurse Practitioner Family Medicine 12/03/23 Diamond Sizer Relationship Specialty Start Date End Date Eleuterio Frankel MD [address] [place] [address] PCP - General Family Medicine 12/12/23 Adalberto Mercer PA [address] [place] [address] PCP - Medical [employer] 09/02/23 02/10/99 Josefina Vaz, GABY [address] [place] [address] Nurse Practitioner Family Medicine 12/03/23 Diamond Sizer Relationship Specialty Start Date End Date Eleuterio Frankel MD [address] [place] [address] PCP - General Family Medicine 12/12/23 Adalberto Mercer PA [address] [place] [address] PCP - Medical [employer] 09/02/23 02/10/99 Josefina Vaz NP [address] [place] [address] Nurse Practitioner Family Medicine 12/03/23 Diamond Sizer Relationship Specialty Start Date End Date Eleuterio Frankel MD [address] [place] [address] PCP - General Family Medicine 12/12/23 Adalberto Mercer PA [address] [place] [address] PCP - Medical [employer] 09/02/23 02/10/99 Josefina Vaz NP [address] [place] [address] Nurse Practitioner Family Medicine 12/03/23 Diamond Sizer Relationship Specialty Start Date End Date Eleuterio Frankel MD [address] [place] [address] PCP - General Family Medicine 12/12/23 Adalberto Mercer PA [address] [place] [address] PCP - Medical [employer] 09/02/23 02/10/99 Josefina Vaz NP [address] [place] [address] Nurse Practitioner Family Medicine 12/03/23 Diamond Sizer Relationship Specialty Start Date End Date Eleuterio Frankel MD [address] [place] [address] PCP - General Family Medicine 12/12/23 Adalberto Mercer PA [address] [place] [address] PCP - Medical [employer] 09/02/23 02/10/99 Josefina Vaz NP [address] [place] [address] Nurse Practitioner Family [facility] 12/03/23 Diamond Sizer Relationship Specialty Start Date End Date Eleuterio Frankel MD [address] [place] [address] PCP - General Family Medicine 12/12/23 Adalberto Mercer PA [address] [place] [address] PCP - [facility] 09/02/23 02/10/99 Josefina Vaz NP [address] [place] [address] Nurse Practitioner Family Medicine 12/03/23 FOR RECORDS PERTAINING TO PATIENTS WHO [...] BE BASED ON THE PRIMARY CLINICAL RECORDS. [employer] [facility]. provides no warranty or guarantee of the accuracy or completeness of information in this document.
== END 2024-11-17 08:32 | disposition home or self-care (01) ==
LOC: PST 08:31
PROVIDERS: PCP Family Medicine; Visit Provider Surgery
DX: Z01.818 Encounter for other preprocedural examination (principal); Z12.11 Encounter for screening for malignant neoplasm of colon; Z80.0 Family history of malignant neoplasm of digestive organs

== ENCOUNTER 2024-11-25 06:27 | Day surgery (SDC) | payer OTHER, SELFPAY ==
--- NOTE | 2024-11-25 | OP_ITS ---
OPERATION DATE: 11/25/2024 PREOPERATIVE DIAGNOSIS: Colorectal screening. POSTOPERATIVE DIAGNOSIS: Normal colonoscopy to cecum. PROCEDURE: Colonoscopy to cecum. SURGEON: Patricio Dickey M.D. ANESTHESIA: Monitored anesthesia care. ESTIMATED BLOOD LOSS: Zero. INDICATIONS AND CONSENT: Patient is a 44-year-old male, presents for colorectal screening. Indications, risks, benefits, alternatives of proceeding with colonoscopy were explained extensively to the patient, including the risks of bleeding, colon perforation or anesthetic complications. All of his questions were answered. Informed consent was obtained. PROCEDURE: Patient brought to the operating room, placed in the left lateral decubitus position. Monitored anesthesia care was provided. Rectal exam was performed which showed no masses or blood. The scope was inserted into the anal canal. Under direct visualization was advanced. It was advanced to the cecum where cecal markings were clearly identified. There was noted to be a good prep. Upon withdrawal of the scope, mucosal surfaces were carefully examined. There were no mass lesions or polyps. No inflammatory changes or ulcerations. No significant diverticulosis. The scope was retroflexed in the anal canal. There was no significant hemorrhoidal disease. The scope was then withdrawn. Patient tolerated procedure well, was sent to recovery room in good condition. f/u screening colonoscopy should be in 10 years. CC: Eleuterio Payne M.D. NGOZI
--- OUTSIDE RECORDS SUMMARY | 2024-11-25 06:29 | XMS_ITS | Clinical Summary ---
Author Organization [employer] Address [id number] [place] [address] Care Team Providers Care Cutlet Maker Pork Name Role Phone Eleuterio Payne MD Primary Care Provider [phone] Allergies Active Allergy Reactions Criticality Noted Date [...] 11/08/2016 Medical Devices Not on file Insurance [employer] Care Teams Cutlet Maker Pork Relationship Specialty Start Date End Date Eleuterio Payne MD PCP - General Family Medicine 01/28/23
--- OUTSIDE RECORDS SUMMARY | 2024-11-25 06:29 | XMS_ITS | Clinical Summary ---
Author Organization [facility] Address [address] [facility] [address], [address] [place] [address] Care Team Providers Care Lathe Operator Contact Lens Name Role Phone Eleuterio Payne MD Primary Care Provider + Allergies Active Allergy Reactions Criticality Noted Date Comments Armani Other (See Comments) 10/12/2016 Medications lisinopril (PRINIVIL;ZESTRI L) 10 MG tablet take 1 tablet by mouth once daily 03/22/2022 Active furosemide (LASIX) 20 MG tablet take 1 tablet by mouth once daily 03/22/2022 Active ALPRAZolam (XANAX PO) Take by mouth Active Active Problems Problem Noted Date Diagnosed Date Lumbar degenerative disc disease 04/03/2022 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 Family History Medical History Relation Name Comments Cancer Father Diabetes Father Hypertension Father Cancer Mother Hypertension Mother Relation Name Status Comments Father Mother Social History Tobacco Use Types Packs/Day Years Used Date Smoking Tobacco: Unknown Smokeless Tobacco: Current Tobacco Cessation:Ready to Q uit: Not Asked; Counseling Given: Not Answered Alcohol Use Standard Drinks/Week Comments Not Currently 0 (1 standard drink = 0.6 oz pur e alcohol) Sex and Gender Information Value Date Recorded Sex Assigned at Not on file Legal Sex Male 4:17 PM EST Gender Identity Not on file Sexual Orientation Not on file Last Filed Vital Signs Vital Sign Reading Time Taken Comments Blood Pressure 122/62 04/03/2022 10:03 AM EST Pulse - - Temperature 36.4 C (97.5 F) 04/03/2022 10:03 AM EST Respiratory Rate - - Oxygen Saturation - - Inhaled Oxygen Concentration - - Weight 154.2 kg (340 lb) 04/03/2022 10:03 AM EST Height 185.4 cm (6' 1 ) 04/03/2022 10:03 AM EST Body Mass Index 44.86 04/03/2022 10:03 AM EST Plan of Treatment Not on file Insurance [employer] Care Teams Lathe Operator Contact Lens Relationship Specialty Start Date End Date Eleuterio Payne MD [address] [place] [address] PCP - General Family Medicine 03/15/22
--- OUTSIDE RECORDS SUMMARY | 2024-11-25 06:29 | XMS_ITS | Encounter Summary ---
Author Organization [facility] tem Address [id number] [address] [place] [address] Care Team Providers Care Candle Wrapper Name Role Phone Eleuterio Payne MD Primary Care Provider [phone] Encounter Details Date Type Department Care Team (Late st Contact Info) Description 03/07/2021 Telephone [facility] [address] [place] [address] Kalie Fitzpatrick RMA Social History Tobacco Use [...] on filedocumented in this encounter Care Teams Candle Wrapper Relationship Specialty Start Date End Date Eleuterio Payne MD PCP - General Family Medicine 01/28/23 documented as of this encounter
--- OUTSIDE RECORDS SUMMARY | 2024-11-25 06:29 | XMS_ITS | Encounter Summary ---
Author Organization [employer] Address [id number] [address] [place] [address] Care Team Providers Care City Alderman Name Role Phone Eleuterio Payne MD Primary Care Provider [phone] Encounter Details Date Type Department Care Team (Late st Contact Info) Description 02/13/2021 Telephone [facility] [address] [place] [phone] Kalie Fitzpatrick RMA Social History Tobacco Use [...] on filedocumented in this encounter Care Teams City Alderman Relationship Specialty Start Date End Date Eleuterio Payne MD PCP - General Family Medicine 01/28/23 documented as of this encounter
--- OUTSIDE RECORDS SUMMARY | 2024-11-25 06:29 | XMS_ITS | Encounter Summary ---
Author Organization [facility] Healthcare Address [address] [place] [address] Care Team Providers Care Rural Route Carrier Name Role Phone Eleuterio Payne MD Primary Care Provider [phone] Josefina Vaz SHAKE SAWYER Unavailable [phone] Unallocated, [place] Provider Primary Care Provi talia Eleuterio Payne MD Primary Care Provider [phone] Yani Mercer Unavailable [phone] Encounter Details Date Type Department Care Team (Late st Contact Info) Description 07/23/2023 Abstract [facility] POP[facility] [address] [place] [address] Ashu Oro LPN Social History Tobacco Use [...] on filedocumented in this encounter Care Teams Rural Route Carrier Relationship Specialty Start Date End Date Eleuterio Payne MD PCP - General Family Medicine 08/07/22 12/02/23 Unallocated, Yoanna ProviderMD [address] [place] [address] PCP - General Family Medicine 12/03/23 12/11/23 Eleuterio Payne MD [address] [place] [address] PCP - General Family Medicine 12/12/23 Yani Mercer PA [address] [place] [address] PCP - [facility] [employer] 09/02/23 02/10/99 Josefina Vaz NP Nurse Practitioner Family Medicine 12/03/23 documented as of this encounter
--- OUTSIDE RECORDS SUMMARY | 2024-11-25 06:30 | XMS_ITS | Clinical Summary ---
Author Organization [facility] Address [address] [place] [address] Care Team Providers Care Interim Controller Name Role Phone Unavailable Primary Care Provider [...]
--- OUTSIDE RECORDS SUMMARY | 2024-11-25 06:30 | XMS_ITS | CCD ---
Author Organization [facility] Care Team Providers Care Oncology Radiation Physician Name Role Phone KAREN, LEES H Admitting [...] WEST, DR MARCOS Corral Consulting Unavailable AICHHOLZ, STEREO EQUIPMENT REPAIRER JOSEFINA Admitting Unavailable AICHHOLZ, MELODY JOSEFINA Attending Unavailable NADERER, DR ELEUTERIO Painting Primary Care Unavailable AICHHOLZ, STEREO EQUIPMENT REPAIRER JOSEFINA Consulting Unavailable ZIEBER, DR ALBERT Hendrix Consulting Unavailable AICHHOLZ, STEREO EQUIPMENT REPAIRER JOSEFINA Admitting Unavailable AICHHOLZ, STEREO EQUIPMENT REPAIRER JOSEFINA Attending Unavailable NADERER, DR ELEUTERIO Painting Primary Care Unavailable AICHHOLZ, STEREO EQUIPMENT REPAIRER JOSEFINA Consulting Unavailable WEST, DR MARCOS Corral [...] Consulting Unavailable SHAIKH Linh JONES Consulting Unavailable WALDEN, DR MARCOS Corral Admitting Unavailable WALDEN, DR MARCOS Corral Attending Unavailable JOSTIN, DR ELEUTERIO Painting Primary Care Unavailable WALDEN, DR MARCOS Corral Consulting Unavailable Claudio Pugh Unavailable Aichholz RANGE OPERATOR, Josefina Unavailable Eleuterio Frankel MD Primary Care Provider Adalberto Parsons Unavailable AICHHOLZ, JOSEFINA Attending Unavailable AICHHOLZ, JOSEFINA Attending Unavailable AICHHOLZ, JOSEFINA Attending Unavailable AICHHOLZ, JOSEFINA Attending Unavailable AICHHOLZ, JOSEFINA Attending Unavailable AICHHOLZ, JOSEFINA Attending Unavailable AICHHOLZ, JOSEFINA Attending Unavailable ADALBERTO MERCER Attending Unavailable AICHHOLZ, JOSEFINA Referring Unavailable AICHHOLZ, JOSEFINA J Primary Care Physician [phone] Patricio DICKEY Attending Unavailable AICHHOLZJOSEFINA Referring Unavailable Allergies Allergy Classification Reported Allergen(s) Allergy Type Date of Onset Reaction(s) Facility (3 sources) Codeine; Translations: [codeine] Drug Allergy 3 [facility] Repository (20 sources) Codeine; Translations: [codeine] [...] yet, please contact Health Information Management at [phone] to get signed up today. Language Information Language assistance services are available as needed. Normal [facility] ALL CBC WITH AUTO DIFFon BASOPHILS ABSOLUTE AUTO 0.1 [facility] Basophils/100 WBC (Bld) 1.1 % 0.2 - 2.0 % [facility] Eosinophils/100 WBC (Bld) 3.1 % 0.9 - 7.0 % [facility] Erythrocyte distribution width (RBC) [Ratio] 13.3 % 11.0 - 15.0 % [facility] Hematocrit (Bld) [Volume fraction] 40.8 % Low 42.0 - 54.0 % [facility] Hemoglobin (Bld) [Mass/Vol] 13.4 g/dL Low 14.0 - 18.0 g/dL [facility] IMMATURE GRANULOCYTES ABS AUTO 0.02 [facility] Immature granulocytes/100 WBC (Bld) 0.4 % 0.0 - 0.5 % [facility] Interpretation and review of laboratory results Abnormal [facility] LYMPHOCYTES ABSOLUTE AUTO 1.5 [facility] Lymphocytes/100 WBC (Bld) 27.5 % 20.5 - 60.0 % [facility] MCH (RBC) [Entitic mass] 28.2 pg 25.9 - 34.0 pg [facility] MCHC (RBC) [Mass/Vol] 32.8 g/dL 29.9 - 35.2 g/dL [facility] MCV (RBC) [Entitic vol] 85.7 fL 80.0 - 94.0 fL [facility] MONOCYTES ABSOLUTE AUTO 0.6 [facility] Monocytes/100 WBC (Bld) 11.5 % 1.7 - 12.0 % [facility] NEUTROPHILS ABSOLUTE AUTO 3.1 [facility] Neutrophils/100 WBC (Bld) 56.4 % 43.0 - 75.0 % [facility] Platelet mean volume (Bld) [Entitic vol] 9.2 fL Low 9.5 - 13.5 fL [facility] EO # 0.2 [facility]T [facility] TB RBC 4.76 [facility] TBH WBC 5.4 [facility] No Panel InformationOrdered By: Nissa Anderson on 01-30-2024 [facility] PROF CHEM 8 (BAS METB)on Anion gap [Moles/Vol] 11.1 mmol/L Normal [facility] Comment on above: Performed By: #### F ETIBC, FERR #### [facility] [address] [place] [address] Dr. Geovani Mcclendon Calcium [Mass/Vol] 9.1 mg/dL Normal 8.5-10.1 [facility] Comment on above: Performed By: #### F ETIBC, FERR #### [facility] [address] [address] [address] Geovani Mcclendon Chloride [Moles/Vol] 107 mmol/L Normal 98-107 [facility] Comment on above: Performed By: #### F ETIBC, FERR #### [facility] [address] [place] [address] Dr. Geovani Mcclendon CO2 [Moles/Vol] 30.3 mmol/L Normal 21.0-32.0 [facility] Comment on above: Performed By: #### F ETIBC, FERR #### [facility] [address] [place] [address] Dr. Geovani Mcclendon Creatinine [Mass/Vol] 0.81 mg/dL Normal 0.70-1.30 [facility] Comment on above: Performed By: #### F ETIBC, FERR #### [facility] [address] [place] [address] Dr. Geovani Mcclendon EGFR-AF SRI LANKAN >60 Normal >=60 [facility] Comment on above: Performed By: #### F ETIBC, FERR #### [facility] [address] [place] [address] Dr. Geovani Mcclendon EGFR-NON AF SRI LANKAN >60 Normal >=60 [facility] Comment on above: Performed By: #### F ETIBC, FERR #### [facility] [address] [place] [address] Dr. Geovani Mcclendon Glucose [Mass/Vol] 100 mg/dL Normal 74-106 [facility] Comment on above: Performed By: #### F ETIBC, FERR #### [facility] [address] [address] [address] Geovani Mcclendon Potassium [Moles/Vol] 4.4 mmol/L Normal 3.5-5.1 [facility] Comment on above: Performed By: #### F ETIBC, FERR #### [facility] [address] [address] [address] Geovani Mcclendon Sodium [Moles/Vol] 144 mmol/L Normal 136-145 [facility] Comment on above: Performed By: #### F ETIBC, FERR #### [facility] [address] [address] [address] Geovani Mcclendon Urea nitrogen [Mass/Vol] 17.0 mg/dL Normal 7.0-18.0 [facility] Comment on above: Performed By: #### F ETIBC, FERR #### [facility] [address] [address] [address] Geovani Mcclendon Urea nitrogen/Creatinine [Mass ratio] 21.0 mg/mg Normal [facility] Comment on above: Performed By: #### F ETIBC, FERR #### [facility] [address] [place] [address] Dr. Geovani Mcclendon [place] 03-09-19 23 [place] CON EXAMINATION: MRI [facility] CON HISTORY: Low back pain COMPARISON: No [...] MARCOS VALDEZ Date: 2022-03-09 08:35 Normal [facility] US XANDER DOP LEG LTon 03-06-19 [...] ALBERT MAY Date: 2022-03-06 14:57 Normal [facility] CBC AUTO DIFFon 02-24-2022 BASO # 0.0 103/ul Normal 0.0-0.1 [facility] Comment on above: Performed By: #### C BC #### [facility] [address] [place] [address] Dr. Geovani Mcclendon Basophils/100 WBC (Bld) 0.5 % Normal 0.2-2.0 [facility] Comment on above: Performed By: #### C BC #### [facility] [address] [place] [address] Dr. Geovani Mcclendon EO # 0.2 103/ul Normal 0.0-0.7 [facility] Comment on above: Performed By: #### C BC #### [facility] [address] [place] [address] Dr. Geovani Mcclendon Eosinophils/100 WBC (Bld) 1.9 % Normal 0.9-7.0 [facility] Comment on above: Performed By: #### C BC #### [facility] [address] [place] [address] Dr. Geovani Mcclendon Erythrocyte distribution width (RBC) [Ratio] 13.2 % Normal 11.0-15.0 [facility] Comment on above: Performed By: #### C BC #### [facility] [address] [place] [address] Dr. Geovani Mcclendon Hematocrit (Bld) [Volume fraction] 37.9 % Critically low 42.0-54.0 [facility] Comment on above: Performed By: #### C BC #### [facility] [address] [place] [address] Dr. Geovani Mcclendon Hemoglobin (Bld) [Mass/Vol] 12.9 g/dL Critically low 14.0-18.0 [facility] Comment on above: Performed By: #### C BC #### [facility] [address] [place] [address] Dr. Geovani Mcclendon IG # 0.03 10e3/ul Normal 0.00-0.03 [facility] Comment on above: Performed By: #### C BC #### [facility] [address] [place] [address] Dr. Geovani Mcclendon IG % 0.4 % Normal 0.0-0.5 [facility] Comment on above: Performed By: #### C BC #### [facility] [address] [place] [address] Dr. Geovani Mcclendon LYMPH # 1.9 103/ul Normal 1.2-3.8 [facility] Comment on above: Performed By: #### C BC #### [facility] [address] [place] [address] Dr. Geovani Mcclendon Lymphocytes/100 WBC (Bld) 24.8 % Normal 20.5-60.0 [facility] Comment on above: Performed By: #### C BC #### [facility] [address] [place] [address] Dr. Geovani Mcclendon MANUAL DIFF REQ NO Normal [facility] Comment on above: Performed By: #### C BC #### [facility] [address] [place] [address] Dr. Geovani Mcclendon MCH (RBC) [Entitic mass] 28.0 pg Normal 25.9-34.0 [facility] Comment on above: Performed By: #### C BC #### [facility] [address] [place] [address] Dr. Geovani Mcclendon MCHC (RBC) [Mass/Vol] 34.0 g/dL Normal 29.9-35.2 [facility] Comment on above: Performed By: #### C BC #### [facility] [address] [place] [address] Dr. Geovani Mcclendon MCV (RBC) [Entitic vol] 82.2 fL Normal 80.0-94.0 [facility] Comment on above: Performed By: #### C BC #### [facility] [address] [place] [address] Dr. Geovani Mcclendon MONO # 0.7 103/ul Normal 0.3-0.8 [facility] Comment on above: Performed By: #### C BC #### [facility] [address] [place] [address] Dr. Geovani Mcclendon Monocytes/100 WBC (Bld) 8.6 % Normal 1.7-12.0 [facility] Comment on above: Performed By: #### C BC #### [facility] [address] [place] [address] Dr. Geovani Mcclendon NEUT # 4.9 103/ul Normal 1.4-6.5 [facility] Comment on above: Performed By: #### C BC #### [facility] [address] [place] [address] Dr. Geovani Mcclendon Neutrophils/100 WBC (Bld) 63.8 % Normal 43.0-75.0 [facility] Comment on above: Performed By: #### C BC #### [facility] [address] [place] [address] Dr. Geovani Mcclendon Platelet mean volume (Bld) [Entitic vol] 9.1 fL Critically low 9.5-13.5 [facility] Comment on above: Performed By: #### C BC #### [facility] [address] [place] [address] Dr. Geovani Mcclendon PLT 293 103/ul Normal 150-450 [facility] Comment on above: Performed By: #### C BC #### [facility] [address] [place] [address] Dr. Geovani Mcclendon RBC 4.61 106/ul Critically low 4.70-6.10 [facility] Comment on above: Performed By: #### C BC #### [facility] [address] [place] [address] Dr. Geovani Mcclendon WBC 7.7 103/ul Normal 4.0-11.0 [facility] Comment on above: Performed By: #### C BC #### [facility] [address] [place] [address] Dr. Geovani Mcclendon CRPon 02-24-2022 CRP 4.7 mg/dL Critically high <=1.0 [facility] Comment on above: Performed By: #### F ETIBC, FERR #### [facility] [address] [place] [address] Dr. Geovani Mcclendon D-DIMERon 02-24-2022 D-DIMER 0.32 mg/L FEU Normal <=0.59 [facility] Comment on above: Performed By: #### P T, DDIM, PTT #### [facility] [address] [place] [address] Dr. Geovani Mcclendon D-DIMER COMMENTS SEE BELOW Normal [facility] Comment on above: Result Comment: Incr [...] By: #### P T, DDIM, PTT #### [facility] [address] [address] [address] Geovani Mcclendon PROF CHEM 8 (BAS METB)on Anion gap [Moles/Vol] 10.6 mmol/L Normal [facility] Comment on above: Performed By: #### F ETIBC, FERR #### [facility] [address] [place] [address] Dr. Geovani Mcclendon Calcium [Mass/Vol] 8.8 mg/dL Normal 8.5-10.1 [facility] Comment on above: Performed By: #### F ETIBC, FERR #### [facility] [address] [place] [address] Dr. Geovani Mcclendon Chloride [Moles/Vol] 100 mmol/L Normal 98-107 [facility] Comment on above: Performed By: #### F ETIBC, FERR #### [facility] [address] [place] [address] Dr. Geovani Mcclendon CO2 [Moles/Vol] 31.8 mmol/L Normal 21.0-32.0 [facility] Comment on above: Performed By: #### F ETIBC, FERR #### [facility] [address] [place] [address] Dr. Geovani Mcclendon Creatinine [Mass/Vol] 1.01 mg/dL Normal 0.70-1.30 [facility] Comment on above: Performed By: #### F ETIBC, FERR #### [facility] [address] [place] [address] Dr. Geovani Mcclendon EGFR-AF SRI LANKAN >60 Normal >=60 [facility] Comment on above: Performed By: #### F ETIBC, FERR #### [facility] [address] [place] [address] Dr. Geovani Mcclendon EGFR-NON AF SRI LANKAN >60 Normal >=60 [facility] Comment on above: Performed By: #### F ETIBC, FERR #### [facility] [address] [place] [address] Dr. Geovani Mcclendon Glucose [Mass/Vol] 109 mg/dL Critically high 74-106 [facility] Comment on above: Performed By: #### F ETIBC, FERR #### [facility] [address] [place] [address] Dr. Geovani Mcclendon Potassium [Moles/Vol] 3.4 mmol/L Critically low 3.5-5.1 [facility] Comment on above: Performed By: #### F ETIBC, FERR #### [facility] [address] [place] [address] Dr. Geovani Mcclendon Sodium [Moles/Vol] 139 mmol/L Normal 136-145 [facility] Comment on above: Performed By: #### F ETIBC, FERR #### [facility] [address] [place] [address] Dr. Geovani Mcclendon Urea nitrogen [Mass/Vol] 17.0 mg/dL Normal 7.0-18.0 [facility] Comment on above: Performed By: #### F ETIBC, FERR #### [facility] [address] [place] [address] Dr. Geovani Mcclendon Urea nitrogen/Creatinine [Mass ratio] 16.8 mg/mg Normal [facility] Comment on above: Performed By: #### F ETIBC, FERR #### [facility] [address] [place] [address] Dr. Geovani Mcclendon PROTIMEon 02-24-2022 INR Coag (PPP) [Relative time] 0.98 {INR} Normal [facility] Comment on above: Performed By: #### P T, DDIM, PTT #### [facility] [address] [place] [address] Dr. Geovani Mcclendon INR GUIDELINES SEE BELOW Normal [facility] Comment on above: Result Comment: SACHIN RED INR: 2.0 - 3.0 CONDITIONS NOT LISTED BELOW 2.5 - 3.5 FOR PROSTHETIC HEART VALVE REPLACEMENT 2.5 - 3.5 RECURRENT THROMBOSIS Performed By: #### P T, DDIM, PTT #### [facility] [address] [place] [address] Dr. Geovani Mcclendon PT Coag (PPP) [Time] 10.4 s Normal 9.0-11.6 [facility] Comment on above: Performed By: #### P T, DDIM, PTT #### [facility] [address] [address] [address] Geovani Mcclendon PTTon 02-24-2022 aPTT Coag (Bld) [Time] 30.7 s Normal 22.3-36.2 Th e [facility] Comment on above: Performed By: #### P T, DDIM, PTT #### [facility] [address] [address] [address] Geovani Mcclendon SED RATE WESTERGRENon 2022 SED RATE 52 mm/hr Critically high <=15 [facility] Comment on above: Performed By: #### F ETIBC, FERR #### [facility] [address] [place] [address] Dr. Geovani Mcclendon VC INJ SCL HOLLY CLEAN UP SUPERVISOR VEINSon 1 03-05-2021 VC INJ SCL HOLLY CLEAN UP SUPERVISOR VEINS Patient: MARCOS LIU V. Exam Date: 01/03/2022 : 1980 Gender:M Ordering : DR MARCOS VALDEZ M.D. Admission #: [id number] Family : Order #: [id number] CLICK HERE TO VIEW EXAM RADIOLOGY REPORT PROCEDURE: VEIN CENTER INJECTION SCLEROSING SOLUTION MULTIPLE VEINS SAME COMPARISON: VC INJ SCL HOLLY CLEAN UP SUPERVISOR VEINS, 12/27/2021. INDICATIONS: Pain co-occurrent and due [...] May M.D. on 01/03/2022 at 11:58 Normal [facility] VC INJ SCL HOLLY CLEAN UP SUPERVISOR VEINSon 1 02-26-2021 VC INJ SCL HOLLY CLEAN UP SUPERVISOR VEINS Patient: MARCOS LIU V. Exam Date: 12/27/2021 : 1980 Gender:M Ordering : DR MARCOS VALDEZ M.D. Admission #: [id number] Family : Order #: [id number] CLICK HERE TO VIEW EXAM RADIOLOGY REPORT [...] Valdez MD on 12/27/2021 at 09:14 Normal [facility] VC CONSULT FOLLOWUPon 2021 VC CONSULT FOLLOWUP Patient: MARCOS LIU V. Exam Date: 12/25/2021 : 1980 Gender:Mallika Ordering : DR MARCOS VALDEZ M.D. Admission #: [id number] Family : Order #: [id number] CLICK HERE TO VIEW EXAM RADIOLOGY REPORT [...] Valdez MD on 12/25/2021 at 08:34 Normal [facility] VC EXT VENOUS TOR LIMITEDon 12-25-2021 VC EXT VENOUS TOR LIMITED Patient: MARCOS LIU V. Exam Date: 12/25/2021 : 1980 Gender:M Ordering : DR MARCOS VALDEZ M.D. Admission #: [id number] Family : Order #: [id number] CLICK HERE TO VIEW EXAM RADIOLOGY REPORT [...] Valdez MD on 12/25/2021 at 08:14 Normal [facility] VC INJ FOAM SCLERO W US MLTI on 12-19-2021 VC INJ FOAM SCLERO W US MLTI Patient: MARCOS LIU V. Exam Date: 12/19/2021 : 1980 Gender:M Ordering : DR MARCOS VALDEZ M.D. Admission #: [id number] Family : Order #: [id number] CLICK HERE TO VIEW EXAM RADIOLOGY REPORT [...] procedu (more content not included)... Normal [facility] VC INJ FOAM SCLERO W US MLTI on 12-15-2021 VC INJ FOAM SCLERO W US MLTI Patient: MARCOS LIU V. Exam Date: 12/15/2021 : 1980 Gender:M Ordering : DR MARCOS VALDEZ M.D. Admission #: [id number] Family : Order #: [id number] CLICK HERE TO VIEW EXAM RADIOLOGY REPORT [...] for (more content not included)... Normal [facility] VC CONSULT FOLLOWUPon 2021 VC CONSULT FOLLOWUP Patient: MARCOS LIU V. Exam Date: 12/05/2021 : 1980 Gender:M Ordering : DR MARCOS VALDEZ M.D. Admission #: [id number] Family : Order #: [id number] CLICK HERE [...] Valdez MD on 12/05/2021 at 10:58 Normal [facility] VC EXT VENOUS LT LIMITEDon 1 VC EXT VENOUS LT LIMITED Patient: MARCOS LIU V. Exam Date: 12/05/2021 : 1980 Gender:M Ordering : DR MARCOS VALDEZ M.D. Admission #: [id number] Family : Order #: [id number] CLICK HERE TO VIEW EXAM RADIOLOGY REPORT [...] Valdez MD on 12/05/2021 at 10:46 Normal [facility] VC ENDOVENOUS ABL 1ST V LTon 11-28-2021 VC ENDOVENOUS ABL 1ST V LT Patient: PAYAMMARCOS Jamey Exam Date: 11/28/2021 : 1980 Gender:M Ordering : DR MARCOS VALDEZ M.D. Admission #: [id number] Family : Order #: [id number] CLICK HERE TO VIEW EXAM RADIOLOGY REPORT [...] Albert May M.D. on 11/28/2021 at 15:48 [facility] VC CONSULT FOLLOWUPon 2021 VC CONSULT FOLLOWUP Patient: MARCOS LIU V. Exam Date: 11/21/2021 : 1980 Gender:M Ordering : DR MARCOS VALDEZ M.D. Admission #: [id number] Family : Order #: [id number] CLICK HERE [...] Valdez MD on 11/21/2021 at 14:57 Normal [facility] VC EXT VENOUS RT LIMITEDon 1 VC EXT VENOUS RT LIMITED Patient: MARCOS LIU V. Exam Date: 11/21/2021 : 1980 Gender:M Ordering : DR MARCOS VALDEZ M.D. Admission #: [id number] Family : Order #: [id number] CLICK HERE TO VIEW EXAM RADIOLOGY REPORT [...] MD on 11/21/2021 at 14:36 Normal [facility] TRANSFERRINon 11-15-2021 Transferrin [Mass/Vol] 214 mg/dL Normal 177-329 Th e [facility] Comment on above: Performed By: #### F ETIBC, FERR #### [facility] [address] [place] [address] Dr. Geovani Mcclendon CBC AUTO DIFFon 11-14-2021 BASO # 0.0 103/ul Normal 0.0-0.1 [facility] Comment on above: Performed By: #### F ETIBC, FERR #### [facility] [address] [place] [address] Dr. Geovani Mcclendon Basophils/100 WBC (Bld) 0.5 % Normal 0.2-2.0 [facility] Comment on above: Performed By: #### F ETIBC, FERR #### [facility] [address] [place] [address] Dr. Geovani Mcclendon EO # 0.1 103/ul Normal 0.0-0.7 [facility] Comment on above: Performed By: #### F ETIBC, FERR #### [facility] [address] [place] [address] Dr. Geovani Mcclendon Eosinophils/100 WBC (Bld) 1.4 % Normal 0.9-7.0 [facility] Comment on above: Performed By: #### F ETIBC, FERR #### [facility] [address] [place] [address] Dr. Geovani Mcclendon Erythrocyte distribution width (RBC) [Ratio] 13.2 % Normal 11.0-15.0 [facility] Comment on above: Performed By: #### F ETIBC, FERR #### [facility] [address] [place] [address] Dr. Geovani Mcclendon Hematocrit (Bld) [Volume fraction] 39.2 % Critically low 42.0-54.0 [facility] Comment on above: Performed By: #### F ETIBC, FERR #### [facility] [address] [address] [address] Geovani Mcclendon Hemoglobin (Bld) [Mass/Vol] 12.6 g/dL Critically low 14.0-18.0 [facility] Comment on above: Performed By: #### F ETIBC, FERR #### [facility] [address] [address] [address] Geovani Mcclendon IG # 0.02 10e3/ul Normal 0.00-0.03 [facility] Comment on above: Performed By: #### F ETIBC, FERR #### [facility] [address] [place] [address] Dr. Geovani Mcclendon IG % 0.2 % Normal 0.0-0.5 [facility] Comment on above: Performed By: #### F ETIBC, FERR #### [facility] [address] [place] [address] Dr. Geovani Mcclendon LYMPH # 1.7 103/ul Normal 1.2-3.8 [facility] Comment on above: Performed By: #### F ETIBC, FERR #### [facility] [address] [place] [address] Dr. Geovani Mcclendon Lymphocytes/100 WBC (Bld) 21.1 % Normal 20.5-60.0 [facility] Comment on above: Performed By: #### F ETIBC, FERR #### [facility] [address] [place] [address] Dr. Geovani Mcclendon MANUAL DIFF REQ NO Normal [facility] Comment on above: Performed By: #### F ETIBC, FERR #### [facility] [address] [place] [address] Dr. Geovani Mcclendon MCH (RBC) [Entitic mass] 28.0 pg Normal 25.9-34.0 [facility] Comment on above: Performed By: #### F ETIBC, FERR #### [facility] [address] [place] [address] Dr. Geovani Mcclendon MCHC (RBC) [Mass/Vol] 32.1 g/dL Normal 29.9-35.2 [facility] Comment on above: Performed By: #### F ETIBC, FERR #### [facility] [address] [place] [address] Dr. Geovani Mcclendon MCV (RBC) [Entitic vol] 87.1 fL Normal 80.0-94.0 [facility] Comment on above: Performed By: #### F ETIBC, FERR #### [facility] [address] [place] [address] Dr. Geovani Mcclendon MONO # 0.6 103/ul Normal 0.3-0.8 [facility] Comment on above: Performed By: #### F ETIBC, FERR #### [facility] [address] [place] [address] Dr. Geovani Mcclendon Monocytes/100 WBC (Bld) 7.2 % Normal 1.7-12.0 [facility] Comment on above: Performed By: #### F ETIBC, FERR #### [facility] [address] [place] [address] Dr. Geovani Mcclendon NEUT # 5.6 103/ul Normal 1.4-6.5 [facility] Comment on above: Performed By: #### F ETIBC, FERR #### [facility] [address] [place] [address] Dr. Geovani Mcclendon Neutrophils/100 WBC (Bld) 69.6 % Normal 43.0-75.0 [facility] Comment on above: Performed By: #### F ETIBC, FERR #### [facility] [address] [place] [address] Dr. Geovani Mcclendon Platelet mean volume (Bld) [Entitic vol] 9.1 fL Critically low 9.5-13.5 [facility] Comment on above: Performed By: #### F ETIBC, FERR #### [facility] [address] [place] [address] Dr. Geovani Mcclendon PLT 248 103/ul Normal 150-450 [facility] Comment on above: Performed By: #### F ETIBC, FERR #### [facility] [address] [place] [address] Dr. Geovani Mcclendon RBC 4.50 106/ul Critically low 4.70-6.10 [facility] Comment on above: Performed By: #### F ETIBC, FERR #### [facility] [address] [place] [address] Dr. Geovani Mcclendon WBC 8.0 103/ul Normal 4.0-11.0 [facility] Comment on above: Performed By: #### F ETIBC, FERR #### [facility] [address] [place] [address] Dr. Geovani Mcclendon FERRITINon 11-14-2021 Ferritin [Mass/Vol] 207.0 ng/mL Normal 26.0-388.0 [facility] Comment on above: Performed By: #### F ETIBC, FERR #### [facility] [address] [place] [address] Dr. Geovani Mcclendon IRON AND TIBCon 11-14-2021 % SATURATION 14.2 % Normal [facility] Comment on above: Performed By: #### F ETIBC, FERR #### [facility] [address] [place] [address] Dr. Geovani Mcclendon Iron [Mass/Vol] 33.0 ug/dL Critically low 65.0-175.[address] [facility] Comment on above: Performed By: #### F ETIBC, FERR #### [facility] [address] [place] [address] Dr. Geovani Mcclendon TIBC DIRECT 232.0 ug/dL Critically low 250.0-450.0 [facility] Comment on above: Performed By: #### F ETIBC, FERR #### [facility] [address] [place] [address] Dr. Geovani Mcclendon PROF CHEM 8 (BAS METB)on Anion gap [Moles/Vol] 7.0 mmol/L Normal [facility] Comment on above: Performed By: #### F ETIBC, FERR #### [facility] [address] [place] [address] Dr. Geovani Mcclendon Calcium [Mass/Vol] 8.8 mg/dL Normal 8.5-10.1 [facility] Comment on above: Performed By: #### F ETIBC, FERR #### [facility] [address] [address] [address] Geovani Mcclendon Chloride [Moles/Vol] 105 mmol/L Normal 98-107 [facility] Comment on above: Performed By: #### F ETIBC, FERR #### [facility] [address] [address] [address] Geovani Mcclendon CO2 [Moles/Vol] 31.1 mmol/L Normal 21.0-32.0 [facility] Comment on above: Performed By: #### F ETIBC, FERR #### [facility] [address] [address] [address] Geovani Mcclendon Creatinine [Mass/Vol] 0.86 mg/dL Normal 0.70-1.30 [facility] Comment on above: Performed By: #### F ETIBC, FERR #### [facility] [address] [place] [address] Dr. Geovani Mcclendon EGFR-AF SRI LANKAN >60 Normal >=60 [facility] Comment on above: Performed By: #### F ETIBC, FERR #### [facility] [address] [address] [address] Geovani Mcclendon EGFR-NON AF SRI LANKAN >60 Normal >=60 [facility] Comment on above: Performed By: #### F ETIBC, FERR #### [facility] [address] [place] [address] Dr. Geovani Mcclendon Glucose [Mass/Vol] 91 mg/dL Normal 74-106 [facility] Comment on above: Performed By: #### F ETIBC, FERR #### [facility] [address] [address] [address] Geovani Mcclendon Potassium [Moles/Vol] 4.1 mmol/L Normal 3.5-5.1 [facility] Comment on above: Performed By: #### F ETIBC, FERR #### [facility] [address] [address] [address] Geovani Mcclendon Sodium [Moles/Vol] 139 mmol/L Normal 136-145 [facility] Comment on above: Performed By: #### F ETIBC, FERR #### [facility] [address] [place], [place] [address] Dr. Geovani Mcclendon Urea nitrogen [Mass/Vol] 14.0 mg/dL Normal 7.0-18.0 [facility] Comment on above: Performed By: #### F ETIBC, FERR #### [facility] [address] [place], [place] [address] Dr. Geovani Mcclendon Urea nitrogen/Creatinine [Mass ratio] 16.3 mg/mg Normal [facility] Comment on above: Performed By: #### F ETIBC, FERR #### [facility] [address] [place], [place] [address] Dr. Geovani Mcclendon VC ENDOVENOUS ABL 1ST V RTon 11-14-2021 VC ENDOVENOUS ABL 1ST V RT Patient: MARCOS LIU V. Exam Date: 11/14/2021 : 1980 Gender:M Ordering : DR MARCOS VALDEZ M.D. Admission #: [id number] Family : Order #: [id number] CLICK HERE TO VIEW EXAM RADIOLOGY REPORT [...] Valdez MD on 11/14/2021 at 14:51 Normal [facility] XR LSPINE 2_3 VIEWSon 2021 XR LSPINE 2_3 VIEWS EXAMINATION: XR LSPINE 2_3 VIEWS HISTORY: Spinal stenosis of lumbar region r COMPARISON: No relevant comparison available. FINDINGS: BONES: 4 mm anterolisthesis of L5 in relation L4 and S1. Incomplete fusion posterior elements of L5. No significant spondylosis. Hbal-rt-hpazehom facet osteoarthropathy L5-S1 DISC SPACES: Disc space narrowing L4-L5 and L5-S1 PARASPINOUS: Negative. No paraspinous abnormality is seen. OTHER: Negative. IMPRESSION: Degenerative changes L4-S1 4 mm anterolisthesis of L5 Electronically authenticated by: MARCOS VALDEZ Date: 2021-10-25 07:15 Normal [facility] VC COMP CONSULTATIONon 10-10 VC COMP CONSULTATION Patient: MARCOS LIU V. Exam Date: 10/10/2021 : 1980 Gender:M Ordering : SHAIKH Cherelle JONES . 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 The patient's symptoms are partially relieved [...] Marcos Valdez MD on 10/10/2021 at 09:21 [facility] VC VENOUS REFLUX TOR LMTon 0 09-21-2021 VC VENOUS REFLUX TOR LMT Patient: MARCOS LIU V. Exam Date: 09/21/2021 : 1980 Gender:M Ordering : SHAIKH Cherelle JONES . Admission #: [id number] Family : Order #: [id number] CLICK HERE TO VIEW EXAM RADIOLOGY REPORT [...] thrombus. Compressibility: Normal. Flow: Deep venous reflux. Slider Assembler: Distal/medial lower leg perf measures 2.4mm with [...] Valdez MD on 09/21/2021 at 13:49 Normal [facility] ECHOCARDIO M/2D COMPLETEon 0 09-18-2021 ECHOCARDIO M/2D COMPLETE Patient: MARCOS LIU V. Exam Date: 09/18/2021 : 1980 Gender:M Ordering : SHAIKH Cherelle JONES . Admission #: [id number] Family : Order #: [id number] CLICK HERE TO VIEW EXAM ECHOCARDIOGRAM REPORT [...] Coleman M.D. on 09/19/2021 at 17:41 Normal [facility] XR TSPINE 3 VIEWSon 09-19-19 22 [...] MARCOS VALDEZ Date: 2021-09-18 17:44 Normal [facility] BNPon 09-12-2021 Natriuretic peptide B (Bld) [Mass/Vol] 71.0 pg/mL Normal <=450.0 [facility] Comment on above: Performed By: #### B RANGE OPERATOR, LIPID, CMP #### [facility] [address] [place] [address] Dr. Geovani Mcclendon CBC AUTO DIFFon 09-12-2021 BASO # 0.1 103/ul Normal 0.0-0.1 [facility] Comment on above: Performed By: #### F ETIBC, FERR #### [facility] [address] [place] [address] Dr. Geovani Mcclendon Basophils/100 WBC (Bld) 0.8 % Normal 0.2-2.0 [facility] Comment on above: Performed By: #### F ETIBC, FERR #### [facility] [address] [place] [address] Dr. Geovani Mcclendon EO # 0.2 103/ul Normal 0.0-0.7 [facility] Comment on above: Performed By: #### F ETIBC, FERR #### [facility] [address] [place] [address] Dr. Geovani Mcclendon Eosinophils/100 WBC (Bld) 3.1 % Normal 0.9-7.0 [facility] Comment on above: Performed By: #### F ETIBC, FERR #### [facility] [address] [place] [address] Dr. Geovani Mcclendon Erythrocyte distribution width (RBC) [Ratio] 13.5 % Normal 11.0-15.0 [facility] Comment on above: Performed By: #### F ETIBC, FERR #### [facility] [address] [place] [address] Dr. Geovani Mcclendon Hematocrit (Bld) [Volume fraction] 39.7 % Critically low 42.0-54.0 [facility] Comment on above: Performed By: #### F ETIBC, FERR #### [facility] [address] [place] [address] Dr. Geovani Mcclendon Hemoglobin (Bld) [Mass/Vol] 12.8 g/dL Critically low 14.0-18.0 [facility] Comment on above: Performed By: #### F ETIBC, FERR #### [facility] [address] [place] [address] Dr. Geovani Mcclendon IG # 0.02 10e3/ul Normal 0.00-0.03 [facility] Comment on above: Performed By: #### F ETIBC, FERR #### [facility] [address] [place] [address] Dr. Geovani Mcclendon IG % 0.3 % Normal 0.0-0.5 [facility] Comment on above: Performed By: #### F ETIBC, FERR #### [facility] [address] [place] [address] Dr. Geovani Mcclendon LYMPH # 1.2 103/ul Normal 1.2-3.8 [facility] Comment on above: Performed By: #### F ETIBC, FERR #### [facility] [address] [place] [address] Dr. Geovani Mcclendon Lymphocytes/100 WBC (Bld) 20.3 % Critically low 20.5-60.0 [facility] Comment on above: Performed By: #### F ETIBC, FERR #### [facility] [address] [place] [address] Dr. Geovani Mcclendon MANUAL DIFF REQ NO Normal [facility] Comment on above: Performed By: #### F ETIBC, FERR #### [facility] [address] [place] [address] Dr. Geovani Mcclendon MCH (RBC) [Entitic mass] 28.1 pg Normal 25.9-34.0 [facility] Comment on above: Performed By: #### F ETIBC, FERR #### [facility] [address] [place] [address] Dr. Geovani Mcclendon MCHC (RBC) [Mass/Vol] 32.2 g/dL Normal 29.9-35.2 [facility] Comment on above: Performed By: #### F ETIBC, FERR #### [facility] [address] [place] [address] Dr. Geovani Mcclendon MCV (RBC) [Entitic vol] 87.1 fL Normal 80.0-94.0 [facility] Comment on above: Performed By: #### F ETIBC, FERR #### [facility] [address] [place] [address] Dr. Geovani Mcclendon MONO # 0.5 103/ul Normal 0.3-0.8 [facility] Comment on above: Performed By: #### F ETIBC, FERR #### [facility] [address] [place] [address] Dr. Geovani Mcclendon Monocytes/100 WBC (Bld) 7.4 % Normal 1.7-12.0 [facility] Comment on above: Performed By: #### F ETIBC, FERR #### [facility] [address] [place] [address] Dr. Geovani Mcclendon NEUT # 4.1 103/ul Normal 1.4-6.5 [facility] Comment on above: Performed By: #### F ETIBC, FERR #### [facility] [address] [place] [address] Dr. Geovani Mcclendon Neutrophils/100 WBC (Bld) 68.1 % Normal 43.0-75.0 [facility] Comment on above: Performed By: #### F ETIBC, FERR #### [facility] [address] [place] [address] Dr. Geovani Mcclendon Platelet mean volume (Bld) [Entitic vol] 9.6 fL Normal 9.5-13.5 [facility] Comment on above: Performed By: #### F ETIBC, FERR #### [facility] [address] [address] [address] Geovani Mcclendon PLT 242 103/ul Normal 150-450 [facility] Comment on above: Performed By: #### F ETIBC, FERR #### [facility] [address] [place] [address] Dr. Geovani Mcclendon RBC 4.56 106/ul Critically low 4.70-6.10 [facility] Comment on above: Performed By: #### F ETIBC, FERR #### [facility] [address] [place] [address] Dr. Geovani Mcclendon WBC 6.1 103/ul Normal 4.0-11.0 [facility] Comment on above: Performed By: #### F ETIBC, FERR #### [facility] [address] [place] [address] Dr. Geovani Mcclendon GLYCOHEMOGLOBIN A1Con 2021 ADA RECOMMENDATION SEE BELOW Normal [facility] Comment on above: Result Comment: ADA RECOMMENDED LIMIT 4.0 - 6.0 ADA THERAPEUTIC TARGET < 7.0 ACTION SUGGESTED > 7.0 Performed By: #### F ETIBC, FERR #### [facility] [address] [place] [address] Dr. Geovani Mcclendon Glucose [Mass/Vol] 111 mg/dL Normal [facility] Comment on above: Performed By: #### F ETIBC, FERR #### [facility] [address] [place] [address] Dr. Geovani Mcclendon HbA1c (Bld) [Mass fraction] 5.5 % Normal 4.5-6.2 [facility] Comment on above: Performed By: #### F ETIBC, FERR #### [facility] [address] [address] [address] Geovani Mcclenodn LIPID PROFILEon 09-12-2021 CHOL-HDL RATIO NORM SEE BELOW Normal [facility] Comment on above: Result Comment: 3.3 - 4.4 LOW RISK 4.4 - 7.1 AVERAGE RISK 7.1 - 11.0 MODERATE RISK >11.0 HIGH RISK Performed By: #### B RANGE OPERATOR, LIPID, CMP #### [facility] [address] [address] [address] Geovani Mcclendon Cholesterol [Mass/Vol] 202 mg/dL Critically high <=200 [facility] Comment on above: Performed By: #### B RANGE OPERATOR, LIPID, CMP #### [facility] [address] [address] [address] Geovain Mcclendon Cholesterol in HDL [Mass/Vol] 41 mg/dL Normal 40-60 [facility] Comment on above: Performed By: #### B RANGE OPERATOR, LIPID, CMP #### [facility] [address] [address] [address] Geovani Mcclendon Cholesterol in LDL [Mass/Vol] 148.6 mg/dL Normal [facility] Comment on above: Performed By: #### B RANGE OPERATOR, LIPID, CMP #### [facility] [address] [address] [address] Geovani Mcclendon Cholesterol.total/Chol esterol in HDL [Mass ratio] 4.9 {ratio} Normal [facility] Comment on above: Performed By: #### B RANGE OPERATOR, LIPID, CMP #### [facility] [address] [address] [address] Geovani Mcclendon HDL NORMAL > or = 60 mg/dl - LOW CARDIOVASCULAR RISK <40 mg/dl - HIGH CARDIOVASCULAR RISK Normal [facility] Comment on above: Performed By: #### B RANGE OPERATOR, LIPID, CMP #### [facility] [address] [address] [address] Geovani Mcclendon LDL CALC NORMAL SEE BELOW Normal [facility] Comment on above: Result Comment: <100 mg/dl OPTIMAL 100 - 129 mg/dl NEAR OR ABOVE OPTIMAL 130 - 159 mg/dl BORDERLINE HIGH 160 - 189 mg/dl HIGH >190 mg/dl VERY HIGH Performed By: #### B RANGE OPERATOR, LIPID, CMP #### [facility] [address] [place] [address] Dr. Geovani Mcclendon Triglyceride [Mass/Vol] 62 mg/dL Normal <=150 [facility] Comment on above: Performed By: #### B RANGE OPERATOR, LIPID, CMP #### [facility] [address] [place] [address] Dr. Geovani Mcclendon VLDL CALC 12.4 mg/dL Normal [facility] Comment on above: Performed By: #### B RANGE OPERATOR, LIPID, CMP #### [facility] [address] [place] [address] Dr. Geovani Mcclendon PROF 14(COMP METB)on 022 Albumin [Mass/Vol] 3.4 g/dL Normal 3.4-5.0 [facility] Comment on above: Performed By: #### B RANGE OPERATOR, LIPID, CMP #### [facility] [address] [place] [address] Dr. Geovani Mcclendon Albumin/Globulin [Mass ratio] 0.9 {ratio} Normal [facility] Comment on above: Performed By: #### B RANGE OPERATOR, LIPID, CMP #### [facility] [address] [place] [address] Dr. Geovani Mcclendon ALP [Catalytic activity/Vol] 57 U/L Normal 46-116 [facility] Comment on above: Performed By: #### B RANGE OPERATOR, LIPID, CMP #### [facility] [address] [place] [address] Dr. Geovani Mcclendon ALT [Catalytic activity/Vol] 34 U/L Normal 16-63 [facility] Comment on above: Performed By: #### B RANGE OPERATOR, LIPID, CMP #### [facility] [address] [place] [address] Dr. Geovani Mcclendon Anion gap [Moles/Vol] 9.2 mmol/L Normal [facility] Comment on above: Performed By: #### B RANGE OPERATOR, LIPID, CMP #### [facility] [address] [place] [address] Dr. Geovani Mcclendon AST [Catalytic activity/Vol] 16 U/L Normal 15-37 [facility] Comment on above: Performed By: #### B RANGE OPERATOR, LIPID, CMP #### [facility] [address] [place] [address] Dr. Geovani Mcclendon Bilirubin [Mass/Vol] 0.4 mg/dL Normal 0.2-1.0 [facility] Comment on above: Performed By: #### B RANGE OPERATOR, LIPID, CMP #### [facility] [address] [place] [address] Dr. Geovani Mcclendon Calcium [Mass/Vol] 8.5 mg/dL Normal 8.5-10.1 [facility] Comment on above: Performed By: #### B RANGE OPERATOR, LIPID, CMP #### [facility] [address] [place] [address] Dr. Geovani Mcclendon Chloride [Moles/Vol] 106 mmol/L Normal 98-107 [facility] Comment on above: Performed By: #### B RANGE OPERATOR, LIPID, CMP #### [facility] [address] [place] [address] Dr. Geovani Mcclendon CO2 [Moles/Vol] 30.4 mmol/L Normal 21.0-32.0 [facility] Comment on above: Performed By: #### B RANGE OPERATOR, LIPID, CMP #### [facility] [address] [place] [address] Dr. Geovani Mcclendon Creatinine [Mass/Vol] 0.77 mg/dL Normal 0.70-1.30 [facility] Comment on above: Performed By: #### B RANGE OPERATOR, LIPID, CMP #### [facility] [address] [place] [address] Dr. Geovani Mcclendon EGFR-AF SRI LANKAN >60 Normal >=60 [facility] Comment on above: Performed By: #### B RANGE OPERATOR, LIPID, CMP #### [facility] [address] [place] [address] Dr. Geovani Mcclendon EGFR-NON AF SRI LANKAN >60 Normal >=60 [facility] Comment on above: Performed By: #### B RANGE OPERATOR, LIPID, CMP #### [facility] [address] [address] [address] Geovani Mcclendon Globulin (S) [Mass/Vol] 3.6 g/dL Normal [facility] Comment on above: Performed By: #### B RANGE OPERATOR, LIPID, CMP #### [facility] [address] [place] [address] Dr. Geovani Mcclendon Glucose [Mass/Vol] 93 mg/dL Normal 74-106 [facility] Comment on above: Performed By: #### B RANGE OPERATOR, LIPID, CMP #### [facility] [address] [place] [address] Dr. Geovani Mcclendon Potassium [Moles/Vol] 4.6 mmol/L Normal 3.5-5.1 [facility] Comment on above: Performed By: #### B RANGE OPERATOR, LIPID, CMP #### [facility] [address] [place] [address] Dr. Geovani Mcclendon Protein [Mass/Vol] 7.0 g/dL Normal 6.4-8.2 [facility] Comment on above: Performed By: #### B RANGE OPERATOR, LIPID, CMP #### [facility] [address] [place] [address] Dr. Geovani Mcclendon Sodium [Moles/Vol] 141 mmol/L Normal 136-145 [facility] Comment on above: Performed By: #### B RANGE OPERATOR, LIPID, CMP #### [facility] [address] [place] [address] Dr. Geovani Mcclendon Urea nitrogen [Mass/Vol] 17.0 mg/dL Normal 7.0-18.0 [facility] Comment on above: Performed By: #### B RANGE OPERATOR, LIPID, CMP #### [facility] [address] [place] [address] Dr. Geovani Mcclendon Urea nitrogen/Creatinine [Mass ratio] 22.1 mg/mg Normal [facility] Comment on above: Performed By: #### B RANGE OPERATOR, LIPID, CMP #### [facility] [address] [place] [address] Dr. Geovani Mcclendon XR ANKLE RT MIN 3 VIEWSon XR ANKLE RT MIN 3 VIEWS EXAM: XR ANKLE RT MIN 3 VIEWS HISTORY: Pain after fall COMPARISON: None. TECHNIQUE: 3 views FINDINGS: No osseous lesion, fracture, dislocation or subluxation. Joint spaces are normal. No visualized effusion. No visualized soft tissue edema. IMPRESSION: Normal x-rays Electronically authenticated by: MARCOS GONZALES Date: 2021-07-10 20:42 Normal [facility] Vital Signs Date Time Vital Sign Value Performing Clinician Facility 09-14-2024 18:19-0400 Body mass index (BMI) [Ratio] 42.23 kg/m2 Josefina Vaz RANGE OPERATOR Work Phone: [facility] 09-14-2024 18:19-0400 Body temperature 98.29 [degF] Josefina Camposedithz RANGE OPERATOR Work Phone: [facility] 09-14-2024 18:19-0400 Body weight 141.25 kg Josefina Vaz RANGE OPERATOR Work Phone: [facility] 09-14-2024 18:19-0400 Diastolic blood pressure 88 mm[Hg] Josefina Vaz RANGE OPERATOR Work Phone: [facility] 09-14-2024 18:19-0400 Heart rate 96 /min Josefinamariangel Ramirezz RANGE OPERATOR Work Phone: [facility] 09-14-2024 18:19-0400 Respiratory rate 20 /min Josefina Ramirezz RANGE OPERATOR Work Phone: [facility] 09-14-2024 18:19-0400 SaO2% (BldA) [Mass fraction] 95 % Josefina Vaz RANGE OPERATOR Work Phone: [facility] 09-14-2024 18:19-0400 Systolic blood pressure 132 mm[Hg] Josefina Ramirezz RANGE OPERATOR Work Phone: [facility] 08-12-2024 18:38-0400 Body mass index (BMI) [Ratio] 42.83 kg/m2 Josefina Ramirezz RANGE OPERATOR Work Phone: [facility] 08-12-2024 18:38-0400 Body temperature 98.49 [degF] Josefina Aichholz RANGE OPERATOR Work Phone: [facility] 08-12-2024 18:38-0400 Body weight 143.25 kg Josefina Aichholz RANGE OPERATOR Work Phone: [facility] 08-12-2024 18:38-0400 Diastolic blood pressure 78 mm[Hg] Josefina Aichholz RANGE OPERATOR Work Phone: [facility] 08-12-2024 18:38-0400 Heart rate 83 /min Josefina Aichholz RANGE OPERATOR Work Phone: [facility] 08-12-2024 18:38-0400 Respiratory rate 20 /min Josefina Aichholz RANGE OPERATOR Work Phone: [facility] 08-12-2024 18:38-0400 SaO2% (BldA) [Mass fraction] 98 % Josefina Aichholz RANGE OPERATOR Work Phone: [facility] 08-12-2024 18:38-0400 Systolic blood pressure 116 mm[Hg] Josefina Aichholz RANGE OPERATOR Work Phone: [facility] 07-15-2024 17:56-0400 Body mass index (BMI) [Ratio] 43.37 kg/m2 Josefina Aichholz RANGE OPERATOR Work Phone: [facility] 07-15-2024 17:56-0400 Body temperature 98.1 [degF] Josefina Aichholz RANGE OPERATOR Work Phone: [facility] 07-15-2024 17:56-0400 Body weight 145.06 kg Josefina Aichholz RANGE OPERATOR Work Phone: [facility] 07-15-2024 17:56-0400 Diastolic blood pressure 80 mm[Hg] Josefina Aichholz RANGE OPERATOR Work Phone: [facility] 07-15-2024 17:56-0400 Heart rate 80 /min Jsoefina Aichholz RANGE OPERATOR Work Phone: [facility] 07-15-2024 17:56-0400 Respiratory rate 18 /min Josefina Aichholz RANGE OPERATOR Work Phone: [facility] 07-15-2024 17:56-0400 SaO2% (BldA) [Mass fraction] 94 % Josefina Ramirezz RANGE OPERATOR Work Phone: [facility] 07-15-2024 17:56-0400 Systolic blood pressure 110 mm[Hg] Josefina Andresholz RANGE OPERATOR Work Phone: [facility] 05-25-2024 17:41-0400 Body height 182.9 cm Josefina Andresholz RANGE OPERATOR Work Phone: [facility] 05-25-2024 17:41-0400 Body mass index (BMI) [Ratio] 45.41 kg/m2 Josefina Andresholz RANGE OPERATOR Work Phone: [facility] 05-25-2024 17:41-0400 Body temperature 97.9 [degF] Josefina Andresedithz RANGE OPERATOR Work Phone: [facility] 05-25-2024 17:41-0400 Body weight 151.86 kg Josefina Andresholz RANGE OPERATOR Work Phone: [facility] 05-25-2024 17:41-0400 Diastolic blood pressure 78 mm[Hg] Josefina Andresholz RANGE OPERATOR Work Phone: [facility] 05-25-2024 17:41-0400 Heart rate 72 /min Josefina Andresholz RANGE OPERATOR Work Phone: [facility] 05-25-2024 17:41-0400 Respiratory rate 18 /min Josefina Andresholz RANGE OPERATOR Work Phone: [facility] 05-25-2024 17:41-0400 SaO2% (BldA) [Mass fraction] 94 % Josefina Andresholz RANGE OPERATOR Work Phone: [facility] 05-25-2024 17:41-0400 Systolic blood pressure 118 mm[Hg] Josefina Pérezhholz RANGE OPERATOR Work Phone: [facility] 03-30-2024 17:53-0500 Body height 182.9 cm Josefinamariangel Ortezhholz RANGE OPERATOR Work Phone: [facility] 03-30-2024 17:53-0500 Body mass index (BMI) [Ratio] 47.5 kg/m2 Josefinamariangel Camposholz RANGE OPERATOR Work Phone: [facility] 03-30-2024 17:53-0500 Body temperature 98.01 [degF] Josefina Andresholz RANGE OPERATOR Work Phone: [facility] 03-30-2024 17:53-0500 Body weight 158.85 kg Josefina Andresholz RANGE OPERATOR Work Phone: [facility] 03-30-2024 17:53-0500 Diastolic blood pressure 86 mm[Hg] Josefina Ramirezz RANGE OPERATOR Work Phone: [facility] 03-30-2024 17:53-0500 Heart rate 82 /min Josefinamariangel Ramirezz RANGE OPERATOR Work Phone: [facility] 03-30-2024 17:53-0500 SaO2% (BldA) [Mass fraction] 98 % Josefina Andresholz RANGE OPERATOR Work Phone: [facility] 03-30-2024 17:53-0500 Systolic blood pressure 122 mm[Hg] Josefina Camposholz RANGE OPERATOR Work Phone: [facility] 01-27-2024 18:06-0500 Body height 182.9 cm Josefina Camposholz RANGE OPERATOR Work Phone: [facility] 01-27-2024 18:06-0500 Body mass index (BMI) [Ratio] 46.09 kg/m2 Josefina Andresholz RANGE OPERATOR Work Phone: [facility] 01-27-2024 18:06-0500 Body temperature 98.49 [degF] Josefina Andresholz RANGE OPERATOR Work Phone: [facility] 01-27-2024 18:06-0500 Body weight 154.13 kg Josefina Andresholz RANGE OPERATOR Work Phone: [facility] 01-27-2024 18:06-0500 Diastolic blood pressure 82 mm[Hg] Josefina Aichholz RANGE OPERATOR Work Phone: [facility] 01-27-2024 18:06-0500 Heart rate 82 /min Josefina Aichholz RANGE OPERATOR Work Phone: [facility] 01-27-2024 18:06-0500 Respiratory rate 20 /min Josefina Aichholz RANGE OPERATOR Work Phone: [facility] 01-27-2024 18:06-0500 SaO2% (BldA) [Mass fraction] 97 % Josefina Aichholz RANGE OPERATOR Work Phone: [facility] 01-27-2024 18:06-0500 Systolic blood pressure 120 mm[Hg] Josefina Aichholz RANGE OPERATOR Work Phone: [facility] 12-18-2023 17:59-0500 Body height 182.9 cm Josefina Aichholz RANGE OPERATOR Work Phone: [facility] 12-18-2023 17:59-0500 Body mass index (BMI) [Ratio] 45.57 kg/m2 Josefina Aichholz RANGE OPERATOR Work Phone: [facility] 12-18-2023 17:59-0500 Body temperature 97.81 [degF] Josefina Aichholz RANGE OPERATOR Work Phone: [facility] 12-18-2023 17:59-0500 Body weight 152.41 kg Josefina Aichholz RANGE OPERATOR Work Phone: [facility] 12-18-2023 17:59-0500 Diastolic blood pressure 90 mm[Hg] Josefina Aichholz RANGE OPERATOR Work Phone: [facility] 12-18-2023 17:59-0500 Heart rate 70 /min Josefina Aichholz RANGE OPERATOR Work Phone: [facility] 12-18-2023 17:59-0500 Respiratory rate 19 /min Josefina Aichholz RANGE OPERATOR Work Phone: [facility] 12-18-2023 17:59-0500 SaO2% (BldA) [Mass fraction] 97 % Josefina Vaz RANGE OPERATOR Work Phone: [facility] 12-18-2023 17:59-0500 Systolic blood pressure 130 mm[Hg] Josefina Vaz RANGE OPERATOR Work Phone: [facility] 05-01-2022 10:30-0400 Body weight 109.77 kg Claudio Cavazosky Other [facility] Other 05-01-2022 10:30-0400 Diastolic blood pressure 84 mm[Hg] Claudio Pugh Other [facility] Other 05-01-2022 10:30-0400 SaO2% (BldA) [Mass fraction] 92 % Claudio Pugh Other [facility] Other 05-01-2022 10:30-0400 Systolic blood pressure 122 mm[Hg] Claudio Pugh Other [facility] Other Encounters Encounter Date Encounter Type Care Provider Facility Start: 10-07-2024 End: 10-07-2024 ambulatory Patricio DICKEY Facility:[facility] Start: 10-07-2024 End: 10-07-2024 Patient encounter procedure Patricio DICKEY [facility] [place] Start: 09-15-2024 ambulatory Patricio DICKEY Facility:[facility] Start: 09-14-2024 End: 09-14-2024 Office outpatient visit 25 minutes Josefina Vaz RANGE OPERATOR Work Phone: [facility] Comment on above: Essential hypertensi on (Primary Dx); ALEXANDRO (obstructive sleep apnea); Morbid (severe) obesity due to excess calories ([facility]); RUBEN (generalized anxiety disorder) ; Colon cancer screening; Body mass index (BMI) 45.0-49.9, adult ([facility] [place] Start: 09-14-2024 End: 09-14-2024 ambulatory JOSEFINA AICHHOLZ Not Available Start: 09-14-2024 End: 09-14-2024 Bamboo flowsheet Josefina Andresholz RANGE OPERATOR Work Phone: [facility] Start: 09-14-2024 End: 09-14-2024 Bamboo flowsheet Josefina Татьяна RANGE OPERATOR Work Phone: [facility] Start: 08-12-2024 End: 08-12-2024 Office outpatient visit 15 minutes Ojsefina Татьяна RANGE OPERATOR Work Phone: [facility] Comment on above: Essential hypertensi on (Primary Dx); Morbid (severe) obesity due to excess calories ([facility]); Bilateral impacted cerumen; Body mass index (BMI) 45.0-49.9, adult ([facility] [place] RUBEN (generalized anxiety disorder) ; Edema of both lower extremities Start: 08-12-2024 End: 08-12-2024 ambulatory JOSEFINA AICHHOLZ Not Available Start: 08-12-2024 End: 08-12-2024 Bamboo flowsheet Josefina Татьяна RANGE OPERATOR Work Phone: [facility] Start: 08-12-2024 End: 08-12-2024 Bamboo flowsheet Josefina Татьяна RANGE OPERATOR Work Phone: [facility] Start: 08-04-2024 End: 08-04-2024 Refill Josefina Татьяна RANGE OPERATOR Work Phone: [facility] Comment on above: Morbid (severe) obes ity due to excess calories ([facility]); Body mass index (BMI) 45.0-49.9, adult ([facility] [place] Start: 07-15-2024 End: 07-15-2024 Office outpatient visit 25 minutes Josefina Татьяна RANGE OPERATOR Work Phone: [facility] Comment on above: Essential hypertensi on (CMS/HCC) (Primary Dx); ALEXANDRO (obstructive sleep apnea); Morbid (severe) obesity due to excess calories (CMS/HCC); Body mass index (BMI) 45.0-49.9, adult (CMS/HCC); RUBEN (generalized anxiety disorder) (CMS/HCC); Edema of both lower extremities; Bilateral impacted cerumen Start: 07-15-2024 End: 07-15-2024 ambulatory JOSEFINA AICHHOLZ Not Available Start: 07-15-2024 End: 07-15-2024 Bamboo flowsheet Josefina Ashleyz RANGE OPERATOR Work Phone: [facility] Start: 07-15-2024 End: 07-15-2024 Bamboo flowsheet Josefina Ashleyz RANGE OPERATOR Work Phone: [facility] Start: 07-01-2024 End: 07-01-2024 Refill Josefina Aiclinhholz RANGE OPERATOR Work Phone: [facility] Comment on above: Vitamin D deficiency Start: 06-29-2024 End: 06-29-2024 Refill Josefina Aichholz RANGE OPERATOR Work Phone: [facility] Comment on above: Morbid (severe) obes ity due to excess calories (CMS/HCC); Body mass index (BMI) 45.0-49.9, adult (CMS/HCC) Start: 05-25-2024 End: 05-25-2024 Office outpatient visit 15 minutes Josefinamariangel Vaz RANGE OPERATOR Work Phone: [facility] Comment on above: Essential hypertensi on (CMS/HCC) (Primary Dx); Edema of both lower extremities; Morbid (severe) obesity due to excess calories (CMS/HCC); Body mass index (BMI) 45.0-49.9, adult (CMS/HCC) Start: 05-25-2024 End: 05-25-2024 ambulatory JOSEFINA AICHHOLZ Not Available Start: 05-25-2024 End: 05-25-2024 Bamboo flowsheet Josefina Aichholz RANGE OPERATOR Work Phone: [facility] Start: 05-25-2024 End: 05-25-2024 Bamboo flowsheet Josefina Татьяна RANGE OPERATOR Work Phone: [facility] Start: 04-05-2024 End: 04-05-2024 Telephone encounter Josefina Ortezbritt RANGE OPERATOR Work Phone: [facility] Start: 03-30-2024 End: 03-30-2024 Office outpatient visit 25 minutes Josefina Татьяна RANGE OPERATOR Work Phone: [facility] Comment on above: Essential hypertensi on (CMS/HCC) (Primary Dx); Morbid (severe) obesity due to excess calories (CMS/HCC); Body mass index (BMI) 45.0-49.9, adult (CMS/HCC); Asymptomatic microscopic hematuria; Vitamin D deficiency; RUBEN (generalized anxiety disorder) (CMS/HCC) Start: 03-30-2024 End: 03-30-2024 ambulatory JOSEFINA ТАТЬЯНА Not Available Start: 03-30-2024 End: 03-30-2024 Bamboo flowsheet Josefina Татьяна RANGE OPERATOR Work Phone: [facility] Start: 03-30-2024 End: 03-30-2024 Bamboo flowsheet Josfeina Pérezlinhmartin RANGE OPERATOR Work Phone: [facility] Start: 03-04-2024 End: 03-04-2024 Clinisync Result Encounter Josefina Татьяна RANGE OPERATOR Work Phone: [facility] Unsolicited Start: 03-04-2024 End: 03-04-2024 Clinisync Result Encounter Josefina Татьяна RANGE OPERATOR Work Phone: [facility] Unsolicited Start: 03-04-2024 End: 03-04-2024 Refill Josefina Татьяна RANGE OPERATOR Work Phone: [facility] Comment on [...] Office outpatient visit 25 minutes Josefina Vaz RANGE OPERATOR Work Phone: [facility] Comment on above: Essential hypertensi on (CMS/HCC) (Primary Dx); Edema of both lower extremities; Morbid (severe) obesity due to excess calories (CMS/HCC); Neoplasm of uncertain behavior of nose; RUBEN (generalized anxiety disorder) (CMS/HCC); Tongue lesion Start: 01-27-2024 End: 01-27-2024 Bamboo flowsheet Josefina Vaz RANGE OPERATOR Work Phone: [facility] Start: 01-27-2024 End: 01-27-2024 Bamboo flowsheet Josefina Vaz RANGE OPERATOR Work Phone: [facility] Start: 12-18-2023 End: 12-18-2023 Office outpatient visit 25 minutes Josefina Vaz RANGE OPERATOR Work Phone: [facility] Comment on above: Essential hypertensi on (CMS/HCC) (Primary Dx); Morbid (severe) obesity due to excess calories (CMS/HCC); ALEXANDRO (obstructive sleep apnea); RUBEN (generalized anxiety disorder) (CMS/HCC); Vitamin D deficiency; Edema of both lower extremities Start: 12-18-2023 End: 12-18-2023 ambulatory JOSEFINA VAZ Not Available Start: 12-18-2023 End: 12-18-2023 Bamboo flowsheet Josefina Vaz RANGE OPERATOR Work Phone: [facility] Start: 12-18-2023 End: 12-18-2023 Bamboo flowsheet Josefina Vaz RANGE OPERATOR Work Phone: [facility] Start: 05-02-2022 End: 05-02-2022 ambulatory Claudio Pugh Other [facility] Other Start: 05-02-2022 Telephone encounter Claudio Lexy [facility] Start: 05-01-2022 End: 05-01-2022 ambulatory Claudio Pugh Other [facility] Other Start: 05-01-2022 Office consultation new/estab patient 60 min Claudio Lexy [facility] Start: 04-17-2022 End: 04-18-2022 ambulatory MELODY STOCKA ТАТЬЯНА Facility:[facility] Start: 03-09-2022 End: 03-10-2022 ambulatory SHAIKH Linh JONES Facility:[facility] Start: 03-06-2022 End: 03-07-2022 ambulatory [employer] EQUIPMENT REPAIRER JOSEFINA ANDRESHOLZ Facility:[facility] Start: 02-23-2022 End: 02-24-[address] ELUETERIO FRANKEL Facility:[facility] Start: 01-03-2022 End: 01-04-2022 ambulatory [...] Start: 11-14-2021 End: 11-15-2021 ambulatory LEES H FAWWARahda Facility:[facility] Start: 11-14-2021 End: 11-15-[address] [...] ALL CBC WITH AUTO DIFF Josefina Татьяна RANGE OPERATOR Work Phone: Start: 01-30-2024 CRYOTHERAPY SKIN LESION [...] Start: 08-12-2024 End: 08-12-2024 Patient encounter procedure [facility] Comment on above: Essential hypertensi on (Primary Dx); Morbid (severe) obesity due to excess calories (CMS-HCC); Bilateral impacted cerumen Start: 08-10-2024 Influenza vaccination Influenza Vacc ine (#1) [facility] Comment on above: Postponed from 10/12 (Patient Refused) Start: 07-15-2024 End: 07-15-2024 Patient encounter procedure [facility] Comment on above: ALEXANDRO (obstructive sle ep apnea) (Primary Dx); Essential hypertension (CMS/HCC); Morbid (severe) obesity due to excess calories (CMS/HCC); Body mass index (BMI) 45.0-49.9, adult (CMS/HCC) Start: 05-25-2024 End: 05-25-2024 Patient encounter procedure 05/25/2024 6:00 PM EDT Office Visit [facility] [address] [place] [address] Josefina Vaz NP [address] [place] [address] ALEXANDRO (obstructive sleep apnea) (Primary Dx); Essential hypertension (CMS/HCC); Edema of both lower extremities; Morbid (severe) obesity due to excess calories (CMS/HCC); Body mass index (BMI) 45.0-49.9, adult (CMS/HCC) [facility] Comment on above: ALEXANDRO (obstructive sle ep apnea) (Primary Dx); Essential hypertension (CMS/HCC); Edema of both lower extremities; Morbid (severe) obesity due to excess calories (CMS/HCC); Body mass index (BMI) 45.0-49.9, adult (CMS/HCC) Start: 04-27-2024 End: 04-27-2024 Patient encounter procedure 04/27/2024 6:30 PM EDT Office Visit [facility] [address] [place] [address] Josefina Vaz NP [address] [place] [address] [facility] Start: 04-04-2024 End: 03-04-2025 Bacteria identified in Urine by Culture Urine culture (clean catch) Microbiology Routine Asymptomatic microscopic hematuria Expected: 04/04/2024 (Approximate), Expires: 03/04/2025 [facility] Comment on above: Expected: 04/04/2024 (Approximate), Expires: 03/04/2025 Start: 04-04-2024 End: 03-04-2025 Urinalysis complete panel - Urine Urinalysis with reflex microscopic (clean catch) Lab Routine Asymptomatic microscopic hematuria Expected: 04/04/2024 (Approximate), Expires: 03/04/2025 [facility] Work Phone: Comment on above: Expected: 04/04/2024 (Approximate), Expires: 03/04/2025 Start: 03-30-2024 End: 03-30-2024 Patient encounter procedure [facility] Comment on above: Essential hypertensi on (CMS/HCC) (Primary Dx); Morbid (severe) obesity due to excess calories (CMS/HCC); Body mass index (BMI) 45.0-49.9, adult (CMS/HCC); Asymptomatic microscopic hematuria; Vitamin D deficiency; RUBEN (generalized anxiety disorder) (CMS/HCC) Start: 01-30-2024 End: 01-30-2024 Patient encounter procedure 01/30/2024 10:30 AM EST Office Visit [facility] [address] [place] [address] Adalberto Mercer PA [address] [place] [address] Neoplasm of uncertain behavior of nose; Tongue lesion [facility] Comment on above: 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; Tongue lesion Start: 01-27-2024 End: 01-27-2024 Patient encounter procedure 01/27/2024 6:00 PM EST Office Visit [facility] [address] [place] [address] Josefina Vaz, RANGE OPERATOR [address] [place] [phone] [facility] Start: 12-18-2023 End: 12-18-2023 Patient encounter procedure 12/18/2023 6:00 PM EST Office Visit [facility] [address] [place] [address] Josefina Vaz, GBAY [address] [place] [phone] ALEXANDRO (obstructive sleep apnea) (Primary Dx); Morbid (severe) obesity due to excess calories (CMS/HCC); Essential hypertension (CMS/HCC); RUBEN (generalized anxiety disorder) (CMS/HCC); Vitamin D deficiency [facility] Comment on above: ALEXANDRO (obstructive sle ep apnea) (Primary Dx); Morbid (severe) obesity due to excess calories (CMS/HCC); Essential hypertension (CMS/HCC); RUBEN (generalized anxiety disorder) (CMS/HCC); Vitamin D deficiency Start: 12-18-2023 End: 12-17-2024 25-hydroxyvitamin D3 [Mass/volume] in Serum or Plasma Vitamin D 25 hydroxy Lab Routine Vitamin D deficiency Expected: 12/18/2023 (Approximate), Expires: 12/17/2024 [facility] Comment on above: Expected: 12/18/2023 (Approximate), Expires: 12/17/2024 Start: 12-18-2023 End: 12-17-2024 CBC W Auto Differential panel - Blood CBC and differential Lab Routine ALEXANDRO (obstructive sleep apnea) Essential hypertension (CMS/HCC) Expected: 12/18/2023 (Approximate), Expires: 12/17/2024 [facility] Work Phone: Comment on above: Expected: 12/18/2023 (Approximate), Expires: 12/17/2024 Start: 12-18-2023 End: 12-17-2024 Comprehensive metabolic 2000 panel - Serum or Plasma Comprehensive metabolic panel Lab Routine Morbid (severe) obesity due to excess calories (CMS/HCC) Essential hypertension (CMS/HCC) RUBEN (generalized anxiety disorder) (CMS/HCC) Vitamin D deficiency Expected: 12/18/2023 (Approximate), Expires: 12/17/2024 [facility] Comment on above: Expected: 12/18/2023 (Approximate), Expires: 12/17/2024 Start: 12-18-2023 End: 12-17-2024 Hemoglobin A1c/Hemoglobin.total in Blood Hemoglobin A1c Lab Routine Morbid (severe) obesity due to excess calories (CMS/HCC) Expected: 12/18/2023 (Approximate), Expires: 12/17/2024 [facility] Comment on above: Expected: 12/18/2023 (Approximate), Expires: 12/17/2024 Start: 12-18-2023 End: 12-17-2024 Lipid 1996 panel - Serum or Plasma Lipid panel Lab Routine Morbid (severe) obesity due to excess calories (CMS/HCC) Expected: 12/18/2023 (Approximate), Expires: 12/17/2024 [facility] Comment on above: Expected: 12/18/2023 (Approximate), Expires: 12/17/2024 Start: 12-18-2023 End: 12-17-2024 Microalbumin/Creatinine panel in random Urine Microalbumin / creatinine, urine ratio Lab Routine Essential hypertension (CMS/HCC) Expected: 12/18/2023 (Approximate), Expires: 12/17/2024 [facility] Comment on above: Expected: 12/18/2023 (Approximate), Expires: 12/17/2024 Start: 12-18-2023 End: 12-17-2024 Thyrotropin [Units/volume] in Serum or Plasma TSH Lab Routine RUBEN (generalized anxiety disorder) (CMS/HCC) Expected: 12/18/2023 (Approximate), Expires: 12/17/2024 [facility] Comment on above: Expected: 12/18/2023 (Approximate), Expires: 12/17/2024 Start: 12-18-2023 End: 11-06-2025 Urinalysis complete panel - Urine Urinalysis with reflex microscopic (clean catch) Lab Routine Essential hypertension (CMS/HCC) Expected: 12/18/2023 (Approximate), Expires: 12/17/2024 [facility] Comment on above: Expected: 12/18/2023 (Approximate), Expires: 12/17/2024 Start: 10-13-2023 Influenza vaccination Influenza Vacc ine (#1) [facility] Start: 1980 Screening for malign ant neoplasm of colon [facility] Immunizations Immunization Date Immunization Notes Care Provider Fa cility 08-03-2022 tetanus toxoid, redu pamela diphtheria toxoid, and acellular pertussis vaccine, adsorbed Josefina Aiceliasz RANGE OPERATOR Work Phone: [facility] 01-15-2021 SARS-CoV-2 (COVID-19 ) mRNA-1273 vaccine Patricio DICKEY [facility] 12-18-2020 SARS-CoV-2 (COVID-19 ) mRNA-1273 vaccine Patricio DICKEY [facility] 11-08-2016 influenza, injectabl e, quadrivalent, contains preservative Josefina Aichholz RANGE OPERATOR Work Phone: [facility] 11-08-2016 influenza virus vaccine, unspecified formulation Josefina Aichholz RANGE OPERATOR Work Phone: [facility] 06-17-2009 hepatitis B vaccine, pediatric or pediatric/adolescent dosage Josefina Aichholz RANGE OPERATOR Work Phone: [facility] 05-10-2009 hepatitis B vaccine, pediatric or pediatric/adolescent dosage Josefina Aichholz RANGE OPERATOR Work Phone: [facility] Payers Date Payer Category Payer Private Health Insurance [id number] 1980 Unknown [id number] 2.16.84 [id number] 1979 Unknown [id number] 2.16.84 0.1.295279.3.579.2.593 1979 Unknown [id number] 2.16.84 0.1.652500.3.579.2.593 1979 Unknown [id number] 2.16.84 0.1.311848.3.579.2.593 1979 Unknown [id number] 2.16.84 0.1.877171.3.579.2.593 1979 Unknown [id number] 2.16.84 0.1.224292.3.579.2.593 1979 Unknown [id number] 2.16.84 0.1.018104.3.579.2.593 1979 Unknown [id number] .16.84 0.1.484643.3.579.2.593 1979 Unknown [id number] .16.84 0.1.759773.3.579.2.593 1979 Unknown [id number] 2.16.84 0.1.601120.3.579.2.593 1979 Unknown [id number] .16.84 0.1.384764.3.579.2.593 1979 Unknown [id number] 2.16.84 0.1.433522.3.579.2.593 1979 Unknown [id number] .16.84 0.1.689703.3.579.2.593 1979 Unknown [id number] 2.16.84 0.1.817931.3.579.2.593 1979 Unknown [id number] 2.16.84 0.1.955347.3.579.2.593 1979 Unknown [id number] .16.84 0.1.979356.3.579.2.593 1979 Unknown [id number] .16.84 0.1.959983.3.579.2.593 1979 Unknown [id number] 2.16.84 0.1.698553.3.579.2.593 1979 Unknown [id number] 2.16.84 0.1.124336.3.579.2.593 1979 Unknown [id number] 2.16.84 0.1.115213.3.579.2.593 1979 Unknown [id number] 2.16.84 0.1.368889.3.579.2.59 1979 Unknown [id number] 2.16.84 [id number] 1979 Unknown [id number] 2.16.84 0.1.445758.3.579.2.593 1979 Unknown [id number] 2.16.84 0.1.045648.3.579.2.59 1979 Unknown [id number] 2.16.84 0.1.338172.3.579.2.59 1979 Unknown [id number] 2.16.8 40.1.090520.3.579.2.1258 1979 Unknown [id number] 2.16.8 40.1.110415.3.579.2.1258 1979 Unknown [id number] 2.16.8 40.1.109038.3.579.2.1258 1979 Unknown [id number] .16.84 0.1.354700.3.579.2.1258 1979 Unknown [id number] 2.16.84 0.1.991628.3.579.2.1258 1979 Unknown [id number] .16.84 0.1.064913.3.579.2.1258 1979 Unknown [id number] 2.16.84 0.1.164112.3.579.2.1258 1979 Unknown [id number] 2.16.84 0.1.803949.3.579.2.1259 1979 Unknown [id number] 2.16.8 [id number] 1959 Unknown [id number] Social History Date Type Detail Facility Start: 12-18-2023 End: 03-30-2024 [facility] Start: [...] to any clubs or organizations such as orthodox groups, unions, fraternal or athletic groups, or [...] on time? No [facility] Sexual Orientation [facility] General Surgery [place] Start: 05-25-2009 Sex Male (finding) [facility] Clinical Notes 05-01-2022 to 10-07-2024 Josefina Vaz NP - 09/14/2024 6:30 PM Verna Vaz NP - 09/14/2024 7:56 AM Verna Vaz, RANGE OPERATOR - 09/14/2024 7:55 AM DAYSIElie Vaz, GABY [...] Recorded SARS-CoV-2 (COVID-19) (more content not included)... [facility] Comment on above: Result Comment: Elec [...] Morbid (severe) obesity due to excess calories ([facility]) Discussed with patient their BMI (actual, verses [...] Diagnoses Body mass index (BMI) 45.0-49.9, adult ([facility] [place] Relevant Medications phentermine (Adipex-P) 37.5 MG tablet [...] Morbid (severe) obesity due to excess calories ([facility] [place] Discussed with patient their BMI (actual, verses [...] your ALEXANDRO: PCP documented in this encounter [facility] 09-14-2024 Instructions Josefina Vaz NP - 09/14/2024 6:30 PM EDT Referral to Dr Dickey for colonoscopy documented in this encounter [facility] 08-12-2024 History of Present illness Narrative [...] compliance problems. There is no history of CAD/VA, heart failure or PVD. SUBJECTIVE: MEDICATIONS: Current [...] Diagnoses Body mass index (BMI) 45.0-49.9, adult ([facility] [place] Relevant Medications phentermine (Adipex-P) 37.5 MG tablet Associated Problem(s): Morbid (severe) obesity due to excess calories ([facility] [place] Discussed with patient their BMI (actual, verses [...] Current meds: lisinopril documented in this encounter [facility] 07-15-2024 History of Present illness Narrative [...] your ALEXANDRO: PCP RUBEN (generalized anxiety disorder) ([facility]) Relevant Medications escitalopram (Lexapro) 10 MG tablet Morbid (severe) obesity due to excess calories ([facility]) Discussed with patient their BMI (actual, verses [...] for weight loss. Pt meets qualifications of [facility] 4730-12-15 for weight loss. BMI>30 or >27 [...] RESOLVED: Body mass index (BMI) 45.0-49.9, adult ([facility]) Relevant Medications phentermine (Adipex-P) 37.5 MG tablet Bilateral impacted cerumen Irrigated bilat ears with water pick [place] used as well Right canal clear, not left OTC debrox use prior to next appt will attempt flush of left canal Associated Problem(s): Morbid (severe) obesity due to excess calories ([facility]) Discussed with patient their BMI (actual, verses [...] your ALEXANDRO: PCP documented in this encounter [facility] 07-15-2024 Instructions Josefina Vaz NP - 07/15/2024 6:00 PM EDT Keep up the great work with adipex Debrox: over the counter, use this in the left ear as directed for a few days prior to your next appointment and I will try to irrigate the left ear again documented in this encounter [facility] 04-05-2024 Telephone encounter Note ----- Message from Josefina Vaz sent at 03/04/2024 3:25 PM EST ----- Regarding: urine repeat Repeat urine in 1month [facility] 04-05-2024 Miscellaneous Notes ----- Message from Josefina Vaz sent at 03/04/2024 3:25 PM EST ----- Regarding: urine repeat Repeat urine in 1month documented in this encounter [facility] 03-30-2024 History of Present illness Narrative [...] Currently prescribed vit d 2,000 units daily RUBEN (generalized anxiety disorder) (CMS/HCC) Last appt started on lexapro at 10mg daily Morbid (severe) obesity due to excess calories ([facility]) Discussed with patient their BMI (actual, verses [...] time Body mass index (BMI) 45.0-49.9, adult ([facility]) Relevant Medications phentermine (Adipex-P) 37.5 MG tablet Semaglutide-Weight Management (Wegovy) 0.25 MG/0.5ML solution auto-injector Associated Problem(s): RUBEN (generalized anxiety disorder) ([facility]) Last appt started on lexapro at 10mg daily Associated Problem(s): Vitamin D deficiency Currently prescribed vit d 2,000 units daily Associated Problem(s): Morbid (severe) obesity due to excess calories ([facility]) Discussed with patient their BMI (actual, verses [...] Current meds: lisinopril documented in this encounter [facility] 03-30-2024 Instructions Josefina Vaz NP - 03/30/2024 6:00 PM EST Start adipex. Notify office with any symptoms of chest pain, dyspnea, heart palpitations, or any anxiety symptoms. F/U in 4 weeks to document weight loss. Increase physical activity as tolerated, and lower caloric intake to 1600 calories daily if no contraindications [facility] for weight loss: go on line and complete their seminar and go from there I will try to either get GLP 1: zepbound or wegovy approved documented in this encounter [facility] 01-30-2024 History of Present illness Narrative [...] limited to risks of scarring, darker or secretarial teacher pigmentary changes, recurrence, incomplete removal and infection. [...] any new/changing lesions documented in this encounter [facility] 01-27-2024 History of Present illness Narrative Associated Problem(s): Tongue lesion Will see if dermatology will evaluate May need oral surgeon or ENT will wait to see Associated Problem(s): RUBEN (generalized anxiety disorder) ([facility]) Would like to restart lexapro at 10mg [...] compliance problems. There is no history of CAD/VA. Edema Presents with chronic edema. The current [...] needs lab completed documented in this encounter [facility] 01-27-2024 Instructions Josefina Vaz NP - [...] if these occur. documented in this encounter [facility] 12-18-2023 History of Present illness Narrative Associated Problem(s): RUBEN (generalized anxiety disorder) ([facility]) At this point wants to remain off [...] List Items Addressed This Visit Essential hypertension ([facility]) Restart his lisinopril, check labs Please check [...] D 25 hydroxy RUBEN (generalized anxiety disorder) (CMS/[facility]) At this point wants to remain off meds feels good Has a different job, more money, less stress, less hours Relevant Orders Comprehensive metabolic panel TSH Morbid (severe) obesity due to excess calories ([facility]) Discussed with patient their BMI (actual, verses [...] Morbid (severe) obesity due to excess calories ([facility]) Discussed with patient their BMI (actual, verses recommended). We have also discussed lifestyle modifications: attempts to perform physical activity as chronic conditions allow, also to monitor dietary intake: increasing protein/fruits/veggies and lowering carb intake (unless contraindicated). Limit sodas, juices, and sugary drinks. Having more polyuria/polydipsia as well check a1c Associated Problem(s): Essential hypertension ([facility]) Restart his lisinopril, check labs Please check blood pressure daily and record DASH diet Limit caffeine Take medication as directed Contact office if chest pain, pressure, dizziness, shortness of breath, swelling legs Recommend slow position changes documented in this encounter [facility] 12-18-2023 Instructions Josefina Vaz NP - 12/18/2023 6:00 PM EST Restart lasix and lisinopril After about 10 days on lasix get labs done Take CPAP supplies order to [facility], I also need a down load compliance report faxed to me: [phone] documented in this encounter [facility] 05-01-2022 Evaluation note Encounter Date Diagnosis [...] negative findings were considered in medical decision-making. [facility] Other Evaluation + Plan note No data available for this section [facility] General Surgery [place] Evaluation noteNo InformationNort [employer] Other Evaluation note* Diagnosis Essential hypertension (CMS/HCC)- [...] Morbid (severe) obesity due to excess calories ([facility]) Body mass index (BMI) 45.0-49.9, adult ([facility]) Asymptomatic microscopic hematuria Vitamin D deficiency RUBEN (generalized anxiety disorder) ([facility]) Generalized anxiety disorder [facility] Diagnosis Essential hypertension ([facility]/HCC)- Primary Unspecified essential hypertension Morbid (severe) obesity due to excess calories ([facility]/HCC) ALEXANDRO (obstructive sleep apnea) Obstructive sleep apnea (adult) (pediatric) RUBEN (generalized anxiety disorder) ([facility]/HCC) Generalized anxiety disorder Vitamin D deficiency Edema of both lower extremities Essential hypertension ([facility]/HCC)- Primary Unspecified essential hypertension Edema of both lower extremities Morbid (severe) obesity due to excess calories ([facility]) Neoplasm of uncertain behavior of nose RUBEN (generalized anxiety disorder) ([facility]) Generalized anxiety disorder Tongue lesion Unspecified condition of the tongue Essential hypertension ([facility]/HCC)- Primary Unspecified essential hypertension Morbid (severe) obesity due to excess calories ([facility]) Body mass index (BMI) 45.0-49.9, adult ([facility]) Asymptomatic microscopic hematuria Vitamin D deficiency RUBEN (generalized anxiety disorder) ([facility]) Generalized anxiety disorder Essential hypertension ([facility]/HCC)- Primary Unspecified essential hypertension Edema of both lower extremities Morbid (severe) obesity due to excess calories ([facility]) Body mass index (BMI) 45.0-49.9, adult ([facility]) documented in this encounter [facility] Healthcare[facility]* Diagnosis Essential hypertension ([facility]/HCC)- Primary Unspecified essential hypertension Morbid (severe) obesity due to excess calories ([facility]) ALEXANDRO (obstructive sleep apnea) Obstructive sleep apnea (adult) (pediatric) RUBEN (generalized anxiety disorder) ([facility] Generalized anxiety disorder Vitamin D deficiency Edema of both lower extremities Essential hypertension ([facility]/HCC)- Primary Unspecified essential hypertension Edema of both lower extremities Morbid (severe) obesity due to excess calories ([facility]) Neoplasm of uncertain behavior of nose RUBEN (generalized anxiety disorder) ([facility]/HCC) Generalized anxiety disorder Tongue lesion Unspecified condition of the tongue Essential hypertension ([facility]/HCC)- Primary Unspecified essential hypertension Morbid (severe) obesity due to excess calories ([facility]) Body mass index (BMI) 45.0-49.9, adult ([facility]/HCC) Asymptomatic microscopic hematuria Vitamin D deficiency RUBEN [...] behavior of nose RUBEN (generalized anxiety disorder) ([facility]/HCC) Generalized anxiety disorder Tongue lesion Unspecified condition of the tongue Essential hypertension (CMS/HCC)- Primary Unspecified essential hypertension Morbid (severe) obesity due to excess calories (CMS/HCC) Body mass index (BMI) 45.0-49.9, adult ([facility]CC) Asymptomatic microscopic hematuria Vitamin D deficiency RUBEN (generalized anxiety disorder) (CMS/HCC) Generalized anxiety disorder Essential hypertension (CMS/HCC)- Primary Unspecified essential hypertension Edema of both lower extremities Morbid (severe) obesity due to excess calories (CMS/HCC) Body mass index (BMI) 45.0-49.9, adult ([facility]/HCC) Vitamin D deficiency [facility] Diagnosis Essential hypertension (CMS/HCC)- Primary Unspecified essential hypertension Morbid (severe) obesity due to excess calories (CMS/HCC) ALEXANDRO (obstructive sleep apnea) Obstructive sleep apnea (adult) (pediatric) RUBEN (generalized anxiety disorder) ([facility]/HCC) Generalized anxiety disorder Vitamin D deficiency Edema [...] (CMS/HCC) Body mass index (BMI) 45.0-49.9, adult ([facility]) Asymptomatic microscopic hematuria Vitamin D deficiency RUBEN (generalized anxiety disorder) (CMS/HCC) Generalized anxiety disorder Essential hypertension (CMS/HCC)- Primary Unspecified essential hypertension Edema of both lower extremities Morbid (severe) obesity due to excess calories ([facility]) Body mass index (BMI) 45.0-49.9, adult (CMS/HCC) Essential hypertension (CMS/HCC)- Primary Unspecified essential hypertension ALEXANDRO (obstructive sleep apnea) Obstructive sleep apnea (adult) (pediatric) Morbid (severe) obesity due to excess calories ([facility]) Body mass index (BMI) 45.0-49.9, adult ([facility]) RUBEN (generalized anxiety disorder) (CMS/HCC) Generalized anxiety disorder Edema of both lower extremities Bilateral impacted cerumen Impacted cerumen [facility] Diagnosis Essential hypertension- Primary Unspecified essential hypertension Morbid (severe) obesity due to excess calories ([facility]) ALEXANDRO (obstructive sleep apnea) Obstructive sleep apnea (adult) (pediatric) RUBEN (generalized anxiety disorder) Generalized anxiety disorder Vitamin D deficiency Edema of both lower extremities Essential hypertension- Primary Unspecified essential hypertension Edema of both lower extremities Morbid (severe) obesity due to excess calories ([facility]) Neoplasm of uncertain behavior of nose RUBEN (generalized anxiety disorder) Generalized anxiety disorder Tongue lesion Unspecified condition of the tongue Essential hypertension- Primary Unspecified essential hypertension Morbid (severe) obesity due to excess calories ([facility]) Body mass index (BMI) 45.0-49.9, adult ([facility]) Asymptomatic microscopic hematuria Vitamin D deficiency RUBEN (generalized anxiety disorder) Generalized anxiety disorder Essential hypertension- Primary Unspecified essential hypertension Edema of both lower extremities Morbid (severe) obesity due to excess calories ([facility]) Body mass index (BMI) 45.0-49.9, adult ([facility]) Essential hypertension- Primary Unspecified essential hypertension ALEXANDRO (obstructive sleep apnea) Obstructive sleep apnea (adult) (pediatric) Morbid (severe) obesity due to excess calories ([facility]) Body mass index (BMI) 45.0-49.9, adult ([facility]) RUBEN (generalized anxiety disorder) Generalized anxiety disorder Edema of both lower extremities Bilateral impacted cerumen Impacted cerumen Morbid (severe) obesity due to excess calories ([facility]) Body mass index (BMI) 45.0-49.9, adult ([facility] [place] [facility] Diagnosis Essential hypertension- Primary Unspecified essential hypertension Morbid (severe) obesity due to excess calories ([facility] [place] ALEXANDRO (obstructive sleep apnea) Obstructive sleep apnea (adult) (pediatric) RUBEN (generalized anxiety disorder) Generalized anxiety disorder Vitamin D deficiency Edema of both lower extremities Essential hypertension- Primary Unspecified essential hypertension Edema of both lower extremities Morbid (severe) obesity due to excess calories ([facility] [place]) Neoplasm of uncertain behavior of nose RUBEN (generalized anxiety disorder) Generalized anxiety disorder Tongue lesion Unspecified condition of the tongue Essential hypertension- Primary Unspecified essential hypertension Morbid (severe) obesity due to excess calories ([facility]) Body mass index (BMI) 45.0-49.9, adult ([facility] [place]) Asymptomatic microscopic hematuria Vitamin D deficiency RUBEN (generalized anxiety disorder) Generalized anxiety disorder Essential hypertension- Primary Unspecified essential hypertension Edema of both lower extremities Morbid (severe) obesity due to excess calories ([facility]) Body mass index (BMI) 45.0-49.9, adult ([facility] [place]) Essential hypertension- Primary Unspecified essential hypertension ALEXANDRO (obstructive sleep apnea) Obstructive sleep apnea (adult) (pediatric) Morbid (severe) obesity due to excess calories ([facility]) Body mass index (BMI) 45.0-49.9, adult ([facility] [place]) RUBEN (generalized anxiety disorder) Generalized anxiety disorder Edema of both lower extremities Bilateral impacted cerumen Impacted cerumen Essential hypertension- Primary Unspecified essential hypertension Morbid (severe) obesity due to excess calories ([facility]) Bilateral impacted cerumen Impacted cerumen Body mass index (BMI) 45.0-49.9, adult ([facility] [place]) RUBEN (generalized anxiety disorder) Generalized anxiety disorder Edema of both lower extremities [facility] Diagnosis Essential hypertension- Primary Unspecified essential hypertension Morbid (severe) obesity due to excess calories ([facility] [place]) ALEXANDRO (obstructive sleep apnea) Obstructive sleep apnea (adult) (pediatric) RUBEN (generalized anxiety disorder) Generalized anxiety disorder Vitamin D deficiency Edema of both lower extremities Essential hypertension- Primary Unspecified essential hypertension Edema of both lower extremities Morbid (severe) obesity due to excess calories ([facility] [place]) Neoplasm of uncertain behavior of nose RUBEN (generalized anxiety disorder) Generalized anxiety disorder Tongue lesion Unspecified condition of the tongue Essential hypertension- Primary Unspecified essential hypertension Morbid (severe) obesity due to excess calories ([facility]) Body mass index (BMI) 45.0-49.9, adult ([facility] [place]) Asymptomatic microscopic hematuria Vitamin D deficiency RUBEN (generalized anxiety disorder) Generalized anxiety disorder Essential hypertension- Primary Unspecified essential hypertension Edema of both lower extremities Morbid (severe) obesity due to excess calories ([facility]) Body mass index (BMI) 45.0-49.9, adult ([facility] [place]) Essential hypertension- Primary Unspecified essential hypertension ALEXANDRO (obstructive sleep apnea) Obstructive sleep apnea (adult) (pediatric) Morbid (severe) obesity due to excess calories ([facility]) Body mass index (BMI) 45.0-49.9, adult ([facility] [place]) RUBEN (generalized anxiety disorder) Generalized anxiety disorder Edema of both lower extremities Bilateral impacted cerumen Impacted cerumen Essential hypertension- Primary Unspecified essential hypertension Morbid (severe) obesity due to excess calories ([facility]) Bilateral impacted cerumen Impacted cerumen Body mass index (BMI) 45.0-49.9, adult ([facility] [place] RUBEN (generalized anxiety disorder) Generalized anxiety disorder Edema of both lower extremities Essential hypertension- Primary Unspecified essential hypertension ALEXANDRO (obstructive sleep apnea) Obstructive sleep apnea (adult) (pediatric) Morbid (severe) obesity due to excess calories ([facility] RUBEN (generalized anxiety disorder) Generalized anxiety disorder Colon cancer screening Special screening for malignant neoplasms, colon Body mass index (BMI) 45.0-49.9, adult ([facility] [place] documented in this encounter [facility] HealthcareHistory general Narrative - Reported* Type Description Date Medical History back pain Medical History restless leg syndrome Medical History sleep apnea Surgical History vasectomy [facility] Other History of Present illness Narrative* Josefina [...] that manages your ALEXANDRO: [facility] No data available for this section [facility] Surgery [place] Progress note No data available for this section [facility] General Surgery [place] Summary Purpose Family History No Family History [...] and content) DATE CREATED AUTHOR 04/21/2022 [facility] DATE CREATED AUTHOR AUTHOR'S ORGANIZ ATION 09/17/2024 [facility] EPIC DATE CREATED AUTHOR AUTHOR'S ORGANIZ ATION 10/08/2024 [facility] REASON FOR VISIT (unrecogniz ed section and content) Reason Comments Suspicious Skin Lesion Specialty Diagnoses / Procedures Referred By Hank alfaro Referred To Contact Dermatology Diagnoses Neoplasm of uncertain behavior of nose Tongue lesion Procedures [place] OFFICE/OUTPATIENT [facility] Josefina Vaz NP [address] [place] [address] Phone: tel: fax: Poornima Quintanilla, 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 MANAGER-[employer]QU[employer]MENT REPA[employer]ER [address] [place] [address] Phone: tel: fax: Referral ID Status Reason Start Date Expiration Date V isits Requested Visits Authorized [id number] Closed Specialty Services Required 01/27/2024 07/25/2024 1 1 Reason Onset Date Comments Med Refill 07/01/2024 Reason Comments Hypertension Reason Comments Hypertension Reason Comments Hypertension Care Teams (unrecognized sec tion and content) Oncology Radiation Physician Relationship Specialty Start Date End Date Eleuterio Frankel MD [address] [place] [address] PCP - General Family Medicine 12/12/23 Josefina Vaz NP [address] [place] [address] Nurse Practitioner Family Medicine 12/03/23 Oncology Radiation Physician Relationship Specialty Start Date End Date Eleuterio Frankel MD [address] [place] [phone] PCP - General Family Medicine 12/12/23 Josefina Vaz NP [address] [place] [address] Nurse Practitioner Family Medicine 12/03/23 Oncology Radiation Physician Relationship Specialty Start Date End Date Eleuterio Frankel MD [address] [place] [phone] PCP - General Family Medicine 12/12/23 Josefina Vaz NP [address] [place] [address] Nurse Practitioner Family Medicine 12/03/23 Oncology Radiation Physician Relationship Specialty Start Date End Date Eleuterio Frankel MD [address] [place] [phone] PCP - General Family Medicine 12/12/23 Josefina Vaz NP [address] [place] [address] Nurse Practitioner Family Medicine 12/03/23 Oncology Radiation Physician Relationship Specialty Start Date End Date Eleuterio Frankel MD [address] [place] [address] PCP - General Family Medicine 12/12/23 Josefina Vaz NP [address] [place] [address] Nurse Practitioner Family Medicine 12/03/23 Oncology Radiation Physician Relationship Specialty Start Date End Date Eleuterio Frankel MD [address] [place] [address] PCP - General Family Medicine 12/12/23 Josefina Vaz NP [address] [place] [address] Nurse Practitioner Family Medicine 12/03/23 Oncology Radiation Physician Relationship Specialty Start Date End Date Eleuterio Frankel MD [address] [place] [address] PCP - General Family Medicine 12/12/23 Josefina Vaz NP [address] [place] [address] Nurse Practitioner Family Medicine 12/03/23 Oncology Radiation Physician Relationship Specialty Start Date End Date Eleuterio Frankel MD [address] [place] [address] PCP - General Family Medicine 12/12/23 Josefina Vaz NP [address] [place] [address] Nurse Practitioner Family Medicine 12/03/23 Oncology Radiation Physician Relationship Specialty Start Date End Date Eleuterio Frankel MD [address] [place] [address] PCP - General Family Medicine 12/12/23 Adalberto Mercer PA [address] [place] [address] PCP - Medical [employer] 09/02/23 02/10/99 Josefina Vaz NP [address] [place] [address] Nurse Practitioner Family Medicine 12/03/23 Oncology Radiation Physician Relationship Specialty Start Date End Date Eleuterio Frankel MD [address] [place] [phone] PCP - General Family Medicine 12/12/23 Adalberto Mercer PA [address] [place] [address] PCP - Medical [employer] 09/02/23 02/10/99 Josefina Vaz NP [address] [place] [address] Nurse Practitioner Family Medicine 12/03/23 Oncology Radiation Physician Relationship Specialty Start Date End Date Eleuterio Frankel MD [address] [place] [phone] PCP - General Family Medicine 12/12/23 Adalberto Mercer PA [address] [place] [address] PCP - Medical [employer] 09/02/23 02/10/99 Josefina Vaz NP [address] [place] [phone] Nurse Practitioner Family Medicine 12/03/23 Oncology Radiation Physician Relationship Specialty Start Date End Date Eleuterio Frankel MD [address] [place] [phone] PCP - General Family Medicine 12/12/23 Adalberto Mercer PA [address] [place] [address] PCP - Medical [employer] 09/02/23 02/10/99 Josefina Vaz, GABY [address] [place] [phone] Nurse Practitioner Family Medicine 12/03/23 Oncology Radiation Physician Relationship Specialty Start Date End Date Eleuterio Frankel MD [address] [place] [phone] PCP - General Family Medicine 12/12/23 Adalberto Mercer PA [address] [place] [address] PCP - Medical [employer] 09/02/23 02/10/99 Josefina Vaz NP [address] [place] [address] Nurse Practitioner Family Medicine 12/03/23 Oncology Radiation Physician Relationship Specialty Start Date End Date Eleuterio Frankel MD [address] [place] [address] PCP - General Family Medicine 12/12/23 Adalberto Mercer PA [address] [place] [address] PCP - Medical [employer] 09/02/23 02/10/99 Josefina Vaz NP [address] [place] [address] Nurse Practitioner Family Medicine 12/03/23 Oncology Radiation Physician Relationship Specialty Start Date End Date Eleuterio Frankel MD [address] [place] [address] PCP - General Family Medicine 12/12/23 Adalberto Mercer PA [address] [place] [address] PCP - Medical [employer] 09/02/23 02/10/99 Josefina Vaz NP [address] [place] [address] Nurse Practitioner Family Medicine 12/03/23 Oncology Radiation Physician Relationship Specialty Start Date End Date Eleuterio Frankel MD [address] [place] [phone] PCP - General Family Medicine 12/12/23 Adalberto Mercer PA [address] [place] [address] PCP - Medical [employer] 09/02/23 02/10/99 Josefina Vaz NP [address] [place] [address] Nurse Practitioner Family Medicine 12/03/23 Oncology Radiation Physician Relationship Specialty Start Date End Date Eleuterio Frankel MD [address] [place] [phone] PCP - General Family Medicine 12/12/23 Adalberto Mercer PA [address] [place] [address] PCP - Medical [employer] 09/02/23 02/10/99 Josefina Vaz, GABY [address] [place] [address] Nurse Practitioner Family Medicine 12/03/23 Oncology Radiation Physician Relationship Specialty Start Date End Date Eleuterio Frankel MD [address] [place] [phone] PCP - General Family Medicine 12/12/23 Adalberto Mercer PA [address] [place] [address] PCP - Medical [employer] 09/02/23 02/10/99 Josefina Vaz NP [address] [place] [address] Nurse Practitioner Family Medicine 12/03/23 Oncology Radiation Physician Relationship Specialty Start Date End Date Eleuterio Frankel MD [address] [place] [address] PCP - General Family Medicine 12/12/23 Adalberto Mercer PA [address] [place] [address] PCP - Medical [employer] 09/02/23 02/10/99 Josefina Vaz NP [address] [place] [address] Nurse Practitioner Family Medicine 12/03/23 Oncology Radiation Physician Relationship Specialty Start Date End Date Eleuterio Frankel MD [address] [place] [address] PCP - General Family Medicine 12/12/23 Adalberto Mercer PA [address] [place] [address] PCP - Medical [employer] 09/02/23 02/10/99 Josefina Vaz NP [address] [place] [address] Nurse Practitioner Family Medicine 12/03/23 Oncology Radiation Physician Relationship Specialty Start Date End Date Eleuterio Frankel MD [address] [place] [phone] PCP - General Family Medicine 12/12/23 Adalberto Mercer PA [address] [place] [address] PCP - Medical [employer] 09/02/23 02/10/99 Josefina Vaz NP [address] [place] [address] Nurse Practitioner Family [facility] 12/03/23 Oncology Radiation Physician Relationship Specialty Start Date End Date Eleuterio Frankel MD [address] [place] [phone] PCP - General Family Medicine 12/12/23 Adalberto Mercer PA [address] [place] [address] PCP - [facility] 09/02/23 02/10/99 Josefina Vaz NP [address] [place] [phone] Nurse Practitioner Family Medicine 12/03/23 FOR RECORDS [...] BASED ON THE PRIMARY CLINICAL RECORDS. [employer] [facility]. provides no warranty or guarantee of the accuracy or completeness of information in this document.
[2024-11-25 06:40] VITALS: BP 105/58; PULSE 55; TEMP 36.4; O2SAT 95; BMI 40.0
[2024-11-25 07:39] VITALS: BP 110/52; PULSE 61; TEMP 36.2; O2SAT 95
[2024-11-25 07:55] VITALS: BP 101/48; PULSE 64; O2SAT 96
[2024-11-25 08:10] VITALS: BP 121/68; PULSE 65; O2SAT 98
== END 2024-11-25 08:15 | disposition home or self-care (01) ==
LOC: SURGOUT 06:28
PROVIDERS: PCP Family Medicine; Visit Provider Surgery
PROC: (CPT 812; principal; 2024-11-25 07:30)
DX: Z12.11 Encounter for screening for malignant neoplasm of colon (principal); Z80.0 Family history of malignant neoplasm of digestive organs; K21.9 Gastro-esophageal reflux disease without esophagitis; G47.33 Obstructive sleep apnea (adult) (pediatric); I10 Essential (primary) hypertension; F41.9 Anxiety disorder, unspecified; F32.A Depression, unspecified
CPT/HCPCS: 45378; J2371; J2704